=== PATIENT | female | born 1990 | race Caucasian/White ===

== ENCOUNTER 2023-11-24 03:26 | Inpatient (IN) | payer OTHER, SELFPAY ==
[2023-11-24] VITALS (13 sets, daily range): BP systolic 110–147; BP diastolic 66–84; PULSE 120–150; RESP 16–30; TEMP 36.4–37.9; O2SAT 93–98; BMI 21.9
--- NOTE | 2023-11-24 | ECG_ITS ---
Test Reason : TACHYCARDIA Blood Pressure : / mmHG Vent. Rate : 125 BPM Atrial Rate : 125 BPM P-R Int : 142 ms QRS Dur : 108 ms QT Int : 330 ms P-R-T Axes : 069 050 047 degrees QTc Int : 476 ms Sinus tachycardia Possible Left atrial enlargement RSR' or QR pattern in V1 suggests right ventricular conduction delay Borderline ECG No previous ECGs available Referred By: Generic ED Physician Electronically Signed By:VARINDER BARCENAS
--- NOTE | ~2023-11-24 | XR_ITS ---
EXAMINATION: XR CHEST CLINICAL INFORMATION: Status post chest tube removal COMPARISON: Multiple previous chest radiographs, most recent, 12/11 5:51 AM. TECHNIQUE: Frontal view of the chest was obtained. FINDINGS: 2 left-sided chest tubes have been removed. No definite pneumothorax. No change in postoperative left hemithorax with perihilar clips, mid and lower lobe opacity and left apical anastomotic suture line. Nodular density overlying the second anterior rib not seen previously, possibly superimposed soft tissue. Right lung remains clear. Bony structures are intact. XR/XR chest 1V IMPRESSION: No pneumothorax status post left chest tube removals. Otherwise stable postoperative left hemithorax.
--- NOTE | ~2023-11-24 | XR_ITS ---
EXAMINATION: XR CHEST CLINICAL INFORMATION: Status post left lower lobectomy COMPARISON: Chest x-ray on 12/06/2023 TECHNIQUE: Frontal view of the chest was obtained. FINDINGS: Cardiomediastinal silhouette is stable. There is residual left basilar atelectasis and pleural fluid consistent with recent lobectomy. There is a surgical staple line in the left upper chest. There are 2 left-sided chest tubes which are in position. The amount of left pleural air has decreased somewhat compared to the prior exam. XR/XR chest 1V IMPRESSION: 1. Continued decrease in the amount of left pleural air. 2. Left basilar atelectasis and pleural fluid.
--- NOTE | ~2023-11-24 | XR_ITS ---
EXAMINATION: XR CHEST CLINICAL INFORMATION: Lobectomy. COMPARISON: Chest radiograph 12/09/2023. TECHNIQUE: AP view of the chest was obtained. FINDINGS: Stable postsurgical changes in the left lung with suture chains projecting over the left upper lung and multiple surgical clips projecting over the left hilum. Similar positioning of 2 apically oriented left-sided chest tubes. Stable mild residual left-sided hydropneumothorax. Unchanged airspace opacities projecting over the left mid and lower lung. Clear right lung. Stable appearance of the cardiomediastinal silhouette. Similar trace residual subcutaneous emphysema in the left chest wall. No acute osseous findings. XR/XR chest 1V IMPRESSION: No significant change compared to 10/09/2024.
--- NOTE | ~2023-11-24 | XR_ITS ---
EXAMINATION: XR CHEST CLINICAL INFORMATION: Status post left lower lobe resection COMPARISON: Chest portable chest 12/04/2023 at 12:57 PM TECHNIQUE: AP upright portable view of the chest was obtained at 1402 p.m. FINDINGS: The patient is rotated on the AP view. 2 chest tubes are present in the left thorax with their tips at the left apex. There is slight decrease in previously noted large left pneumothorax with significant left pneumothorax remaining. Multiple surgical clips overlie the left hilum. Anastomotic sutures are seen in the left upper lung. Interval removal of endotracheal tube. Interval improvement in patchy opacity in the right lung with mild patchy opacity seen in the right upper lobe. Opacity at the left lung base possibly represents fluid XR/XR chest 1V IMPRESSION: Interval decrease in large left pneumothorax with significant pneumothorax remaining. Interval removal of endotracheal tube. Interval improvement in patchy opacity in the right lung. New opacity at the left lung base which may represent fluid.
--- NOTE | ~2023-11-24 | XR_ITS ---
EXAMINATION: XR CHEST CLINICAL INFORMATION: Missed count COMPARISON: 12/02/2023 TECHNIQUE: Frontal view of the chest was obtained. FINDINGS: 2 chest tubes are present in the left thorax with their tips at the left apex. A large left pneumothorax is seen. Multiple surgical clips overlie the left nancy, new since the prior study. There is also a new chain suture line in the superior aspect of the remaining lung. An ET tube is present about 2 cm above the anabella. Some mild interstitial prominence is present in the right lung. XR/XR chest 1V IMPRESSION: Postoperative changes as described above with large left pneumothorax and 2 left-sided chest tubes in place.
--- NOTE | ~2023-11-24 | US_ITS ---
EXAMINATION: US ABDOMEN LIMITED CLINICAL INFORMATION: Right upper quadrant abdominal pain. Elevated bilirubin.. COMPARISON: None available. TECHNIQUE: Real-time imaging of the right upper quadrant abdominal viscera. FINDINGS: PANCREAS: Normal. LIVER: Normal. The liver is normal in size. The liver contour is normal. Parenchymal echogenicity is normal. No focal hepatic lesion. There is no intrahepatic biliary duct dilatation seen. GALLBLADDER: The gallbladder is physiologically distended containing multiple small gallstones. Upper limits of normal thickness of the gallbladder wall measuring 0.3 cm. No evidence of sludge in the gallbladder. No pericholecystic fluid. Reportedly the patient was not tender while scanning over the gallbladder. COMMON BILE DUCT: The visualized proximal common bile duct is in caliber measuring 0.3 cm in diameter. No filling defect is noted in the visualized common bile duct. RIGHT KIDNEY: Normal. No hydronephrosis. No renal calculi or focal parenchymal lesions. The kidney measures 11.0 cm in maximum dimension. FREE FLUID: None. US/US abdomen limited IMPRESSION: Cholelithiasis without sonographic evidence of acute cholecystitis. No biliary ductal dilatation.
--- NOTE | ~2023-11-24 | XR_ITS ---
EXAMINATION: XR CHEST CLINICAL INFORMATION: Status post left lower lobectomy COMPARISON: Chest x-ray on 12/05/2023 TECHNIQUE: Frontal view of the chest was obtained. FINDINGS: Cardiomediastinal silhouette is stable. There is residual left basilar atelectasis and pleural fluid consistent with recent lobectomy. There is a surgical staple line in the left upper chest. There are 2 left-sided chest tubes which are in position. The amount of left pleural air has decreased somewhat compared to the prior exam. I XR/XR chest 1V IMPRESSION: Decrease in the amount of left pleural air compared to the prior exam.
--- NOTE | ~2023-11-24 | XR_ITS ---
EXAMINATION: XR CHEST CLINICAL INFORMATION: Follow-up left lobectomy COMPARISON: 12/10/2023 TECHNIQUE: Frontal view of the chest was obtained. FINDINGS: Left perihilar surgical clips, left mid to lower hemithorax opacity obscuring the heart border and hemidiaphragm without significant change. Left apical anastomotic sutures and 2 adjacent chest tubes are unchanged in position. Possible small left upper medial pneumothorax. No vascular congestion. Right lung is clear. Bony structures are intact. XR/XR chest 1V IMPRESSION: Postoperative left hemithorax. Small left upper medial pneumothorax not excluded in the presence of 2 indwelling chest tubes.
--- NOTE | ~2023-11-24 | XR_ITS ---
EXAMINATION: XR CHEST CLINICAL INFORMATION: Cough. COMPARISON: None available. TECHNIQUE: Frontal view of the chest was obtained. FINDINGS: The cardiomediastinal silhouette is normal. There is a left perihilar/lower lung field infiltrate. Right lung is clear. There are no significant pleural effusions. The bony structures and soft tissues are unremarkable. XR/XR chest 1V IMPRESSION: Left perihilar/lower lung field infiltrate most consistent with pneumonia.
--- NOTE | ~2023-11-24 | XR_ITS ---
EXAMINATION: XR CHEST CLINICAL INFORMATION: Follow-up VATS COMPARISON: Chest x-ray December 12, 2023 TECHNIQUE: Frontal view of the chest was obtained. FINDINGS: Stable postsurgical changes of the left hemithorax with associated volume loss and elevation of the left hemidiaphragm. Surgical clips project over the left lung apex and left perihilar region. Persistent left basilar airspace disease although there appears to be mild interval improvement in aeration of the left lung base. There is good aeration of the right lung. No pneumothorax. XR/XR chest 1V IMPRESSION: Similar postsurgical changes of the left lung. No pneumothorax.
--- NOTE | ~2023-11-24 | XR_ITS ---
EXAMINATION: XR CHEST CLINICAL INFORMATION: Follow-up left lower lobectomy COMPARISON: None available. TECHNIQUE: AP upright portable view of the chest was obtained. 8:39 AM FINDINGS: Again noted is postoperative left hemithorax with perihilar clips, mid and lower lung opacity and left apical suture line. Possible small left upper medial pneumothorax. Question of loculated air projected over the left upper hemithorax No vascular congestion. Right lung is clear. Bony structures are intact XR/XR chest 1V IMPRESSION: 1. Possible small left upper medial pneumothorax. 2. Question of loculated air projected over the left upper hemithorax.
--- NOTE | ~2023-11-24 | XR_ITS ---
EXAMINATION: XR CHEST CLINICAL INFORMATION: Status post left lower lobectomy. COMPARISON: 12/04/2023 TECHNIQUE: Frontal view of the chest was obtained. FINDINGS: There is a moderate left pneumothorax despite indwelling chest tubes. There is a moderate left pleural effusion. There is left basilar consolidation. Multiple surgical clips overlie left hemithorax. Cardiac silhouette is partially obscured. There is patchy bilateral airspace disease. XR/XR chest 1V IMPRESSION: Moderate left pneumothorax. Moderate left pleural effusion and left basilar consolidation.
--- NOTE | ~2023-11-24 | CT_ITS ---
EXAMINATION: CT ANGIOGRAM OF THE CHEST WITH AND WITHOUT CONTRAST (CT PULMONARY ANGIOGRAM FOR PE) CLINICAL INFORMATION: Pain. Tachycardia. Oral contraception. COMPARISON: Chest radiograph done earlier the same day. TECHNIQUE: Prior to contrast administration, noncontrast localization images were obtained. Subsequently, multidetector volumetric imaging was performed from the thoracic inlet to below the diaphragms following the administration of 65 mL Omnipaque 350 intravenous contrast. No contrast reaction reported. Sagittal, coronal, and MIP oblique sagittal reformatted images were obtained on the CT workstation, uploaded to PACS, and reviewed. This CT examination was performed using dose optimization techniques as appropriate, variously including the following: *Automated exposure control *Adjustment of mA and/or kV according to patient size (this includes techniques or standardized protocols for targeted exams where dose is matched to indication/reason for exam; i.e. extremities or head) *Use of iterative reconstruction technique Total exam dose-length product 224 mGy-cm. FINDINGS: QUALITY OF STUDY/CONTRAST BOLUS: Suboptimal due to contrast bolus timing. PULMONARY ARTERIES: No large central or segmental pulmonary embolism. Evaluation is somewhat limited due to contrast bolus timing. THORACIC AORTA: No thoracic aortic dilatation or dissection. LUNG: Dense posterior left upper lobe airspace consolidations with faint air bronchograms. Focal, dense consolidation within the anterior aspect of the left lung apex. Findings are consistent with pneumonia. No large pulmonary nodule or mass. The central airways are patent. PLEURA: No pleural effusion or pneumothorax. MEDIASTINUM: Normal heart size. No pericardial effusion. No hilar or mediastinal lymphadenopathy. No evidence of septal bowing or right heart strain. CORONARY ARTERY CALCIFICATION: None visualized on this study. CHEST WALL/AXILLA: No axillary or internal mammary lymphadenopathy. OSSEOUS STRUCTURES: No acute or suspicious osseous abnormality. UPPER ABDOMEN: Unremarkable. No reflux of contrast into the hepatic veins to suggest elevated right heart pressures. CT/CT angio chest PE protocol IMPRESSION: 1. No large central or segmental pulmonary embolism. Evaluation is somewhat limited due to contrast bolus timing. 2. Dense airspace consolidations within the left upper lobe, consistent with pneumonia. Followup imaging after resolution of infection could be considered if there is concern for an underlying lesion. VTE: negative.
--- NOTE | ~2023-11-24 | XR_ITS ---
EXAMINATION: XR CHEST CLINICAL INFORMATION: Chest tube COMPARISON: Multiple previous studies including 12/07/2023 TECHNIQUE: Frontal view of the chest was obtained. FINDINGS: Right lung is well-expanded and clear. Left lung base posteriorly is diminished in volume due to postsurgical resection with lobe mohini over the left hilum and there is residual left apical pneumothorax. The chest tube is projecting over the left apex. XR/XR chest 1V IMPRESSION: Unresolved left apical pneumothorax with chest tube in place
--- NOTE | ~2023-11-24 | XR_ITS ---
EXAMINATION: XR CHEST CLINICAL INFORMATION: Status post left upper lobe resection. COMPARISON: Chest radiograph 12/08/2023. TECHNIQUE: AP view of the chest was obtained. FINDINGS: Postoperative changes from left upper lobectomy. Unchanged positioning of left apically oriented chest tubes. Stable small residual left-sided hydropneumothorax. Unchanged airspace opacities in the left lower lung and left perihilar region. Clear right lung. Stable prominence of the cardiomediastinal silhouette. Trace residual subcutaneous emphysema in the left-sided chest wall. No acute osseous findings. Visualized upper abdomen is within normal limits. XR/XR chest 1V IMPRESSION: Stable examination compared to 12/08/2023.
[2023-11-24 04:02] LABS: Basophils Absolute Auto 0.1 X10*3/uL (0.0-0.2); Basophils Percent Auto 0.4 % (0-2); Eosinophils Absolute Auto 0.2 X10*3/uL (0.0-0.4); Eosinophils Percent Auto 1.1 % (0-4); Hematocrit 42.8 % (37.0-47.0); Hemoglobin 14.5 g/dl (12.0-16.0); Imm Gran Abs Auto 0.11 X10*3/uL (0.00-0.03); Imm Gran Pct Auto 0.6 % (0.0-0.4); Lymphocytes Absolute Auto 0.4 X10*3/uL (1.2-4.9); Lymphocytes Percent Auto 1.9 % (20-40); MANUAL DIFF FLAG SCAN; Mean Corpuscular HGB Conc 33.9 g/dl (31.0-35.0); Mean Corpuscular Hemoglobin 29.5 pg (27.0-33.0); Mean Platelet Volume 11.3 fL (9.4-12.3); Monocytes Absolute Auto 0.4 X10*3/uL (0.1-1.2); Monocytes Percent Auto 1.9 % (2-11); Neutrophils Absolute Auto 17.5 x10*3/uL (2.0-8.3); Neutrophils Percent Auto 94.1 % (45-73); Platelet Count 153 X10*3/uL (160-400); Red Blood Count 4.92 X10*6/uL (4.20-5.50); Red Cell Distribution Width 12.6 % (11.0-16.0); SCAN SMEAR FLAG 1; White Blood Count 18.6 X10*3/uL (4.8-10.8)
[2023-11-24 04:05] LABS: IDNOW Serial# 08D9AD1C; Strep A Nucleic Acid Positive (Negative)
[2023-11-24 04:18] LABS: Anion Gap 17 (12-20); Blood Urea Nitrogen 7 mg/dL (9-16); Calcium 8.8 mg/dL (8.4-10.2); Carbon Dioxide 20 mmol/L (22-29); Chloride 105 mmol/L (96-108); Creatinine Clr Calc Pharmacy 89.4; Estimated Glomerular Filt Rate > 60; Glucose Random 102 mg/dL (60-115); Potassium 3.3 mmol/L (3.3-5.1); Sodium 139 mmol/L (135-145)
[2023-11-24 04:20] LABS: SLIDE REVIEW VERIFIED
[2023-11-24 04:40] LABS: Influenza A PCR NEGATIVE (Negative); Influenza B PCR NEGATIVE (Negative); Resp Syncy Virus RNA Qual PCR NEGATIVE (Negative); SARS COV2 PCR INHOUSE NEGATIVE (Negative)
--- NOTE | 2023-11-24 09:02 | ED_ITS ---
HPI - URI/Sore Throat General Chief Complaint: Upper Respiratory Symptoms Stated Complaint: flu like symptoms Time Seen by Provider: 11/24/23 08:55 Source: patient Mode of arrival: ambulatory Limitations: no limitations History of Present Illness HPI Narrative: 33 yo female with no sig PMH uses OCP patch notes since 11/17 she has been sick with a cough, fevers, chills, and sore throat. She has no medical problems and is not immunosuppressed. No travel, no hotel stays, no exposure to air conditioners/portable heaters. She does not smoke. She works at [employer]. She has back pain on left from coughing. She has never been sick like this before. MD elicited complaint: fever, cough and sore throat Onset (ago): day(s) (11/17) Consistency: constant Severity: moderate Description of mucous: clear Able to tolerate fluids by mouth: Yes Exacerbating factors: swallowing and other (coughing) Relieving factors: nothing Context: sick contacts (boyfriend is getting over an illness) Associated symptoms: fever, chills, voice changes, headache, cough and shortness of breath Treatments prior to arrival: cold medicine Related Data Allergies Allergy/AdvReac Type Severity Reaction Status Date / Time No Known Allergies Allergy Verified 11/24/23 03:45 Review of Systems 2 Review of Systems: Constitutional : pos Fever, pos Chills ENT/Mouth : pos Hoarseness, pos sore throat, No Rhinorrhea Eyes: No Redness, No Discharge, No Vision Changes Cardiovascular : No Chest Pain, positive SOB, positive Dyspnea on Exertion, No Edema Respiratory : positive Cough, pos Sputum, positive Wheezing, Gastrointestinal : pos Nausea, No Vomiting, No Diarrhea, No abdominal Pain Genitourinary : No Dysuria, No Hematuria Musculoskeletal : No joint pain, No Myalgias Skin : No rash Neuro : pos Weakness, No Numbness, No Headache Psych : No anxiety, depression Heme/Lymph: No Bruising, No Bleeding Endocrine : No Polyuria, No Polydipsia All other systems reviewed and are negative [facility] Past Medical History Attestation statement: The following information was validated with the patient. Medical History No pertinent past medical history Social History Social History Patient Tobacco Use Status: Never used Tobacco Smoked in Last 30 Days: No Use of substances other than those prescribed or required for medical reasons: No Advance Directives: No Advance Directives Information Provided: No Patient : No Physical Exam 2 Vital Signs: Vital Signs: Last Vital Signs Temp 99.2 F 11/24/23 12:18 Pulse 138 H 11/24/23 12:18 Resp 30 H 11/24/23 12:18 BP 117/69 11/24/23 12:18 Pulse Ox 98 11/24/23 12:18 O2 Del Method Room Air 11/24/23 12:18 BMI result Body Mass Index 21.9 Appearance: Alert. Oriented X3. Mild acute distress. Eyes: Pupils equal, round and reactive to light. ENT: Pharynx erythema noted no exudates, has white patchy film on tongue Neck: Normal inspection. Neck supple. CVS: tachycardic heart rate and rhythm. Pulses normal. Respiratory: No respiratory distress. Breath sounds diminished L lung Abdomen: Soft and nontender. Skin: Skin warm and dry. pale skin color. Normal skin turgor. Extremities: No lower extremity edema. No calf ttp Neuro: Oriented X 3. No motor deficit. No sensory deficit. Course Course Course Narrative: potassium and magnesium being repleted direct bili elevated - US of liver ordered the patient is very sick this could be a post flu pneumonia given this I am going to add on vancomycin given her presentation Medications Administered Generic Name Dose Route Start Last Admin Trade Name Freq PRN Reason Stop Dose Admin Sodium Chloride 1,000 mls @ 100 mls/hr 11/24/23 12:00 11/24/23 12:16 Ns IVCONT 100 mls/hr .Q10H JOHN Administration Discontinued Medications Generic Name Dose Route Start Last Admin Trade Name Freq PRN Reason Stop Dose Admin Acetaminophen 975 mg 11/24/23 09:07 11/24/23 09:30 Acetaminophen 325 Mg Tablet PO 11/24/23 09:08 975 mg ONCE ONE Administration Guaifenesin 5 ml 11/24/23 11:18 11/24/23 11:25 Guaifenesin 100 Mg/5 Ml Liquid PO 11/24/23 11:19 5 ml ONCE ONE Administration Hydromorphone HCl 0.5 mg 11/24/23 11:18 11/24/23 11:24 Hydromorphone Hcl 0.5 Mg/0.5 Ml Syringe IVPUSH 11/24/23 11:19 0.5 mg ONCE ONE Administration Protocol Ceftriaxone Sodium 2 gm/ 50 mls @ 100 mls/hr 11/24/23 09:07 11/24/23 11:25 Sodium Chloride IV 11/24/23 09:36 Infused ONCE ONE Infusion Azithromycin 500 mg/ Sodium 250 mls @ 125 mls/hr 11/24/23 09:07 11/24/23 10:03 Chloride IV 11/24/23 11:06 125 mls/hr ONCE ONE Administration Sodium Chloride 1,905.09 mls @ 1,905.09 mls/hr 11/24/23 09:07 11/24/23 11:55 Ns 30 ml/kg infuse over 1 hr (1905.09 ml) 11/24/23 10:06 Infused IV Infusion .Q1H STA Magnesium Sulfate 2 gm in 50 mls @ 25 mls/hr 11/24/23 10:02 11/24/23 10:14 Magnesium Sulfate/H2o IV 11/24/23 12:01 25 mls/hr ONCE ONE Administration Iohexol 65 ml 11/24/23 10:39 11/24/23 10:40 Iohexol 350 Mg/Ml 100 Ml Infus..Btl IV 11/24/23 10:40 65 ml ONCE ONE Administration Ketorolac Tromethamine 15 mg 11/24/23 09:07 11/24/23 09:30 Ketorolac Tromethamine 15 Mg/Ml Vial IVPUSH 11/24/23 09:08 15 mg ONCE ONE Administration Morphine Sulfate 4 mg 11/24/23 10:10 11/24/23 10:37 Morphine Sulfate 4 Mg/Ml Cartridge IVPUSH 11/24/23 10:11 4 mg ONCE ONE Administration Protocol Nystatin 400,000 unit 11/24/23 09:07 11/24/23 09:30 Nystatin Oral Susp 500,000 Unit/5 Ml Oral.Susp PO 11/24/23 09:08 400,000 unit ONCE ONE Administration Protocol Potassium Chloride 40 meq 11/24/23 09:39 11/24/23 10:03 Potassium Chloride Packet 20 Meq Packet PO 11/24/23 09:40 40 meq ONCE ONE Administration Medical Decision Making Medical Decision Making MDM Narrative: 33 yo female no PMH here with cough, fevers, URI symptoms, sore throat and L rib pain at this time will need labs, cultures, lactic acid, 30cc/kg , has pos strep but also L sided pneumonia - ceftriaxone and azithromycin ordered. Given sig tachycardia and pleuritic chest pain with OCP use I am going to obtain CTA - possible admit. Differential Diagnosis Differential Diagnoses: The differential diagnosis associated with the presentation includes pneumonia, VTE, viral syndrome Admission/Observation Consideration of admission/observation: Escalation of care including admission/observation considered Consult Healthcare Provider Management of the patient was discussed with: Hospitalist Lab Data [facility] Lab Attestation statement: I reviewed the patient's lab results. 11/24/23 03:51 11/24/23 03:51 Labs: Lab Results 11/24/23 11/24/23 11/24/23 Range/Units 03:51 09:16 11:36 WBC 18.6 H (4.8-10.8) X10*3/uL RBC 4.92 (4.20-5.50) X10*6/uL Hgb 14.5 (12.0-16.0) g/dl Hct 42.8 (37.0-47.0) % MCV 87.0 (80.0-98.0) fL MCH 29.5 (27.0-33.0) pg MCHC 33.9 (31.0-35.0) g/dl RDW 12.6 (11.0-16.0) % Plt Count 153 L (160-400) X10*3/uL MPV 11.3 (9.4-12.3) fL Immature Gran % (Auto) 0.6 H (0.0-0.4) % Neut % (Auto) 94.1 H (45-73) % Lymph % (Auto) 1.9 L (20-40) % [place] % (Auto) 1.9 L (2-11) % Eos % (Auto) 1.1 (0-4) % Baso % (Auto) 0.4 (0-2) % Lymph # (Auto) 0.4 L (1.2-4.9) X10*3/uL [place] # (Auto) 0.4 (0.1-1.2) X10*3/uL Eos # (Auto) 0.2 (0.0-0.4) X10*3/uL Baso # (Auto) 0.1 (0.0-0.2) X10*3/uL Abs Immat Gran (auto) 0.11 H (0.00-0.03) X10*3/uL Absolute Neuts (auto) 17.5 H (2.0-8.3) x10*3/uL Absolute Nucleated RBC 0.000 (0.0-0.012) X10*3/uL Nucleated RBC % (auto) 0.0 (0.0-0.2) /100WBC Smear Tech's Comments VERIFIED Sodium 139 (135-145) mmol/L Potassium 3.3 (3.3-5.1) mmol/L Chloride 105 (96-108) mmol/L Carbon Dioxide 20 L (22-29) mmol/L Anion Gap 17 (12-20) BUN 7 L (9-16) mg/dL Creatinine 0.87 (0.5-1.4) mg/dL Estim Creat Clear Calc 89.4 Estimated GFR > 60 Random Glucose 102 (60-115) mg/dL Lactic Acid 3.3 H* (0.5-2.0) mmol/L Lactic Acid F/U @ 2Hr 3.9 H* (0.5-2.0) mmol/L Calcium 8.8 (8.4-10.2) mg/dL Magnesium 1.5 L (1.6-2.6) mg/dL Total Bilirubin 3.7 H (0.0-1.0) mg/dL Direct Bilirubin 2.4 H (0.0-0.5) mg/dL AST 21 (5-31) U/L ALT 22 (0-31) U/L Alkaline Phosphatase 110 (39-117) U/L Troponin I High Sens < 2.7 (<3.5-17.0) ng/L Total Protein 7.0 (6.5-8.0) g/dL Albumin 3.3 L (3.5-5.0) g/dL Procalcitonin 2.10 ng/mL Beta HCG, Quant < 2 mIU/mL Influenza Type A (PCR) NEGATIVE (Negative) Influenza Type B (PCR) NEGATIVE (Negative) RSV RNA Qual (PCR) NEGATIVE (Negative) SARS-CoV-2 RNA (RT-PCR) NEGATIVE (Negative) S. pyogenes GrpA KRIS Positive A (Negative) Independent Interpretation I performed an independent interpretation of an: EKG, Plain X-Ray (L sided pneumonia) and CT Scan Interpretation: Rate: 125 Rhythm: sinus tachycardia Mitchell: normal Normal P waves. Normal ADRIAN. Normal QRS complex. ST T wave : normal no MICHELLE qTC: 476 prior studies: no acute ischemia The study has been interpreted contemporaneously by me. . Radiology Impression Discussion of test interpretation with radiology: I have reviewed the radiologist's reading. Critical Care Time Critical Care Time Critical Care Time: Yes Total Critical Care Time: 60 Attestation: repeat IV morphine for pain, IVF 30cc/kg bolus, repeat labs, repletion of lytes, admission to facility. I attest to this time spent taking care of the patient Discharge Plan Discharge Clinical Impression: Acidosis, lactic, Strep throat, Oral thrush, Sinus tachycardia, Hypomagnesemia Pneumonia Qualifiers: Pneumonia type: due to unspecified organism Laterality: left Lung location: u nspecified part of lung Qualified Code(s): J18.9 - Pneumonia, unspecified organism Elevated WBC count Qualifiers: Leukocytosis type: unspecified Qualified Code(s): D72.829 - Elevated white blood cell count, unspecified Patient Disposition: Admitted As Inpatient
[2023-11-24] MEDS: Nystatin Oral Susp 500,000 UNIT/5 ML ORAL.SUSP 400000 UNIT PO (09:30)
[2023-11-24] MEDS: Acetaminophen 325 MG TABLET 975 MG PO (09:30)
[2023-11-24] MEDS: Ketorolac Tromethamine 15 MG/ML VIAL IVPUSH (09:30)
[2023-11-24] MEDS: 0.9 % Sodium Chloride 1,905.09 ML 1905.09 ML IV (09:32)
[2023-11-24] MEDS: cefTRIAXone sodium 2 GM in 0.9 % Sodium Chloride 50 ML IV (09:36)
[2023-11-24 09:47] LABS: Lactic Acid 3.3 mmol/L (0.5-2.0)
[2023-11-24 09:57] LABS: Alanine Aminotransferase 22 U/L (0-31); Albumin Level 3.3 g/dL (3.5-5.0); Alkaline Phosphatase 110 U/L (39-117); Aspartate Amino Transferase 21 U/L (5-31); Bilirubin Direct 2.4 mg/dL (0.0-0.5); Bilirubin Total 3.7 mg/dL (0.0-1.0); Magnesium 1.5 mg/dL (1.6-2.6)
[2023-11-24] MEDS: Azithromycin 500 MG in 0.9 % Sodium Chloride 250 ML 125 MG IV (10:03)
[2023-11-24] MEDS: Potassium Chloride Packet 20 MEQ PACKET 40 MEQ PO (10:03)
[2023-11-24 10:10] LABS: HCG Quantitative < 2 mIU/mL
[2023-11-24] MEDS: Magnesium Sulfate/H2O 2 GM/50 ML PIGGYBACK IV (10:14)
[2023-11-24 10:17] LABS: Troponin-I High Sensitivity < 2.7 ng/L (<3.5-17.0)
[2023-11-24] MEDS: Morphine Sulfate 4 MG/ML CARTRIDGE IVPUSH (10:37)
[2023-11-24] MEDS: iohexoL 350 MG/ML 100 ML INFUS..BTL 65 ML IV (10:40)
[2023-11-24 11:21] LABS: Reflex Lactate? Lactic Acid Added
[2023-11-24] MEDS: HYDROmorphone HCl 0.5 MG/0.5 ML SYRINGE IVPUSH ×2 (11:24→21:30)
[2023-11-24] MEDS: guaiFENesin 100 MG/5 ML LIQUID PO (11:25)
--- NOTE | 2023-11-24 11:48 | PC.NURSE ---
Pt is a&ox4 coming in after feeling sick for about a week. Pt reports cough, dyspnea, and back pain. moving all extremities independently. Speaking in clear full sentences.Tachy on monitor in the 140's. Pt reports heart rate has been high for a couple of days.
[2023-11-24 12:09] LABS: ~Lactic Acid-LAB USE ONLY 3.9 mmol/L (0.5-2.0)
[2023-11-24] MEDS: 0.9 % Sodium Chloride 1,000 ML 100 ML IVCONT ×2 (12:16→15:39)
[2023-11-24] MEDS: vancomycin HCL 1,500 MG in 0.9 % Sodium Chloride 500 ML 333.33 MG IV (12:48)
--- NOTE | 2023-11-24 13:13 | PHA.MEDREC ---
Pharmacy Consult ? Medication Reconciliation Pharmacy has completed the medication reconciliation. Pt uses patch every week, no breaks.
[2023-11-24 13:39] LABS: Reflex Lactate? 2 Y
[2023-11-24 14:47] LABS: ~Lactic Acid-LAB USE ONLY 3.5 mmol/L (0.5-2.0)
--- NOTE | 2023-11-24 14:50 | PC.NURSE ---
critical lactic reported 3.5- MD Richardson and Pt primary nurse, Stefano all notified via [employer] connect
--- NOTE | 2023-11-24 15:29 | PM.IMHP ---
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 She is reporting subjective fevers with associated sweats and chills, sore throat, dry cough, shortness of breath both with exertion and at rest, nausea, constipation, anorexia. She is also endorsing pleuritic pain across the upper back. She does state that her father and boyfriend were sick with unknown respiratory illness prior to her onset of symptoms. No recent travel. Has used oral antibiotics in last month for dental infection On arrival, patient tachycardic to 150, tachypneic to 30. Did develop low-grade fevers to 100.3. No hypoxia. Blood pressure is normal. There is a leukocytosis of 18.6 with slight left shift. Platelets 153. Renal function normal, electrolyte levels normal except for CO2 20 and mag 1.5. Total bilirubin 3.7, direct bilirubin 2.4. AST / ALT within normal limits. Negative for COVID-19, RSV, influenza. Positive for strep a pyogenes. Procalcitonin 2.10.Initial lactic acid 3.3, received 1905 mL IV NS with repeat lactic acid 3.9. Given additional IV NS at 100 mL/hr, lactic acid now trending down to 3.5. Tachycardia has improved to 120. Blood pressures remain stable on admission. Abdominal ultrasound shows cholelithiasis without evidence of cholecystitis or any biliary ductal dilatation. CTA of the chest negative for any VTE but shows dense airspace consolidation within the left lung, consistent with pneumonia. In the ED, has received IV vancomycin, 2 g IV ceftriaxone, 500 mg IV azithromycin, Robitussin, and 40 mEq potassium chloride. Review of Systems Review of Systems: General: +Subjective fevers, + chills /sweats, + malaise. No unintentional weight loss HEENT: +sore throat. No nasal congestion, rhinorrhea, sinus pain, ear pain Cardiovascular: No chest pain, palpitations, or leg edema Respiratory: +sob, +cough. No wheezing GI: +nasuea, +anorexia. No abdominal pain, vomiting, diarrhea, constipation, melena, hematochezia : No dysuria, hematuria, increased urinary frequency, decreased urinary output MSK: No myalgia. +Pleuritic back pain Neuro: No headaches, weakness, paresthesias Skin: No rashes or lesions [facility] Medical History (Updated 11/24/23 @ 15:42 by OWEN Peterson) Former cigarette smoker History of intravenous drug use in remission History of hepatitis C Marijuana smoker History of asthma Social History Patient Tobacco Use Status: Never used Tobacco Smoked in Last 30 Days: No Use of substances other than those prescribed or required for medical reasons: No Advance Directives: No Advance Directives Information Provided: No Patient : No Meds Allergies Allergy/AdvReac Type Severity Reaction Status Date / Time No Known Allergies Allergy Verified 11/24/23 03:45 Active Medications: Current Medications Acetaminophen (Acetaminophen 325 Mg Tablet) 650 mg PO Q6H PRN PRN Reason: Pain, Mild (Pain Scale 1-3) Duloxetine HCl (Duloxetine Hcl 60 Mg Capsule.Dr) 60 mg PO BID JOHN Guaifenesin/Codeine Phosphate (Guaifen/Codeine Sf 200/20/10ml 10 Ml Liquid) 10 ml PO Q6H PRN PRN Reason: Cough Heparin Sodium (Porcine) (Heparin Sodium,Porcine 5,000 Unit/Ml Vial) 5,000 unit SUBCUT Q12H [facility] Sodium Chloride (Ns) 1,000 mls @ 100 mls/hr IVCONT .Q10H JOHN Last Admin: 11/24/23 12:16 Dose: 100 mls/hr Levofloxacin (Levaquin) 750 mg in 150 mls @ 100 mls/hr IV Q24H JOHN Azithromycin 500 mg/ Sodium (Chloride) 250 mls @ 125 mls/hr IV Q24H [facility] Lidocaine (Lidocaine 4 % Patch Adh..Patch) 2 patch TRANSDERMA DAILY JOHN; Protocol Non-Formulary Medication (Norelgestromin-Ethin.Estradiol [Xulane]) 1 patch TOPICAL Haddad [facility] Ondansetron HCl (Ondansetron Hcl 4 Mg/2 Ml Vial) 4 mg IVPUSH Q8H PRN PRN Reason: Nausea and Vomiting Pharmacy Consult (Consult Rx Vancomycin Dosing) 1 each MISCELLANE DAILY PRN PRN Reason: Consult order Senna (Sennosides 8.6 Mg Tablet) 17.2 mg PO BEDTIME PRN PRN Reason: Constipation Sodium Chloride (0.9 % Sodium Chloride Flush 3 Ml Syringe) 3 ml IVFLUSH QSHIFT [facility] Home Medications Medication Instructions Recorded Confirmed Last Taken Type cranberry-vit 1 cap PO DAILY 11/24/23 11/24/23 11/23/23 History C-B.coag-FOS-L.acid-L.rham 250 mg-30 mg-39.5 mg capsule (Probiotic Plus and Cranberry) duloxetine 60 mg capsule,delayed 60 mg PO BID 11/24/23 11/24/23 11/23/23 History release norelgestromin 150 mcg-e.estradiol 1 patch topical QWEEK 11/24/23 11/24/23 Unknown History 35 mcg/24 hr weekly transderm patch (Xulane) Physical Exam Vital Signs and Narrative: Vital Signs: Last Vital Signs Temp 98.2 F 11/24/23 13:39 Pulse 125 H 11/24/23 13:39 Resp 20 11/24/23 13:39 BP 122/74 11/24/23 13:39 Pulse Ox 96 11/24/23 13:39 O2 Del Method Room Air 11/24/23 13:39 BMI result Body Mass Index 21.9 Constitutional - Awake and Alert, No apparent distress Eyes - PERRLA, EOMI Mouth/throat - velvety white coating on tongue, posterior oropharynx is erythematous without any appreciable exudates or significant tonsillar hypertrophy Neck- supple,anterior cervical adenopathy Cardiovascular - S1S2, RRR, No edema Respiratory - Normal lung expansion, Normal respiratory effort, No respiratory distress, diminished left side lung, otherwise cta Gastrointestinal - NT / ND; +BS; No rebound or guarding Extremities - no calf tenderness bilaterally, no swelling Musculoskeletal - ttp across upper back L>R Skin - Warm/Dry Neurological - Alert & oriented x3 Psychological - Appropriate affect Results Labs 11/24/23 03:51 11/24/23 03:51 Labs: Laboratory Results - last 24 hr 11/24/23 11/24/23 11/24/23 03:51 09:16 11:36 MCV 87.0 MCH 29.5 MCHC 33.9 RDW 12.6 Plt Count 153 L MPV 11.3 Immature Gran % (Auto) 0.6 H Neut % (Auto) 94.1 H Lymph % (Auto) 1.9 L [place] % (Auto) 1.9 L Eos % (Auto) 1.1 Baso % (Auto) 0.4 Lymph # (Auto) 0.4 L [place] # (Auto) 0.4 Eos # (Auto) 0.2 Baso # (Auto) 0.1 Abs Immat Gran (auto) 0.11 H Absolute Neuts (auto) 17.5 H Absolute Nucleated RBC 0.000 Nucleated RBC % (auto) 0.0 Smear Tech's Comments VERIFIED Anion Gap 17 Estim Creat Clear Calc 89.4 Estimated GFR > 60 Random Glucose 102 Lactic Acid 3.3 H* Lactic Acid F/U @ 2Hr 3.9 H* Lactic Acid F/U @ 4Hr Calcium 8.8 Magnesium 1.5 L Total Bilirubin 3.7 H Direct Bilirubin 2.4 H AST 21 ALT 22 Alkaline Phosphatase 110 Total Protein 7.0 Albumin 3.3 L Procalcitonin 2.10 Beta HCG, Quant < 2 Influenza Type A (PCR) NEGATIVE Influenza Type B (PCR) NEGATIVE RSV RNA Qual (PCR) NEGATIVE SARS-CoV-2 RNA (RT-PCR) NEGATIVE S. pyogenes GrpA KRIS Positive A 11/24/23 14:00 MCV MCH MCHC RDW Plt Count MPV Immature Gran % (Auto) Neut % (Auto) Lymph % (Auto) [place] % (Auto) Eos % (Auto) Baso % (Auto) Lymph # (Auto) [place] # (Auto) Eos # (Auto) Baso # (Auto) Abs Immat Gran (auto) Absolute Neuts (auto) Absolute Nucleated RBC Nucleated RBC % (auto) Smear Tech's Comments Anion Gap Estim Creat Clear Calc Estimated GFR Random Glucose Lactic Acid Lactic Acid F/U @ 2Hr Lactic Acid F/U @ 4Hr 3.5 H* Calcium Magnesium Total Bilirubin Direct Bilirubin AST ALT Alkaline Phosphatase Total Protein Albumin Procalcitonin Beta HCG, Quant Influenza Type A (PCR) Influenza Type B (PCR) RSV RNA Qual (PCR) SARS-CoV-2 RNA (RT-PCR) S. pyogenes GrpA KRIS Imaging Radiologist's Impressions: Impressions Chest X-Ray 11/24/23 03:58 IMPRESSION: Left perihilar/lower lung field infiltrate most consistent with pneumonia. Chest CTA 11/24/23 10:31 IMPRESSION: 1. No large central or segmental pulmonary embolism. Evaluation is somewhat limited due to contrast bolus timing. 2. Dense airspace consolidations within the left upper lobe, consistent with pneumonia. Followup imaging after resolution of infection could be considered if there is concern for an underlying lesion. VTE: negative. Abdomen Ultrasound 11/24/23 11:00 IMPRESSION: Cholelithiasis without sonographic evidence of acute cholecystitis. No biliary ductal dilatation. 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 # Acute pneumonia involving entirety of left lung with severe sepsis - patient very ill-appearing on arrival meeting severe sepsis criteria with leukocytosis 18.6, tachycardia to 150, tachypnea to 30, acute lactic acidosis trending down after bolus fluids. No hypotension or septic shock - IV vancomycin, IV Levaquin, IV azithromycin (hx IVDA) ( initiated 11/24) - sputum culture, Legionella antigen, strep pneumo antigen, MRSA nasal swab pending - guaifenesin with codeine - lidocaine patches, ketorolac, p.r.n. morphine for pleuritic back pain -resp viral panel pending - pulmonology consult - monitor on med/tele - trend PCT, follow cbc, cultures #Hx IVDA - U tox pending - Check HIV, hep c viral load DVT prophylaxis-heparin full code patient requires inpatient stay at least 2 midnights for further management extensive pneumonia involving the left lung with severe sepsis requiring IV antibiotics, close monitoring of vital signs, IV fluid resuscitation, and expert consultation. Quality Stroke Does the patient have a stroke diagnosis?: No VTE Prior VTE?: No VTE Risk Level:: Medical - moderate - high VTE Device Contraindication: Treatment Not Indicated VTE Drug Contraindication: N/A - Med Ordered
[2023-11-24] MEDS: Morphine Sulfate 2 MG/ML CARTRIDGE IVPUSH ×2 (15:31→18:21)
[2023-11-24] MEDS: Lidocaine 4 % Patch ADH..PATCH 2 PATCH TRANSDERMA (15:32)
[2023-11-24] MEDS: Heparin Sodium,Porcine 5,000 UNIT/ML VIAL 5000 UNIT SUBCUT (15:38)
[2023-11-24] MEDS: guaiFEN/Codeine SF 200/20/10ML 10 ML LIQUID PO ×2 (15:38→21:48)
[2023-11-24] MEDS: levoFLOXacin/D5W 750 MG/150 ML PIGGYBACK 100 MG IV (16:09)
[2023-11-24 16:10] LABS: Amphetamine Screen Urine Not Detected (Not Detect); Barbiturates, Urine Not Detected (Not Detect); Benzodiazepines Screen Urine Not Detected (Not Detect); Cannabinoid Screen Urine POSITIVE (Not Detect); Cocaine Screen Urine Not Detected (Not Detect); Fentanyl, urine Not Detected (Not Detect); Opiate Screen Urine POSITIVE (Not Detect); Phencyclidine Screen Urine Not Detected (Not Detect)
[2023-11-24] MEDS: 0.9 % Sodium Chloride Flush 3 ML SYRINGE IVFLUSH ×2 (16:10→21:33)
[2023-11-24 17:02] LABS: Cancel Lactic Acid Canceled
[2023-11-24] MEDS: DULoxetine HCl 60 MG CAPSULE.DR PO (21:33)
[2023-11-25] VITALS (8 sets, daily range): BP systolic 112–120; BP diastolic 60–72; PULSE 101–140; RESP 18–20; TEMP 36.6–37.8; O2SAT 95–99
[2023-11-25] MEDS: HYDROmorphone HCl 1 MG/ML SYRINGE IVPUSH (00:09)
[2023-11-25] MEDS: guaiFENesin 200 MG/10 ML 10 ML LIQUID PO (02:31)
[2023-11-25] MEDS: 0.9 % Sodium Chloride 1,000 ML 100 ML IVCONT ×2 (02:31→17:56)
[2023-11-25] MEDS: Heparin Sodium,Porcine 5,000 UNIT/ML VIAL 5000 UNIT SUBCUT ×2 (03:54→15:23)
[2023-11-25 04:00] LABS: HIV AB/AG Nonreactive (Nonreactive); HIV Num 1 0.06 S/CO (0.00-0.99)
[2023-11-25] MEDS: vancomycin HCL 1,250 MG in 0.9 % Sodium Chloride 250 ML 166.67 MG IV (06:00)
[2023-11-25 08:03] LABS: Hemoglobin 11.5 g/dl (12.0-16.0); PLT CLUMP 1
[2023-11-25 08:05] LABS: Hematocrit 33.7 % (37.0-47.0); Mean Corpuscular HGB Conc 34.1 g/dl (31.0-35.0); Mean Corpuscular Hemoglobin 29.6 pg (27.0-33.0); Mean Corpuscular Volume 86.9 fL (80.0-98.0); Mean Platelet Volume 11.6 fL (9.4-12.3); Red Blood Count 3.88 X10*6/uL (4.20-5.50)
[2023-11-25 08:09] LABS: Platelet Count 140 X10*3/uL (160-400); WBC ABN SCTR FOR CBC 1
[2023-11-25 08:31] LABS: Alanine Aminotransferase 13 U/L (0-31); Albumin Level 2.4 g/dL (3.5-5.0); Alkaline Phosphatase 61 U/L (39-117); Anion Gap 15 (12-20); Aspartate Amino Transferase 14 U/L (5-31); Bilirubin Direct 2.3 mg/dL (0.0-0.5); Bilirubin Total 2.8 mg/dL (0.0-1.0); Blood Urea Nitrogen 11 mg/dL (9-16); Calcium 7.1 mg/dL (8.4-10.2); Carbon Dioxide 16 mmol/L (22-29); Chloride 106 mmol/L (96-108); Creatinine Clr Calc Pharmacy 109.6; Estimated Glomerular Filt Rate > 60; Glucose Random 76 mg/dL (60-115); Potassium 4.2 mmol/L (3.3-5.1); Sodium 133 mmol/L (135-145); Total Protein 5.2 g/dL (6.5-8.0)
[2023-11-25 08:33] LABS: Atypical Lymph Absolute Manual 0.3 x10*3/uL; Atypical Lymphs Percent Manual 2 % (0-6); Band Neutrophils Percent 4 % (3-5); Lymphocytes Absolute Manual 0.5 X10*3/uL (1.2-4.9); Lymphocytes Percent Manual 3 % (20-40); Monocytes Absolute Manual 0.3 X10*3/uL (0.1-1.2); Monocytes Percent Manual 2 % (2-11); Neutrophils Absolute Manual 14.9 X10*3/uL (2.0-8.3); Neutrophils Percent Manual 89 % (45-73)
[2023-11-25 08:34] LABS: Platelet Estimate NORMAL (NORMAL); RBC Morphology NOTED
[2023-11-25 08:35] LABS: Burr Cells 2+ (3-5) /OIF; Large Platelet PRESENT; Platelet Morphology Comment NOTED
--- NOTE | 2023-11-25 09:20 | MHC.CM.PN ---
PT REPORTS SHE LIVES WITH HER S/O AND IS INDEPENDENT WITH CARE PT HAS NO DME AND NO SERVICES PT DECLINES TO COMPLETE A HCP PCP: DR SOLIS AT [facility] DCP: HOME NO SERVICES VIA FAMILY TRANSPORT
[2023-11-25] MEDS: guaiFEN/Codeine SF 200/20/10ML 10 ML LIQUID PO ×3 (09:43→21:36)
[2023-11-25] MEDS: DULoxetine HCl 60 MG CAPSULE.DR PO ×2 (09:44→20:00)
[2023-11-25] MEDS: Azithromycin 500 MG in 0.9 % Sodium Chloride 250 ML 125 MG IV (09:44)
[2023-11-25] MEDS: Lidocaine 4 % Patch ADH..PATCH 2 PATCH TRANSDERMA (09:49)
[2023-11-25] MEDS: 0.9 % Sodium Chloride Flush 3 ML SYRINGE IVFLUSH ×2 (09:52→15:23)
[2023-11-25] MEDS: HYDROmorphone HCl 0.5 MG/0.5 ML SYRINGE IVPUSH (10:51)
--- NOTE | 2023-11-25 10:58 | PM.CNPUL ---
History of Present Illness History of Present Illness Consult date: 11/25/23 Requesting physician: Lennie Chatterjee Chief complaint: severe sepsis, pneumonia Narrative: 33-year-old lady, former IV drug user, now in remission, underlying remote history of MRSA, currently uses marijuana admitted on 11/24/2023 with dyspnea, sore throat, and weakness. Patient was noted to have left-sided pneumonia on CT scan and was started on empiric antibiotics. Serologies are positive for group A strep. Review of Systems Constitutional: Constitutional: Denies daytime sleepiness, Denies excessive sweating, Reports fatigue, Denies fever(s), Reports lethargy, Reports malaise, Denies night sweats, Denies snoring and Denies weight loss Eyes: Eyes: Denies blurry vision and Denies itchy eyes ENT: Denies nasal congestion, Denies post nasal drip, Denies sinus pain, Denies sinus pressure, Reports sore throat and Denies other ( Thrush) Cardiovascular: Cardiovascular: Denies chest pain, Denies pedal edema, Reports dyspnea, Denies orthopnea and Denies paroxysmal nocturnal dyspnea Respiratory: Respiratory: Reports cough, Denies hemoptysis, Reports excessive phlegm production, Reports dyspnea, Denies snoring and Denies wheezing Gastrointestinal: Gastrointestinal: Denies abdominal pain, Denies heartburn and Reports nausea Musculoskeletal: Musculoskeletal: Denies myalgias, Denies arthralgias and Denies joint swelling Integumentary/Breasts: Skin/Breast: Denies rash Neurologic: Denies memory loss and Denies seizure-like activity Psychiatric: Psychiatric: Denies abnormal sleep pattern, Denies anxiety and Denies memory loss Endocrine: Endocrine: Denies excessive sweating, Reports fatigue and Denies heat intolerance Hematologic/Lymphatic: Hematologic/Lymphatic: Denies easy bruising Allergic/Immunologic: Allergic/Immunologic: Denies itchy eyes, Denies seasonal rhinorrhea and Denies wheezing PMFSH Past Medical History Medical History (Updated 11/25/23 @ 11:01 by Leo Nation MD) Former cigarette smoker History of intravenous drug use in remission History of hepatitis C Marijuana smoker History of asthma Social History Social History Household Members: Significant Other Housing: Apartment Do you presently have visiting nurse or other home services: No Comment: pt. refuses bed alarm Patient Tobacco Use Status: Never used Tobacco Smoked in Last 30 Days: No e-Cigarette/Vaping Use: Never Used Use of substances other than those prescribed or required for medical reasons: No Substance Use Type: Marijuana Substance Use Frequency: Daily Last Used Substance Other:: h/o heroin/crack cocaine. Currently Displaying Signs/Symptoms of Drug Intoxication Withdrawal: No Any prior treatment program specific to substance use: No Advance Directives: No Advance Directives Information Provided: No Do you have thoughts of harming others: None Do you have a plan to hurt others: No Plan Recently lost weight without trying: No Eating poorly because of decreased appetite: No Nutrition Risks: No Nutritional Risk Patient : No : No Poor oral hygiene: No service: No Meds Allergies Allergy/AdvReac Type Severity Reaction Status Date / Time No Known Allergies Allergy Verified 11/24/23 03:45 Active Medications: Current Medications Acetaminophen (Acetaminophen 325 Mg Tablet) 650 mg PO Q6H PRN PRN Reason: Pain, Mild (Pain Scale 1-3) Duloxetine HCl (Duloxetine Hcl 60 Mg Capsule.Dr) 60 mg PO BID [facility] Last Admin: 11/25/23 09:44 Dose: 60 mg Guaifenesin/Codeine Phosphate (Guaifen/Codeine Sf 200/20/10ml 10 Ml Liquid) 10 ml PO Q6H PRN PRN Reason: Cough Last Admin: 11/25/23 09:43 Dose: 10 ml Heparin Sodium (Porcine) (Heparin Sodium,Porcine 5,000 Unit/Ml Vial) 5,000 unit SUBCUT Q12H [facility] Last Admin: 11/25/23 03:54 Dose: 5,000 unit Hydromorphone HCl (Hydromorphone Hcl 0.5 Mg/0.5 Ml Syringe) 0.5 mg IVPUSH Q4H PRN; Protocol PRN Reason: Pain, Severe (Pain Scale 7-10) Last Admin: 11/25/23 10:51 Dose: 0.5 mg Sodium Chloride (Ns) 1,000 mls @ 100 mls/hr IVCONT .Q10H [facility] Last Admin: 11/25/23 02:31 Dose: 100 mls/hr Levofloxacin (Levaquin) 750 mg in 150 mls @ 100 mls/hr IV Q24H [facility] Last Admin: 11/24/23 16:09 Dose: 100 mls/hr Azithromycin 500 mg/ Sodium (Chloride) 250 mls @ 125 mls/hr IV Q24H [facility] Last Admin: 11/25/23 09:44 Dose: 125 mls/hr Vancomycin HCl 1,250 mg/ (Sodium Chloride) 250 mls @ 166.667 mls/hr IV Q12H [facility] Last Infusion: 11/25/23 08:27 Dose: Infused Ketorolac Tromethamine (Ketorolac Tromethamine 15 Mg/Ml Vial) 15 mg IVPUSH Q6H PRN PRN Reason: Pain, Moderate(Pain Scale 4-6) Lidocaine (Lidocaine 4 % Patch Adh..Patch) 2 patch TRANSDERMA DAILY [facility]; Protocol Last Admin: 11/25/23 09:49 Dose: 2 patch Non-Formulary Medication (Norelgestromin-Ethin.Estradiol [Xulane]) 1 patch TOPICAL [facility] Ondansetron HCl (Ondansetron Hcl 4 Mg/2 Ml Vial) 4 mg IVPUSH Q8H PRN PRN Reason: Nausea and Vomiting Pharmacy Consult (Consult Rx Vancomycin Dosing) 1 each MISCELLANE DAILY PRN PRN Reason: Consult order Senna (Sennosides 8.6 Mg Tablet) 17.2 mg PO BEDTIME PRN PRN Reason: Constipation Sodium Chloride (0.9 % Sodium Chloride Flush 3 Ml Syringe) 3 ml IVFLUSH QSHIFT [facility] Last Admin: 11/25/23 09:52 Dose: 3 ml Home Medications Medication Instructions Recorded Confirmed Last Taken Type cranberry-vit 1 cap PO DAILY 11/24/23 11/24/23 11/23/23 History C-B.coag-FOS-L.acid-L.rham 250 mg-30 mg-39.5 mg capsule (Probiotic Plus and Cranberry) duloxetine 60 mg capsule,delayed 60 mg PO BID 11/24/23 11/24/23 11/23/23 History release norelgestromin 150 mcg-e.estradiol 1 patch topical QWEEK 11/24/23 11/24/23 Unknown History 35 mcg/24 hr weekly transderm patch (Xulane) Physical Exam Vital Signs: Vital Signs: Last Vital Signs Temp 99.9 F 11/25/23 07:50 Pulse 139 H 11/25/23 07:50 Resp 20 11/25/23 07:50 BP 118/62 11/25/23 07:50 Pulse Ox 98 11/25/23 07:50 O2 Del Method Room Air 11/25/23 07:50 BMI result Body Mass Index 21.9 Const: General: no acute distress and alert Nutritional Appearance: not obese Orientation/consciousness: Other orientation findings ( oriented) HEENT: Head: Yes atraumatic Eyes: General: appearance normal, both eyes and all related structures Sclerae: sclerae normal EOM: EOMs intact bilaterally Neck: Neck: Yes supple Lymphatic: no lymphadenopathy noted Resp: Effort & Inspection: normal respiratory effort and no use of accessory muscles Auscultation: other (Left base poor air movement) Cardio: Rate: tachycardic Rhythm: regular rhythm Heart sounds: no gallops, no murmurs and no rubs Skin: General skin exam: other ( warm) Extrem: General: No clubbing, No cyanosis and No edema Results Laboratory Findings 11/25/23 07:36 11/25/23 07:36 Abnormal lab findings: Abnormal Labs 11/24/23 11/24/23 11/24/23 03:51 09:16 11:36 WBC 18.6 H RBC Hgb Hct Plt Count 153 L Immature Gran % (Auto) 0.6 H Neut % (Auto) 94.1 H Lymph % (Auto) 1.9 L O'Brien % (Auto) 1.9 L Lymph # (Auto) 0.4 L Abs Immat Gran (auto) 0.11 H Absolute Neuts (auto) 17.5 H Neutrophils % (Manual) Lymphocytes % (Manual) Abs Neuts (Manual) Lymphocytes # (Manual) Sodium Carbon Dioxide 20 L BUN 7 L Lactic Acid 3.3 H* Lactic Acid F/U @ 2Hr 3.9 H* Lactic Acid F/U @ 4Hr Calcium Magnesium 1.5 L Total Bilirubin 3.7 H Direct Bilirubin 2.4 H Total Protein Albumin 3.3 L Urine Opiates Screen U Marijuana (THC) Screen S. pyogenes GrpA KRIS Positive A 11/24/23 11/24/23 11/25/23 14:00 15:44 07:36 WBC 16.0 H RBC 3.88 L D Hgb 11.5 L D Hct 33.7 L D Plt Count 140 L Immature Gran % (Auto) Neut % (Auto) Lymph % (Auto) O'Brien % (Auto) Lymph # (Auto) Abs Immat Gran (auto) Absolute Neuts (auto) Neutrophils % (Manual) 89 H Lymphocytes % (Manual) 3 L Abs Neuts (Manual) 14.9 H Lymphocytes # (Manual) 0.5 L Sodium 133 L Carbon Dioxide 16 L BUN Lactic Acid Lactic Acid F/U @ 2Hr Lactic Acid F/U @ 4Hr 3.5 H* Calcium 7.1 L D Magnesium Total Bilirubin 2.8 H Direct Bilirubin 2.3 H Total Protein 5.2 L Albumin 2.4 L Urine Opiates Screen POSITIVE H U Marijuana (THC) Screen POSITIVE H S. pyogenes GrpA KRIS Assessment and Plan (1) Streptococcal pneumonia: Status: Acute Plan Impression: 33-year-old lady admitted with streptococcal pneumonia. Recommendations: Now on broad-spectrum antibiotics, consider narrowing down to penicillin G or ceftriaxone as appropriate. Procedures Date of Service Date of Service: 11/25/23
[2023-11-25] MEDS: Acetaminophen 325 MG TABLET 650 MG PO (12:00)
--- NOTE | 2023-11-25 13:12 | HO.PM.IMPN ---
Subjective Subjective Date of Service: 11/25/23 Interval History: f/u on sepsis d/t pna interval history: no hypoxia, tachy but less, WBC is trending down, low grae, + Strep Pyogenese Physical Exam Vital Signs: Vital Signs: Last Vital Signs Temp 100.0 F 11/25/23 11:45 Pulse 138 H 11/25/23 11:45 Resp 20 11/25/23 11:45 BP 120/60 11/25/23 11:45 Pulse Ox 95 11/25/23 11:45 O2 Del Method Room Air 11/25/23 11:45 BMI result Body Mass Index 21.9 Const: Other: General: AO X 3, no acute distress Resp: left sided rhonchi CVS: S1,S2,RRR GI: +BS, NT, no distention Skin: No rash Neuro: motor grossly intact Psych: appropriate affect Objective Data Active Medications Acetaminophen (Acetaminophen 325 Mg Tablet) 650 mg PO Q6H PRN PRN Reason: Pain, Mild (Pain Scale 1-3) Last Admin: 11/25/23 12:00 Dose: 650 mg Documented By: FRANCES Duloxetine HCl (Duloxetine Hcl 60 Mg Capsule.Dr) 60 mg PO BID [facility] Last Admin: 11/25/23 09:44 Dose: 60 mg Documented By: FRANCES Guaifenesin/Codeine Phosphate (Guaifen/Codeine Sf 200/20/10ml 10 Ml Liquid) 10 ml PO Q6H PRN PRN Reason: Cough Last Admin: 11/25/23 09:43 Dose: 10 ml Documented By: FRANCES Heparin Sodium (Porcine) (Heparin Sodium,Porcine 5,000 Unit/Ml Vial) 5,000 unit SUBCUT Q12H [facility] Last Admin: 11/25/23 03:54 Dose: 5,000 unit Documented By: JAHAIRA Hydromorphone HCl (Hydromorphone Hcl 0.5 Mg/0.5 Ml Syringe) 0.5 mg IVPUSH Q4H PRN; Protocol PRN Reason: Pain, Severe (Pain Scale 7-10) Last Admin: 11/25/23 10:51 Dose: 0.5 mg Documented By: FRANCES Sodium Chloride (Ns) 1,000 mls @ 100 mls/hr IVCONT .Q10H [facility] Last Admin: 11/25/23 02:31 Dose: 100 mls/hr Documented By: JAHAIRA Azithromycin 500 mg/ Sodium (Chloride) 250 mls @ 125 mls/hr IV Q24H [facility] Last Infusion: 11/25/23 11:48 Dose: Infused Documented By: FRANCES Ketorolac Tromethamine (Ketorolac Tromethamine 15 Mg/Ml Vial) 15 mg IVPUSH Q6H PRN PRN Reason: Pain, Moderate(Pain Scale 4-6) Lidocaine (Lidocaine 4 % Patch Adh..Patch) 2 patch TRANSDERMA DAILY [facility]; Protocol Last Admin: 11/25/23 09:49 Dose: 2 patch Documented By: FRANCES Non-Formulary Medication (Norelgestromin-Ethin.Estradiol [Xulane]) 1 patch TOPICAL [facility] [place] Ondansetron HCl (Ondansetron Hcl 4 Mg/2 Ml Vial) 4 mg IVPUSH Q8H PRN PRN Reason: Nausea and Vomiting Pharmacy Consult (Consult Rx Vancomycin Dosing) 1 each MISCELLANE DAILY PRN PRN Reason: Consult order Senna (Sennosides 8.6 Mg Tablet) 17.2 mg PO BEDTIME PRN PRN Reason: Constipation Sodium Chloride (0.9 % Sodium Chloride Flush 3 Ml Syringe) 3 ml IVFLUSH QSHIFT [facility] Last Admin: 11/25/23 09:52 Dose: 3 ml Documented By: FRANCES Labs 11/25/23 07:36 11/25/23 07:36 Labs: Laboratory Results - last 24 hr 11/24/23 11/24/23 11/24/23 14:00 15:44 16:35 MCV MCH MCHC RDW Plt Count MPV Immature Gran % (Auto) Neut % (Auto) Lymph % (Auto) [place] % (Auto) Eos % (Auto) Baso % (Auto) Lymph # (Auto) [place] # (Auto) Eos # (Auto) Baso # (Auto) Abs Immat Gran (auto) Absolute Neuts (auto) Absolute Nucleated RBC Nucleated RBC % (auto) Neutrophils % (Manual) Band Neutrophils % Lymphocytes % (Manual) Atypical Lymphs % (Man) Monocytes % (Manual) Abs Neuts (Manual) Lymphocytes # (Manual) Atyp Lymphs # (Manual) Monocytes # (Manual) Platelet Estimate Large Platelets Plt Morphology Comment RBC Morphology [place] Cells Anion Gap Estim Creat Clear Calc Estimated GFR Random Glucose Lactic Acid F/U @ 4Hr 3.5 H* Calcium Total Bilirubin Direct Bilirubin AST ALT Alkaline Phosphatase Total Protein Albumin Urine Opiates Screen POSITIVE H Urine Fentanyl Screen Not Detected Ur Barbiturates Screen Not Detected Ur Phencyclidine Scrn Not Detected Ur Amphetamines Screen Not Detected U Benzodiazepines Scrn Not Detected Urine Cocaine Screen Not Detected U Marijuana (THC) Screen POSITIVE H HIV 1&2 Ab/P24 Ag 4thGn Nonreactive 11/25/23 07:36 MCV 86.9 MCH 29.6 MCHC 34.1 RDW 13.0 Plt Count 140 L MPV 11.6 Immature Gran % (Auto) Cancelled Neut % (Auto) Cancelled Lymph % (Auto) Cancelled [place] % (Auto) Cancelled Eos % (Auto) Cancelled Baso % (Auto) Cancelled Lymph # (Auto) Cancelled [place] # (Auto) Cancelled Eos # (Auto) Cancelled Baso # (Auto) Cancelled Abs Immat Gran (auto) Cancelled Absolute Neuts (auto) Cancelled Absolute Nucleated RBC 0.000 Nucleated RBC % (auto) 0.0 Neutrophils % (Manual) 89 H Band Neutrophils % 4 Lymphocytes % (Manual) 3 L Atypical Lymphs % (Man) 2 Monocytes % (Manual) 2 Abs Neuts (Manual) 14.9 H Lymphocytes # (Manual) 0.5 L Atyp Lymphs # (Manual) 0.3 Monocytes # (Manual) 0.3 Platelet Estimate NORMAL Large Platelets PRESENT Plt Morphology Comment NOTED RBC Morphology NOTED [place] Cells 2+ (3-5) Anion Gap 15 Estim Creat Clear Calc 109.6 Estimated GFR > 60 Random Glucose 76 Lactic Acid F/U @ 4Hr Calcium 7.1 L D Total Bilirubin 2.8 H Direct Bilirubin 2.3 H AST 14 ALT 13 Alkaline Phosphatase 61 Total Protein 5.2 L Albumin 2.4 L Urine Opiates Screen Urine Fentanyl Screen Ur Barbiturates Screen Ur Phencyclidine Scrn Ur Amphetamines Screen U Benzodiazepines Scrn Urine Cocaine Screen U Marijuana (THC) Screen HIV 1&2 Ab/P24 Ag 4thGn Microbiology Microbiology Results: Microbiology 11/24/23 09:25 Blood Culture - Preliminary Blood - Venous No growth after 24 hours. 11/24/23 09:16 Blood Culture - Preliminary Blood - Venous No growth after 24 hours. 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 # Acute pneumonia involving entirety of left lung with severe sepsis, criteria with tachyc, inc wbc and high lactic acid. Clinically improving, but remains septic. + Strep Pyogenese antigen by PCR. pulmonology consult noted. Presently on Vanco, Azithro and Levaquin. DC Vanco and Levaquin and add Ceftriaxone, ID consult . MRSA nasal screen pending. Robitussin + codein for cough. Blood cultures pending. Toradol for pleurisy #Hx IVDA, claims to be in remission 10 yrs - U tox + opioid and MJ - neg HIV, hep c viral load -addiction med consul- -clonidine for withdrawal symptoms - DVT prophylaxis-heparin full code patient requires inpatient stay at least 2 midnights for further management extensive pneumonia involving the left lung with severe sepsis requiring IV antibiotics, close monitoring of vital signs, IV fluid resuscitation, and expert consultation. CXR and CT chest RADHA PNA, Quality Stroke Does the patient have a stroke diagnosis?: No VTE Prior VTE?: No VTE Risk Level:: Medical - moderate - high VTE Device Contraindication: Treatment Not Indicated VTE Drug Contraindication: N/A - Med Ordered
[2023-11-25] MEDS: Ketorolac Tromethamine 15 MG/ML VIAL IVPUSH ×2 (14:40→20:00)
[2023-11-25] MEDS: cefTRIAXone sodium 1 GM in 0.9 % Sodium Chloride 50 ML IV (14:43)
[2023-11-25 16:17] LABS: Vancomycin Random 9.5 mcg/mL (15-20)
[2023-11-25 17:56] LABS: CDiff Gene PCR POSITIVE (Negative)
[2023-11-25 18:50] LABS: CDIFF Internal ctrl Dots and bkg OK (V); CDiff Toxin Negative (Negative)
[2023-11-25] MEDS: Fidaxomicin 200 MG TABLET PO (19:30)
[2023-11-26] MEDS: 0.9 % Sodium Chloride Flush 3 ML SYRINGE IVFLUSH ×3 (00:31→20:24)
[2023-11-26] MEDS: Ketorolac Tromethamine 15 MG/ML VIAL IVPUSH ×2 (02:18→10:14)
[2023-11-26] MEDS: Heparin Sodium,Porcine 5,000 UNIT/ML VIAL 5000 UNIT SUBCUT ×2 (02:20→15:47)
[2023-11-26 04:00] VITALS: BP 121/66; PULSE 112; RESP 20; TEMP 36.8; O2SAT 96
[2023-11-26] MEDS: 0.9 % Sodium Chloride 1,000 ML 100 ML IVCONT (05:09)
[2023-11-26] MEDS: guaiFEN/Codeine SF 200/20/10ML 10 ML LIQUID PO ×3 (06:17→19:44)
[2023-11-26 07:37] VITALS: BP 122/72; PULSE 108; RESP 16; TEMP 36.6; O2SAT 96
[2023-11-26] MEDS: Fidaxomicin 200 MG TABLET PO (07:44)
[2023-11-26] MEDS: DULoxetine HCl 60 MG CAPSULE.DR PO ×2 (07:44→20:23)
[2023-11-26 09:59] LABS: Hematocrit 34.6 % (37.0-47.0); Hemoglobin 11.7 g/dl (12.0-16.0); Mean Corpuscular HGB Conc 33.8 g/dl (31.0-35.0); Mean Corpuscular Hemoglobin 28.9 pg (27.0-33.0); Mean Corpuscular Volume 85.4 fL (80.0-98.0); Mean Platelet Volume 12.2 fL (9.4-12.3); Platelet Count 130 X10*3/uL (160-400); Red Blood Count 4.05 X10*6/uL (4.20-5.50); Red Cell Distribution Width 12.9 % (11.0-16.0); White Blood Count 24.4 X10*3/uL (4.8-10.8)
[2023-11-26] MEDS: Azithromycin 500 MG in 0.9 % Sodium Chloride 250 ML 125 MG IV (10:14)
[2023-11-26 10:21] LABS: MRSA Nasal PCR NEGATIVE (Negative); SA Nasal PCR NEGATIVE (Negative)
--- NOTE | 2023-11-26 10:27 | P.PNIM_ITS ---
Subjective Subjective Date of Service: 11/26/23 Interval History: f/u on sepsis d/t pna interval history: no hypoxia, better, WBC is up, clinically feels better than yesterday. Had several episodes of diarrhea yesterday, none today --she says she has recently taking Amoxillin for tooth infection and Flagyl for BV Physical Exam 2 Vital Signs: Vital Signs: Last Vital Signs Temp 97.9 F 11/26/23 07:37 Pulse 108 H 11/26/23 07:37 Resp 16 11/26/23 07:37 BP 122/72 11/26/23 07:37 Pulse Ox 96 11/26/23 07:37 O2 Del Method Room Air 11/26/23 07:37 BMI result Body Mass Index 21.9 Const: Other: General: AO X 3, no acute distress Resp: left sided rhonchi CVS: S1,S2,RRR GI: +BS, NT, no distention Skin: No rash Neuro: motor grossly intact Psych: appropriate affect Objective Data Active Medications Acetaminophen (Acetaminophen 325 Mg Tablet) 650 mg PO Q6H PRN PRN Reason: Pain, Mild (Pain Scale 1-3) Last Admin: 11/25/23 12:00 Dose: 650 mg Documented By: FRANCES Duloxetine HCl (Duloxetine Hcl 60 Mg Capsule.Dr) 60 mg PO BID [facility] Last Admin: 11/26/23 07:44 Dose: 60 mg Documented By: FRANCES Fidaxomicin (Fidaxomicin 200 Mg Tablet) 200 mg PO Q12H [facility] Last Admin: 11/26/23 07:44 Dose: 200 mg Documented By: FRANCES Guaifenesin/Codeine Phosphate (Guaifen/Codeine Sf 200/20/10ml 10 Ml Liquid) 10 ml PO Q6H PRN PRN Reason: Cough Last Admin: 11/26/23 06:17 Dose: 10 ml Documented By: LIZ Heparin Sodium (Porcine) (Heparin Sodium,Porcine 5,000 Unit/Ml Vial) 5,000 unit SUBCUT Q12H [facility] Last Admin: 11/26/23 02:20 Dose: 5,000 unit Documented By: LIZ Sodium Chloride (Ns) 1,000 mls @ 100 mls/hr IVCONT .Q10H [facility] Last Admin: 11/26/23 05:09 Dose: 100 mls/hr Documented By: LIZ Azithromycin 500 mg/ Sodium (Chloride) 250 mls @ 125 mls/hr IV Q24H [facility] Last Admin: 11/26/23 10:14 Dose: 125 mls/hr Documented By: FRANCES Lidocaine (Lidocaine 4 % Patch Adh..Patch) 2 patch TRANSDERMA DAILY [facility]; Protocol Last Admin: 11/26/23 07:46 Dose: Not Given Documented By: FRANCES Non-Admin Reason: Patient Refused Non-Formulary Medication (Norelgestromin-Ethin.Estradiol [Xulane]) 1 patch TOPICAL [facility] Ondansetron HCl (Ondansetron Hcl 4 Mg/2 Ml Vial) 4 mg IVPUSH Q8H PRN PRN Reason: Nausea and Vomiting Pharmacy Consult (Consult Rx Vancomycin Dosing) 1 each MISCELLANE DAILY PRN PRN Reason: Consult order Senna (Sennosides 8.6 Mg Tablet) 17.2 mg PO BEDTIME PRN PRN Reason: Constipation Sodium Chloride (0.9 % Sodium Chloride Flush 3 Ml Syringe) 3 ml IVFLUSH QSHIFT [facility] Last Admin: 11/26/23 07:44 Dose: Not Given Documented By: FRANCES Non-Admin Reason: IV Running Labs 11/26/23 08:54 11/25/23 07:36 Labs: Laboratory Results - last 24 hr 11/25/23 11/25/23 11/25/23 15:52 16:19 16:25 MCV MCH MCHC RDW Plt Count MPV Absolute Nucleated RBC Nucleated RBC % (auto) Nasal Screen MRSA (PCR) NEGATIVE Nasal S. aureus Screen NEGATIVE Nasal MRSA/S.aureus Interp SEE NOTE Random Vancomycin 9.5 L C. difficile Tox B Gene POSITIVE A* C. difficile Toxin A&B Negative C. difficile Interpret SEE NOTE 11/26/23 08:54 MCV 85.4 MCH 28.9 MCHC 33.8 RDW 12.9 Plt Count 130 L MPV 12.2 Absolute Nucleated RBC 0.000 Nucleated RBC % (auto) 0.0 Nasal Screen MRSA (PCR) Nasal S. aureus Screen Nasal MRSA/S.aureus Interp Random Vancomycin C. difficile Tox B Gene C. difficile Toxin A&B C. difficile Interpret Microbiology Microbiology Results: Microbiology 11/24/23 09:25 Blood Culture - Preliminary Blood - Venous No growth after 24 hours. 11/24/23 09:16 Blood Culture - Preliminary Blood - Venous No growth after 24 hours. 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 # Acute pneumonia involving entirety of left lung with severe sepsis, criteria with tachyc, inc wbc and high lactic acid. Clinically improving, but remains septic, inreasing WBC, + Strep Pyogenese antigen by PCR. pulmonology consult noted. -initially was on Vanco, Levaquin and Azithro, now on Ceftriaxone + Azithro. ID consult . MRSA nasal screen pending. Robitussin + codein for cough. Blood cultures pending. Toradol for pleurisy #Hx IVDA, claims to be in remission 10 yrs - U tox + opioid and MJ , opioid probably from morphine - neg HIV, hep c viral load -no indication for addiction med at this time - DVT prophylaxis-heparin full code Inpatient stay d/t overwhelming pneumonia, sepsis that is not yet resolved. Quality Stroke Does the patient have a stroke diagnosis?: No VTE Prior VTE?: No VTE Risk Level:: Medical - moderate - high VTE Device Contraindication: Treatment Not Indicated VTE Drug Contraindication: N/A - Med Ordered
[2023-11-26 10:46] LABS: Adenovirus PCR Not Detected (Not Detect.); Bordetella parapertussis PCR Not Detected (Not Detect.); Bordetella pertussis PCR Not Detected (Not Detect.); Chlamydia pneumoniae PCR Not Detected (Not Detect.); Coronavirus 229E PCR Not Detected (Not Detect.); Coronavirus HKU1 PCR Not Detected (Not Detect.); Coronavirus NL63 PCR Not Detected (Not Detect.); Coronavirus OC43 PCR Not Detected (Not Detect.); Human metapneumovirus PCR Not Detected (Not Detect.); Influenza A PCR Not Detected (Not Detect.); Influenza B PCR Not Detected (Not Detect.); Mycoplasma pneumoniae PCR Not Detected (Not Detect.); Parainfluenza 1 PCR Not Detected (Not Detect.); Parainfluenza 2 PCR Not Detected (Not Detect.); Parainfluenza 3 PCR Not Detected (Not Detect.); Parainfluenza 4 PCR Not Detected (Not Detect.); RSV PCR Not Detected (Not Detect.); Rhino/Enterovirus PCR Not Detected (Not Detect.)
[2023-11-26 10:51] LABS: SARS-CoV-2 PCR Not Detected (Not Detect.)
[2023-11-26 11:05] VITALS: BP 127/73; PULSE 112; RESP 18; TEMP 36.9; O2SAT 95
[2023-11-26] MEDS: cefTRIAXone sodium 2 GM in 0.9 % Sodium Chloride 50 ML IV (15:47)
[2023-11-26] MEDS: oxyCODONE HCl Immed Release 5 MG TABLET PO ×2 (15:47→19:44)
[2023-11-26 15:53] VITALS: BP 140/74; PULSE 104; RESP 18; TEMP 37.1; O2SAT 97
[2023-11-26] MEDS: vancomycin HCL 125 MG CAPSULE PO ×2 (17:08→22:01)
[2023-11-26 19:40] VITALS: BP 143/83; PULSE 108; RESP 19; TEMP 36.3; O2SAT 96
[2023-11-26] MEDS: Melatonin 3 MG TABLET 6 MG PO (22:00)
--- NOTE | 2023-11-26 22:24 | P.CNID_ITS ---
History of Present Illness Data of Consult Service Date: 11/26/23 Requesting physician: Javad Ibarra Primary Care Provider: Mick Carrasquillo MD HPI Reason for consult: pneumonia She presents with cough and sore throat. She has left upper lobe pneumonia and still coughing. She has strep pyogenes resp panel. HIV has been negative. Review of Systems 2 Review of Systems: Yes all other systems are reviewed and are negative PMFSH Past Medical History Medical History Former cigarette smoker History of intravenous drug use in remission History of hepatitis C Marijuana smoker History of asthma Family History Family history: reviewed and not pertinent Social History Social History Household Members: Significant Other Housing: Apartment Do you presently have visiting nurse or other home services: No Comment: pt. refuses bed alarm Patient Tobacco Use Status: Never used Tobacco Smoked in Last 30 Days: No e-Cigarette/Vaping Use: Never Used Use of substances other than those prescribed or required for medical reasons: No Substance Use Type: Marijuana Substance Use Frequency: Daily Last Used Substance Other:: h/o heroin/crack cocaine. Currently Displaying Signs/Symptoms of Drug Intoxication Withdrawal: No Any prior treatment program specific to substance use: No Advance Directives: No Advance Directives Information Provided: No Do you have thoughts of harming others: None Do you have a plan to hurt others: No Plan Recently lost weight without trying: No Eating poorly because of decreased appetite: No Nutrition Risks: No Nutritional Risk Patient : No : No Poor oral hygiene: No service: No Meds Allergies Allergy/AdvReac Type Severity Reaction Status Date / Time No Known Allergies Allergy Verified 11/24/23 03:45 Active Medications: Current Medications Acetaminophen (Acetaminophen 325 Mg Tablet) 650 mg PO Q6H PRN PRN Reason: Pain, Mild (Pain Scale 1-3) Last Admin: 11/25/23 12:00 Dose: 650 mg Duloxetine HCl (Duloxetine Hcl 60 Mg Capsule.Dr) 60 mg PO BID [facility] Last Admin: 11/26/23 20:23 Dose: 60 mg Guaifenesin/Codeine Phosphate (Guaifen/Codeine Sf 200/20/10ml 10 Ml Liquid) 10 ml PO Q6H PRN PRN Reason: Cough Last Admin: 11/26/23 19:44 Dose: 10 ml Heparin Sodium (Porcine) (Heparin Sodium,Porcine 5,000 Unit/Ml Vial) 5,000 unit SUBCUT Q12H [facility] Last Admin: 11/26/23 15:47 Dose: 5,000 unit Azithromycin 500 mg/ Sodium (Chloride) 250 mls @ 125 mls/hr IV Q24H [facility] Last Infusion: 11/26/23 13:01 Dose: Infused Ceftriaxone Sodium 2 gm/ (Sodium Chloride) 50 mls @ 100 mls/hr IV Q24H [facility] Last Infusion: 11/26/23 18:08 Dose: Infused Lidocaine (Lidocaine 4 % Patch Adh..Patch) 2 patch TRANSDERMA DAILY [facility]; Protocol Last Admin: 11/26/23 07:46 Dose: Not Given Melatonin (Melatonin 3 Mg Tablet) 6 mg PO BEDTIME PRN PRN Reason: Sleep Last Admin: 11/26/23 22:00 Dose: 6 mg Non-Formulary Medication (Norelgestromin-Ethin.Estradiol [Xulane]) 1 patch TOPICAL [facility] Ondansetron HCl (Ondansetron Hcl 4 Mg/2 Ml Vial) 4 mg IVPUSH Q8H PRN PRN Reason: Nausea and Vomiting Oxycodone HCl (Oxycodone Hcl Immed Release 5 Mg Tablet) 5 mg PO Q4H PRN PRN Reason: Pain, Severe (Pain Scale 7-10) Last Admin: 11/26/23 19:44 Dose: 5 mg Pharmacy Consult (Consult Rx Vancomycin Dosing) 1 each MISCELLANE DAILY PRN PRN Reason: Consult order Senna (Sennosides 8.6 Mg Tablet) 17.2 mg PO BEDTIME PRN PRN Reason: Constipation Sodium Chloride (0.9 % Sodium Chloride Flush 3 Ml Syringe) 3 ml IVFLUSH QSHIFT [facility] Last Admin: 11/26/23 20:24 Dose: 3 ml Vancomycin HCl (Vancomycin Hcl 125 Mg Capsule) 125 mg PO Q6H [facility] Last Admin: 11/26/23 22:01 Dose: 125 mg Home Medications Medication Instructions Recorded Confirmed Last Taken Type cranberry-vit 1 cap PO DAILY 11/24/23 11/24/23 11/23/23 History C-B.coag-FOS-L.acid-L.rham 250 mg-30 mg-39.5 mg capsule (Probiotic Plus and Cranberry) duloxetine 60 mg capsule,delayed 60 mg PO BID 11/24/23 11/24/23 11/23/23 History release norelgestromin 150 mcg-e.estradiol 1 patch topical QWEEK 11/24/23 11/24/23 Unknown History 35 mcg/24 hr weekly transderm patch (Xulane) Physical Exam 2 Vital Signs: Vital Signs: Last Vital Signs Temp 97.4 F 11/26/23 19:40 Pulse 108 H 11/26/23 19:40 Resp 19 11/26/23 19:40 BP 143/83 H 11/26/23 19:40 Pulse Ox 96 11/26/23 19:40 O2 Del Method Room Air 11/26/23 19:40 BMI result Body Mass Index 21.9 Const: General: cooperative HEENT: Head: Yes normal to inspection Face and sinus: Yes normal facial exam Mouth: Normal oral and palatal mucosa present Teeth and gingiva: d entition normal Eyes: General: appearance normal, both eyes and all related structures P upils: Equal, round and reactive pupils present Resp: Effort & Inspection: normal respiratory effort Cardio: Rate: regular rate Rhythm: regular rhythm GI: Palpation (GI): Soft to palpation and nontender : General: Yes no CVA tenderness Back/Spine/Pelvis: Back: no CVA tenderness Skin: General skin exam: no rashes or lesions noted Neuro: General: moves all extremities Cranial nerves: Yes Equal, round and reactive pupils present Extrem: General: Yes normal to inspection Psych: Appearance: grossly normal Results Labs 11/26/23 08:54 11/25/23 07:36 Labs: Short CBC 11/26/23 Range/Units 08:54 WBC 24.4 H (4.8-10.8) X10*3/uL Hgb 11.7 L (12.0-16.0) g/dl Hct 34.6 L (37.0-47.0) % Plt Count 130 L (160-400) X10*3/uL Microbiology Microbiology Results: Microbiology 11/24/23 09:25 Blood - Venous Blood Culture - Preliminary No growth after 48 hours. 11/24/23 09:16 Blood - Venous Blood Culture - Preliminary No growth after 48 hours. Assessment and Plan (1) Streptococcal pneumonia: Status: Acute She has RADHA pneumonia It may be related to strep pyogenes as well. There is diarrhea related to Cdiff as well. (2) Severe sepsis: Status: Acute (3) Strep throat: Status: Acute Plan Would continue Ceftriaxone until improved and then po cephalosporin on discharge 10 total. Po Vancomycin 125 mg qid for 10 d while taking cephalalosporin and then 48 hours after.
[2023-11-26 23:08] VITALS: BP 138/85; PULSE 107; RESP 18; TEMP 37.1; O2SAT 96
[2023-11-27] MEDS: Heparin Sodium,Porcine 5,000 UNIT/ML VIAL 5000 UNIT SUBCUT ×2 (02:35→16:09)
[2023-11-27] MEDS: guaiFEN/Codeine SF 200/20/10ML 10 ML LIQUID PO ×4 (02:35→21:33)
[2023-11-27] MEDS: oxyCODONE HCl Immed Release 5 MG TABLET PO ×5 (02:38→20:45)
[2023-11-27 04:00] VITALS: BP 140/82; PULSE 64; RESP 18; TEMP 37.1; O2SAT 98
[2023-11-27] MEDS: vancomycin HCL 125 MG CAPSULE PO ×4 (04:09→21:33)
[2023-11-27 04:20] VITALS: PULSE 102
[2023-11-27 05:19] LABS: Legionella Ag Urine Not Detected (Not Detected)
[2023-11-27 07:11] VITALS: BP 130/74; PULSE 100; RESP 20; TEMP 37; O2SAT 93
[2023-11-27] MEDS: Azithromycin 500 MG in 0.9 % Sodium Chloride 250 ML 125 MG IV (09:43)
[2023-11-27] MEDS: 0.9 % Sodium Chloride Flush 3 ML SYRINGE IVFLUSH ×2 (09:44→16:07)
[2023-11-27 10:08] LABS: Hematocrit 35.2 % (37.0-47.0); Mean Corpuscular HGB Conc 34.1 g/dl (31.0-35.0); Mean Corpuscular Hemoglobin 28.8 pg (27.0-33.0); Mean Corpuscular Volume 84.6 fL (80.0-98.0); Mean Platelet Volume 12.3 fL (9.4-12.3); Platelet Count 145 X10*3/uL (160-400); Red Blood Count 4.16 X10*6/uL (4.20-5.50); Red Cell Distribution Width 12.9 % (11.0-16.0); White Blood Count 23.1 X10*3/uL (4.8-10.8)
[2023-11-27 10:18] LABS: Anion Gap 10 (12-20); Blood Urea Nitrogen 7 mg/dL (9-16); Carbon Dioxide 24 mmol/L (22-29); Chloride 103 mmol/L (96-108); Creatinine Clr Calc Pharmacy 138.9; Estimated Glomerular Filt Rate > 60; Glucose Random 69 mg/dL (60-115); Potassium 3.2 mmol/L (3.3-5.1); Sodium 134 mmol/L (135-145)
[2023-11-27 11:11] VITALS: BP 140/89; PULSE 110; RESP 20; TEMP 36.5; O2SAT 92
--- NOTE | 2023-11-27 11:44 | HO.PM.IMPN ---
Subjective Subjective Date of Service: 11/27/23 Interval History: f/u on sepsis d/t pna interval history: WBC remains high at 23k, clinically she says she feels better, normal resp rate, no fever and diarrhea has resolved. Physical Exam Vital Signs: Vital Signs: Last Vital Signs Temp 97.7 F 11/27/23 11:11 Pulse 110 H 11/27/23 11:11 Resp 20 11/27/23 11:11 BP 140/89 H 11/27/23 11:11 Pulse Ox 92 11/27/23 11:11 O2 Del Method Room Air 11/27/23 11:11 BMI result Body Mass Index 21.9 Const: Other: General: AO X 3, no acute distress Resp: CTA bilateral CVS: S1,S2,RRR, slight leg edema noemi GI: +BS, NT, no distention, Skin: No rash Neuro: motor grossly intact Psych: appropriate affect Objective Data Active Medications Acetaminophen (Acetaminophen 325 Mg Tablet) 650 mg PO Q6H PRN PRN Reason: Pain, Mild (Pain Scale 1-3) Last Admin: 11/25/23 12:00 Dose: 650 mg Documented By: FRANCES Duloxetine HCl (Duloxetine Hcl 60 Mg Capsule.Dr) 60 mg PO BID [facility] Last Admin: 11/27/23 09:43 Dose: 60 mg Documented By: YEVGENIY Guaifenesin/Codeine Phosphate (Guaifen/Codeine Sf 200/20/10ml 10 Ml Liquid) 10 ml PO Q6H PRN PRN Reason: Cough Last Admin: 11/27/23 09:42 Dose: 10 ml Documented By: YEVGENIY Heparin Sodium (Porcine) (Heparin Sodium,Porcine 5,000 Unit/Ml Vial) 5,000 unit SUBCUT Q12H [facility] Last Admin: 11/27/23 02:35 Dose: 5,000 unit Documented By: LIZ Azithromycin 500 mg/ Sodium (Chloride) 250 mls @ 125 mls/hr IV Q24H [facility] Last Admin: 11/27/23 09:43 Dose: 125 mls/hr Documented By: YEVGENIY Ceftriaxone Sodium 2 gm/ (Sodium Chloride) 50 mls @ 100 mls/hr IV Q24H [facility] Last Infusion: 11/26/23 18:08 Dose: Infused Documented By: FRANCES Lidocaine (Lidocaine 4 % Patch Adh..Patch) 2 patch TRANSDERMA DAILY [facility]; Protocol Last Admin: 11/27/23 09:43 Dose: Not Given Documented By: YEVGENIY Non-Admin Reason: Patient Refused Melatonin (Melatonin 3 Mg Tablet) 6 mg PO BEDTIME PRN PRN Reason: Sleep Last Admin: 11/26/23 22:00 Dose: 6 mg Documented By: ISSA Ondansetron HCl (Ondansetron Hcl 4 Mg/2 Ml Vial) 4 mg IVPUSH Q8H PRN PRN Reason: Nausea and Vomiting Oxycodone HCl (Oxycodone Hcl Immed Release 5 Mg Tablet) 5 mg PO Q4H PRN PRN Reason: Pain, Severe (Pain Scale 7-10) Last Admin: 11/27/23 06:48 Dose: 5 mg Documented By: LIZ Pharmacy Consult (Consult Rx Vancomycin Dosing) 1 each MISCELLANE DAILY PRN PRN Reason: Consult order Senna (Sennosides 8.6 Mg Tablet) 17.2 mg PO BEDTIME PRN PRN Reason: Constipation Sodium Chloride (0.9 % Sodium Chloride Flush 3 Ml Syringe) 3 ml IVFLUSH QSHIFT [facility] Last Admin: 11/27/23 09:44 Dose: 3 ml Documented By: YVEGENIY Vancomycin HCl (Vancomycin Hcl 125 Mg Capsule) 125 mg PO Q6H [facility] Last Admin: 11/27/23 09:42 Dose: 125 mg Documented By: YEVGENIY Labs 11/27/23 08:33 11/27/23 08:33 Labs: Laboratory Results - last 24 hr 11/24/23 11/27/23 15:49 08:33 MCV 84.6 MCH 28.8 MCHC 34.1 RDW 12.9 Plt Count 145 L MPV 12.3 Absolute Nucleated RBC 0.000 Nucleated RBC % (auto) 0.0 Anion Gap 10 L Estim Creat Clear Calc 138.9 Estimated GFR > 60 Random Glucose 69 Calcium 8.0 L D Ur L.pneumophila Ag Not Detected Microbiology Microbiology Results: Microbiology 11/26/23 17:10 Gram Stain - Final Sputum - Expectorated Sputum Culture - Preliminary Culture in progress. 11/24/23 09:25 Blood Culture - Preliminary Blood - Venous No growth after 48 hours. 11/24/23 09:16 Blood Culture - Preliminary Blood - Venous No growth after 48 hours. 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 # Acute pneumonia involving entirety of left lung with severe sepsis, criteria with tachyc, inc wbc and high lactic acid. Clinically improving, but remains septic, WBC unchanged, + Strep Pyogenese antigen by PCR. pulmonology consult noted. -initially was on Vanco, Levaquin and Azithro, now on Ceftriaxone + Azithro. PO Ceftin per ID when improved, MRSA nasal screen negative.. Robitussin + codein for cough. Blood cultures pending. Oxycodone for pleurisy #Hx IVDA, claims to be in remission 10 yrs - U tox + opioid and MJ , opioid probably from morphine - neg HIV, hep c viral load -no indication for addiction med at this time Leg edema--probably ivf, routine echo DVT prophylaxis-heparin full code Inpatient stay d/t overwhelming pneumonia, sepsis that is not yet resolved. Quality Stroke Does the patient have a stroke diagnosis?: No VTE Prior VTE?: No VTE Risk Level:: Medical - moderate - high VTE Device Contraindication: Treatment Not Indicated VTE Drug Contraindication: N/A - Med Ordered
[2023-11-27 15:28] VITALS: BP 147/92; PULSE 109; RESP 18; TEMP 36.3; O2SAT 92
[2023-11-27] MEDS: cefTRIAXone sodium 2 GM in 0.9 % Sodium Chloride 50 ML IV (16:06)
[2023-11-27 17:15] LABS: Strep Pneumo Ag urine Not Detected (Not Detected)
[2023-11-27 19:23] VITALS: BP 143/93; PULSE 109; RESP 18; TEMP 36.2; O2SAT 93
[2023-11-27] MEDS: Melatonin 3 MG TABLET 6 MG PO (21:33)
[2023-11-28] VITALS (7 sets, daily range): BP systolic 111–148; BP diastolic 64–82; PULSE 108–117; RESP 18–20; TEMP 36.1–36.7; O2SAT 92–93
[2023-11-28] MEDS: oxyCODONE HCl Immed Release 5 MG TABLET PO ×3 (01:50→14:05)
[2023-11-28] MEDS: guaiFEN/Codeine SF 200/20/10ML 10 ML LIQUID PO ×3 (01:52→14:05)
[2023-11-28] MEDS: Heparin Sodium,Porcine 5,000 UNIT/ML VIAL 5000 UNIT SUBCUT ×2 (01:53→15:19)
[2023-11-28] MEDS: vancomycin HCL 125 MG CAPSULE PO ×3 (04:53→17:30)
[2023-11-28 07:55] LABS: Hematocrit 35.9 % (37.0-47.0); Hemoglobin 12.3 g/dl (12.0-16.0); Mean Corpuscular HGB Conc 34.3 g/dl (31.0-35.0); Mean Corpuscular Hemoglobin 29.3 pg (27.0-33.0); Mean Corpuscular Volume 85.5 fL (80.0-98.0); Platelet Count 150 X10*3/uL (160-400); Red Cell Distribution Width 12.8 % (11.0-16.0); White Blood Count 21.2 X10*3/uL (4.8-10.8)
[2023-11-28] MEDS: 0.9 % Sodium Chloride Flush 3 ML SYRINGE IVFLUSH (08:49)
[2023-11-28] MEDS: Azithromycin 500 MG in 0.9 % Sodium Chloride 250 ML 125 MG IV (08:49)
--- NOTE | 2023-11-28 12:06 | HO.PM.IMPN ---
Subjective Subjective Date of Service: 11/28/23 Interval History: f/u on sepsis d/t pna interval history: WBC trending down, coughin with yellow/rosie sputum, no fever, and less sob Physical Exam Vital Signs: Vital Signs: Last Vital Signs Temp 97.4 F 11/28/23 11:11 Pulse 117 H 11/28/23 11:11 Resp 20 11/28/23 11:11 BP 111/67 11/28/23 11:11 Pulse Ox 92 11/28/23 11:11 O2 Del Method Room Air 11/28/23 11:11 BMI result Body Mass Index 21.9 Const: Other: General: AO X 3, no acute distress Resp: CTA bilateral, no accessory muslcle use CVS: S1,S2,RRR GI: +BS, NT, no distention Skin: No rash Neuro: motor grossly intact Psych: appropriate affect Objective Data Active Medications Acetaminophen (Acetaminophen 325 Mg Tablet) 650 mg PO Q6H PRN PRN Reason: Pain, Mild (Pain Scale 1-3) Last Admin: 11/25/23 12:00 Dose: 650 mg Documented By: FRANCES Duloxetine HCl (Duloxetine Hcl 60 Mg Capsule.Dr) 60 mg PO BID [facility] Last Admin: 11/28/23 08:49 Dose: 60 mg Documented By: KORINA Guaifenesin/Codeine Phosphate (Guaifen/Codeine Sf 200/20/10ml 10 Ml Liquid) 10 ml PO Q6H PRN PRN Reason: Cough Last Admin: 11/28/23 08:50 Dose: 10 ml Documented By: KORINA Heparin Sodium (Porcine) (Heparin Sodium,Porcine 5,000 Unit/Ml Vial) 5,000 unit SUBCUT Q12H [facility] Last Admin: 11/28/23 01:53 Dose: 5,000 unit Documented By: ANTOIC Azithromycin 500 mg/ Sodium (Chloride) 250 mls @ 125 mls/hr IV Q24H [facility] Last Infusion: 11/28/23 10:51 Dose: Infused Documented By: KORINA Ceftriaxone Sodium 2 gm/ (Sodium Chloride) 50 mls @ 100 mls/hr IV Q24H [facility] Last Infusion: 11/27/23 16:39 Dose: Infused Documented By: BOOKER Lidocaine (Lidocaine 4 % Patch Adh..Patch) 2 patch TRANSDERMA DAILY [facility]; Protocol Last Admin: 11/28/23 08:55 Dose: Not Given Documented By: KORINA Non-Admin Reason: Patient Refused Melatonin (Melatonin 3 Mg Tablet) 6 mg PO BEDTIME PRN PRN Reason: Sleep Last Admin: 11/27/23 21:33 Dose: 6 mg Documented By: BOOKER Ondansetron HCl (Ondansetron Hcl 4 Mg/2 Ml Vial) 4 mg IVPUSH Q8H PRN PRN Reason: Nausea and Vomiting Oxycodone HCl (Oxycodone Hcl Immed Release 5 Mg Tablet) 5 mg PO Q4H PRN PRN Reason: Pain, Severe (Pain Scale 7-10) Last Admin: 11/28/23 08:54 Dose: 5 mg Documented By: KORINA Pharmacy Consult (Consult Rx Vancomycin Dosing) 1 each MISCELLANE DAILY PRN PRN Reason: Consult order Senna (Sennosides 8.6 Mg Tablet) 17.2 mg PO BEDTIME PRN PRN Reason: Constipation Sodium Chloride (0.9 % Sodium Chloride Flush 3 Ml Syringe) 3 ml IVFLUSH QSHIFT [facility] Last Admin: 11/28/23 08:49 Dose: 3 ml Documented By: KORINA Vancomycin HCl (Vancomycin Hcl 125 Mg Capsule) 125 mg PO Q6H [facility] Last Admin: 11/28/23 04:53 Dose: 125 mg Documented By: ANTOIC Labs 11/28/23 06:46 11/27/23 08:33 Labs: Laboratory Results - last 24 hr 11/24/23 11/28/23 15:49 06:46 MCV 85.5 MCH 29.3 MCHC 34.3 RDW 12.8 Plt Count 150 L MPV 12.0 Absolute Nucleated RBC 0.000 Nucleated RBC % (auto) 0.0 Ur Strep pneumoniae Ag Not Detected Microbiology Microbiology Results: Microbiology 11/26/23 17:10 Gram Stain - Final Sputum - Expectorated Sputum Culture - Preliminary Assessment and Plan (1) Streptococcal pneumonia: Status: Acute (2) Pneumonia: Status: Acute (3) Severe sepsis: Status: Acute Plan 33-year-old female with 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 # [employer] acquired PNA, severe sepsis, + strep antigien, clinically progressing in the right direction. No hypoxia, blood cultures negative. MrSA screen negative Initially was on Vanco, levaquin and Azithro and later changed to Ceftriaxone + Azithro. Cotinue Abx, follow WBC, robitussin+codein for cough, sputum Cx. multiple resp caterina #Hx IVDA, claims to be in remission 10 yrs, no signs of withdrawal - U tox + opioid and MJ , opioid probably from morphine - neg HIV, hep c viral load -no indication for addiction med at this time Leg edema--probably ivf, routine echo normal ef DVT prophylaxis-heparin full code Inpatient stay d/t overwhelming pneumonia, sepsis that is not yet resolved. Quality Stroke Does the patient have a stroke diagnosis?: No VTE Prior VTE?: No VTE Risk Level:: Medical - moderate - high VTE Device Contraindication: Treatment Not Indicated VTE Drug Contraindication: N/A - Med Ordered
[2023-11-28 19:55] LABS: HCV Log PCR <1.18 NOT DETECTED Log IU/mL (NOT DETECTED); HepC Viral Load <15 NOT DETECTED IU/mL (NOT DETECTED)
--- NOTE | 2023-11-28 21:37 | PM.EVENT ---
Event Note Date of Service: 11/28/23 Event Note: Nurse reported dyspnea. Pt with mild tachypnea and decreased breath sounds left side upon evaluation. Obtained CXR with significant worsening and near complete opacification of left hemithorax. Will broaden antibiotics (MRSA nasal screen negative) and consult pulmonology. Patient satting 92% on 2 L supplemental oxygen. Close monitoring of respiratory status. Time Spent With Patient Time: Total time managing care of this patient today ____ minutes.
[2023-11-29 04:00] VITALS: BP 122/82; PULSE 119; RESP 30; TEMP 36.2; O2SAT 89
[2023-11-29 07:08] VITALS: BP 125/76; PULSE 105; RESP 20; TEMP 36.5; O2SAT 97
[2023-11-29] MEDS: Lidocaine 4 % Patch ADH..PATCH 2 PATCH TRANSDERMA (07:55)
--- NOTE | 2023-11-29 10:24 | MHC.CM.PN ---
Per ROUNDS discussion, Patient is not yet medically cleared for dc (IV Zosyn, near complete opacification of (L) Hemothorax); Home is the goal and CM will continue to follow.
[2023-11-29 11:44] VITALS: BP 117/62; PULSE 107; RESP 20; TEMP 36; O2SAT 96
--- NOTE | 2023-11-29 12:11 | PM.PNPUL ---
Subjective Subjective Date of Service: 11/29/23 Interval history: Progressive streptococcal pneumonia now with large parapneumonic effusion versus empyema on CT chest. Objective Data Labs 11/29/23 07:28 11/27/23 08:33 Labs: Laboratory Results - last 24 hr 11/24/23 11/29/23 16:35 07:28 WBC 26.1 H RBC 4.15 L Hgb 12.0 Hct 35.6 L MCV 85.8 MCH 28.9 MCHC 33.7 RDW 12.8 Plt Count 224 D MPV 11.6 Absolute Nucleated RBC 0.000 Nucleated RBC % (auto) 0.0 Hep C Viral Load <15 NOT DETECTED Hep C Viral Load Log <1.18 NOT DETECTED Microbiology Microbiology Results: Microbiology 11/24/23 09:25 Blood - Venous Blood Culture - Final No growth after 5 days. 11/24/23 09:16 Blood - Venous Blood Culture - Final No growth after 5 days. 11/26/23 17:10 Sputum - Expectorated Gram Stain - Final 11/26/23 17:10 Sputum - Expectorated Sputum Culture - Final Physical Exam Vital Signs: Vital Signs: Last Vital Signs Temp 96.8 F 11/29/23 11:44 Pulse 107 H 11/29/23 11:44 Resp 20 11/29/23 11:44 BP 117/62 11/29/23 11:44 Pulse Ox 96 11/29/23 11:44 O2 Del Method Nasal Cannula 11/29/23 11:44 O2 Flow Rate 2 11/29/23 11:44 BMI result Body Mass Index 21.9 Const: General: no acute distress, alert and awake Eyes: Sclerae: sclerae normal EOM: EOMs intact bilaterally Neck: Neck: Yes no lymphadenopathy, Yes trachea midline and Yes supple Resp: Effort & Inspection: tachypneic Auscultation: other (No left-sided air movement) Cardio: Rate: tachycardic Rhythm: regular rhythm Heart sounds: no gallops, no murmurs and no rubs GI: Palpation (GI): Soft to palpation and Other GI palpation findings present ( Nontender) Auscultation: normal bowel sounds Extrem: General: Yes no pedal edema, No clubbing and No cyanosis Procedures Date of Service Date of Service: 11/29/23 Assessment and Plan Assessment and plan (1) Pleural effusion: Status: Acute (2) Streptococcal pneumonia: Status: Acute Plan Impression: 33-year-old lady admitted with streptococcal pneumonia, now with bilateral involvement and large left-sided pleural effusion empyema versus parapneumonic Recommendations: Continue broad-spectrum antibiotics. Needs large bore drainage of the left sided pleural effusion versus decortication, recommend thoracic surgery evaluation. Discussed with Dr. Ibarra. Time Spent With Patient Time: Total time managing care of this patient today ____ minutes. Progress Note: Quality Stroke Does the patient have a stroke diagnosis?: No
--- NOTE | 2023-11-29 12:31 | HO.PM.IMPN ---
Subjective Subjective Date of Service: 11/30/23 Interval History: f/u on sepsis d/t pna patient became more short of breath overnight, repeat CXR showed an enlarged left sided effusion, pulmonoloigst has seen her and is recommending a chest tube, antibiotics have been changed to Zosyn and also received a dose of levaquin last and despite that WBCs are tending up. O2 sat 96 on 2 liters Review of Systems no fever, sob Physical Exam Vital Signs: Vital Signs: Last Vital Signs Temp 96.8 F 11/29/23 11:44 Pulse 107 H 11/29/23 11:44 Resp 20 11/29/23 11:44 BP 117/62 11/29/23 11:44 Pulse Ox 96 11/29/23 11:44 O2 Del Method Nasal Cannula 11/29/23 11:44 O2 Flow Rate 2 11/29/23 11:44 BMI result Body Mass Index 21.9 Objective Data Active Medications Acetaminophen (Acetaminophen 325 Mg Tablet) 650 mg PO Q6H PRN PRN Reason: Pain, Mild (Pain Scale 1-3) Last Admin: 11/29/23 04:24 Dose: 650 mg Documented By: MO Benzonatate (Benzonatate 100 Mg Capsule) 200 mg PO TID PRN PRN Reason: Cough Last Admin: 11/29/23 06:27 Dose: 200 mg Documented By: MO Duloxetine HCl (Duloxetine Hcl 60 Mg Capsule.) 60 mg PO BID [facility] Last Admin: 11/29/23 07:49 Dose: 60 mg Documented By: YEVGENIY Guaifenesin/Codeine Phosphate (Guaifen/Codeine Sf 200/20/10ml 10 Ml Liquid) 10 ml PO Q6H PRN PRN Reason: Cough Last Admin: 11/29/23 07:49 Dose: 10 ml Documented By: YEVGENIY Heparin Sodium (Porcine) (Heparin Sodium,Porcine 5,000 Unit/Ml Vial) 5,000 unit SUBCUT Q12H [facility] Last Admin: 11/29/23 04:23 Dose: 5,000 unit Documented By: MO Piperacillin Sod/Tazobactam (Sod 4.5 gm/ Sodium Chloride) 100 mls @ 200 mls/hr IV Q6H [facility] Last Infusion: 11/29/23 10:31 Dose: Infused Documented By: YEVGENIY Lidocaine (Lidocaine 4 % Patch Adh..Patch) 2 patch TRANSDERMA DAILY [facility]; Protocol Last Admin: 11/29/23 07:55 Dose: 2 patch Documented By: YEVGENIY Melatonin (Melatonin 3 Mg Tablet) 6 mg PO BEDTIME PRN PRN Reason: Sleep Last Admin: 11/28/23 23:48 Dose: 6 mg Documented By: MO Ondansetron HCl (Ondansetron Hcl 4 Mg/2 Ml Vial) 4 mg IVPUSH Q8H PRN PRN Reason: Nausea and Vomiting Oxycodone HCl (Oxycodone Hcl Immed Release 5 Mg Tablet) 5 mg PO Q4H PRN PRN Reason: Pain, Severe (Pain Scale 7-10) Last Admin: 11/29/23 10:38 Dose: 5 mg Documented By: YEVGENIY Pharmacy Consult (Consult Rx Vancomycin Dosing) 1 each MISCELLANE DAILY PRN PRN Reason: Consult order Senna (Sennosides 8.6 Mg Tablet) 17.2 mg PO BEDTIME PRN PRN Reason: Constipation Sodium Chloride (0.9 % Sodium Chloride Flush 3 Ml Syringe) 3 ml IVFLUSH QSHIFT [facility] Last Admin: 11/29/23 08:29 Dose: 3 ml Documented By: YEVGENIY Vancomycin HCl (Vancomycin Hcl 125 Mg Capsule) 125 mg PO Q6H [facility] Last Admin: 11/29/23 10:00 Dose: 125 mg Documented By: YEVGENIY Labs 11/30/23 07:45 11/30/23 07:45 Labs: Laboratory Results - last 24 hr 11/24/23 11/29/23 16:35 07:28 MCV 85.8 MCH 28.9 MCHC 33.7 RDW 12.8 Plt Count 224 D MPV 11.6 Absolute Nucleated RBC 0.000 Nucleated RBC % (auto) 0.0 Hep C Viral Load <15 NOT DETECTED Hep C Viral Load Log <1.18 NOT DETECTED Microbiology Microbiology Results: Microbiology 11/24/23 09:25 Blood Culture - Final Blood - Venous No growth after 5 days. 11/24/23 09:16 Blood Culture - Final Blood - Venous No growth after 5 days. 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 # [employer] acquired PNA, severe sepsis, + strep antigien. Worse overnight, repeat CXR showing enlarged parapneumonic effusion. She is now on supplemental oxygen. Received Levaquin last and Abx this morning changed to Zosyn. A repeat CT of the chest is done, result pending. Dr. Nation is recommending thoracic surgery eval for possible large bore chest tube. Continue zosyn, supplemental O2. Blood cultures no growth, sputum cultures no growth. #Hx IVDA, claims to be in remission 10 yrs, no signs of withdrawal - U tox + opioid and MJ , opioid probably from morphine - neg HIV, hep c viral load -no indication for addiction med at this time Leg edema--probably ivf, routine echo normal ef DVT prophylaxis-heparin full code Inpatient stay d/t overwhelming pneumonia, sepsis that is not yet resolved. Quality Stroke Does the patient have a stroke diagnosis?: No VTE Prior VTE?: No VTE Risk Level:: Medical - moderate - high VTE Device Contraindication: Treatment Not Indicated VTE Drug Contraindication: N/A - Med Ordered
--- NOTE | 2023-11-29 14:31 | HO.THORCONS ---
History of Present Illness Consult details Consult date: 11/29/23 Requesting physician: Javad Ibarra Narrative: 33-year-old female with remote history of IV drug abuse, history of hepatitis-C cleared, history of childhood asthma who initially presented 5 days ago with upper respiratory symptoms ongoing since 11/17. She had fevers with associated sweats and chills, sore throat, dry cough, shortness of breath. CTA of the chest was performed which was negative for VTE but showed dense airspace consolidation within the left lung, consistent with pneumonia. She was admitted to the hospitalist service and initially started on IV vancomycin, IV Levaquin, IV azithromycin. She had initial improvement but reported worsening dyspnea and repeat CXR performed showed large pleural effusion. She had increasing leukocytosis. Her abx spectrum was widened and started on IV zosyn and vanco. Chest CT today showed massive pleural effusion on the left or possibly empyema. Review of Systems Constitutional: Constitutional: Reports chills and Reports fever(s) ENT: Denies dizziness Cardiovascular: Cardiovascular: Denies chest pain and Reports dyspnea Respiratory: Respiratory: Reports dyspnea Gastrointestinal: Gastrointestinal: Reports diarrhea Integumentary/Breasts: Skin/Breast: Denies rash and Denies jaundice Neurologic: Denies dizziness PMFSH Past Medical History Medical History Former cigarette smoker History of intravenous drug use in remission History of hepatitis C Marijuana smoker History of asthma Family History Family history: reviewed and not pertinent Social History Social History Household Members: Significant Other Housing: Apartment Do you presently have visiting nurse or other home services: No Comment: pt. refuses bed alarm Patient Tobacco Use Status: Never used Tobacco Smoked in Last 30 Days: No e-Cigarette/Vaping Use: Never Used Use of substances other than those prescribed or required for medical reasons: No Substance Use Type: Marijuana Substance Use Frequency: Daily Last Used Substance Other:: h/o heroin/crack cocaine. Currently Displaying Signs/Symptoms of Drug Intoxication Withdrawal: No Any prior treatment program specific to substance use: No Advance Directives: No Advance Directives Information Provided: No Do you have thoughts of harming others: None Do you have a plan to hurt others: No Plan Recently lost weight without trying: No Eating poorly because of decreased appetite: No Nutrition Risks: No Nutritional Risk Patient : No : No Poor oral hygiene: No service: No Meds Allergies Allergy/AdvReac Type Severity Reaction Status Date / Time No Known Allergies Allergy Verified 11/24/23 03:45 Active Medications: Current Medications Acetaminophen (Acetaminophen 325 Mg Tablet) 650 mg PO Q6H PRN PRN Reason: Pain, Mild (Pain Scale 1-3) Last Admin: 11/29/23 04:24 Dose: 650 mg Benzonatate (Benzonatate 100 Mg Capsule) 200 mg PO TID PRN PRN Reason: Cough Last Admin: 11/29/23 12:38 Dose: 200 mg Duloxetine HCl (Duloxetine Hcl 60 Mg Capsule.Dr) 60 mg PO BID [facility] Last Admin: 11/29/23 07:49 Dose: 60 mg Guaifenesin/Codeine Phosphate (Guaifen/Codeine Sf 200/20/10ml 10 Ml Liquid) 10 ml PO Q6H PRN PRN Reason: Cough Last Admin: 11/29/23 07:49 Dose: 10 ml Heparin Sodium (Porcine) (Heparin Sodium,Porcine 5,000 Unit/Ml Vial) 5,000 unit SUBCUT Q12H [facility] Last Admin: 11/29/23 04:23 Dose: 5,000 unit Hydromorphone HCl (Hydromorphone Hcl 0.5 Mg/0.5 Ml Syringe) 0.5 mg IVPUSH Q4H PRN; Protocol PRN Reason: Pain, Severe (Pain Scale 7-10) Piperacillin Sod/Tazobactam (Sod 4.5 gm/ Sodium Chloride) 100 mls @ 200 mls/hr IV Q6H [facility] Last Infusion: 11/29/23 10:31 Dose: Infused Lidocaine (Lidocaine 4 % Patch Adh..Patch) 2 patch TRANSDERMA DAILY [facility]; Protocol Last Admin: 11/29/23 07:55 Dose: 2 patch Melatonin (Melatonin 3 Mg Tablet) 6 mg PO BEDTIME PRN PRN Reason: Sleep Last Admin: 11/28/23 23:48 Dose: 6 mg Ondansetron HCl (Ondansetron Hcl 4 Mg/2 Ml Vial) 4 mg IVPUSH Q8H PRN PRN Reason: Nausea and Vomiting Oxycodone HCl (Oxycodone Hcl Immed Release 5 Mg Tablet) 5 mg PO Q4H PRN PRN Reason: Pain, Severe (Pain Scale 7-10) Last Admin: 11/29/23 10:38 Dose: 5 mg Pharmacy Consult (Consult Rx Vancomycin Dosing) 1 each MISCELLANE DAILY PRN PRN Reason: Consult order Senna (Sennosides 8.6 Mg Tablet) 17.2 mg PO BEDTIME PRN PRN Reason: Constipation Sodium Chloride (0.9 % Sodium Chloride Flush 3 Ml Syringe) 3 ml IVFLUSH QSHIFT [facility] Last Admin: 11/29/23 08:29 Dose: 3 ml Vancomycin HCl (Vancomycin Hcl 125 Mg Capsule) 125 mg PO Q6H [facility] Last Admin: 11/29/23 10:00 Dose: 125 mg Home Medications Medication Instructions Recorded Confirmed Last Taken Type cranberry-vit 1 cap PO DAILY 11/24/23 11/24/23 11/23/23 History C-B.coag-FOS-L.acid-L.rham 250 mg-30 mg-39.5 mg capsule (Probiotic Plus and Cranberry) duloxetine 60 mg capsule,delayed 60 mg PO BID 11/24/23 11/24/23 11/23/23 History release norelgestromin 150 mcg-e.estradiol 1 patch topical QWEEK 11/24/23 11/24/23 Unknown History 35 mcg/24 hr weekly transderm patch (Xulane) Physical Exam Vital Signs: Vital Signs: Last Vital Signs Temp 96.8 F 11/29/23 11:44 Pulse 107 H 11/29/23 11:44 Resp 20 11/29/23 11:44 BP 117/62 11/29/23 11:44 Pulse Ox 96 11/29/23 11:44 O2 Del Method Nasal Cannula 11/29/23 11:44 O2 Flow Rate 2 11/29/23 11:44 BMI result Body Mass Index 21.9 Const: Other: uncomfortable appearing General: alert Orientation/consciousness: patient oriented x3 Chest: Chest palpation & inspection: normal inspection of the chest Resp: Effort & Inspection: able to speak in complete sentences and tachypneic Skin: General skin exam: no rashes or lesions noted and no jaundice Neuro: General: patient oriented x3 Extrem: General: No no clubbing, cyanosis or edema Results Labs 11/29/23 07:28 11/27/23 08:33 Labs: Abnormal lab results 11/29/23 Range/Units 07:28 WBC 26.1 H (4.8-10.8) X10*3/uL RBC 4.15 L (4.20-5.50) X10*6/uL Hct 35.6 L (37.0-47.0) % Short CBC 11/29/23 Range/Units 07:28 WBC 26.1 H (4.8-10.8) X10*3/uL Hgb 12.0 (12.0-16.0) g/dl Hct 35.6 L (37.0-47.0) % Plt Count 224 D (160-400) X10*3/uL All other labs normal. Imaging Chest x-ray: report reviewed and image reviewed CT scan - chest: report reviewed and image reviewed Assessment and Plan (1) Pleural effusion: Status: Acute (2) Pneumonia: Qualifiers: Laterality: left Lung location: unspecified part of lung Pneumonia type: due to unspecified organism Qualified Code(s): J18.9 - Pneumonia, unspecified organism Status: Acute Plan 33 year old female initially admitted for treatment of pneumonia with worsening symptoms and now with massive left pleural effusion with left lung collapse and mediastinal shift to the right. Recommended left chest tube placement and this was performed at bedside with evacuation of 1500cc serous pleural fluid with some improvement in her symptoms. Discussed possible need for VATS, decortication if no further improvement given the length of her illness and significant effusion. Will repeat CXR in the am and further recommendations based upon clinical course. Patient and mother comfortable with plan. Procedures Date of Service Date of Service: 11/29/23 Chest Tube Chest Tube 1: Chest tube location: Mid-Axillary Chest (left ) Size of tube: 28 Chest tube procedure: Yes betadine prep and sterile drapes applied Tube sutured to skin: Yes Sterile dressing applied: Yes Anesthesia: 1% Lidocaine Volume anesthetic (ml): 10 Incision made with: #10 blade Post procedure: sutured to skin Tube Drainage: fluid Amount of initial drainage (ml): 1,500 Post procedure CXR?: Yes Patient tolerated procedure: Yes Complications: pain Progress: The risks and benefits, alternatives were discussed with the patient and informed consent was obtained. An area of the patient's left back was prepped with betadine and draped in the usual sterile fashion. 10cc of 1% lidocaine was used for local anesthesia of the skin and subcutaneous tissues. A mets was used to dissect down to the intercostal space and a bhavya clamp was used inserted and entered the chest cavity. The tube was then connected to a closed chest drainage system with evacuation of around 1500cc serous fluid. The patient tolerated the procedure well. No immediate complications. The chest tube was secured to the skin with two silk sutures and a sterile dressing was applied over the site.
[2023-11-29 16:00] VITALS: BP 119/61; PULSE 116; RESP 18; TEMP 36.4; O2SAT 98
--- NOTE | 2023-11-29 18:44 | PC.NURSE ---
Pt with chest tube to left side. Dressing CDI, no creoitus noted. Draining pink tinged, 40 ml
[2023-11-29 20:00] VITALS: BP 109/56; PULSE 114; RESP 20; TEMP 36.2; O2SAT 93
[2023-11-30] VITALS (7 sets, daily range): BP systolic 109–139; BP diastolic 54–74; PULSE 102–116; RESP 18–20; TEMP 36.3–36.6; O2SAT 92–97
--- NOTE | 2023-11-30 10:52 | HO.PM.IMPN ---
Subjective Subjective Date of Service: 11/30/23 Interval History: f/u on sepsis d/t pna and left parapneumonic effusion, left chest tube yesterday, she feels better, WBC still high, no fever and breathing feels more comfortable. Physical Exam Vital Signs: Vital Signs: Last Vital Signs Temp 97.9 F 11/30/23 07:40 Pulse 108 H 11/30/23 07:40 Resp 20 11/30/23 07:40 BP 119/65 11/30/23 07:40 Pulse Ox 94 11/30/23 07:40 O2 Del Method Room Air 11/30/23 07:40 O2 Flow Rate 2 11/30/23 03:07 BMI result Body Mass Index 21.9 Objective Data Active Medications Acetaminophen (Acetaminophen 325 Mg Tablet) 650 mg PO Q6H PRN PRN Reason: Pain, Mild (Pain Scale 1-3) Last Admin: 11/29/23 23:55 Dose: 650 mg Documented By: BLAYNE Benzonatate (Benzonatate 100 Mg Capsule) 200 mg PO TID PRN PRN Reason: Cough Last Admin: 11/30/23 06:01 Dose: 200 mg Documented By: BLAYNE Duloxetine HCl (Duloxetine Hcl 60 Mg Capsule.) 60 mg PO BID [facility] Last Admin: 11/30/23 07:39 Dose: 60 mg Documented By: CHRIS Guaifenesin/Codeine Phosphate (Guaifen/Codeine Sf 200/20/10ml 10 Ml Liquid) 5 ml PO Q6H PRN PRN Reason: Cough Last Admin: 11/30/23 10:15 Dose: 5 ml Documented By: CHRIS Heparin Sodium (Porcine) (Heparin Sodium,Porcine 5,000 Unit/Ml Vial) 5,000 unit SUBCUT Q12H [facility] Last Admin: 11/30/23 02:53 Dose: 5,000 unit Documented By: BLAYNE Hydromorphone HCl (Hydromorphone Hcl 0.5 Mg/0.5 Ml Syringe) 0.5 mg IVPUSH Q4H PRN; Protocol PRN Reason: Pain, Severe (Pain Scale 7-10) Last Admin: 11/30/23 07:35 Dose: 0.5 mg Documented By: CHRIS Piperacillin Sod/Tazobactam (Sod 4.5 gm/ Sodium Chloride) 100 mls @ 200 mls/hr IV Q6H [facility] Last Infusion: 11/30/23 10:49 Dose: Infused Documented By: CHRIS Lidocaine (Lidocaine 4 % Patch Adh..Patch) 2 patch TRANSDERMA DAILY [facility]; Protocol Last Admin: 11/30/23 07:34 Dose: 2 patch Documented By: CHRIS Melatonin (Melatonin 3 Mg Tablet) 6 mg PO BEDTIME PRN PRN Reason: Sleep Last Admin: 11/29/23 20:01 Dose: 6 mg Documented By: BLAYNE Ondansetron HCl (Ondansetron Hcl 4 Mg/2 Ml Vial) 4 mg IVPUSH Q8H PRN PRN Reason: Nausea and Vomiting Oxycodone HCl (Oxycodone Hcl Immed Release 5 Mg Tablet) 5 mg PO Q4H PRN PRN Reason: Pain, Severe (Pain Scale 7-10) Last Admin: 11/30/23 10:14 Dose: 5 mg Documented By: CHRIS Pharmacy Consult (Consult Rx Vancomycin Dosing) 1 each MISCELLANE DAILY PRN PRN Reason: Consult order Senna (Sennosides 8.6 Mg Tablet) 17.2 mg PO BEDTIME PRN PRN Reason: Constipation Sodium Chloride (0.9 % Sodium Chloride Flush 3 Ml Syringe) 3 ml IVFLUSH QSHIFT [facility] Last Admin: 11/30/23 07:39 Dose: 3 ml Documented By: CHRIS Vancomycin HCl (Vancomycin Hcl 125 Mg Capsule) 125 mg PO Q6H [facility] Last Admin: 11/30/23 10:14 Dose: 125 mg Documented By: CHRIS Labs 11/30/23 07:45 11/30/23 07:45 Labs: Laboratory Results - last 24 hr 11/29/23 11/30/23 13:09 07:45 MCV 87.4 MCH 28.9 MCHC 33.0 RDW 12.9 Plt Count 321 D MPV 11.3 Absolute Nucleated RBC 0.000 Nucleated RBC % (auto) 0.0 Anion Gap 11 L 10 L Estim Creat Clear Calc 129.6 127.5 Estimated GFR > 60 > 60 Random Glucose 96 79 Calcium 8.3 L 8.2 L Microbiology Microbiology Results: Microbiology 11/29/23 15:15 Gram Stain - Final Thoracic Fluid Routine Culture - Preliminary No growth to date. Anaerobic Culture - Preliminary No growth to date. 11/24/23 09:25 Blood Culture - Final Blood - Venous No growth after 5 days. 11/24/23 09:16 Blood Culture - Final Blood - Venous No growth after 5 days. 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 # [employer] acquired PNA, severe sepsis, + strep antigien and parapneumonic effsuion and is now s/p left chest tube, better despite higher wbc -follow Pleural fluid culture, continue Zosyn, chest tube management by thoraci. ID, pulmonary following #Hx IVDA, in remission 10 yrs, no signs of withdrawal - U tox + opioid and MJ , opioid probably from morphine - neg HIV, hep c viral load -no indication for addiction med at this time Leg edema--probably ivf, routine echo normal ef, elevated legs, when feasible, ambulate DVT prophylaxis-heparin full code Inpatient stay d/t overwhelming pneumonia, effusion, chest tube management, sepsis that is not yet resolved. Quality Stroke Does the patient have a stroke diagnosis?: No VTE Prior VTE?: No VTE Risk Level:: Medical - moderate - high VTE Device Contraindication: Treatment Not Indicated VTE Drug Contraindication: N/A - Med Ordered
--- NOTE | 2023-11-30 15:15 | PM.PNTS ---
Subjective Subjective Date of Service: 11/30/23 Interval history: Uneventful evening. Chest tube output total approximately 1.5+ L. patient is family is present. Chest tube has no air leak. Chest x-ray was reviewed with slight re-expansion of left lung/hydrothorax Physical Exam Vital Signs: Vital Signs: Last Vital Signs Temp 97.5 F 11/30/23 11:49 Pulse 116 H 11/30/23 11:49 Resp 20 11/30/23 11:49 BP 121/58 L 11/30/23 11:49 Pulse Ox 94 11/30/23 11:49 O2 Del Method Nasal Cannula 11/30/23 11:49 O2 Flow Rate 2 11/30/23 11:49 BMI result Body Mass Index 21.9 Chest: Other: Chest tube site;clean dry and intact. Procedures Date of Service Date of Service: 11/30/23 Progress Note: A&P Assessment and plan (1) Pleural effusion: Status: Acute Plan Continue current therapy. I discussed with patient and her mother that we will continue conservative management at this time. Hopefully the lung will re-expand. If not, the options are to remove the rind from the down lung surgically or accept the hydro-pneumo thorax. In the meantime, encourage out of bed, incentive spirometry, a.m. chest x-ray. All questions answered. Time Spent With Patient Time: Total time managing care of this patient today ____ minutes. Quality Stroke Does the patient have a stroke diagnosis?: No VTE Prior VTE?: No VTE Risk Level:: Medical - moderate - high VTE Device Contraindication: Treatment Not Indicated VTE Drug Contraindication: N/A - Med Ordered
[2023-12-01] VITALS (7 sets, daily range): BP systolic 117–130; BP diastolic 58–68; PULSE 99–111; RESP 17–22; TEMP 36.2–37.3; O2SAT 95–98
--- NOTE | 2023-12-01 11:50 | PM.PNPUL ---
Subjective Subjective Date of Service: 12/01/23 Principal diagnosis: Streptococcal pneumonia, trapped lung Interval history: Progressive streptococcal pneumonia now with large loculated effusion status post chest tube, now with trapped lung/hydropneumothorax. Objective Data Labs 12/01/23 09:00 12/01/23 09:00 Labs: Laboratory Results - last 24 hr 12/01/23 09:00 WBC 20.4 H RBC 3.34 L Hgb 9.8 L Hct 29.3 L MCV 87.7 MCH 29.3 MCHC 33.4 RDW 12.8 Plt Count 356 MPV 10.6 Absolute Nucleated RBC 0.000 Nucleated RBC % (auto) 0.0 Sodium 131 L Potassium 3.1 L Chloride 99 Carbon Dioxide 25 Anion Gap 10 L BUN 4 L Creatinine 0.54 Estim Creat Clear Calc 144.1 Estimated GFR > 60 Random Glucose 85 Calcium 7.8 L Microbiology Microbiology Results: Microbiology 11/29/23 15:15 Thoracic Fluid Gram Stain - Final 11/29/23 15:15 Thoracic Fluid Routine Culture - Preliminary No growth to date. 11/29/23 15:15 Thoracic Fluid Anaerobic Culture - Preliminary No growth to date. 11/24/23 09:25 Blood - Venous Blood Culture - Final No growth after 5 days. 11/24/23 09:16 Blood - Venous Blood Culture - Final No growth after 5 days. 11/26/23 17:10 Sputum - Expectorated Gram Stain - Final 11/26/23 17:10 Sputum - Expectorated Sputum Culture - Final Review of Systems Cardiovascular: Denies chest pain, Reports dyspnea, Reports dyspnea on exertion, Denies orthopnea and Denies paroxysmal nocturnal dyspnea Respiratory: Reports cough, Denies excessive phlegm production, Reports dyspnea and Reports dyspnea on exertion Physical Exam Vital Signs: Vital Signs: Last Vital Signs Temp 98.1 F 12/01/23 11:27 Pulse 102 H 12/01/23 11:27 Resp 20 12/01/23 11:27 BP 126/65 12/01/23 11:27 Pulse Ox 95 12/01/23 11:27 O2 Del Method Nasal Cannula 12/01/23 11:27 O2 Flow Rate 3 12/01/23 11:27 BMI result Body Mass Index 21.9 Const: General: no acute distress, alert and awake Eyes: Sclerae: sclerae normal EOM: EOMs intact bilaterally Neck: Neck: Yes no lymphadenopathy, Yes trachea midline and Yes supple Resp: Effort & Inspection: normal respiratory effort and no respiratory distress Auscultation: clear to auscultation bilaterally Cardio: Rate: tachycardic Rhythm: regular rhythm Heart sounds: no gallops, no murmurs and no rubs GI: Palpation (GI): Soft to palpation and Other GI palpation findings present ( Nontender) Auscultation: normal bowel sounds Extrem: General: Yes no pedal edema, No clubbing and No cyanosis Procedures Date of Service Date of Service: 12/01/23 Assessment and Plan Assessment and plan (1) Trapped lung: Status: Acute (2) Hydropneumothorax: Status: Acute (3) Streptococcal pneumonia: Status: Acute Plan Impression: 33-year-old lady admitted with streptococcal pneumonia, now with bilateral involvement and large left-sided pleural effusion with trapped lung now status post chest tube. Recommendations: Continue antistreptococcal antibiotics. Consider tPA/DNAse intrapleural b.i.d. for 3 days. If no improvement, may require decortication. Time Spent With Patient Time: Total time managing care of this patient today ____ minutes. Progress Note: Quality Stroke Does the patient have a stroke diagnosis?: No
--- NOTE | 2023-12-01 11:54 | HO.PM.IMPN ---
Subjective Subjective Date of Service: 12/01/23 Interval History: She fees just slightly better Physical Exam Vital Signs: Vital Signs: Last Vital Signs Temp 98.1 F 12/01/23 11:27 Pulse 102 H 12/01/23 11:27 Resp 20 12/01/23 11:27 BP 126/65 12/01/23 11:27 Pulse Ox 95 12/01/23 11:27 O2 Del Method Nasal Cannula 12/01/23 11:27 O2 Flow Rate 3 12/01/23 11:27 BMI result Body Mass Index 21.9 Const: Other: General: AO X 3, no acute distress Resp: diminshed on left side, chest tube in place CVS: S1,S2,RRR GI: +BS, NT, no distention Skin: No rash Neuro: motor grossly intact Psych: appropriate affect Chest: Other: Chest tube site;clean dry and intact. Objective Data Active Medications Acetaminophen (Acetaminophen 325 Mg Tablet) 650 mg PO Q6H PRN PRN Reason: Pain, Mild (Pain Scale 1-3) Last Admin: 11/29/23 23:55 Dose: 650 mg Documented By: BLAYNE Benzonatate (Benzonatate 100 Mg Capsule) 200 mg PO TID PRN PRN Reason: Cough Last Admin: 12/01/23 11:15 Dose: 200 mg Documented By: JERMAINE Duloxetine HCl (Duloxetine Hcl 60 Mg Capsule.Dr) 60 mg PO BID [facility] Last Admin: 12/01/23 07:59 Dose: 60 mg Documented By: JERMAINE Guaifenesin/Codeine Phosphate (Guaifen/Codeine Sf 200/20/10ml 10 Ml Liquid) 5 ml PO Q6H PRN PRN Reason: Cough Last Admin: 12/01/23 11:15 Dose: 5 ml Documented By: JERMAINE Heparin Sodium (Porcine) (Heparin Sodium,Porcine 5,000 Unit/Ml Vial) 5,000 unit SUBCUT Q12H [facility] Last Admin: 12/01/23 03:34 Dose: 5,000 unit Documented By: MILES Hydromorphone HCl (Hydromorphone Hcl 0.5 Mg/0.5 Ml Syringe) 0.5 mg IVPUSH Q4H PRN; Protocol PRN Reason: Pain, Severe (Pain Scale 7-10) Last Admin: 12/01/23 09:03 Dose: 0.5 mg Documented By: JERMAINE Piperacillin Sod/Tazobactam (Sod 4.5 gm/ Sodium Chloride) 100 mls @ 200 mls/hr IV Q6H [facility] Last Infusion: 12/01/23 09:45 Dose: Infused Documented By: JERMAINE Lidocaine (Lidocaine 4 % Patch Adh..Patch) 2 patch TRANSDERMA DAILY [facility]; Protocol Last Admin: 12/01/23 07:59 Dose: 2 patch Documented By: JERMAINE Melatonin (Melatonin 3 Mg Tablet) 6 mg PO BEDTIME PRN PRN Reason: Sleep Last Admin: 11/30/23 21:35 Dose: 6 mg Documented By: MILES Ondansetron HCl (Ondansetron Hcl 4 Mg/2 Ml Vial) 4 mg IVPUSH Q8H PRN PRN Reason: Nausea and Vomiting Oxycodone HCl (Oxycodone Hcl Immed Release 5 Mg Tablet) 5 mg PO Q4H PRN PRN Reason: Pain, Severe (Pain Scale 7-10) Last Admin: 12/01/23 08:01 Dose: 5 mg Documented By: JERMAINE Pharmacy Consult (Consult Rx Vancomycin Dosing) 1 each MISCELLANE DAILY PRN PRN Reason: Consult order Senna (Sennosides 8.6 Mg Tablet) 17.2 mg PO BEDTIME PRN PRN Reason: Constipation Sodium Chloride (0.9 % Sodium Chloride Flush 3 Ml Syringe) 3 ml IVFLUSH QSHIFT [facility] Last Admin: 12/01/23 07:59 Dose: 3 ml Documented By: JERMAINE Vancomycin HCl (Vancomycin Hcl 125 Mg Capsule) 125 mg PO Q6H [facility] Last Admin: 12/01/23 09:03 Dose: 125 mg Documented By: JERMAINE Labs 12/01/23 09:00 12/01/23 09:00 Labs: Laboratory Results - last 24 hr 12/01/23 09:00 MCV 87.7 MCH 29.3 MCHC 33.4 RDW 12.8 Plt Count 356 MPV 10.6 Absolute Nucleated RBC 0.000 Nucleated RBC % (auto) 0.0 Anion Gap 10 L Estim Creat Clear Calc 144.1 Estimated GFR > 60 Random Glucose 85 Calcium 7.8 L Microbiology Microbiology Results: Microbiology 11/29/23 15:15 Gram Stain - Final Thoracic Fluid Routine Culture - Preliminary No growth to date. Anaerobic Culture - Preliminary No growth to date. 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 # [employer] acquired PNA, severe sepsis, + strep antigien and parapneumonic effsuion and is now s/p left chest tube and has trapped lungs and may need decordication. Overall better but not optimal -follow Pleural fluid culture negative thus far, continue Zosyn, chest tube management by thoraci. ID, pulmonary following and recommends chemical vs operative decordication #Hx IVDA, in remission 10 yrs, no signs of withdrawal - U tox + opioid and MJ , opioid probably from morphine - neg HIV, hep c viral load -no indication for addiction med at this time Leg edema--probably ivf, routine echo normal ef, elevated legs, when feasible, ambulate, echo ok DVT prophylaxis-heparin full code Inpatient stay d/t overwhelming pneumonia, effusion, chest tube management, sepsis that is not yet resolved. Quality Stroke Does the patient have a stroke diagnosis?: No VTE Prior VTE?: No VTE Risk Level:: Medical - moderate - high VTE Device Contraindication: Treatment Not Indicated VTE Drug Contraindication: N/A - Med Ordered
--- NOTE | 2023-12-01 17:29 | PM.PNGS ---
Subjective Subjective Date of Service: 12/01/23 Interval history: patient is stable complaining of some pain is little frustrated by being here. Is also having some diarrhea and now is in isolation for C diff colitis Physical Exam Vital Signs: Vital Signs: Last Vital Signs Temp 97.2 F 12/01/23 15:43 Pulse 99 12/01/23 15:43 Resp 20 12/01/23 15:43 BP 118/58 L 12/01/23 15:43 Pulse Ox 96 12/01/23 15:43 O2 Del Method Nasal Cannula 12/01/23 15:43 O2 Flow Rate 3 12/01/23 15:43 BMI result Body Mass Index 21.9 Resp: Other: decreased air entry bilaterally patient's voice is very hoarse and quiet chest tube has no fluctuation- 186 cc of serosanguineous fluid in the last 24 hours Objective Data Active Medications Acetaminophen (Acetaminophen 325 Mg Tablet) 650 mg PO Q6H PRN PRN Reason: Pain, Mild (Pain Scale 1-3) Last Admin: 11/29/23 23:55 Dose: 650 mg Documented By: BLAYNE Benzonatate (Benzonatate 100 Mg Capsule) 200 mg PO TID PRN PRN Reason: Cough Last Admin: 12/01/23 11:15 Dose: 200 mg Documented By: JERMAINE Duloxetine HCl (Duloxetine Hcl 60 Mg Capsule.) 60 mg PO BID [facility] Last Admin: 12/01/23 07:59 Dose: 60 mg Documented By: JERMAINE Guaifenesin/Codeine Phosphate (Guaifen/Codeine Sf 200/20/10ml 10 Ml Liquid) 5 ml PO Q6H PRN PRN Reason: Cough Last Admin: 12/01/23 11:15 Dose: 5 ml Documented By: JERMAINE Heparin Sodium (Porcine) (Heparin Sodium,Porcine 5,000 Unit/Ml Vial) 5,000 unit SUBCUT Q12H [facility] Last Admin: 12/01/23 15:30 Dose: 5,000 unit Documented By: JERMAINE Hydromorphone HCl (Hydromorphone Hcl 0.5 Mg/0.5 Ml Syringe) 0.5 mg IVPUSH Q4H PRN; Protocol PRN Reason: Pain, Severe (Pain Scale 7-10) Last Admin: 12/01/23 14:28 Dose: 0.5 mg Documented By: JERMAINE Piperacillin Sod/Tazobactam (Sod 4.5 gm/ Sodium Chloride) 100 mls @ 200 mls/hr IV Q6H [facility] Last Infusion: 12/01/23 16:04 Dose: Infused Documented By: JERMAINE Lidocaine (Lidocaine 4 % Patch Adh..Patch) 2 patch TRANSDERMA DAILY [facility]; Protocol Last Admin: 12/01/23 07:59 Dose: 2 patch Documented By: JERMAINE Melatonin (Melatonin 3 Mg Tablet) 6 mg PO BEDTIME PRN PRN Reason: Sleep Last Admin: 11/30/23 21:35 Dose: 6 mg Documented By: MILES Ondansetron HCl (Ondansetron Hcl 4 Mg/2 Ml Vial) 4 mg IVPUSH Q8H PRN PRN Reason: Nausea and Vomiting Oxycodone HCl (Oxycodone Hcl Immed Release 5 Mg Tablet) 5 mg PO Q4H PRN PRN Reason: Pain, Severe (Pain Scale 7-10) Last Admin: 12/01/23 16:14 Dose: 5 mg Documented By: JERMAINE Pharmacy Consult (Consult Rx Vancomycin Dosing) 1 each MISCELLANE DAILY PRN PRN Reason: Consult order Senna (Sennosides 8.6 Mg Tablet) 17.2 mg PO BEDTIME PRN PRN Reason: Constipation Sodium Chloride (0.9 % Sodium Chloride Flush 3 Ml Syringe) 3 ml IVFLUSH QSHIFT [facility] Last Admin: 12/01/23 15:31 Dose: 3 ml Documented By: JERMAINE Vancomycin HCl (Vancomycin Hcl 125 Mg Capsule) 125 mg PO Q6H [facility] Last Admin: 12/01/23 15:30 Dose: 125 mg Documented By: JERMAINE Labs 12/01/23 09:00 12/01/23 09:00 Labs: Laboratory Results - last 24 hr 12/01/23 09:00 MCV 87.7 MCH 29.3 MCHC 33.4 RDW 12.8 Plt Count 356 MPV 10.6 Absolute Nucleated RBC 0.000 Nucleated RBC % (auto) 0.0 Anion Gap 10 L Estim Creat Clear Calc 144.1 Estimated GFR > 60 Random Glucose 85 Calcium 7.8 L Imaging Chest x-ray: Radiologist's impression: Impressions Chest X-Ray 12/01/23 07:45 IMPRESSION: * Lungs are hypoinflated. * Multilobar pneumonia. * The left-sided hydropneumothorax is unchanged compared to 11/30/2023. Microbiology Microbiology Results: Microbiology 11/29/23 15:15 Gram Stain - Final Thoracic Fluid Routine Culture - Preliminary No growth to date. Anaerobic Culture - Preliminary No growth to date. Procedures Date of Service Date of Service: 12/01/23 Progress Note: A&P Assessment and plan (1) Pleural effusion: Status: Acute Assessment and Plan: patient status post placement of chest tube for large pleural effusion with successful removal of a moderate amount of fluid however at this point fluid amount is DECREASING. THERE IS NO AIR LEAK there is still a moderate amount of her lung that is trapped and Pulmonary suggesting trial of tPAse versus surgical decortication. treatment for C diff as per medical team Time Spent With Patient Time: Total time managing care of this patient today ____ minutes. Quality Stroke Does the patient have a stroke diagnosis?: No VTE Prior VTE?: No VTE Risk Level:: Medical - moderate - high VTE Device Contraindication: Treatment Not Indicated VTE Drug Contraindication: N/A - Med Ordered
[2023-12-02 03:04] VITALS: BP 119/62; PULSE 99; RESP 17; TEMP 36.4; O2SAT 96
[2023-12-02 03:47] VITALS: RESP 20
[2023-12-02 06:55] LABS: Hematocrit 32.7 % (37.0-47.0); Hemoglobin 10.7 g/dl (12.0-16.0); Mean Corpuscular HGB Conc 32.7 g/dl (31.0-35.0); Mean Corpuscular Hemoglobin 29.2 pg (27.0-33.0); Mean Corpuscular Volume 89.3 fL (80.0-98.0); Mean Platelet Volume 10.7 fL (9.4-12.3); Platelet Count 562 X10*3/uL (160-400); Red Blood Count 3.66 X10*6/uL (4.20-5.50); Red Cell Distribution Width 12.7 % (11.0-16.0); White Blood Count 24.6 X10*3/uL (4.8-10.8)
[2023-12-02 07:35] LABS: Anion Gap 10 (12-20); Blood Urea Nitrogen 3 mg/dL (9-16); Calcium 8.3 mg/dL (8.4-10.2); Carbon Dioxide 29 mmol/L (22-29); Chloride 95 mmol/L (96-108); Creatinine Clr Calc Pharmacy 125.5; Estimated Glomerular Filt Rate > 60; Glucose Random 88 mg/dL (60-115); Potassium 3.4 mmol/L (3.3-5.1); Sodium 131 mmol/L (135-145)
[2023-12-02 08:00] VITALS: BP 123/58; PULSE 104; RESP 16; TEMP 36.5; O2SAT 98
--- NOTE | 2023-12-02 09:32 | PM.PNPUL ---
Subjective Subjective Date of Service: 12/02/23 Principal diagnosis: Streptococcal pneumonia, trapped lung Interval history: Seen and examined. No significant drainage from chest tube, Fluid analysis is not available but likely a complicated parapneumonic effusion with lung entrapment. Now with cdiff. CXR is no better. I am recommending the patient move forward with VATS/decortication. Objective Data Labs 12/02/23 06:14 12/02/23 06:14 Labs: Laboratory Results - last 24 hr 12/01/23 12/02/23 09:00 06:14 WBC 24.6 H RBC 3.66 L Hgb 10.7 L Hct 32.7 L MCV 89.3 MCH 29.2 MCHC 32.7 RDW 12.7 Plt Count 562 H D MPV 10.7 Absolute Nucleated RBC 0.000 Nucleated RBC % (auto) 0.0 Sodium 131 L 131 L Potassium 3.1 L 3.4 Chloride 99 95 L Carbon Dioxide 25 29 Anion Gap 10 L 10 L BUN 4 L 3 L Creatinine 0.54 0.62 Estim Creat Clear Calc 144.1 125.5 Estimated GFR > 60 > 60 Random Glucose 85 88 Calcium 7.8 L 8.3 L D Microbiology Microbiology Results: Microbiology 11/29/23 15:15 Thoracic Fluid Gram Stain - Final 11/29/23 15:15 Thoracic Fluid Routine Culture - Preliminary No growth to date. 11/29/23 15:15 Thoracic Fluid Anaerobic Culture - Preliminary No growth to date. 11/24/23 09:25 Blood - Venous Blood Culture - Final No growth after 5 days. 11/24/23 09:16 Blood - Venous Blood Culture - Final No growth after 5 days. 11/26/23 17:10 Sputum - Expectorated Gram Stain - Final 11/26/23 17:10 Sputum - Expectorated Sputum Culture - Final Review of Systems Constitutional: Reports fatigue Cardiovascular: Reports chest pain, Reports dyspnea, Reports dyspnea on exertion, Denies orthopnea and Denies paroxysmal nocturnal dyspnea Respiratory: Reports cough, Denies excessive phlegm production, Reports dyspnea and Reports dyspnea on exertion Gastrointestinal: Reports loose stools Endocrine: Reports fatigue Physical Exam Vital Signs: Vital Signs: Last Vital Signs Temp 97.7 F 12/02/23 08:00 Pulse 104 H 12/02/23 08:00 Resp 16 12/02/23 08:00 BP 123/58 L 12/02/23 08:00 Pulse Ox 98 12/02/23 08:00 O2 Del Method Nasal Cannula 12/02/23 08:00 O2 Flow Rate 3 12/02/23 08:00 BMI result Body Mass Index 21.9 Const: General: alert, awake and tired appearing Eyes: Sclerae: sclerae normal EOM: EOMs intact bilaterally Neck: Neck: Yes no lymphadenopathy, Yes trachea midline and Yes supple Chest: Chest palpation & inspection: tenderness rib (left around chest tube, no crepitus) Resp: Effort & Inspection: no respiratory distress Auscultation: diminished lung sounds Cardio: Rate: tachycardic Rhythm: regular rhythm Heart sounds: no gallops, no murmurs and no rubs GI: Palpation (GI): Soft to palpation and Other GI palpation findings present ( Nontender) Auscultation: normal bowel sounds Extrem: General: Yes no pedal edema, No clubbing and No cyanosis Procedures Date of Service Date of Service: 12/02/23 Assessment and Plan Assessment and plan (1) Lung entrapment: Status: Acute (2) Streptococcal pneumonia: Status: Acute (3) Pleural effusion: Status: Acute (4) Hydropneumothorax: Status: Acute Plan Bloodwork: HIV test Recommend VATS/decortication for the complicated parapneumonic pleural effusion now with lung entrapment antibiotics coverage Time Spent With Patient Time: Total time managing care of this patient today ____ minutes. Progress Note: Quality Stroke Does the patient have a stroke diagnosis?: No
--- NOTE | 2023-12-02 10:32 | MHC.CM.PN ---
Per ROUNDS discussion/MD, Patient has not yet been medically cleared for dc (May need surgery r/t PNA); home is the goal and CM will continue to follow.
[2023-12-02 11:22] VITALS: BP 130/70; PULSE 98; RESP 16; TEMP 36.6; O2SAT 98
--- NOTE | 2023-12-02 13:24 | HO.PM.IMPN ---
Subjective Subjective Date of Service: 12/02/23 Interval History: States she feels unchanged from yesterday, but has not worsened. Physical Exam Vital Signs: Vital Signs: Last Vital Signs Temp 97.8 F 12/02/23 11:22 Pulse 98 12/02/23 11:22 Resp 16 12/02/23 11:22 BP 130/70 12/02/23 11:22 Pulse Ox 98 12/02/23 11:22 O2 Del Method Nasal Cannula 12/02/23 11:22 O2 Flow Rate 3 12/02/23 11:22 BMI result Body Mass Index 21.9 Const: Other: General: AO X 3, no acute distress Resp: diminshed on left side, chest tube in place. Some rales on upper and lower right lung roche. CVS: S1,S2,RRR GI: +BS, NT, no distention Skin: No rash. Mild non-pitting edema of lower extremities bilaterally Neuro: motor grossly intact Psych: appropriate affect Chest: Other: Chest tube site;clean dry and intact. Objective Data Active Medications Acetaminophen (Acetaminophen 325 Mg Tablet) 650 mg PO Q6H PRN PRN Reason: Pain, Mild (Pain Scale 1-3) Last Admin: 11/29/23 23:55 Dose: 650 mg Documented By: BLAYNE Benzonatate (Benzonatate 100 Mg Capsule) 200 mg PO TID PRN PRN Reason: Cough Last Admin: 12/02/23 12:18 Dose: 200 mg Documented By: ANABELA Duloxetine HCl (Duloxetine Hcl 60 Mg Capsule.) 60 mg PO BID COUNT INCLUDES THE [facility] Last Admin: 12/02/23 08:44 Dose: 60 mg Documented By: ANABELA Guaifenesin/Codeine Phosphate (Guaifen/Codeine Sf 200/20/10ml 10 Ml Liquid) 5 ml PO Q6H PRN PRN Reason: Cough Last Admin: 12/02/23 06:28 Dose: 5 ml Documented By: MATT Heparin Sodium (Porcine) (Heparin Sodium,Porcine 5,000 Unit/Ml Vial) 5,000 unit SUBCUT Q12H COUNT INCLUDES THE [facility] Last Admin: 12/02/23 03:46 Dose: 5,000 unit Documented By: MATT Hydromorphone HCl (Hydromorphone Hcl 0.5 Mg/0.5 Ml Syringe) 0.5 mg IVPUSH Q4H PRN; Protocol PRN Reason: Pain, Severe (Pain Scale 7-10) Last Admin: 12/02/23 08:46 Dose: 0.5 mg Documented By: ANABELA Piperacillin Sod/Tazobactam (Sod 4.5 gm/ Sodium Chloride) 100 mls @ 200 mls/hr IV Q6H COUNT INCLUDES THE [facility] Last Infusion: 12/02/23 09:31 Dose: Infused Documented By: ANABELA Lidocaine (Lidocaine 4 % Patch Adh..Patch) 2 patch TRANSDERMA DAILY COUNT INCLUDES THE [facility]; Protocol Last Admin: 12/02/23 08:45 Dose: 2 patch Documented By: ANABELA Melatonin (Melatonin 3 Mg Tablet) 6 mg PO BEDTIME PRN PRN Reason: Sleep Last Admin: 12/01/23 21:32 Dose: 6 mg Documented By: MATT Ondansetron HCl (Ondansetron Hcl 4 Mg/2 Ml Vial) 4 mg IVPUSH Q8H PRN PRN Reason: Nausea and Vomiting Oxycodone HCl (Oxycodone Hcl Immed Release 5 Mg Tablet) 5 mg PO Q4H PRN PRN Reason: Pain, Severe (Pain Scale 7-10) Last Admin: 12/02/23 12:19 Dose: 5 mg Documented By: ANABELA Pharmacy Consult (Consult Rx Vancomycin Dosing) 1 each MISCELLANE DAILY PRN PRN Reason: Consult order Senna (Sennosides 8.6 Mg Tablet) 17.2 mg PO BEDTIME PRN PRN Reason: Constipation Sodium Chloride (0.9 % Sodium Chloride Flush 3 Ml Syringe) 3 ml IVFLUSH QSHIFT COUNT INCLUDES THE [facility] Last Admin: 12/02/23 08:46 Dose: 3 ml Documented By: ANABELA Vancomycin HCl (Vancomycin Hcl 125 Mg Capsule) 125 mg PO Q6H COUNT INCLUDES THE [facility] Last Admin: 12/02/23 08:45 Dose: 125 mg Documented By: ANABLEA Labs 12/02/23 06:14 12/02/23 06:14 Labs: Laboratory Results - last 24 hr 12/02/23 06:14 MCV 89.3 MCH 29.2 MCHC 32.7 RDW 12.7 Plt Count 562 H D MPV 10.7 Absolute Nucleated RBC 0.000 Nucleated RBC % (auto) 0.0 Anion Gap 10 L Estim Creat Clear Calc 125.5 Estimated GFR > 60 Random Glucose 88 Calcium 8.3 L D Microbiology Microbiology Results: Microbiology 11/29/23 15:15 Gram Stain - Final Thoracic Fluid Routine Culture - Final No growth after 2 days Anaerobic Culture - Preliminary No growth to date. 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 # [employer] acquired PNA, severe sepsis, + strep antigien and parapneumonic effsuion and is now s/p left chest tube.. Overall better but not optimal - Follow pleural fluid culture final result negative; continue Zosyn, chest tube management by thoraci. ID, pulmonary following and recommends operative decordication. Will continue current course at present time and await surgery. Patient states she was told procedure is scheduled for Saturday. C. Diff antigen positive with frequent loose BM; continue Vancomycin 125mg PO/q6hr. #Hx IVDA, in remission 10 yrs, no signs of withdrawal - U tox + opioid and MJ , opioid probably from morphine - neg HIV, hep c viral load - no indication for addiction med at this time Leg edema--probably ivf, routine echo normal ef, elevated legs, when feasible, ambulate, echo ok DVT prophylaxis-heparin Full code Inpatient stay d/t overwhelming pneumonia, effusion, chest tube management, sepsis that is not yet resolved, upcoming descordication. Quality Stroke Does the patient have a stroke diagnosis?: No VTE Prior VTE?: No VTE Risk Level:: Medical - moderate - high VTE Device Contraindication: Treatment Not Indicated VTE Drug Contraindication: N/A - Med Ordered
[2023-12-02 15:25] VITALS: BP 135/62; PULSE 103; RESP 18; TEMP 36.4; O2SAT 99
[2023-12-02] MEDS: vancomycin HCL 125 MG CAPSULE PO ×2 (16:41→21:25)
[2023-12-02] MEDS: 0.9 % Sodium Chloride Flush 3 ML SYRINGE IVFLUSH ×2 (16:42→23:41)
[2023-12-02] MEDS: Heparin Sodium,Porcine 5,000 UNIT/ML VIAL 5000 UNIT SUBCUT (16:42)
[2023-12-02] MEDS: oxyCODONE HCl Immed Release 5 MG TABLET PO ×2 (16:42→23:41)
[2023-12-02] MEDS: HYDROmorphone HCl 0.5 MG/0.5 ML SYRINGE IVPUSH ×2 (17:31→21:25)
[2023-12-02 19:59] VITALS: BP 135/60; PULSE 112; RESP 18; TEMP 36.9; O2SAT 98
[2023-12-02] MEDS: guaiFEN/Codeine SF 200/20/10ML 10 ML LIQUID 5 ML PO (21:25)
[2023-12-02] MEDS: DULoxetine HCl 60 MG CAPSULE.DR PO (21:25)
[2023-12-03] VITALS (7 sets, daily range): BP systolic 126–132; BP diastolic 61–80; PULSE 95–117; RESP 18–20; TEMP 36.3–37.8; O2SAT 93–99
[2023-12-03] MEDS: HYDROmorphone HCl 0.5 MG/0.5 ML SYRINGE IVPUSH ×6 (01:23→21:34)
--- NOTE | 2023-12-03 01:54 | PC.NURSE ---
12/02: Assumed care of pt at 19:15. A&Ox4. Continues on contact precautions and abx for +c diff. ST low 100's up to 110's with coughing and activity/OOB to commode w/ standby assist for tubes and bowel urgency. LLL dim with left lateral chest tube in place to -20sx as ordered. Scant straw colored output observed in tube. No crepitus or air leak noted. DSD C/D/I. Awaiting VATS decortication tentatively Saturday per report. Pt reports pain r/t chest tube. Pt medicated with prn pain and cough meds with +effect. Educated on thoracic splinting and TCDB. Continues on 3L nc. Denies sob. Breathing is even and unlabored without distress. See shift assessment and EMAR for full details. Bed alarm on and safety measures in place. Handoff report given to oncoming RN at 23:00.
[2023-12-03] MEDS: guaiFEN/Codeine SF 200/20/10ML 10 ML LIQUID 5 ML PO ×3 (03:26→22:22)
[2023-12-03] MEDS: oxyCODONE HCl Immed Release 5 MG TABLET PO ×4 (03:26→19:30)
[2023-12-03] MEDS: vancomycin HCL 125 MG CAPSULE PO ×4 (03:26→21:34)
[2023-12-03] MEDS: Heparin Sodium,Porcine 5,000 UNIT/ML VIAL 5000 UNIT SUBCUT ×3 (03:26→16:03)
[2023-12-03 07:33] LABS: HIV AB/AG Nonreactive (Nonreactive); HIV Num 1 0.05 S/CO (0.00-0.99)
[2023-12-03 07:37] LABS: Hematocrit 28.2 % (37.0-47.0); Hemoglobin 9.4 g/dl (12.0-16.0); Mean Corpuscular HGB Conc 33.3 g/dl (31.0-35.0); Mean Corpuscular Hemoglobin 29.7 pg (27.0-33.0); Mean Platelet Volume 10.4 fL (9.4-12.3); Platelet Count 515 X10*3/uL (160-400); Red Blood Count 3.17 X10*6/uL (4.20-5.50); Red Cell Distribution Width 12.7 % (11.0-16.0); White Blood Count 19.6 X10*3/uL (4.8-10.8)
[2023-12-03] MEDS: 0.9 % Sodium Chloride Flush 3 ML SYRINGE IVFLUSH ×3 (08:56→21:45)
[2023-12-03] MEDS: DULoxetine HCl 60 MG CAPSULE.DR PO ×2 (08:56→21:34)
--- NOTE | 2023-12-03 08:56 | P.PNPL_ITS ---
Subjective Subjective Date of Service: 12/03/23 Principal diagnosis: Streptococcal pneumonia, trapped lung Interval history: The patient was seen and examined. MInimal drainage from chest tube. Thoracic surgery scheduled her for tomorrow for VATS/decortication. Objective Data Labs 12/03/23 07:00 12/02/23 06:14 Labs: Laboratory Results - last 24 hr 12/02/23 12/03/23 14:00 07:00 WBC 19.6 H RBC 3.17 L Hgb 9.4 L Hct 28.2 L MCV 89.0 MCH 29.7 MCHC 33.3 RDW 12.7 Plt Count 515 H MPV 10.4 Absolute Nucleated RBC 0.000 Nucleated RBC % (auto) 0.0 HIV 1&2 Ab/P24 Ag 4thGn Nonreactive Microbiology Microbiology Results: Microbiology 11/29/23 15:15 Thoracic Fluid Gram Stain - Final 11/29/23 15:15 Thoracic Fluid Routine Culture - Final No growth after 2 days 11/29/23 15:15 Thoracic Fluid Anaerobic Culture - Preliminary No growth to date. 11/24/23 09:25 Blood - Venous Blood Culture - Final No growth after 5 days. 11/24/23 09:16 Blood - Venous Blood Culture - Final No growth after 5 days. 11/26/23 17:10 Sputum - Expectorated Gram Stain - Final 11/26/23 17:10 Sputum - Expectorated Sputum Culture - Final Review of Systems Constitutional: Reports fatigue Cardiovascular: Reports chest pain, Reports dyspnea, Reports dyspnea on exertion, Denies orthopnea and Denies paroxysmal nocturnal dyspnea Respiratory: Reports cough, Denies excessive phlegm production, Reports dyspnea and Reports dyspnea on exertion Gastrointestinal: Reports loose stools Endocrine: Reports fatigue Physical Exam 2 Vital Signs: Vital Signs: Last Vital Signs Temp 97.8 F 12/03/23 07:02 Pulse 98 12/03/23 07:02 Resp 18 12/03/23 07:02 BP 126/64 12/03/23 07:02 Pulse Ox 95 12/03/23 07:02 O2 Del Method Room Air 12/03/23 07:02 O2 Flow Rate 3 12/03/23 03:29 BMI result Body Mass Index 21.9 Const: General: alert, awake and tired appearing Eyes: Sclerae: sclerae normal EOM: EOMs intact bilaterally Neck: Neck: Yes no lymphadenopathy, Yes trachea midline and Yes supple Chest: Chest palpation & inspection: tenderness rib (left around chest tube, no crepitus) Resp: Effort & Inspection: no respiratory distress Auscultation: diminished lung sounds Cardio: Rate: tachycardic Rhythm: regular rhythm Heart sounds: no gallops, no murmurs and no rubs GI: Palpation (GI): Soft to palpation and Other GI palpation findings present ( Nontender) Auscultation: normal bowel sounds Extrem: General: Yes no pedal edema, No clubbing and No cyanosis Procedures Date of Service Date of Service: 12/03/23 Assessment and Plan Assessment and plan (1) Lung entrapment: Status: Acute (2) Streptococcal pneumonia: Status: Acute (3) Pleural effusion: Status: Acute (4) Hydropneumothorax: Status: Acute Plan HIV test non-reactive Recommend VATS/decortication for the complicated parapneumonic pleural effusion now with lung entrapment scheduled now for tomorrow antibiotics coverage Time Spent With Patient Time: Total time managing care of this patient today ____ minutes. Progress Note: Quality Stroke Does the patient have a stroke diagnosis?: No
--- NOTE | 2023-12-03 09:15 | P.PNIM_ITS ---
Subjective Subjective Date of Service: 12/03/23 <Christy Dyer - Last Filed: 12/03/23 09:50> 12/03/23 <Javad Ibarra MD - Last Filed: 12/03/23 10:22> Interval History: F/U on sepsis d/t pna and L parapneumonic effusion s/p left chest tube. Patient reports she is stable and unchanged from yesterday. No fever; WBC still high. <Christy Dyer - Last Filed: 12/03/23 09:50> Physical Exam 2 Vital Signs: Vital Signs: Last Vital Signs Temp 97.8 F 12/03/23 07:02 Pulse 98 12/03/23 07:02 Resp 18 12/03/23 07:02 BP 126/64 12/03/23 07:02 Pulse Ox 95 12/03/23 07:02 O2 Del Method Room Air 12/03/23 07:02 O2 Flow Rate 3 12/03/23 03:29 BMI result Body Mass Index 21.9 <Christy Dyer - Last Filed: 12/03/23 09:50> General: AO X 3, no acute distress Resp: diminshed on left side. Chest tube in place; site clean, dry, and intact. CVS: S1,S2,RRR GI: +BS, NT, no distention Skin: No rash. Mild non-pitting edema of lower extremities bilaterally Neuro: motor grossly intact Psych: appropriate affect <Christy Dyer - Last Filed: 12/03/23 09:50> Objective Data Active Medications Acetaminophen (Acetaminophen 325 Mg Tablet) 650 mg PO Q6H PRN PRN Reason: Pain, Mild (Pain Scale 1-3) Last Admin: 11/29/23 23:55 Dose: 650 mg Documented By: BLAYNE Benzonatate (Benzonatate 100 Mg Capsule) 200 mg PO TID PRN PRN Reason: Cough Last Admin: 12/02/23 12:18 Dose: 200 mg Documented By: ANABELA Duloxetine HCl (Duloxetine Hcl 60 Mg Capsule.Dr) 60 mg PO BID JOHN Last Admin: 12/03/23 08:56 Dose: 60 mg Documented By: ISSAC Guaifenesin/Codeine Phosphate (Guaifen/Codeine Sf 200/20/10ml 10 Ml Liquid) 5 ml PO Q6H PRN PRN Reason: Cough Last Admin: 12/03/23 03:26 Dose: 5 ml Documented By: NAI Heparin Sodium (Porcine) (Heparin Sodium,Porcine 5,000 Unit/Ml Vial) 5,000 unit SUBCUT Q8H [facility] Last Admin: 12/03/23 08:56 Dose: 5,000 unit Documented By: ISSAC Hydromorphone HCl (Hydromorphone Hcl 0.5 Mg/0.5 Ml Syringe) 0.5 mg IVPUSH Q4H PRN; Protocol PRN Reason: Pain, Severe (Pain Scale 7-10) Last Admin: 12/03/23 08:55 Dose: 0.5 mg Documented By: ISSAC Piperacillin Sod/Tazobactam (Sod 4.5 gm/ Sodium Chloride) 100 mls @ 200 mls/hr IV Q6H [facility] Last Admin: 12/03/23 09:05 Dose: 200 mls/hr Documented By: ISSAC Lidocaine (Lidocaine 4 % Patch Adh..Patch) 2 patch TRANSDERMA DAILY [facility]; Protocol Last Admin: 12/03/23 08:57 Dose: Not Given Documented By: ISSAC Non-Admin Reason: Patient Refused Melatonin (Melatonin 3 Mg Tablet) 6 mg PO BEDTIME PRN PRN Reason: Sleep Last Admin: 12/01/23 21:32 Dose: 6 mg Documented By: MATT Ondansetron HCl (Ondansetron Hcl 4 Mg/2 Ml Vial) 4 mg IVPUSH Q8H PRN PRN Reason: Nausea and Vomiting Oxycodone HCl (Oxycodone Hcl Immed Release 5 Mg Tablet) 5 mg PO Q4H PRN PRN Reason: Pain, Severe (Pain Scale 7-10) Last Admin: 12/03/23 03:26 Dose: 5 mg Documented By: NAI Pharmacy Consult (Consult Rx Vancomycin Dosing) 1 each MISCELLANE DAILY PRN PRN Reason: Consult order Senna (Sennosides 8.6 Mg Tablet) 17.2 mg PO BEDTIME PRN PRN Reason: Constipation Sodium Chloride (0.9 % Sodium Chloride Flush 3 Ml Syringe) 3 ml IVFLUSH QSHIFT [facility] Last Admin: 12/03/23 08:56 Dose: 3 ml Documented By: ISSAC Vancomycin HCl (Vancomycin Hcl 125 Mg Capsule) 125 mg PO Q6H [facility] Last Admin: 12/03/23 03:26 Dose: 125 mg Documented By: NAI <Christy Dyer - Last Filed: 12/03/23 09:50> Labs CBC & Chem 7: 12/03/23 07:00 12/02/23 06:14 <Christy Dyer - Last Filed: 12/03/23 09:50> Labs: Laboratory Results - last 24 hr 12/02/23 12/03/23 14:00 07:00 MCV 89.0 MCH 29.7 MCHC 33.3 RDW 12.7 Plt Count 515 H MPV 10.4 Absolute Nucleated RBC 0.000 Nucleated RBC % (auto) 0.0 HIV 1&2 Ab/P24 Ag 4thGn Nonreactive <Christy Dyer - Last Filed: 12/03/23 09:50> Microbiology Microbiology Results: Microbiology 11/29/23 15:15 Gram Stain - Final Thoracic Fluid Routine Culture - Final No growth after 2 days Anaerobic Culture - Preliminary No growth to date. 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 WBC down to 19.6 from 24.6 yesterday. Community acquired PNA, severe sepsis, + strep antigen and parapneumonic effusion s/p left chest tube -- Overall better but not optimal - Continue Zosyn, chest tube management by thoraci. ID, pulmonary following and recommends operative decordication - tentatively scheduled 12/04/23. C. Diff -- continue Vancomycin 125mg PO/q6hr. #Hx IVDA, in remission 10 yrs, no signs of withdrawal - U tox + opioid and MJ , opioid probably from morphine - neg HIV, hep c viral load - no indication for addiction med at this time Leg edema--probably ivf, routine echo normal ef, elevated legs, when feasible, ambulate, echo ok Anemia -- Probably d/t phlebotomy. Decrease CBC to QOD and monitor DVT prophylaxis-heparin Full code Inpatient stay d/t overwhelming pneumonia, effusion, chest tube management, sepsis that is not yet resolved, upcoming descordication. 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 WBC down to 19.6 from 24.6 yesterday. Community acquired PNA d/t strep pneumo, severe sepsis, and parapneumonic effusion s/p left chest tube 11/29/23 -- Over slow to improve, repeating imaging suggest trapped lung. Plan for Decordication on 12/04/[address] Chanel. WBC down, continue Zosyn indifinately. Cultures have been negative including blood and sputum. C. Diff -- continue Vancomycin 125mg PO/q6hr for total of 10, started 11/26/23, for 10 days #Hx IVDA, in remission 10 yrs, no withdrawal symptoms Leg edema--probably ivf, routine echo normal ef, elevated legs, when feasible, ambulate, echo ok Anemia -- Probably d/t phlebotomy, acute protracted illness. Decrease CBC to QOD and monitor DVT prophylaxis-heparin Full code Inpatient stay d/t overwhelming pneumonia, effusion, chest tube management, sepsis that is not yet resolved on Iv Abx, upcoming descordication. <Javad Ibarra MD - Last Filed: 12/03/23 10:22> Quality Stroke Does the patient have a stroke diagnosis?: No <Christy Dyer - Last Filed: 12/03/23 09:50> VTE Prior VTE?: No <Christy Dyer - Last Filed: 12/03/23 09:50> VTE Risk Level:: Medical - moderate - high <Christy Dyer - Last Filed: 12/03/23 09:50> VTE Device Contraindication: Treatment Not Indicated <Christy Dyer - Last Filed: 12/03/23 09:50> VTE Drug Contraindication: N/A - Med Ordered <Christy Dyer - Last Filed: 12/03/23 09:50>
[2023-12-03] MEDS: Benzonatate 100 MG CAPSULE 200 MG PO (14:26)
--- NOTE | 2023-12-03 16:13 | PM.PNTS ---
Subjective Subjective Date of Service: 12/03/23 Interval history: Still has SOB. C-tube ;minimal output CXR trapped lung persists Physical Exam Vital Signs: Vital Signs: Last Vital Signs Temp 97.4 F 12/03/23 15:24 Pulse 104 H 12/03/23 15:24 Resp 18 12/03/23 15:24 BP 130/80 12/03/23 15:24 Pulse Ox 96 12/03/23 15:24 O2 Del Method Nasal Cannula 12/03/23 15:24 O2 Flow Rate 3 12/03/23 15:24 BMI result Body Mass Index 21.9 Chest: Other: Decr BS left .CT dsg ;CDI Procedures Date of Service Date of Service: 12/03/23 Progress Note: A&P Assessment and plan (1) Lung entrapment: Status: Acute (2) Hydropneumothorax: Status: Acute (3) Trapped lung: Status: Acute Plan Risks benefits ,alternatives of VATS possible open decortication of left trapped lung reviewed with pt. which included but not limited to ;bleeding,infection,recurrence ,numbness,scarring ,recurrence and pt. wishes to proceed. All questions answered. Also called pt.'s mother with same discussion. Time Spent With Patient Time: Total time managing care of this patient today ____ minutes. Quality Stroke Does the patient have a stroke diagnosis?: No VTE Prior VTE?: No VTE Risk Level:: Medical - moderate - high VTE Device Contraindication: Treatment Not Indicated VTE Drug Contraindication: N/A - Med Ordered
[2023-12-04] VITALS (18 sets, daily range): BP systolic 109–130; BP diastolic 56–83; PULSE 95–126; RESP 16–30; TEMP 35.9–37.4; O2SAT 4–99
[2023-12-04] MEDS: Heparin Sodium,Porcine 5,000 UNIT/ML VIAL 5000 UNIT SUBCUT (00:06)
[2023-12-04] MEDS: oxyCODONE HCl Immed Release 5 MG TABLET PO ×2 (00:06→04:23)
[2023-12-04] MEDS: HYDROmorphone HCl 0.5 MG/0.5 ML SYRINGE IVPUSH ×3 (02:20→14:54)
[2023-12-04] MEDS: vancomycin HCL 125 MG CAPSULE PO ×3 (04:23→22:03)
[2023-12-04] MEDS: guaiFEN/Codeine SF 200/20/10ML 10 ML LIQUID 5 ML PO (05:50)
--- NOTE | 2023-12-04 06:39 | PM.PNTS ---
Subjective Subjective Date of Service: 12/02/23 Interval history: patient having persistent shortness of breath and left chest discomfort. . Still having loose stool. Physical Exam Vital Signs: Vital Signs: Last Vital Signs Temp 99.2 F 12/04/23 04:00 Pulse 105 H 12/04/23 04:00 Resp 20 12/04/23 04:00 BP 130/71 12/04/23 04:00 Pulse Ox 97 12/04/23 04:00 O2 Del Method Nasal Cannula 12/04/23 04:00 O2 Flow Rate 3 12/03/23 19:21 BMI result Body Mass Index 21.9 Chest: Other: Chest tube intact with minimal output. Dressing clean dry and intact. Chest x-ray demonstrates persistent hydropneumothorax. Procedures Date of Service Date of Service: 12/04/23 Progress Note: A&P Assessment and plan (1) Lung entrapment: Status: Acute (2) Hydropneumothorax: Status: Acute (3) Trapped lung: Status: Acute Plan Broached the topic of decortication with the patient. she has a trapped lung. She would Like Me to call her mother and as well to discuss this with her. Will tentatively schedule for VATS possible open decortication on 12/04 Time Spent With Patient Time: Total time managing care of this patient today ____ minutes. Quality Stroke Does the patient have a stroke diagnosis?: No VTE Prior VTE?: No VTE Risk Level:: Medical - moderate - high VTE Device Contraindication: Treatment Not Indicated VTE Drug Contraindication: N/A - Med Ordered
[2023-12-04] MEDS: DULoxetine HCl 60 MG CAPSULE.DR PO ×2 (07:26→20:37)
--- NOTE | 2023-12-04 09:13 | HO.ANESPROP2 ---
HPI - Anesthesia Eval Consult details Narrative: for decortication PMFSH Active Problems Active Problems: All Active Problems (Updated 12/04/23 @ 07:48 by Ale Carrasquillo) Lung entrapment (Acute) Hydropneumothorax (Acute) Trapped lung (Acute) Pleural effusion (Acute) Streptococcal pneumonia (Acute) Severe sepsis (Acute) Hypomagnesemia (Acute) Oral thrush (Acute) Strep throat (Acute) Acidosis, lactic (Acute) Pneumonia (Acute) Past Medical History Medical History Ectopic Former cigarette smoker History of intravenous drug use in remission History of hepatitis C Marijuana smoker History of asthma Family History Family history of problems with anesthesia: No Surgical History Surgical History History of appendectomy History of Problems with Anesthesia: Yes Social History Social History Household Members: Significant Other Housing: Apartment Do you presently have visiting nurse or other home services: No Comment: pt refusing alarms Patient Tobacco Use Status: Former Tobacco user Quit Date: 2020 Tobacco use type: Cigarette Years Smoked: 14 Smoked in Last 30 Days: No e-Cigarette/Vaping Use: Never Used Use of substances other than those prescribed or required for medical reasons: Yes Substance Use Type: Marijuana Substance Use Frequency: Daily Last Used Substance Other:: h/o heroin/crack cocaine. Currently Displaying Signs/Symptoms of Drug Intoxication Withdrawal: No Any prior treatment program specific to substance use: No Are you DNR?: No Advance Directives: No Advance Directives Information Provided: No Do you have thoughts of harming others: None Do you have a plan to hurt others: No Plan Recently lost weight without trying: No Eating poorly because of decreased appetite: No Nutrition Risks: No Nutritional Risk Patient : No : No Poor oral hygiene: No service: No Meds Allergies Allergy/AdvReac Type Severity Reaction Status Date / Time No Known Allergies Allergy Verified 12/04/23 07:48 Active Medications: Current Medications Acetaminophen (Acetaminophen 325 Mg Tablet) 650 mg PO Q6H PRN PRN Reason: Pain, Mild (Pain Scale 1-3) Last Admin: 11/29/23 23:55 Dose: 650 mg Benzonatate (Benzonatate 100 Mg Capsule) 200 mg PO TID PRN PRN Reason: Cough Last Admin: 12/03/23 14:26 Dose: 200 mg Duloxetine HCl (Duloxetine Hcl 60 Mg Capsule.Dr) 60 mg PO BID [facility] Last Admin: 12/04/23 07:26 Dose: 60 mg Guaifenesin/Codeine Phosphate (Guaifen/Codeine Sf 200/20/10ml 10 Ml Liquid) 5 ml PO Q6H PRN PRN Reason: Cough Last Admin: 12/04/23 05:50 Dose: 5 ml Heparin Sodium (Porcine) (Heparin Sodium,Porcine 5,000 Unit/Ml Vial) 5,000 unit SUBCUT Q8H [facility] Last Admin: 12/04/23 00:06 Dose: 5,000 unit Hydromorphone HCl (Hydromorphone Hcl 0.5 Mg/0.5 Ml Syringe) 0.5 mg IVPUSH Q4H PRN; Protocol PRN Reason: Pain, Severe (Pain Scale 7-10) Last Admin: 12/04/23 06:28 Dose: 0.5 mg Ceftriaxone Sodium 2 gm/ (Sodium Chloride) 50 mls @ 100 mls/hr IV Q24H [facility] Lidocaine (Lidocaine 4 % Patch Adh..Patch) 2 patch TRANSDERMA DAILY [facility]; Protocol Last Admin: 12/03/23 08:57 Dose: Not Given Melatonin (Melatonin 3 Mg Tablet) 6 mg PO BEDTIME PRN PRN Reason: Sleep Last Admin: 12/01/23 21:32 Dose: 6 mg Ondansetron HCl (Ondansetron Hcl 4 Mg/2 Ml Vial) 4 mg IVPUSH Q8H PRN PRN Reason: Nausea and Vomiting Oxycodone HCl (Oxycodone Hcl Immed Release 5 Mg Tablet) 5 mg PO Q4H PRN PRN Reason: Pain, Severe (Pain Scale 7-10) Last Admin: 12/04/23 04:23 Dose: 5 mg Senna (Sennosides 8.6 Mg Tablet) 17.2 mg PO BEDTIME PRN PRN Reason: Constipation Sodium Chloride (0.9 % Sodium Chloride Flush 3 Ml Syringe) 3 ml IVFLUSH QSHIFT [facility] Last Admin: 12/03/23 21:45 Dose: 3 ml Vancomycin HCl (Vancomycin Hcl 125 Mg Capsule) 125 mg PO Q6H [facility] Last Admin: 12/04/23 04:23 Dose: 125 mg Home Medications Medication Instructions Recorded Confirmed Last Taken Type cranberry-vit 1 cap PO DAILY 11/24/23 12/04/23 11/23/23 History C-B.coag-FOS-L.acid-L.rham 250 mg-30 mg-39.5 mg capsule (Probiotic Plus and Cranberry) duloxetine 60 mg capsule,delayed 60 mg PO BID 11/24/23 12/04/23 11/23/23 History release norelgestromin 150 mcg-e.estradiol 1 patch topical QWEEK 11/24/23 12/04/23 Unknown History 35 mcg/24 hr weekly transderm patch (Xulane) Exam Height,Weight and Vital Signs: Height 5 ft 7 in Weight 63.503 kg Last Vital Signs Temp 98.6 F 12/04/23 07:49 Pulse 102 H 12/04/23 07:49 Resp 16 12/04/23 07:49 BP 129/80 12/04/23 07:49 Pulse Ox 98 12/04/23 07:49 O2 Del Method Nasal Cannula 12/04/23 07:49 O2 Flow Rate 3 12/04/23 07:49 Pertinent Lab Results Pertinent Lab Results: Laboratory Tests 11/24/23 11/24/23 11/24/23 03:51 09:16 11:36 WBC 18.6 H RBC 4.92 Hgb 14.5 Hct 42.8 MCV 87.0 MCH 29.5 MCHC 33.9 RDW 12.6 Plt Count 153 L MPV 11.3 Immature Gran % (Auto) 0.6 H Neut % (Auto) 94.1 H Lymph % (Auto) 1.9 L Wilkin % (Auto) 1.9 L Eos % (Auto) 1.1 Baso % (Auto) 0.4 Lymph # (Auto) 0.4 L Wilkin # (Auto) 0.4 Eos # (Auto) 0.2 Baso # (Auto) 0.1 Abs Immat Gran (auto) 0.11 H Absolute Neuts (auto) 17.5 H Absolute Nucleated RBC 0.000 Nucleated RBC % (auto) 0.0 Neutrophils % (Manual) Band Neutrophils % Lymphocytes % (Manual) Atypical Lymphs % (Man) Monocytes % (Manual) Abs Neuts (Manual) Lymphocytes # (Manual) Atyp Lymphs # (Manual) Monocytes # (Manual) Platelet Estimate Large Platelets Plt Morphology Comment RBC Morphology Giovanny Cells Smear Tech's Comments VERIFIED Sodium 139 Potassium 3.3 Chloride 105 Carbon Dioxide 20 L Anion Gap 17 BUN 7 L Creatinine 0.87 Estim Creat Clear Calc 89.4 Estimated GFR > 60 Random Glucose 102 Lactic Acid 3.3 H* Lactic Acid F/U @ 2Hr 3.9 H* Lactic Acid F/U @ 4Hr Calcium 8.8 Magnesium 1.5 L Total Bilirubin 3.7 H Direct Bilirubin 2.4 H AST 21 ALT 22 Alkaline Phosphatase 110 Troponin I High Sens < 2.7 Total Protein 7.0 Albumin 3.3 L Procalcitonin 2.10 Beta HCG, Quant < 2 Nasal Screen MRSA (PCR) Nasal S. aureus Screen Nasal MRSA/S.aureus Interp Random Vancomycin Urine Opiates Screen Urine Fentanyl Screen Ur Barbiturates Screen Ur Phencyclidine Scrn Ur Amphetamines Screen U Benzodiazepines Scrn Urine Cocaine Screen U Marijuana (THC) Screen Respiratory Panel Cobian Adenovirus (Rapid PCR) B.pert (TEM-PCR) B.parapertussis DNA PCR C. pneumoniae DNA (PCR) C. difficile Tox B Gene C. difficile Toxin A&B C. difficile Interpret Coronavirus OC43 (PCR) Coronavirus HKU1 (PCR) Coronavirus 229E (PCR) Coronavirus NL63 (PCR) Hep C Viral Load Hep C Viral Load Log HIV 1&2 Ab/P24 Ag 4thGn Human Metapneumovir PCR Influenza A (RT-PCR) Influenza Type A (PCR) NEGATIVE Influenza B (RT-PCR) Influenza Type B (PCR) NEGATIVE Ur L.pneumophila Ag M. pneumoniae (PCR) Parainfluenza 1 (PCR) Parainfluenza 2 (PCR) Parainfluenza 3 (PCR) Parainfluenza 4 (PCR) RSV (PCR) RSV RNA Qual (PCR) NEGATIVE Entero/Rhino (PCR) SARS-CoV-2 RNA (RT-PCR) NEGATIVE S. pyogenes GrpA KRIS Positive A Ur Strep pneumoniae Ag 11/24/23 11/24/23 11/24/23 14:00 15:44 15:49 WBC RBC Hgb Hct MCV MCH MCHC RDW Plt Count MPV Immature Gran % (Auto) Neut % (Auto) Lymph % (Auto) Wilkin % (Auto) Eos % (Auto) Baso % (Auto) Lymph # (Auto) Wilkin # (Auto) Eos # (Auto) Baso # (Auto) Abs Immat Gran (auto) Absolute Neuts (auto) Absolute Nucleated RBC Nucleated RBC % (auto) Neutrophils % (Manual) Band Neutrophils % Lymphocytes % (Manual) Atypical Lymphs % (Man) Monocytes % (Manual) Abs Neuts (Manual) Lymphocytes # (Manual) Atyp Lymphs # (Manual) Monocytes # (Manual) Platelet Estimate Large Platelets Plt Morphology Comment RBC Morphology Giovanny Cells Smear Tech's Comments Sodium Potassium Chloride Carbon Dioxide Anion Gap BUN Creatinine Estim Creat Clear Calc Estimated GFR Random Glucose Lactic Acid Lactic Acid F/U @ 2Hr Lactic Acid F/U @ 4Hr 3.5 H* Calcium Magnesium Total Bilirubin Direct Bilirubin AST ALT Alkaline Phosphatase Troponin I High Sens Total Protein Albumin Procalcitonin Beta HCG, Quant Nasal Screen MRSA (PCR) Nasal S. aureus Screen Nasal MRSA/S.aureus Interp Random Vancomycin Urine Opiates Screen POSITIVE H Urine Fentanyl Screen Not Detected Ur Barbiturates Screen Not Detected Ur Phencyclidine Scrn Not Detected Ur Amphetamines Screen Not Detected U Benzodiazepines Scrn Not Detected Urine Cocaine Screen Not Detected U Marijuana (THC) Screen POSITIVE H Respiratory Panel Cobian Adenovirus (Rapid PCR) B.pert (TEM-PCR) B.parapertussis DNA PCR C. pneumoniae DNA (PCR) C. difficile Tox B Gene C. difficile Toxin A&B C. difficile Interpret Coronavirus OC43 (PCR) Coronavirus HKU1 (PCR) Coronavirus 229E (PCR) Coronavirus NL63 (PCR) Hep C Viral Load Hep C Viral Load Log HIV 1&2 Ab/P24 Ag 4thGn Human Metapneumovir PCR Influenza A (RT-PCR) Influenza Type A (PCR) Influenza B (RT-PCR) Influenza Type B (PCR) Ur L.pneumophila Ag Not Detected M. pneumoniae (PCR) Parainfluenza 1 (PCR) Parainfluenza 2 (PCR) Parainfluenza 3 (PCR) Parainfluenza 4 (PCR) RSV (PCR) RSV RNA Qual (PCR) Entero/Rhino (PCR) SARS-CoV-2 RNA (RT-PCR) S. pyogenes GrpA KRIS Ur Strep pneumoniae Ag Not Detected 11/24/23 11/25/23 11/25/23 16:35 07:36 15:05 WBC 16.0 H RBC 3.88 L D Hgb 11.5 L D Hct 33.7 L D MCV 86.9 MCH 29.6 MCHC 34.1 RDW 13.0 Plt Count 140 L MPV 11.6 Immature Gran % (Auto) Cancelled Neut % (Auto) Cancelled Lymph % (Auto) Cancelled Wilkin % (Auto) Cancelled Eos % (Auto) Cancelled Baso % (Auto) Cancelled Lymph # (Auto) Cancelled Wilkin # (Auto) Cancelled Eos # (Auto) Cancelled Baso # (Auto) Cancelled Abs Immat Gran (auto) Cancelled Absolute Neuts (auto) Cancelled Absolute Nucleated RBC 0.000 Nucleated RBC % (auto) 0.0 Neutrophils % (Manual) 89 H Band Neutrophils % 4 Lymphocytes % (Manual) 3 L Atypical Lymphs % (Man) 2 Monocytes % (Manual) 2 Abs Neuts (Manual) 14.9 H Lymphocytes # (Manual) 0.5 L Atyp Lymphs # (Manual) 0.3 Monocytes # (Manual) 0.3 Platelet Estimate NORMAL Large Platelets PRESENT Plt Morphology Comment NOTED RBC Morphology NOTED Giovanny Cells 2+ (3-5) Smear Tech's Comments Sodium 133 L Potassium 4.2 D Chloride 106 Carbon Dioxide 16 L Anion Gap 15 BUN 11 Creatinine 0.71 Estim Creat Clear Calc 109.6 Estimated GFR > 60 Random Glucose 76 Lactic Acid Lactic Acid F/U @ 2Hr Lactic Acid F/U @ 4Hr Calcium 7.1 L D Magnesium Total Bilirubin 2.8 H Direct Bilirubin 2.3 H AST 14 ALT 13 Alkaline Phosphatase 61 Troponin I High Sens Total Protein 5.2 L Albumin 2.4 L Procalcitonin Beta HCG, Quant Nasal Screen MRSA (PCR) Nasal S. aureus Screen Nasal MRSA/S.aureus Interp Random Vancomycin Urine Opiates Screen Urine Fentanyl Screen Ur Barbiturates Screen Ur Phencyclidine Scrn Ur Amphetamines Screen U Benzodiazepines Scrn Urine Cocaine Screen U Marijuana (THC) Screen Respiratory Panel Cobian See Note Adenovirus (Rapid PCR) Not Detected B.pert (TEM-PCR) Not Detected B.parapertussis DNA PCR Not Detected C. pneumoniae DNA (PCR) Not Detected C. difficile Tox B Gene C. difficile Toxin A&B C. difficile Interpret Coronavirus OC43 (PCR) Not Detected Coronavirus HKU1 (PCR) Not Detected Coronavirus 229E (PCR) Not Detected Coronavirus NL63 (PCR) Not Detected Hep C Viral Load <15 NOT DETECTED Hep C Viral Load Log <1.18 NOT DETECTED HIV 1&2 Ab/P24 Ag 4thGn Nonreactive Human Metapneumovir PCR Not Detected Influenza A (RT-PCR) Not Detected Influenza Type A (PCR) Influenza B (RT-PCR) Not Detected Influenza Type B (PCR) Ur L.pneumophila Ag M. pneumoniae (PCR) Not Detected Parainfluenza 1 (PCR) Not Detected Parainfluenza 2 (PCR) Not Detected Parainfluenza 3 (PCR) Not Detected Parainfluenza 4 (PCR) Not Detected RSV (PCR) Not Detected RSV RNA Qual (PCR) Entero/Rhino (PCR) Not Detected SARS-CoV-2 RNA (RT-PCR) Not Detected S. pyogenes GrpA KRIS Ur Strep pneumoniae Ag 11/25/23 11/25/23 11/25/23 15:52 16:19 16:25 WBC RBC Hgb Hct MCV MCH MCHC RDW Plt Count MPV Immature Gran % (Auto) Neut % (Auto) Lymph % (Auto) Wilkin % (Auto) Eos % (Auto) Baso % (Auto) Lymph # (Auto) Wilkin # (Auto) Eos # (Auto) Baso # (Auto) Abs Immat Gran (auto) Absolute Neuts (auto) Absolute Nucleated RBC Nucleated RBC % (auto) Neutrophils % (Manual) Band Neutrophils % Lymphocytes % (Manual) Atypical Lymphs % (Man) Monocytes % (Manual) Abs Neuts (Manual) Lymphocytes # (Manual) Atyp Lymphs # (Manual) Monocytes # (Manual) Platelet Estimate Large Platelets Plt Morphology Comment RBC Morphology [place] Cells Smear Tech's Comments Sodium Potassium Chloride Carbon Dioxide Anion Gap BUN Creatinine Estim Creat Clear Calc Estimated GFR Random Glucose Lactic Acid Lactic Acid F/U @ 2Hr Lactic Acid F/U @ 4Hr Calcium Magnesium Total Bilirubin Direct Bilirubin AST ALT Alkaline Phosphatase Troponin I High Sens Total Protein Albumin Procalcitonin Beta HCG, Quant Nasal Screen MRSA (PCR) NEGATIVE Nasal S. aureus Screen NEGATIVE Nasal MRSA/S.aureus Interp SEE NOTE Random Vancomycin 9.5 L Urine Opiates Screen Urine Fentanyl Screen Ur Barbiturates Screen Ur Phencyclidine Scrn Ur Amphetamines Screen U Benzodiazepines Scrn Urine Cocaine Screen U Marijuana (THC) Screen Respiratory Panel Cobian Adenovirus (Rapid PCR) B.pert (TEM-PCR) B.parapertussis DNA PCR C. pneumoniae DNA (PCR) C. difficile Tox B Gene POSITIVE A* C. difficile Toxin A&B Negative C. difficile Interpret SEE NOTE Coronavirus OC43 (PCR) Coronavirus HKU1 (PCR) Coronavirus 229E (PCR) Coronavirus NL63 (PCR) Hep C Viral Load Hep C Viral Load Log HIV 1&2 Ab/P24 Ag 4thGn Human Metapneumovir PCR Influenza A (RT-PCR) Influenza Type A (PCR) Influenza B (RT-PCR) Influenza Type B (PCR) Ur L.pneumophila Ag M. pneumoniae (PCR) Parainfluenza 1 (PCR) Parainfluenza 2 (PCR) Parainfluenza 3 (PCR) Parainfluenza 4 (PCR) RSV (PCR) RSV RNA Qual (PCR) Entero/Rhino (PCR) SARS-CoV-2 RNA (RT-PCR) S. pyogenes GrpA KRIS Ur Strep pneumoniae Ag 11/26/23 11/27/23 11/28/23 08:54 08:33 06:46 WBC 24.4 H 23.1 H 21.2 H RBC 4.05 L 4.16 L 4.20 Hgb 11.7 L 12.0 12.3 Hct 34.6 L 35.2 L 35.9 L MCV 85.4 84.6 85.5 MCH 28.9 28.8 29.3 MCHC 33.8 34.1 34.3 RDW 12.9 12.9 12.8 Plt Count 130 L 145 L 150 L MPV 12.2 12.3 12.0 Immature Gran % (Auto) Neut % (Auto) Lymph % (Auto) Wilkin % (Auto) Eos % (Auto) Baso % (Auto) Lymph # (Auto) Wilkin # (Auto) Eos # (Auto) Baso # (Auto) Abs Immat Gran (auto) Absolute Neuts (auto) Absolute Nucleated RBC 0.000 0.000 0.000 Nucleated RBC % (auto) 0.0 0.0 0.0 Neutrophils % (Manual) Band Neutrophils % Lymphocytes % (Manual) Atypical Lymphs % (Man) Monocytes % (Manual) Abs Neuts (Manual) Lymphocytes # (Manual) Atyp Lymphs # (Manual) Monocytes # (Manual) Platelet Estimate Large Platelets Plt Morphology Comment RBC Morphology Giovanny Cells Smear Tech's Comments Sodium 134 L Potassium 3.2 L D Chloride 103 Carbon Dioxide 24 Anion Gap 10 L BUN 7 L Creatinine 0.56 Estim Creat Clear Calc 138.9 Estimated GFR > 60 Random Glucose 69 Lactic Acid Lactic Acid F/U @ 2Hr Lactic Acid F/U @ 4Hr Calcium 8.0 L D Magnesium Total Bilirubin Direct Bilirubin AST ALT Alkaline Phosphatase Troponin I High Sens Total Protein Albumin Procalcitonin Beta HCG, Quant Nasal Screen MRSA (PCR) Nasal S. aureus Screen Nasal MRSA/S.aureus Interp Random Vancomycin Urine Opiates Screen Urine Fentanyl Screen Ur Barbiturates Screen Ur Phencyclidine Scrn Ur Amphetamines Screen U Benzodiazepines Scrn Urine Cocaine Screen U Marijuana (THC) Screen Respiratory Panel Cobian Adenovirus (Rapid PCR) B.pert (TEM-PCR) B.parapertussis DNA PCR C. pneumoniae DNA (PCR) C. difficile Tox B Gene C. difficile Toxin A&B C. difficile Interpret Coronavirus OC43 (PCR) Coronavirus HKU1 (PCR) Coronavirus 229E (PCR) Coronavirus NL63 (PCR) Hep C Viral Load Hep C Viral Load Log HIV 1&2 Ab/P24 Ag 4thGn Human Metapneumovir PCR Influenza A (RT-PCR) Influenza Type A (PCR) Influenza B (RT-PCR) Influenza Type B (PCR) Ur L.pneumophila Ag M. pneumoniae (PCR) Parainfluenza 1 (PCR) Parainfluenza 2 (PCR) Parainfluenza 3 (PCR) Parainfluenza 4 (PCR) RSV (PCR) RSV RNA Qual (PCR) Entero/Rhino (PCR) SARS-CoV-2 RNA (RT-PCR) S. pyogenes GrpA KRIS Ur Strep pneumoniae Ag 11/29/23 11/29/23 11/30/23 07:28 13:09 07:45 WBC 26.1 H 25.3 H RBC 4.15 L 3.88 L Hgb 12.0 11.2 L Hct 35.6 L 33.9 L MCV 85.8 87.4 MCH 28.9 28.9 MCHC 33.7 33.0 RDW 12.8 12.9 Plt Count 224 D 321 D MPV 11.6 11.3 Immature Gran % (Auto) Neut % (Auto) Lymph % (Auto) Wilkin % (Auto) Eos % (Auto) Baso % (Auto) Lymph # (Auto) Wilkin # (Auto) Eos # (Auto) Baso # (Auto) Abs Immat Gran (auto) Absolute Neuts (auto) Absolute Nucleated RBC 0.000 0.000 Nucleated RBC % (auto) 0.0 0.0 Neutrophils % (Manual) Band Neutrophils % Lymphocytes % (Manual) Atypical Lymphs % (Man) Monocytes % (Manual) Abs Neuts (Manual) Lymphocytes # (Manual) Atyp Lymphs # (Manual) Monocytes # (Manual) Platelet Estimate Large Platelets Plt Morphology Comment RBC Morphology [place] Cells Smear Tech's Comments Sodium 135 133 L Potassium 3.6 3.5 Chloride 101 98 Carbon Dioxide 27 29 Anion Gap 11 L 10 L BUN 6 L 5 L Creatinine 0.60 0.61 Estim Creat Clear Calc 129.6 127.5 Estimated GFR > 60 > 60 Random Glucose 96 79 Lactic Acid Lactic Acid F/U @ 2Hr Lactic Acid F/U @ 4Hr Calcium 8.3 L 8.2 L Magnesium Total Bilirubin Direct Bilirubin AST ALT Alkaline Phosphatase Troponin I High Sens Total Protein Albumin Procalcitonin Beta HCG, Quant Nasal Screen MRSA (PCR) Nasal S. aureus Screen Nasal MRSA/S.aureus Interp Random Vancomycin Urine Opiates Screen Urine Fentanyl Screen Ur Barbiturates Screen Ur Phencyclidine Scrn Ur Amphetamines Screen U Benzodiazepines Scrn Urine Cocaine Screen U Marijuana (THC) Screen Respiratory Panel Cobian Adenovirus (Rapid PCR) B.pert (TEM-PCR) B.parapertussis DNA PCR C. pneumoniae DNA (PCR) C. difficile Tox B Gene C. difficile Toxin A&B C. difficile Interpret Coronavirus OC43 (PCR) Coronavirus HKU1 (PCR) Coronavirus 229E (PCR) Coronavirus NL63 (PCR) Hep C Viral Load Hep C Viral Load Log HIV 1&2 Ab/P24 Ag 4thGn Human Metapneumovir PCR Influenza A (RT-PCR) Influenza Type A (PCR) Influenza B (RT-PCR) Influenza Type B (PCR) Ur L.pneumophila Ag M. pneumoniae (PCR) Parainfluenza 1 (PCR) Parainfluenza 2 (PCR) Parainfluenza 3 (PCR) Parainfluenza 4 (PCR) RSV (PCR) RSV RNA Qual (PCR) Entero/Rhino (PCR) SARS-CoV-2 RNA (RT-PCR) S. pyogenes GrpA KRIS Ur Strep pneumoniae Ag 12/01/23 12/02/23 12/02/23 09:00 06:14 14:00 WBC 20.4 H 24.6 H RBC 3.34 L 3.66 L Hgb 9.8 L 10.7 L Hct 29.3 L 32.7 L MCV 87.7 89.3 MCH 29.3 29.2 MCHC 33.4 32.7 RDW 12.8 12.7 Plt Count 356 562 H D MPV 10.6 10.7 Immature Gran % (Auto) Neut % (Auto) Lymph % (Auto) Wilkin % (Auto) Eos % (Auto) Baso % (Auto) Lymph # (Auto) Wilkin # (Auto) Eos # (Auto) Baso # (Auto) Abs Immat Gran (auto) Absolute Neuts (auto) Absolute Nucleated RBC 0.000 0.000 Nucleated RBC % (auto) 0.0 0.0 Neutrophils % (Manual) Band Neutrophils % Lymphocytes % (Manual) Atypical Lymphs % (Man) Monocytes % (Manual) Abs Neuts (Manual) Lymphocytes # (Manual) Atyp Lymphs # (Manual) Monocytes # (Manual) Platelet Estimate Large Platelets Plt Morphology Comment RBC Morphology [place] Cells Smear Tech's Comments Sodium 131 L 131 L Potassium 3.1 L 3.4 Chloride 99 95 L Carbon Dioxide 25 29 Anion Gap 10 L 10 L BUN 4 L 3 L Creatinine 0.54 0.62 Estim Creat Clear Calc 144.1 125.5 Estimated GFR > 60 > 60 Random Glucose 85 88 Lactic Acid Lactic Acid F/U @ 2Hr Lactic Acid F/U @ 4Hr Calcium 7.8 L 8.3 L D Magnesium Total Bilirubin Direct Bilirubin AST ALT Alkaline Phosphatase Troponin I High Sens Total Protein Albumin Procalcitonin Beta HCG, Quant Nasal Screen MRSA (PCR) Nasal S. aureus Screen Nasal MRSA/S.aureus Interp Random Vancomycin Urine Opiates Screen Urine Fentanyl Screen Ur Barbiturates Screen Ur Phencyclidine Scrn Ur Amphetamines Screen U Benzodiazepines Scrn Urine Cocaine Screen U Marijuana (THC) Screen Respiratory Panel [place] Adenovirus (Rapid PCR) B.pert (TEM-PCR) B.parapertussis DNA PCR C. pneumoniae DNA (PCR) C. difficile Tox B Gene C. difficile Toxin A&B C. difficile Interpret Coronavirus OC43 (PCR) Coronavirus HKU1 (PCR) Coronavirus 229E (PCR) Coronavirus NL63 (PCR) Hep C Viral Load Hep C Viral Load Log HIV 1&2 Ab/P24 Ag 4thGn Nonreactive Human Metapneumovir PCR Influenza A (RT-PCR) Influenza Type A (PCR) Influenza B (RT-PCR) Influenza Type B (PCR) Ur L.pneumophila Ag M. pneumoniae (PCR) Parainfluenza 1 (PCR) Parainfluenza 2 (PCR) Parainfluenza 3 (PCR) Parainfluenza 4 (PCR) RSV (PCR) RSV RNA Qual (PCR) Entero/Rhino (PCR) SARS-CoV-2 RNA (RT-PCR) S. pyogenes GrpA KRIS Ur Strep pneumoniae Ag 12/03/23 07:00 WBC 19.6 H RBC 3.17 L Hgb 9.4 L Hct 28.2 L MCV 89.0 MCH 29.7 MCHC 33.3 RDW 12.7 Plt Count 515 H MPV 10.4 Immature Gran % (Auto) Neut % (Auto) Lymph % (Auto) Wilkin % (Auto) Eos % (Auto) Baso % (Auto) Lymph # (Auto) Wilkin # (Auto) Eos # (Auto) Baso # (Auto) Abs Immat Gran (auto) Absolute Neuts (auto) Absolute Nucleated RBC 0.000 Nucleated RBC % (auto) 0.0 Neutrophils % (Manual) Band Neutrophils % Lymphocytes % (Manual) Atypical Lymphs % (Man) Monocytes % (Manual) Abs Neuts (Manual) Lymphocytes # (Manual) Atyp Lymphs # (Manual) Monocytes # (Manual) Platelet Estimate Large Platelets Plt Morphology Comment RBC Morphology [place] Cells Smear Tech's Comments Sodium Potassium Chloride Carbon Dioxide Anion Gap BUN Creatinine Estim Creat Clear Calc Estimated GFR Random Glucose Lactic Acid Lactic Acid F/U @ 2Hr Lactic Acid F/U @ 4Hr Calcium Magnesium Total Bilirubin Direct Bilirubin AST ALT Alkaline Phosphatase Troponin I High Sens Total Protein Albumin Procalcitonin Beta HCG, Quant Nasal Screen MRSA (PCR) Nasal S. aureus Screen Nasal MRSA/S.aureus Interp Random Vancomycin Urine Opiates Screen Urine Fentanyl Screen Ur Barbiturates Screen Ur Phencyclidine Scrn Ur Amphetamines Screen U Benzodiazepines Scrn Urine Cocaine Screen U Marijuana (THC) Screen Respiratory Panel [place] Adenovirus (Rapid PCR) B.pert (TEM-PCR) B.parapertussis DNA PCR C. pneumoniae DNA (PCR) C. difficile Tox B Gene C. difficile Toxin A&B C. difficile Interpret Coronavirus OC43 (PCR) Coronavirus HKU1 (PCR) Coronavirus 229E (PCR) Coronavirus NL63 (PCR) Hep C Viral Load Hep C Viral Load Log HIV 1&2 Ab/P24 Ag 4thGn Human Metapneumovir PCR Influenza A (RT-PCR) Influenza Type A (PCR) Influenza B (RT-PCR) Influenza Type B (PCR) Ur L.pneumophila Ag M. pneumoniae (PCR) Parainfluenza 1 (PCR) Parainfluenza 2 (PCR) Parainfluenza 3 (PCR) Parainfluenza 4 (PCR) RSV (PCR) RSV RNA Qual (PCR) Entero/Rhino (PCR) SARS-CoV-2 RNA (RT-PCR) S. pyogenes GrpA KRIS Ur Strep pneumoniae Ag Airway Mallampati Class: II TM Dist: >3cm Neck ROM: Full Heart: rrrr Lungs: labored breathing , clear Assessment and Plan Assessment Anesthesia Assessment: Anesthesia Plan Discussed and Chart Reviewed Final Anesthetic Review Family History of Problems with Anesthesia: No History of Problems with Anesthesia: Yes NPO: Yes ASA Class: III Final Preanesthetic Review: No Changes in Pt Med Stat, Meds/Allgs Chart Reviewed, Consent Obtained/Reviewed and Anes Risks/Benef Reviewed Patient Risk: Intermediate Procedure Risk: Intermediate Anesthetic Plan Anesthetic Plan: GA Disposition: Standard PACU
--- NOTE | 2023-12-04 10:06 | PC.NURSE ---
Patient in preop. New IV antibiotics ordered from hospitalist to begin now. This nurse notified floor nurse Jailene Barrow of this. Per her, okayed by hospitalist for this medication to start when patient returns to floor. Anesthesia Dr. Dover made aware.
--- NOTE | 2023-12-04 10:22 | MHC.CM.PN ---
Per ROUNDS discussion, Patient is going to the OR today and is not yet medically cleared for dc. Home is thev goal and CM will continue to follow.
--- NOTE | 2023-12-04 13:41 | P.PNCC_ITS ---
Subjective Subjective Date of Service: 12/04/23 Interval History: s/p L lower lobectomy and decortication Critical Care Time (minutes): 90 Physical Exam 2 Vital Signs: Vital Signs: Last Vital Signs Temp 97.4 F 12/04/23 13:20 Pulse 119 H 12/04/23 13:35 Resp 23 H 12/04/23 13:35 BP 122/70 12/04/23 13:35 Pulse Ox 94 12/04/23 13:35 O2 Del Method Nasal Cannula wit h Capnography 12/04/23 13:35 O2 Flow Rate 2 12/04/23 13:35 BMI result Body Mass Index 21.9 Const: General: cooperative, healthy appearing, comfortable, no acute distress, well developed, alert and awake Orientation/consciousness: patient oriented x3 HEENT: Head: Yes normal to inspection, Yes normocephalic and Yes atraumatic Eyes: General: appearance normal, both eyes and all related structures Neck: Neck: Yes normal visual inspection, Yes full ROM and Yes supple Chest: Other: L thoracotomy incision bandaged; 2 appreciable chest tubes in place Resp: Other: decreased breath sounds L; some appreciable rhonchi L; no appreciable rales, wheezing Effort & Inspection: normal respiratory effort and able to speak in complete sentences Cardio: Rate: regular rate Rhythm: regular rhythm GI: Inspection: Yes normal to inspection, No Abdominal wall edema and No distended Palpation (GI): Soft to palpation, not firm, nontender, no guarding and not rigid Skin: General skin exam: no rashes or lesions noted Neuro: General: patient oriented x3, tone normal, moves all extremities and no focal motor deficits Extrem: General: Yes normal to inspection, Yes capillary refill normal and Yes no clubbing, cyanosis or edema Psych: Appearance: grossly normal Objective Data Labs 12/03/23 07:00 12/02/23 06:14 Microbiology Microbiology Results: Microbiology 11/29/23 15:15 Thoracic Fluid Gram Stain - Final 11/29/23 15:15 Thoracic Fluid Routine Culture - Final No growth after 2 days 11/29/23 15:15 Thoracic Fluid Anaerobic Culture - Final NO GROWTH AFTER 5 DAYS 11/24/23 09:25 Blood - Venous Blood Culture - Final No growth after 5 days. 11/24/23 09:16 Blood - Venous Blood Culture - Final No growth after 5 days. 11/26/23 17:10 Sputum - Expectorated Gram Stain - Final 11/26/23 17:10 Sputum - Expectorated Sputum Culture - Final Progress Note: A&P Assessment and plan (1) Streptococcal pneumonia: Status: Acute (2) Empyema: Status: Acute (3) S/P lobectomy of lung: Status: Acute Plan Patient is a 33 Y F with remote IV drug use, c/b hepatitis?C virus, reportedly?cured, presenting initially on 11/17 with fevers, chills, dyspnea, found to have L pneumonia complicated by empyema, status post chest tube on 11/29, ultimately status post L upper lobectomy, L lower lobe decortication on 12/04 N: multi-modal pain regimen in setting of lobectomy, decortication; consider epidural if intractable pain CV: no acute issues R: L pneumonia c/b empyema, status post L lower lobectomy, decortication on 12/04; follow-up intra-operative cultures GI: no acute issues; advance diet as tolerated : no acute issues H: leukocytosis, thrombocytosis, likely reactive; continue to monitor; avoiding chemical DVT prophylaxis immediately post-operatively ID: vancomycin, ceftriaxone per ID E: no acute issues P: no acute issues Quality Stroke Does the patient have a stroke diagnosis?: No VTE Prior VTE?: No VTE Risk Level:: Medical - moderate - high VTE Device Contraindication: Treatment Not Indicated VTE Drug Contraindication: N/A - Med Ordered
--- NOTE | 2023-12-04 14:13 | P.OP_ITS ---
Operative Note Operative Note Date of Service: 12/04/23 Narrative: Preoperative diagnosis: [] Empyema left hemithorax Postop diagnosis: [] Same, necrotizing pneumonia/multiple lung abscesses involved the entire left lower lobe, lung abscess apex left upper lobe Procedure [] bronchoscopy, vats converted to open thoracotomy, pneumolysis, and empyemectomy, decortication left lung, left apex wedge resection of lung abscess, left lower lobectomy, intercostal nerve block Surgeon: [] Darío Mechanical Press Operator: [] Devi Type of Anesthesia: [] Double-lumen general Indication for surgery: [] Bronchoscopy demonstrated no gross endoluminal pathology aside from secretions of left airways. It was also used to assist anesthesia and placement of double-lumen tube. The thoracic findings demonstrated; extensive and profound empyema cavity with thickened rind involving the entire left lower lobe and lower aspect of the left upper lobe. Patient had a necrotizing pneumonia which essentially involved the entire left lower lobe with necrosis, purulence, and was profoundly phlegmonous. Cultures were obtained. Dense adhesions of the down/atelectatic entire lung to the mediastinal and diaphragmatic surfaces necessitating pneumonolysis to free the lung up for decortication and resections. Findings: [] Patient brought to the operating room, placed on operating room table in the supine position, after adequate level of double-lumen general anesthesia was induced, patient underwent bronchoscopy with findings noted above. Patient was then placed in the right lateral decubitus position. The previously placed chest tube from few days ago was uneventfully removed. Left chest was then prepped and draped in usual sterile fashion. Using the previously placed chest tube site, this was used as a port site for VATS evaluation. The findings were as noted above which was not amenable to any thorascopic surgery. Next a small posterio-lateral Incision was made just below the scapular tip and carried down through skin, subcutaneous tissue, and latissimus dorsi muscle. Serratus anterior muscle was retracted anteriorly and preserved throughout the procedure. Sixth intercostal space was opened along the upper margin of the 7th rib using Bovie and a posterior aspect of the 7th rib was transected to enhance exposure. Findings were as noted above. Packs and retractors were placed to enhance exposure. Profound empyema was removed this consisted of multi loculated solid gelatinous material causing complete atelectasis of the left lower lobe and lower half of the left upper lobe. Next decortication of the lung was accomplished by peeling the thickened rind of the entire lower lobe and lower part of the upper lobe. Once fully exposed, the left lower lobe was completely phlegmonous, necrotic, and abscess filled and not salvageable. Patient also had a small apical left upper lobe abscess which was also spewing purulence into the chest cavity. This was uneventfully wedge using sequential TA staplers. It was decided to perform an emergent left lower lobectomy for the non viable necrotic left lower lobe. [place] was approached through the major fissure and the arterial branches to the left lower lobe were sequentially isolated skeletonized and taken down u sing vascular staplers. Fissures were completed using ALLISON staplers. Inferior pulmonary vein was identified, encircled and transected using vascular stapler. Left lower lobe bronchus was identified, skeletonized, and a heavy wire stapler placed across this and remaining lung re-expanded with no compromise to the left upper lobe or lingula. Stapler was uneventfully fired. Chest cavity was filled with saline and remaining left lung reinflated with bronchial stump Intact and minimal air leak from the remaining left upper lobe and lingula. Chest cavity was secured for hemostasis. Through separate stab wound incisions, anterior apical and posterior basal 28 Stateless chest tubes were placed and secured the skin using 0 silk sutures. Chest wound was closed the following manner; over and over 2. Vicryl sutures x4 were used to reapproximate the ribs. Latissimus dorsi muscles closed a running 2. Vicryl suture. Running subcutaneous 2-0 Vicryl suture followed by running subcuticular 4-0 Vicryl sutures were placed. Steri-Strips sterile dressings were applied. Chest tubes connected to Pleur-evac and lung re-expanded with minimal air leak demonstrated. Intercostal nerve block using 0.5% Marcaine/1% lidocaine was then placed. Sponge, needle, instrument counts reported correct. Patient tolerated procedure well emerged anesthesia stable condition. EBL please refer to anesthesia note
[2023-12-04] MEDS: Acetaminophen 1,000 MG/100 ML PIGGYBACK 400 MG IV ×2 (14:35→20:19)
[2023-12-04] MEDS: 0.9 % Sodium Chloride Flush 3 ML SYRINGE IVFLUSH (14:40)
[2023-12-04] MEDS: Morphine Sulfate/NS 100 MG/100 ML PLAST..BAG IVCONT (16:55)
[2023-12-04] MEDS: HYDROmorphone HCl/NS 10 MG/50 ML PIGGYBACK 3 MG IV (18:36)
[2023-12-05] VITALS (27 sets, daily range): BP systolic 116–138; BP diastolic 45–85; PULSE 59–121; RESP 12–36; TEMP 36.1–37.1; O2SAT 90–100; BMI 25.1
[2023-12-05] MEDS: Acetaminophen 1,000 MG/100 ML PIGGYBACK 400 MG IV ×4 (02:04→22:21)
[2023-12-05] MEDS: vancomycin HCL 125 MG CAPSULE PO ×4 (04:25→22:57)
[2023-12-05 06:29] LABS: Basophils Absolute Auto 0.1 X10*3/uL (0.0-0.2); Basophils Percent Auto 0.2 % (0-2); Eosinophils Percent Auto 0.1 % (0-4); Hematocrit 21.4 % (37.0-47.0); Imm Gran Abs Auto 0.51 X10*3/uL (0.00-0.03); Lymphocytes Absolute Auto 2.5 X10*3/uL (1.2-4.9); MANUAL DIFF FLAG SCAN; Mean Corpuscular HGB Conc 32.2 g/dl (31.0-35.0); Mean Corpuscular Hemoglobin 28.8 pg (27.0-33.0); Mean Corpuscular Volume 89.2 fL (80.0-98.0); Mean Platelet Volume 9.6 fL (9.4-12.3); Monocytes Absolute Auto 1.4 X10*3/uL (0.1-1.2); Monocytes Percent Auto 5.6 % (2-11); Neutrophils Absolute Auto 20.9 x10*3/uL (2.0-8.3); Neutrophils Percent Auto 82.1 % (45-73); Platelet Count 666 X10*3/uL (160-400); Red Cell Distribution Width 12.7 % (11.0-16.0); SCAN SMEAR FLAG 1; White Blood Count 25.4 X10*3/uL (4.8-10.8)
[2023-12-05 06:40] LABS: Hemoglobin 6.9 g/dl (12.0-16.0)
--- NOTE | 2023-12-05 06:44 | P.POSTANES_ITS ---
Post Anesthesia Evaluation Post Anesthesia Evaluation Date of Service: 12/05/23 Vital Signs: Vital Signs Temp Pulse Resp BP Pulse Ox O2 Del Method O2 Flow Rate 12/05/23 06:00 104 H 27 H 116/73 96 Nasal Cannula 1 12/05/23 04:58 59 12 123/51 L 100 Nasal Cannula 1 12/05/23 04:00 97.7 F 103 H 23 H 133/78 99 Nasal Cannula 1 12/05/23 02:57 106 H 25 H 127/77 95 Nasal Cannula 1 12/05/23 01:56 109 H 29 H 133/85 96 Nasal Cannula 1 12/05/23 00:52 97 22 H 135/82 99 Room Air 1 12/05/23 00:00 110 H 25 H 136/77 99 Nasal Cannula 1 12/04/23 23:00 97 24 H 122/80 96 Room Air 12/04/23 22:00 95 22 H 124/71 96 Nasal Cannula 1 12/04/23 21:00 97 30 H 125/74 97 Nasal Cannula 1 12/04/23 19:56 97.0 F 106 H 24 H 124/73 99 Nasal Cannula 1 12/04/23 19:00 117 H 28 H 113/70 96 Nasal Cannula 1 Anesthesia: General Endotracheal-GETA (double lumen tube) Mental Status: Awake Pain Control: Satisfactory (difficult to control 08/04) Nausea/Vomiting: Mild Hydration: Adequate Anesthesia-Related Issues: No Anes. 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
[2023-12-05 06:51] LABS: Anion Gap 10 (12-20); Blood Urea Nitrogen 4 mg/dL (9-16); Calcium 7.9 mg/dL (8.4-10.2); Carbon Dioxide 26 mmol/L (22-29); Chloride 104 mmol/L (96-108); Creatinine Clr Calc Pharmacy 138.9; Estimated Glomerular Filt Rate > 60; Glucose Random 118 mg/dL (60-115); Potassium 4.3 mmol/L (3.3-5.1); Sodium 136 mmol/L (135-145)
[2023-12-05 07:07] LABS: Procalcitonin 0.95 ng/mL
[2023-12-05 07:08] LABS: SLIDE REVIEW VERIFIED
[2023-12-05] MEDS: DULoxetine HCl 60 MG CAPSULE.DR PO ×2 (07:54→20:57)
[2023-12-05] MEDS: cefTRIAXone sodium 2 GM in 0.9 % Sodium Chloride 50 ML IV (07:54)
--- NOTE | 2023-12-05 07:54 | PM.CCPN ---
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 Critical Care Time (minutes): 0 Physical Exam Vital Signs: Vital Signs: Last Vital Signs Temp 97.7 F 12/05/23 04:00 Pulse 106 H 12/05/23 07:00 Resp 25 H 12/05/23 07:00 BP 116/73 12/05/23 07:00 Pulse Ox 90 L 12/05/23 07:00 O2 Del Method Nasal Cannula 12/05/23 07:00 O2 Flow Rate 1 12/05/23 07:00 BMI result Body Mass Index 25.1 Const: General: cooperative, comfortable, no acute distress, well developed, alert, awake and Physically active Orientation/consciousness: patient oriented x3 HEENT: Head: Yes normal to inspection, Yes normocephalic and Yes atraumatic Eyes: General: appearance normal, both eyes and all related structures Neck: Neck: Yes normal visual inspection and Yes supple Chest: Chest palpation & inspection: normal inspection of the chest Resp: Other: decreased breath sounds L; some appreciable rhonchi L; no appreciable rales, wheezing; appreciable bright red blood in chest tube Cardio: Rate: regular rate Rhythm: regular rhythm GI: Inspection: Yes normal to inspection, No Abdominal wall edema and No distended Palpation (GI): Soft to palpation, not firm, nontender, no guarding and not rigid Skin: General skin exam: no rashes or lesions noted Neuro: General: patient oriented x3, tone normal, moves all extremities and no focal motor deficits Extrem: General: Yes normal to inspection, Yes capillary refill normal and Yes no clubbing, cyanosis or edema Psych: Appearance: grossly normal Objective Data Labs 12/05/23 06:13 12/05/23 06:13 Labs: Laboratory Results - last 24 hr 12/05/23 06:13 WBC 25.4 H RBC 2.40 L D Hgb 6.9 L* D Hct 21.4 L D MCV 89.2 MCH 28.8 MCHC 32.2 RDW 12.7 Plt Count 666 H D MPV 9.6 Immature Gran % (Auto) 2.0 H Neut % (Auto) 82.1 H Lymph % (Auto) 10.[address] [place] % (Auto) 5.6 Eos % (Auto) 0.1 Baso % (Auto) 0.2 Lymph # (Auto) 2.5 [place] # (Auto) 1.4 H Eos # (Auto) 0.0 Baso # (Auto) 0.1 Abs Immat Gran (auto) 0.51 H Absolute Neuts (auto) 20.9 H Absolute Nucleated RBC 0.000 Nucleated RBC % (auto) 0.0 Smear Tech's Comments VERIFIED Sodium 136 Potassium 4.3 Chloride 104 Carbon Dioxide 26 Anion Gap 10 L BUN 4 L Creatinine 0.56 Estim Creat Clear Calc 138.9 Estimated GFR > 60 Random Glucose 118 H Calcium 7.9 L Procalcitonin 0.95 Microbiology Microbiology Results: Microbiology 12/04/23 11:02 Lung - Left Gram Stain - Final 11/29/23 15:15 Thoracic Fluid Gram Stain - Final 11/29/23 15:15 Thoracic Fluid Routine Culture - Final No growth after 2 days 11/29/23 15:15 Thoracic Fluid Anaerobic Culture - Final NO GROWTH AFTER 5 DAYS 11/24/23 09:25 Blood - Venous Blood Culture - Final No growth after 5 days. 11/24/23 09:16 Blood - Venous Blood Culture - Final No growth after 5 days. 11/26/23 17:10 Sputum - Expectorated Gram Stain - Final 11/26/23 17:10 Sputum - Expectorated Sputum Culture - Final Progress Note: A&P Assessment and plan (1) S/P lobectomy of lung: Status: Acute (2) Empyema: Status: Acute (3) Streptococcal pneumonia: Status: Acute Plan Patient is a 33 Y F with remote IV drug use, c/b hepatitis?C virus, reportedly?cured, presenting initially on 11/17 with fevers, chills, dyspnea, found to have L pneumonia complicated by empyema, status post chest tube on 11/29, ultimately status post L upper lobectomy, L lower lobe decortication on 12/04 N: multi-modal pain regimen in setting of lobectomy, decortication; considering nerve block w/ anesthesia this AM CV: no acute issues R: L pneumonia c/b empyema, status post L lower lobectomy, decortication on 12/04; follow-up intra-operative cultures GI: no acute issues; advance diet as tolerated : no acute issues H: leukocytosis, thrombocytosis, likely reactive; continue to monitor; avoiding chemical DVT prophylaxis immediately post-operatively ID: vancomycin, ceftriaxone per ID E: no acute issues P: no acute issues Quality Stroke Does the patient have a stroke diagnosis?: No VTE Prior VTE?: No VTE Risk Level:: Medical - moderate - high VTE Device Contraindication: Treatment Not Indicated VTE Drug Contraindication: N/A - Med Ordered
[2023-12-05] MEDS: 0.9 % Sodium Chloride Flush 3 ML SYRINGE IVFLUSH (08:01)
[2023-12-05] MEDS: LORazepam 0.5 MG TABLET PO (08:09)
[2023-12-05] MEDS: Calcium Gluconate/NaCl,Iso-Osm 1 GM/50 ML PLAST..BAG IV (08:22)
[2023-12-05 09:13] LABS: MANUAL DIFF FLAG NO
[2023-12-05 09:16] LABS: Basophils Percent Auto 0.2 % (0-2); Eosinophils Percent Auto 0.1 % (0-4); Imm Gran Abs Auto 0.38 X10*3/uL (0.00-0.03); Imm Gran Pct Auto 1.7 % (0.0-0.4); Lymphocytes Absolute Auto 2.7 X10*3/uL (1.2-4.9); Lymphocytes Percent Auto 11.9 % (20-40); Mean Corpuscular HGB Conc 32.4 g/dl (31.0-35.0); Mean Corpuscular Hemoglobin 28.8 pg (27.0-33.0); Mean Corpuscular Volume 89.1 fL (80.0-98.0); Mean Platelet Volume 9.5 fL (9.4-12.3); Monocytes Absolute Auto 1.2 X10*3/uL (0.1-1.2); Monocytes Percent Auto 5.5 % (2-11); Neutrophils Absolute Auto 18.1 x10*3/uL (2.0-8.3); Neutrophils Percent Auto 80.6 % (45-73); Platelet Count 611 X10*3/uL (160-400); Red Blood Count 2.29 X10*6/uL (4.20-5.50); Red Cell Distribution Width 12.9 % (11.0-16.0); White Blood Count 22.5 X10*3/uL (4.8-10.8)
[2023-12-05 09:32] LABS: Hemoglobin 6.6 g/dl (12.0-16.0)
[2023-12-05 09:33] LABS: Hematocrit 20.4 % (37.0-47.0)
--- NOTE | 2023-12-05 10:18 | P.CONAN_ITS ---
HPI - Anesthesia Eval Consult details Narrative: for left AGUSTINA block post thoracotomy, PMFSH Active Problems Active Problems: All Active Problems (Updated 12/04/23 @ 14:42 by Marie Doherty MD) S/P lobectomy of lung (Acute) Empyema (Acute) Lung entrapment (Acute) Hydropneumothorax (Acute) Trapped lung (Acute) Pleural effusion (Acute) Streptococcal pneumonia (Acute) Severe sepsis (Acute) Hypomagnesemia (Acute) Oral thrush (Acute) Strep throat (Acute) Acidosis, lactic (Acute) Pneumonia (Acute) Past Medical History Medical History Ectopic Former cigarette smoker History of intravenous drug use in remission History of hepatitis C Marijuana smoker History of asthma Family History Family history of problems with anesthesia: No Surgical History Surgical History History of appendectomy History of Problems with Anesthesia: Yes Social History Social History Household Members: Significant Other Housing: Apartment Do you presently have visiting nurse or other home services: No Comment: X-RAY CLEAR Patient Tobacco Use Status: Former Tobacco user Quit Date: 2020 Tobacco use type: Cigarette Years Smoked: 14 Smoked in Last 30 Days: No e-Cigarette/Vaping Use: Never Used Use of substances other than those prescribed or required for medical reasons: Yes Substance Use Type: Marijuana Substance Use Frequency: Daily Last Used Substance Other:: h/o heroin/crack cocaine. Currently Displaying Signs/Symptoms of Drug Intoxication Withdrawal: No Any prior treatment program specific to substance use: No Are you DNR?: No Advance Directives: No Advance Directives Information Provided: No Do you have thoughts of harming others: None Do you have a plan to hurt others: No Plan Recently lost weight without trying: No Eating poorly because of decreased appetite: No Nutrition Risks: No Nutritional Risk Patient : No : No Poor oral hygiene: No service: No Meds Allergies Allergy/AdvReac Type Severity Reaction Status Date / Time No Known Allergies Allergy Verified 12/04/23 07:48 Active Medications: Current Medications Benzonatate (Benzonatate 100 Mg Capsule) 200 mg PO TID PRN PRN Reason: Cough Last Admin: 12/03/23 14:26 Dose: 200 mg Duloxetine HCl (Duloxetine Hcl 60 Mg Capsule.Dr) 60 mg PO BID [facility] Last Admin: 12/05/23 07:54 Dose: 60 mg Guaifenesin/Codeine Phosphate (Guaifen/Codeine Sf 200/20/10ml 10 Ml Liquid) 5 ml PO Q6H PRN PRN Reason: Cough Last Admin: 12/04/23 05:50 Dose: 5 ml Heparin Sodium (Porcine) (Heparin Sodium,Porcine 5,000 Unit/Ml Vial) 5,000 unit SUBCUT Q8H [facility] Last Admin: 12/04/23 13:38 Dose: Not Given Ceftriaxone Sodium 2 gm/ (Sodium Chloride) 50 mls @ 100 mls/hr IV Q24H [facility] Last Infusion: 12/05/23 08:26 Dose: Infused Acetaminophen (Ofirmev) 1,000 mg in 100 mls @ 400 mls/hr IV Q6H [facility] Last Infusion: 12/05/23 08:33 Dose: Infused Promethazine HCl 12.5 mg/ (Sodium Chloride) 50.5 mls @ 202 mls/hr IV ONCE PRN PRN Reason: Nausea and Vomiting Hydromorphone HCl (Dilaudid) 10 mg in 50 mls @ 0 mls/hr IV .Q0M [facility]; Protocol Last Infusion: 12/04/23 19:59 Dose: 0.01 mg/hr, 0.05 mls/hr Sodium Chloride (Ns) 100 mls @ 100 mls/hr IV ONCE ONE Stop: 12/05/23 10:45 Melatonin (Melatonin 3 Mg Tablet) 6 mg PO BEDTIME PRN PRN Reason: Sleep Last Admin: 12/01/23 21:32 Dose: 6 mg Naloxone HCl (Naloxone Hcl 0.4 Mg/Ml Vial) 0.2 mg IVPUSH Q2M PRN PRN Reason: Excessive sedation or RR < 8 Ondansetron HCl (Ondansetron Hcl 4 Mg/2 Ml Vial) 4 mg IVPUSH Q8H PRN PRN Reason: Nausea and Vomiting Senna (Sennosides 8.6 Mg Tablet) 17.2 mg PO BEDTIME PRN PRN Reason: Constipation Sodium Chloride (0.9 % Sodium Chloride Flush 3 Ml Syringe) 3 ml IVFLUSH QSHIFT [facility] Last Admin: 12/05/23 08:01 Dose: 3 ml Vancomycin HCl (Vancomycin Hcl 125 Mg Capsule) 125 mg PO Q6H [facility] Last Admin: 12/05/23 04:25 Dose: 125 mg Home Medications Medication Instructions Recorded Confirmed Last Taken Type cranberry-vit 1 cap PO DAILY 11/24/23 12/04/23 11/23/23 History C-B.coag-FOS-L.acid-L.rham 250 mg-30 mg-39.5 mg capsule (Probiotic Plus and Cranberry) duloxetine 60 mg capsule,delayed 60 mg PO BID 11/24/23 12/04/23 11/23/23 History release norelgestromin 150 mcg-e.estradiol 1 patch topical QWEEK 11/24/23 12/04/23 Unknown History 35 mcg/24 hr weekly transderm patch (Xulane) Exam Height,Weight and Vital Signs: Height 5 ft 7 in Weight 72.6 kg Last Vital Signs Temp 98.3 F 12/05/23 08:00 Pulse 112 H 12/05/23 09:00 Resp 29 H 12/05/23 09:00 BP 123/82 12/05/23 09:00 Pulse Ox 98 12/05/23 09:00 O2 Del Method Nasal Cannula 12/05/23 09:00 O2 Flow Rate 1 12/05/23 09:00 Pertinent Lab Results Pertinent Lab Results: Laboratory Tests 11/24/23 11/24/23 11/24/23 03:51 09:16 11:36 WBC 18.6 H RBC 4.92 Hgb 14.5 Hct 42.8 MCV 87.0 MCH 29.5 MCHC 33.9 RDW 12.6 Plt Count 153 L MPV 11.3 Immature Gran % (Auto) 0.6 H Neut % (Auto) 94.1 H Lymph % (Auto) 1.9 L [place] % (Auto) 1.9 L Eos % (Auto) 1.1 Baso % (Auto) 0.4 Lymph # (Auto) 0.4 L [place] # (Auto) 0.4 Eos # (Auto) 0.2 Baso # (Auto) 0.1 Abs Immat Gran (auto) 0.11 H Absolute Neuts (auto) 17.5 H Absolute Nucleated RBC 0.000 Nucleated RBC % (auto) 0.0 Neutrophils % (Manual) Band Neutrophils % Lymphocytes % (Manual) Atypical Lymphs % (Man) Monocytes % (Manual) Abs Neuts (Manual) Lymphocytes # (Manual) Atyp Lymphs # (Manual) Monocytes # (Manual) Platelet Estimate Large Platelets Plt Morphology Comment RBC Morphology [place] Cells Smear Tech's Comments VERIFIED Sodium 139 Potassium 3.3 Chloride 105 Carbon Dioxide 20 L Anion Gap 17 BUN 7 L Creatinine 0.87 Estim Creat Clear Calc 89.4 Estimated GFR > 60 Random Glucose 102 Lactic Acid 3.3 H* Lactic Acid F/U @ 2Hr 3.9 H* Lactic Acid F/U @ 4Hr Calcium 8.8 Magnesium 1.5 L Total Bilirubin 3.7 H Direct Bilirubin 2.4 H AST 21 ALT 22 Alkaline Phosphatase 110 Troponin I High Sens < 2.7 Total Protein 7.0 Albumin 3.3 L Procalcitonin 2.10 Beta HCG, Quant < 2 Nasal Screen MRSA (PCR) Nasal S. aureus Screen Nasal MRSA/S.aureus Interp Random Vancomycin Urine Opiates Screen Urine Fentanyl Screen Ur Barbiturates Screen Ur Phencyclidine Scrn Ur Amphetamines Screen U Benzodiazepines Scrn Urine Cocaine Screen U Marijuana (THC) Screen Respiratory Panel [place] Adenovirus (Rapid PCR) B.pert (TEM-PCR) B.parapertussis DNA PCR C. pneumoniae DNA (PCR) C. difficile Tox B Gene C. difficile Toxin A&B C. difficile Interpret Coronavirus OC43 (PCR) Coronavirus HKU1 (PCR) Coronavirus 229E (PCR) Coronavirus NL63 (PCR) Hep C Viral Load Hep C Viral Load Log HIV 1&2 Ab/P24 Ag 4thGn Human Metapneumovir PCR Influenza A (RT-PCR) Influenza Type A (PCR) NEGATIVE Influenza B (RT-PCR) Influenza Type B (PCR) NEGATIVE Ur L.pneumophila Ag M. pneumoniae (PCR) Parainfluenza 1 (PCR) Parainfluenza 2 (PCR) Parainfluenza 3 (PCR) Parainfluenza 4 (PCR) RSV (PCR) RSV RNA Qual (PCR) NEGATIVE Entero/Rhino (PCR) SARS-CoV-2 RNA (RT-PCR) NEGATIVE S. pyogenes GrpA KRIS Positive A Ur Strep pneumoniae Ag Blood Type Antibody Screen Crossmatch 11/24/23 11/24/23 11/24/23 14:00 15:44 15:49 WBC RBC Hgb Hct MCV MCH MCHC RDW Plt Count MPV Immature Gran % (Auto) Neut % (Auto) Lymph % (Auto) [place] % (Auto) Eos % (Auto) Baso % (Auto) Lymph # (Auto) [place] # (Auto) Eos # (Auto) Baso # (Auto) Abs Immat Gran (auto) Absolute Neuts (auto) Absolute Nucleated RBC Nucleated RBC % (auto) Neutrophils % (Manual) Band Neutrophils % Lymphocytes % (Manual) Atypical Lymphs % (Man) Monocytes % (Manual) Abs Neuts (Manual) Lymphocytes # (Manual) Atyp Lymphs # (Manual) Monocytes # (Manual) Platelet Estimate Large Platelets Plt Morphology Comment RBC Morphology [place] Cells Smear Tech's Comments Sodium Potassium Chloride Carbon Dioxide Anion Gap BUN Creatinine Estim Creat Clear Calc Estimated GFR Random Glucose Lactic Acid Lactic Acid F/U @ 2Hr Lactic Acid F/U @ 4Hr 3.5 H* Calcium Magnesium Total Bilirubin Direct Bilirubin AST ALT Alkaline Phosphatase Troponin I High Sens Total Protein Albumin Procalcitonin Beta HCG, Quant Nasal Screen MRSA (PCR) Nasal S. aureus Screen Nasal MRSA/S.aureus Interp Random Vancomycin Urine Opiates Screen POSITIVE H Urine Fentanyl Screen Not Detected Ur Barbiturates Screen Not Detected Ur Phencyclidine Scrn Not Detected Ur Amphetamines Screen Not Detected U Benzodiazepines Scrn Not Detected Urine Cocaine Screen Not Detected U Marijuana (THC) Screen POSITIVE H Respiratory Panel [place] Adenovirus (Rapid PCR) B.pert (TEM-PCR) B.parapertussis DNA PCR C. pneumoniae DNA (PCR) C. difficile Tox B Gene C. difficile Toxin A&B C. difficile Interpret Coronavirus OC43 (PCR) Coronavirus HKU1 (PCR) Coronavirus 229E (PCR) Coronavirus NL63 (PCR) Hep C Viral Load Hep C Viral Load Log HIV 1&2 Ab/P24 Ag 4thGn Human Metapneumovir PCR Influenza A (RT-PCR) Influenza Type A (PCR) Influenza B (RT-PCR) Influenza Type B (PCR) Ur L.pneumophila Ag Not Detected M. pneumoniae (PCR) Parainfluenza 1 (PCR) Parainfluenza 2 (PCR) Parainfluenza 3 (PCR) Parainfluenza 4 (PCR) RSV (PCR) RSV RNA Qual (PCR) Entero/Rhino (PCR) SARS-CoV-2 RNA (RT-PCR) S. pyogenes GrpA KRIS Ur Strep pneumoniae Ag Not Detected Blood Type Antibody Screen Crossmatch 11/24/23 11/25/23 11/25/23 16:35 07:36 15:05 WBC 16.0 H RBC 3.88 L D Hgb 11.5 L D Hct 33.7 L D MCV 86.9 MCH 29.6 MCHC 34.1 RDW 13.0 Plt Count 140 L MPV 11.6 Immature Gran % (Auto) Cancelled Neut % (Auto) Cancelled Lymph % (Auto) Cancelled [place] % (Auto) Cancelled Eos % (Auto) Cancelled Baso % (Auto) Cancelled Lymph # (Auto) Cancelled [place] # (Auto) Cancelled Eos # (Auto) Cancelled Baso # (Auto) Cancelled Abs Immat Gran (auto) Cancelled Absolute Neuts (auto) Cancelled Absolute Nucleated RBC 0.000 Nucleated RBC % (auto) 0.0 Neutrophils % (Manual) 89 H Band Neutrophils % 4 Lymphocytes % (Manual) 3 L Atypical Lymphs % (Man) 2 Monocytes % (Manual) 2 Abs Neuts (Manual) 14.9 H Lymphocytes # (Manual) 0.5 L Atyp Lymphs # (Manual) 0.3 Monocytes # (Manual) 0.3 Platelet Estimate NORMAL Large Platelets PRESENT Plt Morphology Comment NOTED RBC Morphology NOTED Giovanny Cells 2+ (3-5) Smear Tech's Comments Sodium 133 L Potassium 4.2 D Chloride 106 Carbon Dioxide 16 L Anion Gap 15 BUN 11 Creatinine 0.71 Estim Creat Clear Calc 109.6 Estimated GFR > 60 Random Glucose 76 Lactic Acid Lactic Acid F/U @ 2Hr Lactic Acid F/U @ 4Hr Calcium 7.1 L D Magnesium Total Bilirubin 2.8 H Direct Bilirubin 2.3 H AST 14 ALT 13 Alkaline Phosphatase 61 Troponin I High Sens Total Protein 5.2 L Albumin 2.4 L Procalcitonin Beta HCG, Quant Nasal Screen MRSA (PCR) Nasal S. aureus Screen Nasal MRSA/S.aureus Interp Random Vancomycin Urine Opiates Screen Urine Fentanyl Screen Ur Barbiturates Screen Ur Phencyclidine Scrn Ur Amphetamines Screen U Benzodiazepines Scrn Urine Cocaine Screen U Marijuana (THC) Screen Respiratory Panel [place] See Note Adenovirus (Rapid PCR) Not Detected B.pert (TEM-PCR) Not Detected B.parapertussis DNA PCR Not Detected C. pneumoniae DNA (PCR) Not Detected C. difficile Tox B Gene C. difficile Toxin A&B C. difficile Interpret Coronavirus OC43 (PCR) Not Detected Coronavirus HKU1 (PCR) Not Detected Coronavirus 229E (PCR) Not Detected Coronavirus NL63 (PCR) Not Detected Hep C Viral Load <15 NOT DETECTED Hep C Viral Load Log <1.18 NOT DETECTED HIV 1&2 Ab/P24 Ag 4thGn Nonreactive Human Metapneumovir PCR Not Detected Influenza A (RT-PCR) Not Detected Influenza Type A (PCR) Influenza B (RT-PCR) Not Detected Influenza Type B (PCR) Ur L.pneumophila Ag M. pneumoniae (PCR) Not Detected Parainfluenza 1 (PCR) Not Detected Parainfluenza 2 (PCR) Not Detected Parainfluenza 3 (PCR) Not Detected Parainfluenza 4 (PCR) Not Detected RSV (PCR) Not Detected RSV RNA Qual (PCR) Entero/Rhino (PCR) Not Detected SARS-CoV-2 RNA (RT-PCR) Not Detected S. pyogenes GrpA KRIS Ur Strep pneumoniae Ag Blood Type Antibody Screen Crossmatch 11/25/23 11/25/23 11/25/23 15:52 16:19 16:25 WBC RBC Hgb Hct MCV MCH MCHC RDW Plt Count MPV Immature Gran % (Auto) Neut % (Auto) Lymph % (Auto) [place] % (Auto) Eos % (Auto) Baso % (Auto) Lymph # (Auto) [place] # (Auto) Eos # (Auto) Baso # (Auto) Abs Immat Gran (auto) Absolute Neuts (auto) Absolute Nucleated RBC Nucleated RBC % (auto) Neutrophils % (Manual) Band Neutrophils % Lymphocytes % (Manual) Atypical Lymphs % (Man) Monocytes % (Manual) Abs Neuts (Manual) Lymphocytes # (Manual) Atyp Lymphs # (Manual) Monocytes # (Manual) Platelet Estimate Large Platelets Plt Morphology Comment RBC Morphology [place] Cells Smear Tech's Comments Sodium Potassium Chloride Carbon Dioxide Anion Gap BUN Creatinine Estim Creat Clear Calc Estimated GFR Random Glucose Lactic Acid Lactic Acid F/U @ 2Hr Lactic Acid F/U @ 4Hr Calcium Magnesium Total Bilirubin Direct Bilirubin AST ALT Alkaline Phosphatase Troponin I High Sens Total Protein Albumin Procalcitonin Beta HCG, Quant Nasal Screen MRSA (PCR) NEGATIVE Nasal S. aureus Screen NEGATIVE Nasal MRSA/S.aureus Interp SEE NOTE Random Vancomycin 9.5 L Urine Opiates Screen Urine Fentanyl Screen Ur Barbiturates Screen Ur Phencyclidine Scrn Ur Amphetamines Screen U Benzodiazepines Scrn Urine Cocaine Screen U Marijuana (THC) Screen Respiratory Panel [place] Adenovirus (Rapid PCR) B.pert (TEM-PCR) B.parapertussis DNA PCR C. pneumoniae DNA (PCR) C. difficile Tox B Gene POSITIVE A* C. difficile Toxin A&B Negative C. difficile Interpret SEE NOTE Coronavirus OC43 (PCR) Coronavirus HKU1 (PCR) Coronavirus 229E (PCR) Coronavirus NL63 (PCR) Hep C Viral Load Hep C Viral Load Log HIV 1&2 Ab/P24 Ag 4thGn Human Metapneumovir PCR Influenza A (RT-PCR) Influenza Type A (PCR) Influenza B (RT-PCR) Influenza Type B (PCR) Ur L.pneumophila Ag M. pneumoniae (PCR) Parainfluenza 1 (PCR) Parainfluenza 2 (PCR) Parainfluenza 3 (PCR) Parainfluenza 4 (PCR) RSV (PCR) RSV RNA Qual (PCR) Entero/Rhino (PCR) SARS-CoV-2 RNA (RT-PCR) S. pyogenes GrpA KRIS Ur Strep pneumoniae Ag Blood Type Antibody Screen Crossmatch 11/26/23 11/27/23 11/28/23 08:54 08:33 06:46 WBC 24.4 H 23.1 H 21.2 H RBC 4.05 L 4.16 L 4.20 Hgb 11.7 L 12.0 12.3 Hct 34.6 L 35.2 L 35.9 L MCV 85.4 84.6 85.5 MCH 28.9 28.8 29.3 MCHC 33.8 34.1 34.3 RDW 12.9 12.9 12.8 Plt Count 130 L 145 L 150 L MPV 12.2 12.3 12.0 Immature Gran % (Auto) Neut % (Auto) Lymph % (Auto) [place] % (Auto) Eos % (Auto) Baso % (Auto) Lymph # (Auto) [place] # (Auto) Eos # (Auto) Baso # (Auto) Abs Immat Gran (auto) Absolute Neuts (auto) Absolute Nucleated RBC 0.000 0.000 0.000 Nucleated RBC % (auto) 0.0 0.0 0.0 Neutrophils % (Manual) Band Neutrophils % Lymphocytes % (Manual) Atypical Lymphs % (Man) Monocytes % (Manual) Abs Neuts (Manual) Lymphocytes # (Manual) Atyp Lymphs # (Manual) Monocytes # (Manual) Platelet Estimate Large Platelets Plt Morphology Comment RBC Morphology [place] Cells Smear Tech's Comments Sodium 134 L Potassium 3.2 L D Chloride 103 Carbon Dioxide 24 Anion Gap 10 L BUN 7 L Creatinine 0.56 Estim Creat Clear Calc 138.9 Estimated GFR > 60 Random Glucose 69 Lactic Acid Lactic Acid F/U @ 2Hr Lactic Acid F/U @ 4Hr Calcium 8.0 L D Magnesium Total Bilirubin Direct Bilirubin AST ALT Alkaline Phosphatase Troponin I High Sens Total Protein Albumin Procalcitonin Beta HCG, Quant Nasal Screen MRSA (PCR) Nasal S. aureus Screen Nasal MRSA/S.aureus Interp Random Vancomycin Urine Opiates Screen Urine Fentanyl Screen Ur Barbiturates Screen Ur Phencyclidine Scrn Ur Amphetamines Screen U Benzodiazepines Scrn Urine Cocaine Screen U Marijuana (THC) Screen Respiratory Panel [place] Adenovirus (Rapid PCR) B.pert (TEM-PCR) B.parapertussis DNA PCR C. pneumoniae DNA (PCR) C. difficile Tox B Gene C. difficile Toxin A&B C. difficile Interpret Coronavirus OC43 (PCR) Coronavirus HKU1 (PCR) Coronavirus 229E (PCR) Coronavirus NL63 (PCR) Hep C Viral Load Hep C Viral Load Log HIV 1&2 Ab/P24 Ag 4thGn Human Metapneumovir PCR Influenza A (RT-PCR) Influenza Type A (PCR) Influenza B (RT-PCR) Influenza Type B (PCR) Ur L.pneumophila Ag M. pneumoniae (PCR) Parainfluenza 1 (PCR) Parainfluenza 2 (PCR) Parainfluenza 3 (PCR) Parainfluenza 4 (PCR) RSV (PCR) RSV RNA Qual (PCR) Entero/Rhino (PCR) SARS-CoV-2 RNA (RT-PCR) S. pyogenes GrpA KRIS Ur Strep pneumoniae Ag Blood Type Antibody Screen Crossmatch 11/29/23 11/29/23 11/30/23 07:28 13:09 07:45 WBC 26.1 H 25.3 H RBC 4.15 L 3.88 L Hgb 12.0 11.2 L Hct 35.6 L 33.9 L MCV 85.8 87.4 MCH 28.9 28.9 MCHC 33.7 33.0 RDW 12.8 12.9 Plt Count 224 D 321 D MPV 11.6 11.3 Immature Gran % (Auto) Neut % (Auto) Lymph % (Auto) [place] % (Auto) Eos % (Auto) Baso % (Auto) Lymph # (Auto) [place] # (Auto) Eos # (Auto) Baso # (Auto) Abs Immat Gran (auto) Absolute Neuts (auto) Absolute Nucleated RBC 0.000 0.000 Nucleated RBC % (auto) 0.0 0.0 Neutrophils % (Manual) Band Neutrophils % Lymphocytes % (Manual) Atypical Lymphs % (Man) Monocytes % (Manual) Abs Neuts (Manual) Lymphocytes # (Manual) Atyp Lymphs # (Manual) Monocytes # (Manual) Platelet Estimate Large Platelets Plt Morphology Comment RBC Morphology [place] Cells Smear Tech's Comments Sodium 135 133 L Potassium 3.6 3.5 Chloride 101 98 Carbon Dioxide 27 29 Anion Gap 11 L 10 L BUN 6 L 5 L Creatinine 0.60 0.61 Estim Creat Clear Calc 129.6 127.5 Estimated GFR > 60 > 60 Random Glucose 96 79 Lactic Acid Lactic Acid F/U @ 2Hr Lactic Acid F/U @ 4Hr Calcium 8.3 L 8.2 L Magnesium Total Bilirubin Direct Bilirubin AST ALT Alkaline Phosphatase Troponin I High Sens Total Protein Albumin Procalcitonin Beta HCG, Quant Nasal Screen MRSA (PCR) Nasal S. aureus Screen Nasal MRSA/S.aureus Interp Random Vancomycin Urine Opiates Screen Urine Fentanyl Screen Ur Barbiturates Screen Ur Phencyclidine Scrn Ur Amphetamines Screen U Benzodiazepines Scrn Urine Cocaine Screen U Marijuana (THC) Screen Respiratory Panel [place] Adenovirus (Rapid PCR) B.pert (TEM-PCR) B.parapertussis DNA PCR C. pneumoniae DNA (PCR) C. difficile Tox B Gene C. difficile Toxin A&B C. difficile Interpret Coronavirus OC43 (PCR) Coronavirus HKU1 (PCR) Coronavirus 229E (PCR) Coronavirus NL63 (PCR) Hep C Viral Load Hep C Viral Load Log HIV 1&2 Ab/P24 Ag 4thGn Human Metapneumovir PCR Influenza A (RT-PCR) Influenza Type A (PCR) Influenza B (RT-PCR) Influenza Type B (PCR) Ur L.pneumophila Ag M. pneumoniae (PCR) Parainfluenza 1 (PCR) Parainfluenza 2 (PCR) Parainfluenza 3 (PCR) Parainfluenza 4 (PCR) RSV (PCR) RSV RNA Qual (PCR) Entero/Rhino (PCR) SARS-CoV-2 RNA (RT-PCR) S. pyogenes GrpA KRIS Ur Strep pneumoniae Ag Blood Type Antibody Screen Crossmatch 12/01/23 12/02/23 12/02/23 09:00 06:14 14:00 WBC 20.4 H 24.6 H RBC 3.34 L 3.66 L Hgb 9.8 L 10.7 L Hct 29.3 L 32.7 L MCV 87.7 89.3 MCH 29.3 29.2 MCHC 33.4 32.7 RDW 12.8 12.7 Plt Count 356 562 H D MPV 10.6 10.7 Immature Gran % (Auto) Neut % (Auto) Lymph % (Auto) [place] % (Auto) Eos % (Auto) Baso % (Auto) Lymph # (Auto) [place] # (Auto) Eos # (Auto) Baso # (Auto) Abs Immat Gran (auto) Absolute Neuts (auto) Absolute Nucleated RBC 0.000 0.000 Nucleated RBC % (auto) 0.0 0.0 Neutrophils % (Manual) Band Neutrophils % Lymphocytes % (Manual) Atypical Lymphs % (Man) Monocytes % (Manual) Abs Neuts (Manual) Lymphocytes # (Manual) Atyp Lymphs # (Manual) Monocytes # (Manual) Platelet Estimate Large Platelets Plt Morphology Comment RBC Morphology [place] Cells Smear Tech's Comments Sodium 131 L 131 L Potassium 3.1 L 3.4 Chloride 99 95 L Carbon Dioxide 25 29 Anion Gap 10 L 10 L BUN 4 L 3 L Creatinine 0.54 0.62 Estim Creat Clear Calc 144.1 125.5 Estimated GFR > 60 > 60 Random Glucose 85 88 Lactic Acid Lactic Acid F/U @ 2Hr Lactic Acid F/U @ 4Hr Calcium 7.8 L 8.3 L D Magnesium Total Bilirubin Direct Bilirubin AST ALT Alkaline Phosphatase Troponin I High Sens Total Protein Albumin Procalcitonin Beta HCG, Quant Nasal Screen MRSA (PCR) Nasal S. aureus Screen Nasal MRSA/S.aureus Interp Random Vancomycin Urine Opiates Screen Urine Fentanyl Screen Ur Barbiturates Screen Ur Phencyclidine Scrn Ur Amphetamines Screen U Benzodiazepines Scrn Urine Cocaine Screen U Marijuana (THC) Screen Respiratory Panel [place] Adenovirus (Rapid PCR) B.pert (TEM-PCR) B.parapertussis DNA PCR C. pneumoniae DNA (PCR) C. difficile Tox B Gene C. difficile Toxin A&B C. difficile Interpret Coronavirus OC43 (PCR) Coronavirus HKU1 (PCR) Coronavirus 229E (PCR) Coronavirus NL63 (PCR) Hep C Viral Load Hep C Viral Load Log HIV 1&2 Ab/P24 Ag 4thGn Nonreactive Human Metapneumovir PCR Influenza A (RT-PCR) Influenza Type A (PCR) Influenza B (RT-PCR) Influenza Type B (PCR) Ur L.pneumophila Ag M. pneumoniae (PCR) Parainfluenza 1 (PCR) Parainfluenza 2 (PCR) Parainfluenza 3 (PCR) Parainfluenza 4 (PCR) RSV (PCR) RSV RNA Qual (PCR) Entero/Rhino (PCR) SARS-CoV-2 RNA (RT-PCR) S. pyogenes GrpA KRIS Ur Strep pneumoniae Ag Blood Type Antibody Screen Crossmatch 12/03/23 12/05/23 12/05/23 07:00 06:13 09:08 WBC 19.6 H 25.4 H 22.5 H RBC 3.17 L 2.40 L D 2.29 L Hgb 9.4 L 6.9 L* D 6.6 L* Hct 28.2 L 21.4 L D 20.4 L* MCV 89.0 89.2 89.1 MCH 29.7 28.8 28.8 MCHC 33.3 32.2 32.4 RDW 12.7 12.7 12.9 Plt Count 515 H 666 H D 611 H MPV 10.4 9.6 9.5 Immature Gran % (Auto) 2.0 H 1.7 H Neut % (Auto) 82.1 H 80.6 H Lymph % (Auto) 10.0 L 11.9 L [place] % (Auto) 5.6 5.5 Eos % (Auto) 0.1 0.1 Baso % (Auto) 0.2 0.2 Lymph # (Auto) 2.5 2.7 [place] # (Auto) 1.4 H 1.2 Eos # (Auto) 0.0 0.0 Baso # (Auto) 0.1 0.0 Abs Immat Gran (auto) 0.51 H 0.38 H Absolute Neuts (auto) 20.9 H 18.1 H Absolute Nucleated RBC 0.000 0.000 0.000 Nucleated RBC % (auto) 0.0 0.0 0.0 Neutrophils % (Manual) Band Neutrophils % Lymphocytes % (Manual) Atypical Lymphs % (Man) Monocytes % (Manual) Abs Neuts (Manual) Lymphocytes # (Manual) Atyp Lymphs # (Manual) Monocytes # (Manual) Platelet Estimate Large Platelets Plt Morphology Comment RBC Morphology [place] Cells Smear Tech's Comments VERIFIED Sodium 136 Potassium 4.3 Chloride 104 Carbon Dioxide 26 Anion Gap 10 L BUN 4 L Creatinine 0.56 Estim Creat Clear Calc 138.9 Estimated GFR > 60 Random Glucose 118 H Lactic Acid Lactic Acid F/U @ 2Hr Lactic Acid F/U @ 4Hr Calcium 7.9 L Magnesium Total Bilirubin Direct Bilirubin AST ALT Alkaline Phosphatase Troponin I High Sens Total Protein Albumin Procalcitonin 0.95 Beta HCG, Quant Nasal Screen MRSA (PCR) Nasal S. aureus Screen Nasal MRSA/S.aureus Interp Random Vancomycin Urine Opiates Screen Urine Fentanyl Screen Ur Barbiturates Screen Ur Phencyclidine Scrn Ur Amphetamines Screen U Benzodiazepines Scrn Urine Cocaine Screen U Marijuana (THC) Screen Respiratory Panel [place] Adenovirus (Rapid PCR) B.pert (TEM-PCR) B.parapertussis DNA PCR C. pneumoniae DNA (PCR) C. difficile Tox B Gene C. difficile Toxin A&B C. difficile Interpret Coronavirus OC43 (PCR) Coronavirus HKU1 (PCR) Coronavirus 229E (PCR) Coronavirus NL63 (PCR) Hep C Viral Load Hep C Viral Load Log HIV 1&2 Ab/P24 Ag 4thGn Human Metapneumovir PCR Influenza A (RT-PCR) Influenza Type A (PCR) Influenza B (RT-PCR) Influenza Type B (PCR) Ur L.pneumophila Ag M. pneumoniae (PCR) Parainfluenza 1 (PCR) Parainfluenza 2 (PCR) Parainfluenza 3 (PCR) Parainfluenza 4 (PCR) RSV (PCR) RSV RNA Qual (PCR) Entero/Rhino (PCR) SARS-CoV-2 RNA (RT-PCR) S. pyogenes GrpA KRIS Ur Strep pneumoniae Ag Blood Type A Positive Antibody Screen NEGATIVE Crossmatch See Detail Airway Heart: rrr Lungs: cta Assessment and Plan Assessment Anesthesia Assessment: Anesthesia Plan Discussed (AGUSTINA block for post op pain ) Final Anesthetic Review Family History of Problems with Anesthesia: No History of Problems with Anesthesia: Yes NPO: No ASA Class: III and Emergency Final Preanesthetic Review: No Changes in Pt Med Stat, Meds/Allgs Chart Reviewed and Consent Obtained/Reviewed Patient Risk: Intermediate Procedure Risk: Intermediate Anesthetic Plan Anesthetic Plan: Regional Block (left erector spinae block) Disposition: Inp. Admit - ICU (pt from icu)
--- NOTE | 2023-12-05 12:46 | MHC.CM.PN ---
Pt is POD 1 s/p left lower lobectomy and decortication secondary to necrotizing PNA. Pt on nasal cannula, Dilaudid gtt and doing well w/chest tubes. D/C to be finalized once pt's d/c needs are better known. Pt from home without services. CM to follow
--- NOTE | 2023-12-05 13:11 | PM.PNTS ---
Subjective Subjective Date of Service: 12/05/23 Interval history: Having severe pain at thoracotomy site. Block was attempted without much improvement. Having some relief with PASSENGER VESSEL CHEF. Tolerating solid diet with some appetite. Physical Exam Vital Signs: Vital Signs: Last Vital Signs Temp 98.8 F 12/05/23 12:13 Pulse 116 H 12/05/23 12:13 Resp 25 H 12/05/23 12:13 BP 132/73 12/05/23 12:13 Pulse Ox 98 12/05/23 12:00 O2 Del Method Room Air 12/05/23 12:00 O2 Flow Rate 1 12/05/23 09:00 BMI result Body Mass Index 25.1 Const: General: comfortable, no acute distress and alert Orientation/consciousness: patient oriented x3 Chest: Other: left chest thoracotomy site clean, chest tubes with some surrounding serosanguineous drainage, dressing changed Resp: Effort & Inspection: normal respiratory effort Skin: General skin exam: no rashes or lesions noted Neuro: General: patient oriented x3 and moves all extremities Extrem: General: Yes no clubbing, cyanosis or edema Procedures Date of Service Date of Service: 12/05/23 Progress Note: A&P Assessment and plan (1) S/P lobectomy of lung: Status: Acute (2) Empyema: Status: Acute Plan POD #1 s/p bronchoscopy, vats converted to open thoracotomy, pneumolysis, and empyemectomy, decortication left lung, left apex wedge resection of lung abscess, left lower lobectomy, intercostal nerve block. Patient had extensive empyema cavity with thickened rind involving the entire left lower lobe and lower aspect of the left upper lobe, necrotizing pneumonia. Having difficulty with post operative pain, block was attempted without much relief. Chest tube with small air leak. Small air space on f/u CXR this AM. Cont chest tubes to suction. Cont IV abx, cont PASSENGER VESSEL CHEF for pain control. Repeat labs and CXR in am. Time Spent With Patient Time: Total time managing care of this patient today ____ minutes. Quality Stroke Does the patient have a stroke diagnosis?: No VTE Prior VTE?: No VTE Risk Level:: Medical - moderate - high VTE Device Contraindication: Treatment Not Indicated VTE Drug Contraindication: N/A - Med Ordered
[2023-12-05] MEDS: Lactated Ringers 1,000 ML 250 ML IVCONT (14:37)
[2023-12-05] MEDS: HYDROmorphone HCl/NS 10 MG/50 ML PIGGYBACK IV ×2 (15:35→22:26)
[2023-12-05 19:57] LABS: MANUAL DIFF FLAG NO
[2023-12-05 19:58] LABS: Basophils Absolute Auto 0.1 X10*3/uL (0.0-0.2); Basophils Percent Auto 0.2 % (0-2); Eosinophils Absolute Auto 0.1 X10*3/uL (0.0-0.4); Eosinophils Percent Auto 0.3 % (0-4); Hematocrit 27.3 % (37.0-47.0); Hemoglobin 9.1 g/dl (12.0-16.0); Imm Gran Abs Auto 0.44 X10*3/uL (0.00-0.03); Imm Gran Pct Auto 1.8 % (0.0-0.4); Lymphocytes Absolute Auto 2.7 X10*3/uL (1.2-4.9); Lymphocytes Percent Auto 11.2 % (20-40); Mean Corpuscular HGB Conc 33.3 g/dl (31.0-35.0); Mean Corpuscular Hemoglobin 29.8 pg (27.0-33.0); Mean Corpuscular Volume 89.5 fL (80.0-98.0); Mean Platelet Volume 9.4 fL (9.4-12.3); Monocytes Absolute Auto 1.3 X10*3/uL (0.1-1.2); Monocytes Percent Auto 5.6 % (2-11); Neutrophils Absolute Auto 19.5 x10*3/uL (2.0-8.3); Neutrophils Percent Auto 80.9 % (45-73); Platelet Count 631 X10*3/uL (160-400); Red Blood Count 3.05 X10*6/uL (4.20-5.50); Red Cell Distribution Width 13.1 % (11.0-16.0); White Blood Count 24.1 X10*3/uL (4.8-10.8)
[2023-12-05] MEDS: HYDROmorphone HCl 1 MG/ML SYRINGE IVPUSH (22:00)
[2023-12-06] VITALS (10 sets, daily range): BP systolic 121–147; BP diastolic 62–86; PULSE 95–115; RESP 16–22; TEMP 36.3–36.9; O2SAT 97–100; BMI 26.2
[2023-12-06] MEDS: Acetaminophen 1,000 MG/100 ML PIGGYBACK 400 MG IV ×4 (03:46→21:59)
[2023-12-06] MEDS: vancomycin HCL 125 MG CAPSULE PO ×4 (03:47→21:59)
[2023-12-06 07:18] LABS: MANUAL DIFF FLAG NO
[2023-12-06 07:24] LABS: Basophils Absolute Auto 0.1 X10*3/uL (0.0-0.2); Basophils Percent Auto 0.5 % (0-2); Eosinophils Absolute Auto 0.3 X10*3/uL (0.0-0.4); Eosinophils Percent Auto 1.2 % (0-4); Hemoglobin 9.2 g/dl (12.0-16.0); Imm Gran Abs Auto 0.49 X10*3/uL (0.00-0.03); Imm Gran Pct Auto 2.2 % (0.0-0.4); Lymphocytes Absolute Auto 3.6 X10*3/uL (1.2-4.9); Lymphocytes Percent Auto 16.1 % (20-40); Mean Corpuscular HGB Conc 32.9 g/dl (31.0-35.0); Mean Corpuscular Hemoglobin 29.3 pg (27.0-33.0); Mean Corpuscular Volume 89.2 fL (80.0-98.0); Mean Platelet Volume 9.9 fL (9.4-12.3); Monocytes Absolute Auto 1.4 X10*3/uL (0.1-1.2); Monocytes Percent Auto 6.4 % (2-11); Neutrophils Absolute Auto 16.4 x10*3/uL (2.0-8.3); Neutrophils Percent Auto 73.6 % (45-73); Platelet Count 638 X10*3/uL (160-400); Red Blood Count 3.14 X10*6/uL (4.20-5.50); Red Cell Distribution Width 13.3 % (11.0-16.0); White Blood Count 22.3 X10*3/uL (4.8-10.8)
--- NOTE | 2023-12-06 07:32 | PC.NURSE ---
upon first contact pt found crying, chin quivering, tremulous, and unable to take a deep breath 2/2 15/10 pain. Pt encouraged to use DIRECTOR OF TEENAGE ACTIVITIES button with pt stating it does not work. Pt requested to go back to previous pain management plan and explained that current system has more available meds to keep better pain control. Pt checked on Q 15-20 minutes until pain under control. MD aware and one time 1mg dilaudid given as well as scheduled APAP and DIRECTOR OF TEENAGE ACTIVITIES with pain down to 4/10 and patient with significant improvement of nonverbal pain cues. She was then able to use IS and get some sleep. pain fluctuating overnight with pt using DIRECTOR OF TEENAGE ACTIVITIES more successfully as noted in assessments. This am pt coughed up one small approx 5-6mm rosie/mucousy blood clot. no ciro red blood noted. Dressings c/d/i to CT. CT system intact, continued small +1 air leak, no crepitus. total of 310cc dark serosanguanous drainage noted. Plan of care ongoing....
[2023-12-06 07:38] LABS: Anion Gap 9 (12-20); Blood Urea Nitrogen 6 mg/dL (9-16); Calcium 8.4 mg/dL (8.4-10.2); Carbon Dioxide 26 mmol/L (22-29); Chloride 104 mmol/L (96-108); Creatinine Clr Calc Pharmacy 154.4; Estimated Glomerular Filt Rate > 60; Glucose Random 75 mg/dL (60-115); Potassium 4.2 mmol/L (3.3-5.1); Sodium 135 mmol/L (135-145)
[2023-12-06] MEDS: DULoxetine HCl 60 MG CAPSULE.DR PO ×2 (08:25→22:00)
[2023-12-06] MEDS: 0.9 % Sodium Chloride Flush 3 ML SYRINGE IVFLUSH ×3 (08:25→22:01)
[2023-12-06] MEDS: cefTRIAXone sodium 2 GM in 0.9 % Sodium Chloride 50 ML IV (08:25)
[2023-12-06] MEDS: HYDROmorphone HCl/NS 10 MG/50 ML PIGGYBACK 1.5 MG IV (08:35)
--- NOTE | 2023-12-06 09:18 | PM.PNTS ---
Subjective Subjective Date of Service: 12/06/23 Interval history: Continues to have severe pain at incision site. It is slightly improved overall, MAIL SERVICE COORDINATOR helping a little to relieve. Tolerating small amount of diet. Physical Exam Vital Signs: Vital Signs: Last Vital Signs Temp 97.6 F 12/06/23 08:00 Pulse 104 H 12/06/23 08:35 Resp 20 12/06/23 08:35 BP 130/75 12/06/23 08:35 Pulse Ox 100 12/06/23 08:35 O2 Del Method Room Air 12/06/23 08:00 O2 Flow Rate 1 12/05/23 17:18 BMI result Body Mass Index 26.2 Const: Other: uncomfortable appearing General: no acute distress and alert Orientation/consciousness: patient oriented x3 Chest: Other: thoracotomy incision clean, chest tubes in place Resp: Effort & Inspection: normal respiratory effort and no respiratory distress Skin: General skin exam: no rashes or lesions noted Neuro: General: patient oriented x3 Procedures Date of Service Date of Service: 12/06/23 Progress Note: A&P Assessment and plan (1) S/P lobectomy of lung: Status: Acute (2) Empyema: Status: Acute Plan POD #1 s/p bronchoscopy, vats converted to open thoracotomy, pneumolysis, and empyemectomy, decortication left lung, left apex wedge resection of lung abscess, left lower lobectomy, intercostal nerve block. Patient had extensive empyema cavity with thickened rind involving the entire left lower lobe and lower aspect of the left upper lobe, necrotizing pneumonia. Doing fairly well overall and slowly improving but continues to have difficulty with pain control. Incision clean appearing, low chest tube output. H/H stable this morning. Will begin basal rate for MAIL SERVICE COORDINATOR and adjust as needed. Chest tube with small air leak, pneumo and pleural effusion on this AMs CXR. Cont chest tube to suction, lay supine for period for better drainage of pleural fluid. Repeat CXR in AM. Cont IS use. Time Spent With Patient Time: Total time managing care of this patient today ____ minutes. Quality Stroke Does the patient have a stroke diagnosis?: No VTE Prior VTE?: No VTE Risk Level:: Medical - moderate - high VTE Device Contraindication: Treatment Not Indicated VTE Drug Contraindication: N/A - Med Ordered
--- NOTE | 2023-12-06 09:24 | MHC.CM.PN ---
Patient is not yet medically cleared for dc (c/o severe pain and minimal po intake); home is the goal and CM will continue to follow.
--- NOTE | 2023-12-06 10:56 | P.PNIM_ITS ---
Subjective Subjective Date of Service: 12/06/23 Interval History: incisional pain under better control with ROADWAY DESIGNER no fever off oxygen Review of Systems Review of Systems: Yes all other systems are reviewed and are negative Physical Exam 2 Vital Signs: Vital Signs: Last Vital Signs Temp 97.7 F 12/06/23 09:55 Pulse 105 H 12/06/23 09:55 Resp 22 H 12/06/23 09:55 BP 140/79 H 12/06/23 09:55 Pulse Ox 99 12/06/23 09:55 O2 Del Method Room Air 12/06/23 09:55 O2 Flow Rate 1 12/05/23 17:18 BMI result Body Mass Index 26.2 Gen: in no acute distress HEENT: sclera anicteric, moist mucus membranes Neck: supple Lungs: diminished left, chest tubes x 2 to left with air leaks Heart: regular rate and rhythm, no murmurs Abd: soft, non-tender, non-distended Ext: no edema Skin: warm/well-perfused Neuro: alert and oriented x3, no focal findings Psych: appropriate affect Objective Data Active Medications Benzonatate (Benzonatate 100 Mg Capsule) 200 mg PO TID PRN PRN Reason: Cough Last Admin: 12/03/23 14:26 Dose: 200 mg Documented By: ISSAC Duloxetine HCl (Duloxetine Hcl 60 Mg Capsule.) 60 mg PO BID [facility] Last Admin: 12/06/23 08:25 Dose: 60 mg Documented By: ELIOT Guaifenesin/Codeine Phosphate (Guaifen/Codeine Sf 200/20/10ml 10 Ml Liquid) 5 ml PO Q6H PRN PRN Reason: Cough Last Admin: 12/04/23 05:50 Dose: 5 ml Documented By: RAIMUNDO Heparin Sodium (Porcine) (Heparin Sodium,Porcine 5,000 Unit/Ml Vial) 5,000 unit SUBCUT Q8H [facility] Last Admin: 12/04/23 13:38 Dose: Not Given Documented By: FREDERICK Non-Admin Reason: Off Unit: Surgery Hydromorphone HCl (Hydromorphone Hcl 1 Mg/Ml Syringe) 1 mg IVPUSH Q3H PRN; Protocol PRN Reason: Pain, Severe (Pain Scale 7-10) Last Admin: 12/05/23 22:00 Dose: 1 mg Documented By: ELVIRA Ceftriaxone Sodium 2 gm/ (Sodium Chloride) 50 mls @ 100 mls/hr IV Q24H [facility] Last Infusion: 12/06/23 08:55 Dose: Infused Documented By: ELIOT Acetaminophen (Ofirmev) 1,000 mg in 100 mls @ 400 mls/hr IV Q6H [facility] Last Admin: 12/06/23 09:56 Dose: 400 mls/hr Documented By: ELIOT Promethazine HCl 12.5 mg/ (Sodium Chloride) 50.5 mls @ 202 mls/hr IV ONCE PRN PRN Reason: Nausea and Vomiting Hydromorphone HCl (Dilaudid) 10 mg in 50 mls @ 0 mls/hr IV .Q0M [facility]; Protocol Last Admin: 12/06/23 08:35 Dose: 0.3 mg/hr, 1.5 mls/hr Documented By: ELIOT Melatonin (Melatonin 3 Mg Tablet) 6 mg PO BEDTIME PRN PRN Reason: Sleep Last Admin: 12/01/23 21:32 Dose: 6 mg Documented By: MATT Naloxone HCl (Naloxone Hcl 0.4 Mg/Ml Vial) 0.2 mg IVPUSH Q2M PRN PRN Reason: Excessive sedation or RR < 8 Ondansetron HCl (Ondansetron Hcl 4 Mg/2 Ml Vial) 4 mg IVPUSH Q8H PRN PRN Reason: Nausea and Vomiting Senna (Sennosides 8.6 Mg Tablet) 17.2 mg PO BEDTIME PRN PRN Reason: Constipation Sodium Chloride (0.9 % Sodium Chloride Flush 3 Ml Syringe) 3 ml IVFLUSH QSHIFT [facility] Last Admin: 12/06/23 08:25 Dose: 3 ml Documented By: ELIOT Vancomycin HCl (Vancomycin Hcl 125 Mg Capsule) 125 mg PO Q6H [facility] Last Admin: 12/06/23 09:58 Dose: 125 mg Documented By: ELIOT Labs 12/06/23 06:39 12/06/23 06:39 Labs: Laboratory Results - last 24 hr 12/05/23 12/05/23 12/05/23 06:13 10:40 19:44 MCV 89.5 MCH 29.8 MCHC 33.3 RDW 13.1 Plt Count 631 H MPV 9.4 Immature Gran % (Auto) 1.8 H Neut % (Auto) 80.9 H Lymph % (Auto) 11.2 L [place] % (Auto) 5.6 Eos % (Auto) 0.3 Baso % (Auto) 0.2 Lymph # (Auto) 2.7 [place] # (Auto) 1.3 H Eos # (Auto) 0.1 Baso # (Auto) 0.1 Abs Immat Gran (auto) 0.44 H Absolute Neuts (auto) 19.5 H Absolute Nucleated RBC 0.000 Nucleated RBC % (auto) 0.0 Smear Path Review SEE NOTE Anion Gap Estim Creat Clear Calc Estimated GFR Random Glucose Calcium Blood Type A Positive Antibody Screen NEGATIVE Crossmatch See Detail 12/06/23 06:39 MCV 89.2 MCH 29.3 MCHC 32.9 RDW 13.3 Plt Count 638 H MPV 9.9 Immature Gran % (Auto) 2.2 H Neut % (Auto) 73.6 H Lymph % (Auto) 16.1 L [place] % (Auto) 6.4 Eos % (Auto) 1.2 Baso % (Auto) 0.5 Lymph # (Auto) 3.6 [place] # (Auto) 1.4 H Eos # (Auto) 0.3 Baso # (Auto) 0.1 Abs Immat Gran (auto) 0.49 H Absolute Neuts (auto) 16.4 H Absolute Nucleated RBC 0.000 Nucleated RBC % (auto) 0.0 Smear Path Review Anion Gap 9 L Estim Creat Clear Calc 154.4 Estimated GFR > 60 Random Glucose 75 Calcium 8.4 D Blood Type Antibody Screen Crossmatch Microbiology Microbiology Results: Microbiology 12/04/23 11:02 Gram Stain - Final Lung - Left Routine Culture - Final No growth after 2 days Anaerobic Culture - Preliminary No growth to date. Assessment and Plan (1) S/P lobectomy of lung: Status: Acute Plan d13 33yo F with remote hx ROBBY in remission x 10 yr admitted for sepsis due to pneumonia complicated by empyema chest tube placed 11/29/23 but failed to improve due to necrotizing PNA/abscess of entire LLL and abscess of apex of RADHA on 12/04 underwent VATS -> open thoracotomy, pneumolysis, empyemectomy, decortication L lung, L apex wedge resection of lung abscess, L lower lobectomy, and intercostal nerve block postop care in ICU, downgraded to IMC 12/05 empyema/necrotizing pneumonia - POD2, Thoracic Surgery following, keep chest tubes to suction, until air leak seals, daily CXR, IS, hydromorphone ROADWAY DESIGNER for pain control - discuss with ID, on ceftriaxone 12/04- and previously on pip-kendra - HIV negative postoperative anemia - transfused 2u pRBCs 12/05/23 with appropriate rise in H+H C diff colonization - vancomycin while on antibiotics for pneumonia VTE ppx - UFH dispo - TBD In my clinical judgment, the patient requires continued inpatient hospitalization for the following reasons: postop care, chest tubes in place, IV antibiotics Total time managing care of this patient today: 45 minutes. Quality Stroke Does the patient have a stroke diagnosis?: No VTE Prior VTE?: No VTE Risk Level:: Medical - moderate - high VTE Device Contraindication: Treatment Not Indicated VTE Drug Contraindication: N/A - Med Ordered
[2023-12-07] VITALS (15 sets, daily range): BP systolic 122–144; BP diastolic 67–92; PULSE 88–108; RESP 18–20; TEMP 36.2–36.9; O2SAT 95–100
[2023-12-07] MEDS: Acetaminophen 1,000 MG/100 ML PIGGYBACK 400 MG IV ×4 (01:53→20:56)
[2023-12-07] MEDS: HYDROmorphone HCl/NS 10 MG/50 ML PIGGYBACK 1.5 MG IV (03:11)
--- NOTE | 2023-12-07 03:18 | PC.NURSE ---
New Dilaudid bag for HR CLERK pump hung @ 0311 . 9ml wasted from previous bag with [facility] BEAUCHAMP .
[2023-12-07] MEDS: vancomycin HCL 125 MG CAPSULE PO ×3 (05:14→15:27)
[2023-12-07 07:11] LABS: MANUAL DIFF FLAG NO
[2023-12-07 07:20] LABS: Basophils Absolute Auto 0.1 X10*3/uL (0.0-0.2); Basophils Percent Auto 0.6 % (0-2); Eosinophils Absolute Auto 0.3 X10*3/uL (0.0-0.4); Eosinophils Percent Auto 1.7 % (0-4); Hemoglobin 8.2 g/dl (12.0-16.0); Imm Gran Abs Auto 0.24 X10*3/uL (0.00-0.03); Imm Gran Pct Auto 1.5 % (0.0-0.4); Lymphocytes Absolute Auto 3.4 X10*3/uL (1.2-4.9); Lymphocytes Percent Auto 20.9 % (20-40); Mean Corpuscular HGB Conc 32.8 g/dl (31.0-35.0); Mean Corpuscular Hemoglobin 29.7 pg (27.0-33.0); Mean Corpuscular Volume 90.6 fL (80.0-98.0); Mean Platelet Volume 10.3 fL (9.4-12.3); Monocytes Absolute Auto 0.9 X10*3/uL (0.1-1.2); Monocytes Percent Auto 5.7 % (2-11); Neutrophils Absolute Auto 11.3 x10*3/uL (2.0-8.3); Neutrophils Percent Auto 69.6 % (45-73); Platelet Count 511 X10*3/uL (160-400); Red Blood Count 2.76 X10*6/uL (4.20-5.50); Red Cell Distribution Width 13.2 % (11.0-16.0); White Blood Count 16.3 X10*3/uL (4.8-10.8)
[2023-12-07] MEDS: cefTRIAXone sodium 2 GM in 0.9 % Sodium Chloride 50 ML IV (07:47)
[2023-12-07] MEDS: DULoxetine HCl 60 MG CAPSULE.DR PO ×2 (07:47→20:56)
[2023-12-07 07:50] LABS: Anion Gap 11 (12-20); Blood Urea Nitrogen 6 mg/dL (9-16); Calcium 8.3 mg/dL (8.4-10.2); Carbon Dioxide 23 mmol/L (22-29); Chloride 107 mmol/L (96-108); Creatinine Clr Calc Pharmacy 130.7; Estimated Glomerular Filt Rate > 60; Glucose Random 83 mg/dL (60-115); Potassium 4.6 mmol/L (3.3-5.1); Sodium 136 mmol/L (135-145)
[2023-12-07] MEDS: 0.9 % Sodium Chloride Flush 3 ML SYRINGE IVFLUSH ×2 (07:53→15:29)
[2023-12-07 08:05] LABS: Procalcitonin 0.65 ng/mL
--- NOTE | 2023-12-07 08:58 | P.PNGS_ITS ---
Subjective Subjective Date of Service: 12/07/23 Interval history: Reports shortness of breath however saturations 100%. Pain at incision somewhat relieved with FIELD ARTILLERY BASIC. Physical Exam 2 Vital Signs: Vital Signs: Last Vital Signs Temp 98.0 F 12/07/23 08:00 Pulse 108 H 12/07/23 08:00 Resp 20 12/07/23 08:00 BP 128/92 H 12/07/23 08:00 Pulse Ox 98 12/07/23 08:00 O2 Del Method Room Air 12/07/23 08:00 O2 Flow Rate 1 12/05/23 17:18 BMI result Body Mass Index 26.2 Const: Other: uncomfortable appearing General: no acute distress and alert Orientation/consciousness: patient oriented x3 Chest: Other: thoracotomy incision clean, chest tubes in place Resp: Effort & Inspection: normal respiratory effort and no respiratory distress Skin: General skin exam: no rashes or lesions noted Neuro: General: patient oriented x3 Objective Data Active Medications Benzonatate (Benzonatate 100 Mg Capsule) 200 mg PO TID PRN PRN Reason: Cough Last Admin: 12/03/23 14:26 Dose: 200 mg Documented By: ISSAC Duloxetine HCl (Duloxetine Hcl 60 Mg Capsule.Dr) 60 mg PO BID [facility] Last Admin: 12/07/23 07:47 Dose: 60 mg Documented By: ELIOT Guaifenesin/Codeine Phosphate (Guaifen/Codeine Sf 200/20/10ml 10 Ml Liquid) 5 ml PO Q6H PRN PRN Reason: Cough Last Admin: 12/04/23 05:50 Dose: 5 ml Documented By: RAIMUNDO Heparin Sodium (Porcine) (Heparin Sodium,Porcine 5,000 Unit/Ml Vial) 5,000 unit SUBCUT Q8H [facility] Last Admin: 12/04/23 13:38 Dose: Not Given Documented By: FREDERICK Non-Admin Reason: Off Unit: Surgery Hydromorphone HCl (Hydromorphone Hcl 1 Mg/Ml Syringe) 1 mg IVPUSH Q3H PRN; Protocol PRN Reason: Pain, Severe (Pain Scale 7-10) Last Admin: 12/05/23 22:00 Dose: 1 mg Documented By: ELVIRA Ceftriaxone Sodium 2 gm/ (Sodium Chloride) 50 mls @ 100 mls/hr IV Q24H [facility] Last Admin: 12/07/23 07:47 Dose: 100 mls/hr Documented By: ELIOT Acetaminophen (Ofirmev) 1,000 mg in 100 mls @ 400 mls/hr IV Q6H [facility] Last Infusion: 12/07/23 02:08 Dose: Infused Documented By: RITA Promethazine HCl 12.5 mg/ (Sodium Chloride) 50.5 mls @ 202 mls/hr IV ONCE PRN PRN Reason: Nausea and Vomiting Hydromorphone HCl (Dilaudid) 10 mg in 50 mls @ 0 mls/hr IV .Q0M [facility]; Protocol Last Admin: 12/07/23 03:11 Dose: 0.3 mg/hr, 1.5 mls/hr Documented By: RITA Melatonin (Melatonin 3 Mg Tablet) 6 mg PO BEDTIME PRN PRN Reason: Sleep Last Admin: 12/01/23 21:32 Dose: 6 mg Documented By: MATT Naloxone HCl (Naloxone Hcl 0.4 Mg/Ml Vial) 0.2 mg IVPUSH Q2M PRN PRN Reason: Excessive sedation or RR < 8 Ondansetron HCl (Ondansetron Hcl 4 Mg/2 Ml Vial) 4 mg IVPUSH Q8H PRN PRN Reason: Nausea and Vomiting Senna (Sennosides 8.6 Mg Tablet) 17.2 mg PO BEDTIME PRN PRN Reason: Constipation Sodium Chloride (0.9 % Sodium Chloride Flush 3 Ml Syringe) 3 ml IVFLUSH QSHIFT [facility] Last Admin: 12/07/23 07:53 Dose: 3 ml Documented By: ELIOT Vancomycin HCl (Vancomycin Hcl 125 Mg Capsule) 125 mg PO Q6H [facility] Last Admin: 12/07/23 05:14 Dose: 125 mg Documented By: RITA Labs 12/07/23 06:26 12/07/23 06:27 Labs: Laboratory Results - last 24 hr 12/07/23 12/07/23 06:26 06:27 MCV 90.6 MCH 29.7 MCHC 32.8 RDW 13.2 Plt Count 511 H MPV 10.3 Immature Gran % (Auto) 1.5 H Neut % (Auto) 69.6 Lymph % (Auto) 20.9 [place] % (Auto) 5.7 Eos % (Auto) 1.7 Baso % (Auto) 0.6 Lymph # (Auto) 3.4 [place] # (Auto) 0.9 Eos # (Auto) 0.3 Baso # (Auto) 0.1 Abs Immat Gran (auto) 0.24 H Absolute Neuts (auto) 11.3 H Absolute Nucleated RBC 0.000 Nucleated RBC % (auto) 0.0 Anion Gap 11 L Estim Creat Clear Calc 130.7 Estimated GFR > 60 Random Glucose 83 Calcium 8.3 L Procalcitonin 0.65 Microbiology Microbiology Results: Microbiology 12/04/23 11:02 Gram Stain - Final Lung - Left Routine Culture - Final No growth after 2 days Anaerobic Culture - Preliminary No growth to date. Procedures Date of Service Date of Service: 12/07/23 Progress Note: A&P Assessment and plan (1) S/P lobectomy of lung: Status: Acute (2) Empyema: Status: Acute Plan POD #2 s/p bronchoscopy, vats converted to open thoracotomy, pneumolysis, and empyemectomy, decortication left lung, left apex wedge resection of lung abscess, left lower lobectomy, intercostal nerve block. Patient had extensive empyema cavity with thickened rind involving the entire left lower lobe and lower aspect of the left upper lobe, necrotizing pneumonia. Patient making slow improvement with pain control remains her main issue. Incision is clean and chest tube remains intact. Continue with FIELD ARTILLERY BASIC as needed. Chest tube to suction. Chest x-ray this morning shows 1. Continued decrease in the amount of left pleural air. 2. Left basilar atelectasis and pleural fluid. Time Spent With Patient Time: Total time managing care of this patient today ____ minutes. Quality Stroke Does the patient have a stroke diagnosis?: No VTE Prior VTE?: No VTE Risk Level:: Medical - moderate - high VTE Device Contraindication: Treatment Not Indicated VTE Drug Contraindication: N/A - Med Ordered
--- NOTE | 2023-12-07 10:56 | HO.PM.IMPN ---
Subjective Subjective Date of Service: 12/07/23 Interval History: severe pain not hypoxic Review of Systems Review of Systems: Yes all other systems are reviewed and are negative Physical Exam Vital Signs: Vital Signs: Last Vital Signs Temp 97.8 F 12/07/23 10:00 Pulse 103 H 12/07/23 10:00 Resp 20 12/07/23 10:00 BP 139/81 12/07/23 10:00 Pulse Ox 100 12/07/23 10:00 O2 Del Method Room Air 12/07/23 10:00 O2 Flow Rate 1 12/05/23 17:18 BMI result Body Mass Index 26.2 Gen: in no acute distress HEENT: sclera anicteric, moist mucus membranes Neck: supple Lungs: diminished left, chest tubes x 2 to left with air leaks Heart: regular rate and rhythm, no murmurs Abd: soft, non-tender, non-distended Ext: no edema Skin: warm/well-perfused Neuro: alert and oriented x3, no focal findings Psych: appropriate affect Objective Data Active Medications Benzonatate (Benzonatate 100 Mg Capsule) 200 mg PO TID PRN PRN Reason: Cough Last Admin: 12/03/23 14:26 Dose: 200 mg Documented By: ISSAC Duloxetine HCl (Duloxetine Hcl 60 Mg Capsule.) 60 mg PO BID [facility] Last Admin: 12/07/23 07:47 Dose: 60 mg Documented By: ELIOT Guaifenesin/Codeine Phosphate (Guaifen/Codeine Sf 200/20/10ml 10 Ml Liquid) 5 ml PO Q6H PRN PRN Reason: Cough Last Admin: 12/04/23 05:50 Dose: 5 ml Documented By: RAIMUNDO Heparin Sodium (Porcine) (Heparin Sodium,Porcine 5,000 Unit/Ml Vial) 5,000 unit SUBCUT Q8H [facility] Last Admin: 12/04/23 13:38 Dose: Not Given Documented By: FREDERICK Non-Admin Reason: Off Unit: Surgery Hydromorphone HCl (Hydromorphone Hcl 1 Mg/Ml Syringe) 1 mg IVPUSH Q3H PRN; Protocol PRN Reason: Pain, Severe (Pain Scale 7-10) Last Admin: 12/05/23 22:00 Dose: 1 mg Documented By: ELVIRA Ceftriaxone Sodium 2 gm/ (Sodium Chloride) 50 mls @ 100 mls/hr IV Q24H [facility] Last Infusion: 12/07/23 08:17 Dose: Infused Documented By: ELIOT Acetaminophen (Ofirmev) 1,000 mg in 100 mls @ 400 mls/hr IV Q6H [facility] Last Infusion: 12/07/23 09:42 Dose: Infused Documented By: ELIOT Promethazine HCl 12.5 mg/ (Sodium Chloride) 50.5 mls @ 202 mls/hr IV ONCE PRN PRN Reason: Nausea and Vomiting Hydromorphone HCl (Dilaudid) 10 mg in 50 mls @ 0 mls/hr IV .Q0M [facility]; Protocol Last Infusion: 12/07/23 09:40 Dose: 0.4 mg/hr, 2 mls/hr Documented By: ELIOT Melatonin (Melatonin 3 Mg Tablet) 6 mg PO BEDTIME PRN PRN Reason: Sleep Last Admin: 12/01/23 21:32 Dose: 6 mg Documented By: MATT Naloxone HCl (Naloxone Hcl 0.4 Mg/Ml Vial) 0.2 mg IVPUSH Q2M PRN PRN Reason: Excessive sedation or RR < 8 Ondansetron HCl (Ondansetron Hcl 4 Mg/2 Ml Vial) 4 mg IVPUSH Q8H PRN PRN Reason: Nausea and Vomiting Senna (Sennosides 8.6 Mg Tablet) 17.2 mg PO BEDTIME PRN PRN Reason: Constipation Sodium Chloride (0.9 % Sodium Chloride Flush 3 Ml Syringe) 3 ml IVFLUSH QSHIFT [facility] Last Admin: 12/07/23 07:53 Dose: 3 ml Documented By: ELIOT Vancomycin HCl (Vancomycin Hcl 125 Mg Capsule) 125 mg PO Q6H [facility] Last Admin: 12/07/23 09:28 Dose: 125 mg Documented By: ELIOT Labs 12/07/23 06:26 12/07/23 06:27 Labs: Laboratory Results - last 24 hr 12/07/23 12/07/23 06:26 06:27 MCV 90.6 MCH 29.7 MCHC 32.8 RDW 13.2 Plt Count 511 H MPV 10.3 Immature Gran % (Auto) 1.5 H Neut % (Auto) 69.6 Lymph % (Auto) 20.9 [place] % (Auto) 5.7 Eos % (Auto) 1.7 Baso % (Auto) 0.6 Lymph # (Auto) 3.4 [place] # (Auto) 0.9 Eos # (Auto) 0.3 Baso # (Auto) 0.1 Abs Immat Gran (auto) 0.24 H Absolute Neuts (auto) 11.3 H Absolute Nucleated RBC 0.000 Nucleated RBC % (auto) 0.0 Anion Gap 11 L Estim Creat Clear Calc 130.7 Estimated GFR > 60 Random Glucose 83 Calcium 8.3 L Procalcitonin 0.65 Impressions Chest X-Ray 12/06/23 05:13 IMPRESSION: Decrease in the amount of left pleural air compared to the prior exam. Chest X-Ray 12/07/23 08:01 IMPRESSION: 1. Continued decrease in the amount of left pleural air. 2. Left basilar atelectasis and pleural fluid. Microbiology Microbiology Results: Microbiology 12/04/23 11:02 Gram Stain - Final Lung - Left Routine Culture - Final No growth after 2 days Anaerobic Culture - Preliminary No growth to date. Assessment and Plan (1) S/P lobectomy of lung: Status: Acute Plan d14 33yo F with remote hx ROBBY in remission x 10 yr admitted for sepsis due to pneumonia complicated by empyema chest tube placed 11/29/23 but failed to improve due to necrotizing PNA/abscess of entire LLL and abscess of apex of RADHA on 12/04 underwent VATS -> open thoracotomy, pneumolysis, empyemectomy, decortication L lung, L apex wedge resection of lung abscess, L lower lobectomy, and intercostal nerve block postop care in ICU, downgraded to IMC 12/05 empyema/necrotizing pneumonia - POD3, Thoracic Surgery following, keep chest tubes to suction, until air leak seals, daily CXR, IS, hydromorphone UX MANAGER for pain control - discuss with ID, on ceftriaxone 12/04- and previously on pip-kendra. Only specific pathogen identified was group A strep on a throat swab - HIV negative postoperative anemia - transfused 2u pRBCs 12/05/23 with appropriate rise in H+H C diff colonization - vancomycin while on antibiotics for pneumonia VTE ppx - UFH dispo - TBD but will likely need AIR In my clinical judgment, the patient requires continued inpatient hospitalization for the following reasons: postop care, chest tubes in place, IV antibiotics Total time managing care of this patient today: 35 minutes. Quality Stroke Does the patient have a stroke diagnosis?: No VTE Prior VTE?: No VTE Risk Level:: Medical - moderate - high VTE Device Contraindication: Treatment Not Indicated VTE Drug Contraindication: N/A - Med Ordered
[2023-12-07] MEDS: HYDROmorphone HCl/NS 10 MG/50 ML PIGGYBACK 2 MG IV (15:28)
[2023-12-08] VITALS (13 sets, daily range): BP systolic 122–149; BP diastolic 63–75; PULSE 80–107; RESP 16–18; TEMP 36.3–37.3; O2SAT 97–100; BMI 22.6
[2023-12-08] MEDS: vancomycin HCL 125 MG CAPSULE PO ×5 (00:07→21:25)
[2023-12-08] MEDS: Acetaminophen 1,000 MG/100 ML PIGGYBACK 400 MG IV ×4 (02:41→21:26)
[2023-12-08] MEDS: 0.9 % Sodium Chloride Flush 3 ML SYRINGE IVFLUSH ×3 (02:45→15:45)
[2023-12-08 06:48] LABS: MANUAL DIFF FLAG NO
[2023-12-08 06:51] LABS: Basophils Absolute Auto 0.1 X10*3/uL (0.0-0.2); Basophils Percent Auto 0.7 % (0-2); Eosinophils Absolute Auto 0.2 X10*3/uL (0.0-0.4); Eosinophils Percent Auto 1.8 % (0-4); Hematocrit 24.9 % (37.0-47.0); Hemoglobin 8.3 g/dl (12.0-16.0); Imm Gran Abs Auto 0.17 X10*3/uL (0.00-0.03); Imm Gran Pct Auto 1.4 % (0.0-0.4); Lymphocytes Absolute Auto 3.2 X10*3/uL (1.2-4.9); Lymphocytes Percent Auto 25.9 % (20-40); Mean Corpuscular HGB Conc 33.3 g/dl (31.0-35.0); Mean Corpuscular Hemoglobin 30.3 pg (27.0-33.0); Mean Corpuscular Volume 90.9 fL (80.0-98.0); Mean Platelet Volume 9.5 fL (9.4-12.3); Monocytes Absolute Auto 0.7 X10*3/uL (0.1-1.2); Monocytes Percent Auto 5.7 % (2-11); Neutrophils Percent Auto 64.5 % (45-73); Platelet Count 624 X10*3/uL (160-400); Red Blood Count 2.74 X10*6/uL (4.20-5.50); Red Cell Distribution Width 13.2 % (11.0-16.0); White Blood Count 12.5 X10*3/uL (4.8-10.8)
[2023-12-08 07:05] LABS: Anion Gap 8 (12-20); Blood Urea Nitrogen 5 mg/dL (9-16); Calcium 8.5 mg/dL (8.4-10.2); Carbon Dioxide 26 mmol/L (22-29); Chloride 105 mmol/L (96-108); Creatinine Clr Calc Pharmacy 129.6; Estimated Glomerular Filt Rate > 60; Glucose Random 79 mg/dL (60-115); Potassium 4.1 mmol/L (3.3-5.1); Sodium 135 mmol/L (135-145)
[2023-12-08] MEDS: HYDROmorphone HCl/NS 10 MG/50 ML PIGGYBACK 2 MG IV (09:09)
[2023-12-08] MEDS: cefTRIAXone sodium 2 GM in 0.9 % Sodium Chloride 50 ML IV (09:13)
[2023-12-08] MEDS: DULoxetine HCl 60 MG CAPSULE.DR PO ×2 (09:14→21:25)
--- NOTE | 2023-12-08 09:57 | P.PNGS_ITS ---
Subjective Subjective Date of Service: 12/08/23 Interval history: Good pain control with STATIONARY ENGINEER REFRIGERATION. Chest tubes intact with small air leak. Repeat chest x-ray today continues to improve. Physical Exam 2 Vital Signs: Vital Signs: Last Vital Signs Temp 99.1 F 12/08/23 09:04 Pulse 104 H 12/08/23 09:04 Resp 16 12/08/23 09:04 BP 128/73 12/08/23 09:04 Pulse Ox 97 12/08/23 09:04 O2 Del Method Room Air 12/08/23 09:04 O2 Flow Rate 1 12/05/23 17:18 BMI result Body Mass Index 22.6 Const: Other: More comfortable today General: no acute distress and alert Orientation/consciousness: patient oriented x3 Chest: Other: thoracotomy incision clean, chest tubes in place Resp: Effort & Inspection: normal respiratory effort and no respiratory distress Skin: General skin exam: no rashes or lesions noted Neuro: General: patient oriented x3 Objective Data Active Medications Benzonatate (Benzonatate 100 Mg Capsule) 200 mg PO TID PRN PRN Reason: Cough Last Admin: 12/03/23 14:26 Dose: 200 mg Documented By: ISSAC Duloxetine HCl (Duloxetine Hcl 60 Mg Capsule.Dr) 60 mg PO BID [facility] Last Admin: 12/08/23 09:14 Dose: 60 mg Documented By: ELIOT Guaifenesin/Codeine Phosphate (Guaifen/Codeine Sf 200/20/10ml 10 Ml Liquid) 5 ml PO Q6H PRN PRN Reason: Cough Last Admin: 12/04/23 05:50 Dose: 5 ml Documented By: RAIMUNDO Heparin Sodium (Porcine) (Heparin Sodium,Porcine 5,000 Unit/Ml Vial) 5,000 unit SUBCUT Q8H [facility] Last Admin: 12/04/23 13:38 Dose: Not Given Documented By: FREDERICK Non-Admin Reason: Off Unit: Surgery Hydromorphone HCl (Hydromorphone Hcl 1 Mg/Ml Syringe) 1 mg IVPUSH Q3H PRN; Protocol PRN Reason: Pain, Severe (Pain Scale 7-10) Last Admin: 12/05/23 22:00 Dose: 1 mg Documented By: ELVIRA Ceftriaxone Sodium 2 gm/ (Sodium Chloride) 50 mls @ 100 mls/hr IV Q24H [facility] Last Infusion: 12/08/23 09:43 Dose: Infused Documented By: ELIOT Acetaminophen (Ofirmev) 1,000 mg in 100 mls @ 400 mls/hr IV Q6H [facility] Last Infusion: 12/08/23 09:45 Dose: 400 mls/hr Documented By: ELIOT Promethazine HCl 12.5 mg/ (Sodium Chloride) 50.5 mls @ 202 mls/hr IV ONCE PRN PRN Reason: Nausea and Vomiting Hydromorphone HCl (Dilaudid) 10 mg in 50 mls @ 0 mls/hr IV .Q0M [facility]; Protocol Last Admin: 12/08/23 09:09 Dose: 0.4 mg/hr, 2 mls/hr Documented By: ELIOT Melatonin (Melatonin 3 Mg Tablet) 6 mg PO BEDTIME PRN PRN Reason: Sleep Last Admin: 12/01/23 21:32 Dose: 6 mg Documented By: MATT Naloxone HCl (Naloxone Hcl 0.4 Mg/Ml Vial) 0.2 mg IVPUSH Q2M PRN PRN Reason: Excessive sedation or RR < 8 Ondansetron HCl (Ondansetron Hcl 4 Mg/2 Ml Vial) 4 mg IVPUSH Q8H PRN PRN Reason: Nausea and Vomiting Senna (Sennosides 8.6 Mg Tablet) 17.2 mg PO BEDTIME PRN PRN Reason: Constipation Sodium Chloride (0.9 % Sodium Chloride Flush 3 Ml Syringe) 3 ml IVFLUSH QSHIFT [facility] Last Admin: 12/08/23 09:15 Dose: 3 ml Documented By: ELIOT Vancomycin HCl (Vancomycin Hcl 125 Mg Capsule) 125 mg PO Q6H [facility] Last Admin: 12/08/23 09:14 Dose: 125 mg Documented By: ELIOT Labs 12/08/23 05:45 12/08/23 05:45 Labs: Laboratory Results - last 24 hr 12/08/23 05:45 MCV 90.9 MCH 30.3 MCHC 33.3 RDW 13.2 Plt Count 624 H MPV 9.5 Immature Gran % (Auto) 1.4 H Neut % (Auto) 64.5 Lymph % (Auto) 25.9 [place] % (Auto) 5.7 Eos % (Auto) 1.8 Baso % (Auto) 0.7 Lymph # (Auto) 3.2 [place] # (Auto) 0.7 Eos # (Auto) 0.2 Baso # (Auto) 0.1 Abs Immat Gran (auto) 0.17 H Absolute Neuts (auto) 8.0 Absolute Nucleated RBC 0.000 Nucleated RBC % (auto) 0.0 Anion Gap 8 L Estim Creat Clear Calc 129.6 Estimated GFR > 60 Random Glucose 79 Calcium 8.5 Microbiology Microbiology Results: Microbiology 12/04/23 11:02 Gram Stain - Final Lung - Left Routine Culture - Final No growth after 2 days Anaerobic Culture - Preliminary No growth to date. Procedures Date of Service Date of Service: 12/08/23 Progress Note: A&P Assessment and plan (1) S/P lobectomy of lung: Status: Acute (2) Empyema: Status: Acute Plan POD #2 s/p bronchoscopy, vats converted to open thoracotomy, pneumolysis, and empyemectomy, decortication left lung, left apex wedge resection of lung abscess, left lower lobectomy, intercostal nerve block. Patient had extensive empyema cavity with thickened rind involving the entire left lower lobe and lower aspect of the left upper lobe, necrotizing pneumonia. Better pain control noted today. Chest tubes remain intact with air leak. Chest x-ray shows residual apical pneumo. Continue to monitor. Time Spent With Patient Time: Total time managing care of this patient today ____ minutes. Quality Stroke Does the patient have a stroke diagnosis?: No VTE Prior VTE?: No VTE Risk Level:: Medical - moderate - high VTE Device Contraindication: Treatment Not Indicated VTE Drug Contraindication: N/A - Med Ordered
--- NOTE | 2023-12-08 11:29 | HO.PM.IMPN ---
Subjective Subjective Date of Service: 12/08/23 Interval History: Offers no acute complaints, good pain control on CIRCUS SUPERVISOR, denies cough, no fevers, no chills, no acute events overnight, no bowel movement, in last several days. Review of Systems All other system reviewed and negative Physical Exam Vital Signs: Vital Signs: Last Vital Signs Temp 99.1 F 12/08/23 09:04 Pulse 104 H 12/08/23 09:04 Resp 16 12/08/23 09:04 BP 128/73 12/08/23 09:04 Pulse Ox 97 12/08/23 09:04 O2 Del Method Room Air 12/08/23 09:04 O2 Flow Rate 1 12/05/23 17:18 BMI result Body Mass Index 22.6 Const: Other: Gen:awake ,alert, he is in no acute distress HEENT: sclera anicteric, moist mucus membranes Neck: supple Lungs: diminished left, chest tubes x 2 to left with air leaks Heart: regular rate and rhythm, no murmurs Abd: soft, non-tender, non-distended, bowel sounds audible Ext: no edema Skin: warm/well-perfused Neuro: alert and oriented x3, no focal findings Psych: appropriate affect Objective Data Active Medications Benzonatate (Benzonatate 100 Mg Capsule) 200 mg PO TID PRN PRN Reason: Cough Last Admin: 12/03/23 14:26 Dose: 200 mg Documented By: ISSAC Duloxetine HCl (Duloxetine Hcl 60 Mg Capsule.) 60 mg PO BID [facility] Last Admin: 12/08/23 09:14 Dose: 60 mg Documented By: ELIOT Guaifenesin/Codeine Phosphate (Guaifen/Codeine Sf 200/20/10ml 10 Ml Liquid) 5 ml PO Q6H PRN PRN Reason: Cough Last Admin: 12/04/23 05:50 Dose: 5 ml Documented By: RAIMUNDO Heparin Sodium (Porcine) (Heparin Sodium,Porcine 5,000 Unit/Ml Vial) 5,000 unit SUBCUT Q8H [facility] Last Admin: 12/04/23 13:38 Dose: Not Given Documented By: FREDERICK Non-Admin Reason: Off Unit: Surgery Hydromorphone HCl (Hydromorphone Hcl 1 Mg/Ml Syringe) 1 mg IVPUSH Q3H PRN; Protocol PRN Reason: Pain, Severe (Pain Scale 7-10) Last Admin: 12/05/23 22:00 Dose: 1 mg Documented By: ELVIRA Ceftriaxone Sodium 2 gm/ (Sodium Chloride) 50 mls @ 100 mls/hr IV Q24H [facility] Last Infusion: 12/08/23 09:43 Dose: Infused Documented By: ELIOT Acetaminophen (Ofirmev) 1,000 mg in 100 mls @ 400 mls/hr IV Q6H [facility] Last Infusion: 12/08/23 10:00 Dose: Infused Documented By: ELIOT Promethazine HCl 12.5 mg/ (Sodium Chloride) 50.5 mls @ 202 mls/hr IV ONCE PRN PRN Reason: Nausea and Vomiting Hydromorphone HCl (Dilaudid) 10 mg in 50 mls @ 0 mls/hr IV .Q0M [facility]; Protocol Last Admin: 12/08/23 09:09 Dose: 0.4 mg/hr, 2 mls/hr Documented By: ELIOT Melatonin (Melatonin 3 Mg Tablet) 6 mg PO BEDTIME PRN PRN Reason: Sleep Last Admin: 12/01/23 21:32 Dose: 6 mg Documented By: MATT Naloxone HCl (Naloxone Hcl 0.4 Mg/Ml Vial) 0.2 mg IVPUSH Q2M PRN PRN Reason: Excessive sedation or RR < 8 Ondansetron HCl (Ondansetron Hcl 4 Mg/2 Ml Vial) 4 mg IVPUSH Q8H PRN PRN Reason: Nausea and Vomiting Senna (Sennosides 8.6 Mg Tablet) 17.2 mg PO BEDTIME PRN PRN Reason: Constipation Sodium Chloride (0.9 % Sodium Chloride Flush 3 Ml Syringe) 3 ml IVFLUSH QSHIFT [facility] Last Admin: 12/08/23 09:15 Dose: 3 ml Documented By: ELIOT Vancomycin HCl (Vancomycin Hcl 125 Mg Capsule) 125 mg PO Q6H [facility] Last Admin: 12/08/23 09:14 Dose: 125 mg Documented By: ELIOT Labs 12/08/23 05:45 12/08/23 05:45 Labs: Laboratory Results - last 24 hr 12/08/23 05:45 MCV 90.9 MCH 30.3 MCHC 33.3 RDW 13.2 Plt Count 624 H MPV 9.5 Immature Gran % (Auto) 1.4 H Neut % (Auto) 64.5 Lymph % (Auto) 25.9 [place] % (Auto) 5.7 Eos % (Auto) 1.8 Baso % (Auto) 0.7 Lymph # (Auto) 3.2 [place] # (Auto) 0.7 Eos # (Auto) 0.2 Baso # (Auto) 0.1 Abs Immat Gran (auto) 0.17 H Absolute Neuts (auto) 8.0 Absolute Nucleated RBC 0.000 Nucleated RBC % (auto) 0.0 Anion Gap 8 L Estim Creat Clear Calc 129.6 Estimated GFR > 60 Random Glucose 79 Calcium 8.5 Microbiology Microbiology Results: Microbiology 12/04/23 11:02 Gram Stain - Final Lung - Left Routine Culture - Final No growth after 2 days Anaerobic Culture - Preliminary No growth to date. Assessment and Plan (1) S/P lobectomy of lung: Status: Acute (2) Empyema: Status: Acute Plan 33yo F with remote hx ROBBY in remission x 10 yr admitted for sepsis due to pneumonia complicated by empyema chest tube placed 11/29/23 but failed to improve due to necrotizing PNA/abscess of entire LLL and abscess of apex of RADHA on 12/04 underwent VATS -> open thoracotomy, pneumolysis, empyemectomy, decortication L lung, L apex wedge resection of lung abscess, L lower lobectomy, and intercostal nerve block postop care in ICU, downgraded to IMC 12/05, Good pain control continue CIRCUS SUPERVISOR pump, continue chest tube, chest x-ray shows unresolved left apical pneumothorax. Being followed closely by thoracic surgery empyema/necrotizing pneumonia - POD4, Thoracic Surgery following, keep chest tubes to suction, until air leak seals, daily CXR, IS, hydromorphone CIRCUS SUPERVISOR for pain control - discuss with ID, on ceftriaxone since 12/04- and previously on pip-kendra. Only specific pathogen identified was group A strep on a throat swab, HIV negative No fevers WBC trended down to 12.5 Follow labs postoperative anemia - transfused 2u pRBCs 12/05/23 , hematocrit improved, gradually trending down will follow and transfuse as needed. C diff colonization - vancomycin while on antibiotics for pneumonia. Constipation will add MiraLax VTE ppx -subcu heparin In my clinical judgment, the patient requires continued inpatient hospitalization for the following reasons: postop care, chest tubes in place, IV antibiotics Total time managing care of this patient today: Quality Stroke Does the patient have a stroke diagnosis?: No VTE Prior VTE?: No VTE Risk Level:: Medical - moderate - high VTE Device Contraindication: Treatment Not Indicated VTE Drug Contraindication: N/A - Med Ordered
[2023-12-09] VITALS (11 sets, daily range): BP systolic 137–154; BP diastolic 64–79; PULSE 90–107; RESP 18–20; TEMP 36.2–37.2; O2SAT 97–100; BMI 23.0
[2023-12-09] MEDS: HYDROmorphone HCl/NS 10 MG/50 ML PIGGYBACK 2 MG IV ×2 (01:32→17:33)
[2023-12-09] MEDS: Sennosides 8.6 MG TABLET 17.2 MG PO (02:12)
[2023-12-09] MEDS: vancomycin HCL 125 MG CAPSULE PO ×4 (02:13→22:26)
[2023-12-09] MEDS: HYDROmorphone HCl 1 MG/ML SYRINGE IVPUSH ×2 (05:01→22:35)
[2023-12-09 05:59] LABS: MANUAL DIFF FLAG NO
[2023-12-09] MEDS: Acetaminophen 1,000 MG/100 ML PIGGYBACK 400 MG IV ×3 (06:15→22:23)
[2023-12-09 06:17] LABS: Anion Gap 9 (12-20); Blood Urea Nitrogen 4 mg/dL (9-16); Calcium 8.6 mg/dL (8.4-10.2); Carbon Dioxide 25 mmol/L (22-29); Chloride 104 mmol/L (96-108); Creatinine Clr Calc Pharmacy 119.7; Estimated Glomerular Filt Rate > 60; Glucose Random 102 mg/dL (60-115); Sodium 134 mmol/L (135-145)
[2023-12-09 06:41] LABS: Basophils Absolute Auto 0.1 X10*3/uL (0.0-0.2); Basophils Percent Auto 0.8 % (0-2); Eosinophils Absolute Auto 0.3 X10*3/uL (0.0-0.4); Eosinophils Percent Auto 2.3 % (0-4); Hematocrit 25.3 % (37.0-47.0); Hemoglobin 8.2 g/dl (12.0-16.0); Imm Gran Abs Auto 0.21 X10*3/uL (0.00-0.03); Imm Gran Pct Auto 1.6 % (0.0-0.4); Lymphocytes Percent Auto 22.4 % (20-40); Mean Corpuscular HGB Conc 32.4 g/dl (31.0-35.0); Mean Corpuscular Hemoglobin 29.1 pg (27.0-33.0); Mean Corpuscular Volume 89.7 fL (80.0-98.0); Mean Platelet Volume 9.1 fL (9.4-12.3); Monocytes Percent Auto 7.2 % (2-11); Neutrophils Absolute Auto 8.7 x10*3/uL (2.0-8.3); Neutrophils Percent Auto 65.7 % (45-73); Platelet Count 581 X10*3/uL (160-400); Red Blood Count 2.82 X10*6/uL (4.20-5.50); Red Cell Distribution Width 13.1 % (11.0-16.0); White Blood Count 13.3 X10*3/uL (4.8-10.8)
[2023-12-09] MEDS: 0.9 % Sodium Chloride Flush 3 ML SYRINGE IVFLUSH ×2 (08:31→17:38)
[2023-12-09] MEDS: DULoxetine HCl 60 MG CAPSULE.DR PO ×2 (08:34→22:26)
[2023-12-09] MEDS: cefTRIAXone sodium 2 GM in 0.9 % Sodium Chloride 50 ML IV (08:34)
--- NOTE | 2023-12-09 08:55 | P.PNTS_ITS ---
Subjective Subjective Date of Service: 12/09/23 Interval history: Pain still remains 6/10 and using TUGBOAT OPERATOR but overall improved. Appetite improved, tolerating diet. Physical Exam Vital Signs: Vital Signs: Last Vital Signs Temp 97.8 F 12/09/23 07:27 Pulse 96 12/09/23 07:27 Resp 18 12/09/23 07:27 BP 143/70 H 12/09/23 07:27 Pulse Ox 98 12/09/23 07:27 O2 Del Method Room Air 12/09/23 07:27 O2 Flow Rate 1 12/05/23 17:18 BMI result Body Mass Index 23.0 Const: General: comfortable, no acute distress and alert Orientation/consciousness: patient oriented x3 Chest: Other: left thoracotomy incision clean chest tubes in place with scant serosanguineous drainage ; small air leak on pleur-evac Resp: Effort & Inspection: normal respiratory effort Skin: General skin exam: no rashes or lesions noted Neuro: General: patient oriented x3 and moves all extremities Procedures Date of Service Date of Service: 12/09/23 Progress Note: A&P Assessment and plan (1) S/P lobectomy of lung: Status: Acute (2) Empyema: Status: Acute Plan POD #5 s/p bronchoscopy, vats converted to open thoracotomy, pneumolysis, and empyemectomy, decortication left lung, left apex wedge resection of lung abscess, left lower lobectomy, intercostal nerve block. Patient had extensive empyema cavity with thickened rind involving the entire left lower lobe and lower aspect of the left upper lobe, necrotizing pneumonia. Continues to clinically improve slowly. Chest tube continues with small air leak, and small apical pneumo yesterday. Repeat CXR this AM pending. Cont chest tube to suction but can hold and allow to ambulate today. Cont IS use. Cont TUGBOAT OPERATOR- will transition to PRN tomorrow. WBC has been steadily decreasing, H/H stable. Time Spent With Patient Time: Total time managing care of this patient today ____ minutes. Quality Stroke Does the patient have a stroke diagnosis?: No VTE Prior VTE?: No VTE Risk Level:: Medical - moderate - high VTE Device Contraindication: Treatment Not Indicated VTE Drug Contraindication: N/A - Med Ordered
--- NOTE | 2023-12-09 10:42 | MHC.CM.PN ---
Per ROUNDS discussion, Patient has 2 Chest Tubes and is not yet medically cleared for dc. Home is the goal and CM will continue to follow.
--- NOTE | 2023-12-09 14:44 | HO.PM.IMPN ---
Subjective Subjective Date of Service: 12/09/23 Interval History: Good pain control, feels tired, offers no acute complaints. had a normal bowel movement this morning, minimal air leak. Review of Systems All other system reviewed and negative. Physical Exam Vital Signs: Vital Signs: Last Vital Signs Temp 97.4 F 12/09/23 14:00 Pulse 90 12/09/23 14:00 Resp 20 12/09/23 14:00 BP 139/64 12/09/23 14:00 Pulse Ox 99 12/09/23 14:00 O2 Del Method Room Air 12/09/23 14:00 O2 Flow Rate 1 12/05/23 17:18 BMI result Body Mass Index 23.0 Const: Other: Gen:awake ,alert, he is in no acute distress HEENT: sclera anicteric, moist mucus membranes Neck: supple Lungs: diminished left, chest tubes x 2 to left with minimal air leaks Heart: regular rate and rhythm, no murmurs Abd: soft, non-tender, non-distended, bowel sounds audible Ext: no edema Skin: warm/well-perfused Neuro: alert and oriented x3, no focal findings Psych: appropriate affect Objective Data Active Medications Benzonatate (Benzonatate 100 Mg Capsule) 200 mg PO TID PRN PRN Reason: Cough Last Admin: 12/03/23 14:26 Dose: 200 mg Documented By: ISSAC Duloxetine HCl (Duloxetine Hcl 60 Mg Capsule.) 60 mg PO BID [facility] Last Admin: 12/09/23 08:34 Dose: 60 mg Documented By: ELIOT Guaifenesin/Codeine Phosphate (Guaifen/Codeine Sf 200/20/10ml 10 Ml Liquid) 5 ml PO Q6H PRN PRN Reason: Cough Last Admin: 12/04/23 05:50 Dose: 5 ml Documented By: RAIMUNDO Heparin Sodium (Porcine) (Heparin Sodium,Porcine 5,000 Unit/Ml Vial) 5,000 unit SUBCUT Q8H [facility] Last Admin: 12/04/23 13:38 Dose: Not Given Documented By: FREDERICK Non-Admin Reason: Off Unit: Surgery Hydromorphone HCl (Hydromorphone Hcl 1 Mg/Ml Syringe) 1 mg IVPUSH Q3H PRN; Protocol PRN Reason: Pain, Severe (Pain Scale 7-10) Last Admin: 12/05/23 22:00 Dose: 1 mg Documented By: ELIVRA Ceftriaxone Sodium 2 gm/ (Sodium Chloride) 50 mls @ 100 mls/hr IV Q24H [facility] Last Infusion: 12/09/23 09:04 Dose: Infused Documented By: ELIOT Acetaminophen (Ofirmev) 1,000 mg in 100 mls @ 400 mls/hr IV Q6H [facility] Last Infusion: 12/09/23 12:57 Dose: Infused Documented By: ELIOT Promethazine HCl 12.5 mg/ (Sodium Chloride) 50.5 mls @ 202 mls/hr IV ONCE PRN PRN Reason: Nausea and Vomiting Hydromorphone HCl (Dilaudid) 10 mg in 50 mls @ 0 mls/hr IV .Q0M [facility]; Protocol Last Admin: 12/09/23 01:32 Dose: 0.4 mg/hr, 2 mls/hr Documented By: ELVIRA Melatonin (Melatonin 3 Mg Tablet) 6 mg PO BEDTIME PRN PRN Reason: Sleep Last Admin: 12/01/23 21:32 Dose: 6 mg Documented By: MATT Naloxone HCl (Naloxone Hcl 0.4 Mg/Ml Vial) 0.2 mg IVPUSH Q2M PRN PRN Reason: Excessive sedation or RR < 8 Ondansetron HCl (Ondansetron Hcl 4 Mg/2 Ml Vial) 4 mg IVPUSH Q8H PRN PRN Reason: Nausea and Vomiting Polyethylene Glycol (Polyethylene Glycol 3350 17 Gm Powd.Pack) 17 gm PO DAILY [facility] Last Admin: 12/09/23 08:45 Dose: Not Given Documented By: ELIOT Non-Admin Reason: Pt had soft BM, refused Miralax Senna (Sennosides 8.6 Mg Tablet) 17.2 mg PO BEDTIME PRN PRN Reason: Constipation Last Admin: 12/09/23 02:12 Dose: 17.2 mg Documented By: ELVIRA Sodium Chloride (0.9 % Sodium Chloride Flush 3 Ml Syringe) 3 ml IVFLUSH QSHIFT [facility] Last Admin: 12/09/23 08:31 Dose: 3 ml Documented By: ELIOT Vancomycin HCl (Vancomycin Hcl 125 Mg Capsule) 125 mg PO Q6H [facility] Last Admin: 12/09/23 08:34 Dose: 125 mg Documented By: ELIOT Labs 12/09/23 05:54 12/09/23 05:54 Labs: Laboratory Results - last 24 hr 12/09/23 05:54 MCV 89.7 MCH 29.1 MCHC 32.4 RDW 13.1 Plt Count 581 H MPV 9.1 L Immature Gran % (Auto) 1.6 H Neut % (Auto) 65.7 Lymph % (Auto) 22.4 [place] % (Auto) 7.2 Eos % (Auto) 2.3 Baso % (Auto) 0.8 Lymph # (Auto) 3.0 [place] # (Auto) 1.0 Eos # (Auto) 0.3 Baso # (Auto) 0.1 Abs Immat Gran (auto) 0.21 H Absolute Neuts (auto) 8.7 H Absolute Nucleated RBC 0.000 Nucleated RBC % (auto) 0.0 Anion Gap 9 L Estim Creat Clear Calc 119.7 Estimated GFR > 60 Random Glucose 102 Calcium 8.6 Microbiology Microbiology Results: Microbiology 12/04/23 11:02 Gram Stain - Final Lung - Left Routine Culture - Final No growth after 2 days Anaerobic Culture - Final NO GROWTH AFTER 5 DAYS Assessment and Plan (1) S/P lobectomy of lung: Status: Acute (2) Empyema: Status: Acute Plan 33yo F with remote hx ROBBY in remission x 10 yr Sepsis due to pneumonia complicated by empyema chest tube placed 11/29/23 but failed to improve due to necrotizing PNA/abscess of entire LLL and abscess of apex of RADHA on 12/04 POD #5 underwent VATS -> open thoracotomy, pneumolysis, empyemectomy, decortication L lung, L apex wedge resection of lung abscess, L lower lobectomy, and intercostal nerve block postop care in ICU, downgraded to IMC 12/05, Good pain control continue OPEN PIT QUARRY SUPERVISOR pump, and as needed IV Dilaudid, continue chest tube, chest x-ray from this a.m. is pending Being followed closely by thoracic surgery Patient ambulated today, tolerated well without lightheadedness or dizziness, tolerating diet, moving bowels empyema/necrotizing pneumonia - POD5 , Thoracic Surgery following, keep chest tubes to suction, until air leak seals, daily CXR, IS, hydromorphone OPEN PIT QUARRY SUPERVISOR for pain control - on ceftriaxone since 12/04- and previously on pip-kendra. Only specific pathogen identified was group A strep on a throat swab, HIV negative No fevers WBC improved but remains elevated Follow labs postoperative anemia - transfused 2u pRBCs 12/05/23 , hematocrit improved, gradually trending down but remained stable, will follow and transfuse as needed. C diff colonization - vancomycin while on antibiotics for pneumonia. Will discuss duration treatment with ID Constipation cont. MiraLax VTE ppx -subcu heparin In my clinical judgment, the patient requires continued inpatient hospitalization for the following reasons: postop care, chest tubes in place, IV antibiotics Total time managing care of this patient today: Quality Stroke Does the patient have a stroke diagnosis?: No VTE Prior VTE?: No VTE Risk Level:: Medical - moderate - high VTE Device Contraindication: Treatment Not Indicated VTE Drug Contraindication: N/A - Med Ordered
[2023-12-10] VITALS (10 sets, daily range): BP systolic 137–153; BP diastolic 72–85; PULSE 90–117; RESP 18–20; TEMP 36.2–36.9; O2SAT 96–100; BMI 22.6
[2023-12-10] MEDS: Acetaminophen 1,000 MG/100 ML PIGGYBACK 400 MG IV ×3 (06:28→20:30)
[2023-12-10] MEDS: vancomycin HCL 125 MG CAPSULE PO ×4 (06:30→22:22)
[2023-12-10] MEDS: HYDROmorphone HCl/NS 10 MG/50 ML PIGGYBACK 2 MG IV ×2 (07:00→20:52)
[2023-12-10 07:16] LABS: MANUAL DIFF FLAG NO
[2023-12-10 07:34] LABS: Basophils Absolute Auto 0.1 X10*3/uL (0.0-0.2); Basophils Percent Auto 0.7 % (0-2); Eosinophils Absolute Auto 0.3 X10*3/uL (0.0-0.4); Eosinophils Percent Auto 2.4 % (0-4); Hematocrit 24.2 % (37.0-47.0); Hemoglobin 7.8 g/dl (12.0-16.0); Imm Gran Abs Auto 0.28 X10*3/uL (0.00-0.03); Imm Gran Pct Auto 2.1 % (0.0-0.4); Lymphocytes Absolute Auto 3.5 X10*3/uL (1.2-4.9); Lymphocytes Percent Auto 26.2 % (20-40); Mean Corpuscular HGB Conc 32.2 g/dl (31.0-35.0); Mean Corpuscular Hemoglobin 29.1 pg (27.0-33.0); Mean Corpuscular Volume 90.3 fL (80.0-98.0); Mean Platelet Volume 9.3 fL (9.4-12.3); Monocytes Absolute Auto 1.2 X10*3/uL (0.1-1.2); Monocytes Percent Auto 8.9 % (2-11); Neutrophils Percent Auto 59.7 % (45-73); Platelet Count 535 X10*3/uL (160-400); Red Blood Count 2.68 X10*6/uL (4.20-5.50); Red Cell Distribution Width 13.1 % (11.0-16.0); White Blood Count 13.4 X10*3/uL (4.8-10.8)
[2023-12-10 07:46] LABS: Anion Gap 9 (12-20); Blood Urea Nitrogen 4 mg/dL (9-16); Calcium 8.7 mg/dL (8.4-10.2); Carbon Dioxide 27 mmol/L (22-29); Chloride 103 mmol/L (96-108); Creatinine Clr Calc Pharmacy 103.7; Estimated Glomerular Filt Rate > 60; Glucose Random 100 mg/dL (60-115); Potassium 3.9 mmol/L (3.3-5.1); Sodium 135 mmol/L (135-145)
[2023-12-10] MEDS: cefTRIAXone sodium 2 GM in 0.9 % Sodium Chloride 50 ML IV (09:01)
[2023-12-10] MEDS: DULoxetine HCl 60 MG CAPSULE.DR PO ×2 (09:01→20:30)
[2023-12-10] MEDS: 0.9 % Sodium Chloride Flush 3 ML SYRINGE IVFLUSH ×2 (09:01→15:27)
--- NOTE | 2023-12-10 14:13 | P.PNTS_ITS ---
Subjective Subjective Date of Service: 12/10/23 Interval history: Pain remains about the same- on PERSONNEL DIRECTOR while also receiving PRN dilaudid. Was OOB and ambulating yesterday. Tolerating diet. Physical Exam Vital Signs: Vital Signs: Last Vital Signs Temp 98.1 F 12/10/23 11:28 Pulse 106 H 12/10/23 11:28 Resp 18 12/10/23 11:28 BP 145/76 H 12/10/23 11:28 Pulse Ox 97 12/10/23 11:28 O2 Del Method Room Air 12/10/23 11:28 O2 Flow Rate 1 12/05/23 17:18 BMI result Body Mass Index 22.6 Const: Other: more comfortable appearing General: no acute distress and alert Orientation/consciousness: patient oriented x3 Chest: Other: chest tubes in place with persistent air leak thoracotomy incision clean Resp: Effort & Inspection: normal respiratory effort Skin: General skin exam: no rashes or lesions noted Neuro: General: patient oriented x3 and moves all extremities Procedures Date of Service Date of Service: 12/10/23 Progress Note: A&P Assessment and plan (1) S/P lobectomy of lung: Status: Acute (2) Empyema: Status: Acute Plan POD #6 s/p bronchoscopy, vats converted to open thoracotomy, pneumolysis, and empyemectomy, decortication left lung, left apex wedge resection of lung abscess, left lower lobectomy, intercostal nerve block. Patient had extensive empyema cavity with thickened rind involving the entire left lower lobe and lower aspect of the left upper lobe, necrotizing pneumonia. Continues to clinically improve slowly. Chest tube continues with small air leak, and small apical pneumo. Cont chest tube to suction, hold suction for ambulation. Plan to remove one chest tube tomorrow if remains status quo. Cont IS use. Discussed weaning off narcotics- dc basal rate of PERSONNEL DIRECTOR. H/H beginning to drift down again. Cont to monitor. Time Spent With Patient Time: Total time managing care of this patient today ____ minutes. Quality Stroke Does the patient have a stroke diagnosis?: No VTE Prior VTE?: No VTE Risk Level:: Medical - moderate - high VTE Device Contraindication: Treatment Not Indicated VTE Drug Contraindication: N/A - Med Ordered
--- NOTE | 2023-12-10 14:58 | HO.PM.IMPN ---
Subjective Subjective Date of Service: 12/10/23 Interval History: Good pain control, moving bowels ambulated with no symptoms of lightheadedness or dizziness, no acute issues overnight. Review of Systems All other system reviewed and negative. Physical Exam Vital Signs: Vital Signs: Last Vital Signs Temp 98.1 F 12/10/23 11:28 Pulse 106 H 12/10/23 11:28 Resp 18 12/10/23 14:00 BP 145/76 H 12/10/23 11:28 Pulse Ox 97 12/10/23 11:28 O2 Del Method Room Air 12/10/23 11:28 O2 Flow Rate 1 12/05/23 17:18 BMI result Body Mass Index 22.6 Const: Other: Gen:awake ,alert, he is in no acute distress HEENT: sclera anicteric, moist mucus membranes Neck: supple Lungs: diminished left, chest tubes x 2 to left with minimal air leaks Heart: regular rate and rhythm, no murmurs Abd: soft, non-tender, non-distended, bowel sounds audible Ext: no edema Skin: warm/well-perfused Neuro: alert and oriented x3, no focal findings Psych: appropriate affect Objective Data Active Medications Benzonatate (Benzonatate 100 Mg Capsule) 200 mg PO TID PRN PRN Reason: Cough Last Admin: 12/03/23 14:26 Dose: 200 mg Documented By: ISSAC Duloxetine HCl (Duloxetine Hcl 60 Mg Capsule.) 60 mg PO BID [facility] Last Admin: 12/10/23 09:01 Dose: 60 mg Documented By: ELIOT Guaifenesin/Codeine Phosphate (Guaifen/Codeine Sf 200/20/10ml 10 Ml Liquid) 5 ml PO Q6H PRN PRN Reason: Cough Last Admin: 12/04/23 05:50 Dose: 5 ml Documented By: RAIMUNDO Heparin Sodium (Porcine) (Heparin Sodium,Porcine 5,000 Unit/Ml Vial) 5,000 unit SUBCUT Q8H [facility] Last Admin: 12/04/23 13:38 Dose: Not Given Documented By: FREDERICK Non-Admin Reason: Off Unit: Surgery Hydromorphone HCl (Hydromorphone Hcl 1 Mg/Ml Syringe) 1 mg IVPUSH Q3H PRN; Protocol PRN Reason: Pain, Severe (Pain Scale 7-10) Last Admin: 12/09/23 22:35 Dose: 1 mg Documented By: ELVIRA Ceftriaxone Sodium 2 gm/ (Sodium Chloride) 50 mls @ 100 mls/hr IV Q24H [facility] Last Infusion: 12/10/23 09:31 Dose: Infused Documented By: ELIOT Acetaminophen (Ofirmev) 1,000 mg in 100 mls @ 400 mls/hr IV Q6H [facility] Last Admin: 12/10/23 12:53 Dose: 400 mls/hr Documented By: ELIOT Promethazine HCl 12.5 mg/ (Sodium Chloride) 50.5 mls @ 202 mls/hr IV ONCE PRN PRN Reason: Nausea and Vomiting Hydromorphone HCl (Dilaudid) 10 mg in 50 mls @ 0 mls/hr IV .Q0M [facility]; Protocol Last Admin: 12/10/23 07:00 Dose: 0.4 mg/hr, 2 mls/hr Documented By: ELVIRA Melatonin (Melatonin 3 Mg Tablet) 6 mg PO BEDTIME PRN PRN Reason: Sleep Last Admin: 12/01/23 21:32 Dose: 6 mg Documented By: MATT Naloxone HCl (Naloxone Hcl 0.4 Mg/Ml Vial) 0.2 mg IVPUSH Q2M PRN PRN Reason: Excessive sedation or RR < 8 Ondansetron HCl (Ondansetron Hcl 4 Mg/2 Ml Vial) 4 mg IVPUSH Q8H PRN PRN Reason: Nausea and Vomiting Polyethylene Glycol (Polyethylene Glycol 3350 17 Gm Powd.Pack) 17 gm PO DAILY PRN PRN Reason: constipation Senna (Sennosides 8.6 Mg Tablet) 17.2 mg PO BEDTIME PRN PRN Reason: Constipation Last Admin: 12/09/23 02:12 Dose: 17.2 mg Documented By: ELVIRA Sodium Chloride (0.9 % Sodium Chloride Flush 3 Ml Syringe) [facility] Last Admin: 12/10/23 09:01 Dose: 3 ml Documented By: ELIOT Vancomycin HCl (Vancomycin Hcl 125 Mg Capsule) 125 mg PO Q6H [facility] Last Admin: 12/10/23 09:01 Dose: 125 mg Documented By: ELIOT Labs 12/10/23 06:46 12/10/23 06:46 Labs: Laboratory Results - last 24 hr 12/10/23 06:46 MCV 90.3 MCH 29.1 MCHC 32.2 RDW 13.1 Plt Count 535 H MPV 9.3 L Immature Gran % (Auto) 2.1 H Neut % (Auto) 59.7 Lymph % (Auto) 26.2 [place] % (Auto) 8.9 Eos % (Auto) 2.4 Baso % (Auto) 0.7 Lymph # (Auto) 3.5 [place] # (Auto) 1.2 Eos # (Auto) 0.3 Baso # (Auto) 0.1 Abs Immat Gran (auto) 0.28 H Absolute Neuts (auto) 8.0 Absolute Nucleated RBC 0.000 Nucleated RBC % (auto) 0.0 Anion Gap 9 L Estim Creat Clear Calc 103.7 Estimated GFR > 60 Random Glucose 100 Calcium 8.7 Assessment and Plan (1) S/P lobectomy of lung: Status: Acute (2) Empyema: Status: Acute Plan 33yo F with remote hx ROBBY in remission x 10 yr Sepsis due to necrotizing pneumonia complicated by empyema chest tube placed 11/29/23 but failed to improve due to necrotizing PNA/abscess of entire LLL and abscess of apex of RADHA on 12/04 POD #6 3 waiting 17 then you admitted to 90 underwent VATS -> open thoracotomy, pneumolysis, empyemectomy, decortication L lung, L apex wedge resection of lung abscess, L lower lobectomy, and intercostal nerve block. postop care in ICU, downgraded to IMC 12/05, Good pain control continue FOOD SERVICE ASSOCIATE pump, and as needed IV Dilaudid, continue chest tube, persistent mild air leak Being followed closely by thoracic surgery, chest x-ray showed small pneumo, follow chest x-ray possible chest tube removal tomorrow ambulating, tolerating diet, moving bowels on ceftriaxone since 12/04- and previously on pip-kendra. Only specific pathogen identified was group A strep on a throat swab, HIV negative No fevers WBC improved but remains elevated postoperative anemia - transfused 2u pRBCs 12/05/23 , hematocrit improved, gradually trending down but remained stable, will follow and transfuse as needed. C diff colonization - vancomycin while on antibiotics for pneumonia. Will discuss duration treatment with ID Constipation resolved, cont. MiraLax VTE ppx -subcu heparin In my clinical judgment, the patient requires continued inpatient hospitalization for the following reasons: postop care, chest tubes in place, IV antibiotics Total time managing care of this patient today: Quality Stroke Does the patient have a stroke diagnosis?: No VTE Prior VTE?: No VTE Risk Level:: Medical - moderate - high VTE Device Contraindication: Treatment Not Indicated VTE Drug Contraindication: N/A - Med Ordered
[2023-12-10] MEDS: HYDROmorphone HCl 1 MG/ML SYRINGE IVPUSH (22:22)
[2023-12-11] VITALS (14 sets, daily range): BP systolic 136–161; BP diastolic 60–92; PULSE 100–118; RESP 16–20; TEMP 36.1–36.9; O2SAT 94–100; BMI 22.8
[2023-12-11] MEDS: Acetaminophen 1,000 MG/100 ML PIGGYBACK 400 MG IV (03:00)
[2023-12-11] MEDS: vancomycin HCL 125 MG CAPSULE PO ×4 (03:00→22:59)
[2023-12-11 06:50] LABS: MANUAL DIFF FLAG NO
[2023-12-11 06:58] LABS: Basophils Absolute Auto 0.1 X10*3/uL (0.0-0.2); Basophils Percent Auto 0.8 % (0-2); Eosinophils Absolute Auto 0.3 X10*3/uL (0.0-0.4); Eosinophils Percent Auto 2.2 % (0-4); Hemoglobin 8.1 g/dl (12.0-16.0); Imm Gran Abs Auto 0.33 X10*3/uL (0.00-0.03); Imm Gran Pct Auto 2.4 % (0.0-0.4); Lymphocytes Absolute Auto 3.2 X10*3/uL (1.2-4.9); Lymphocytes Percent Auto 23.1 % (20-40); Mean Corpuscular HGB Conc 32.4 g/dl (31.0-35.0); Mean Corpuscular Volume 92.6 fL (80.0-98.0); Mean Platelet Volume 9.2 fL (9.4-12.3); Monocytes Percent Auto 7.4 % (2-11); Neutrophils Percent Auto 64.1 % (45-73); Platelet Count 519 X10*3/uL (160-400); Red Cell Distribution Width 13.2 % (11.0-16.0)
[2023-12-11 07:17] LABS: Anion Gap 8 (12-20); Blood Urea Nitrogen 3 mg/dL (9-16); Calcium 8.8 mg/dL (8.4-10.2); Carbon Dioxide 27 mmol/L (22-29); Chloride 105 mmol/L (96-108); Creatinine Clr Calc Pharmacy 127.5; Estimated Glomerular Filt Rate > 60; Glucose Random 95 mg/dL (60-115); Potassium 4.1 mmol/L (3.3-5.1); Sodium 136 mmol/L (135-145)
[2023-12-11] MEDS: cefTRIAXone sodium 2 GM in 0.9 % Sodium Chloride 50 ML IV (07:58)
[2023-12-11] MEDS: DULoxetine HCl 60 MG CAPSULE.DR PO ×2 (07:58→20:52)
--- NOTE | 2023-12-11 10:12 | PM.PNTS ---
Subjective Subjective Date of Service: 12/11/23 Interval history: Feeling a little better. Still having a lot of pain especially at night. Tolerating solid diet. Physical Exam Vital Signs: Vital Signs: Last Vital Signs Temp 98.0 F 12/11/23 08:00 Pulse 107 H 12/11/23 08:00 Resp 20 12/11/23 08:00 BP 140/76 H 12/11/23 08:00 Pulse Ox 100 12/11/23 08:00 O2 Del Method Room Air 12/11/23 08:00 O2 Flow Rate 1 12/05/23 17:18 BMI result Body Mass Index 22.8 Const: General: comfortable, no acute distress and alert Orientation/consciousness: patient oriented x3 Chest: Other: chest tubes in place, scant output thoracotomy incision clean very small air leak on pleur-vac Resp: Effort & Inspection: normal respiratory effort Skin: General skin exam: no rashes or lesions noted Neuro: General: patient oriented x3 and moves all extremities Procedures Date of Service Date of Service: 12/11/23 Progress Note: A&P Assessment and plan (1) S/P lobectomy of lung: Status: Acute (2) Empyema: Status: Acute Plan POD #7 s/p bronchoscopy, vats converted to open thoracotomy, pneumolysis, and empyemectomy, decortication left lung, left apex wedge resection of lung abscess, left lower lobectomy, intercostal nerve block. Patient had extensive empyema cavity with thickened rind involving the entire left lower lobe and lower aspect of the left upper lobe, necrotizing pneumonia. Very small air leak. Both chest tubes tested alternatively with very minimal air leak. Therefore both chest tubes removed. Repeat CXR in 1 hr. 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 Will add oxycodone PO as needed. Wean off further IV narcotics as tolerated. H/H stable. WBC beginning to trend up, remains afebrile. Cont to monitor. Abx as per hospitalist service. Time Spent With Patient Time: Total time managing care of this patient today ____ minutes. Quality Stroke Does the patient have a stroke diagnosis?: No VTE Prior VTE?: No VTE Risk Level:: Medical - moderate - high VTE Device Contraindication: Treatment Not Indicated VTE Drug Contraindication: N/A - Med Ordered
[2023-12-11] MEDS: HYDROmorphone HCl/NS 10 MG/50 ML PIGGYBACK 2 MG IV (10:35)
[2023-12-11] MEDS: oxyCODONE HCl Immed Release 5 MG TABLET 10 MG PO ×3 (11:24→21:06)
--- NOTE | 2023-12-11 12:25 | HO.PM.IMPN ---
Subjective Subjective Date of Service: 12/11/23 Interval History: Complaining of persistent left-sided chest discomfort, worse at night, willing to try oxycodone and IV Dilaudid, no nausea, no vomiting, tolerating diet moving bowels ambulating, but complaining of tiredness, chest tube removed today, no fevers, no chills. Review of Systems All other system reviewed and negative. Physical Exam Vital Signs: Vital Signs: Last Vital Signs Temp 97.7 F 12/11/23 11:47 Pulse 112 H 12/11/23 11:47 Resp 18 12/11/23 11:47 BP 151/82 H 12/11/23 11:47 Pulse Ox 97 12/11/23 11:47 O2 Del Method Room Air 12/11/23 11:47 O2 Flow Rate 1 12/05/23 17:18 BMI result Body Mass Index 22.8 Const: Other: Gen:awake ,alert, no acute respiratory distress HEENT: sclera anicteric, moist mucus membranes Neck: supple Lungs: diminished left, no wheeze, no rhonchi, thoracotomy incision clean Heart: regular rate and rhythm, no murmurs Abd: soft, non-tender, non-distended, bowel sounds audible Ext: no edema Skin: warm/well-perfused Neuro: alert and oriented x3, no focal findings Psych: appropriate affect Objective Data Active Medications Acetaminophen (Acetaminophen 325 Mg Tablet) 975 mg PO TID [facility] Benzonatate (Benzonatate 100 Mg Capsule) 200 mg PO TID PRN PRN Reason: Cough Last Admin: 12/03/23 14:26 Dose: 200 mg Documented By: ISSAC Duloxetine HCl (Duloxetine Hcl 60 Mg Capsule.) 60 mg PO BID [facility] Last Admin: 12/11/23 07:58 Dose: 60 mg Documented By: FREDERICK Guaifenesin/Codeine Phosphate (Guaifen/Codeine Sf 200/20/10ml 10 Ml Liquid) 5 ml PO Q6H PRN PRN Reason: Cough Last Admin: 12/04/23 05:50 Dose: 5 ml Documented By: RAIMUNDO Heparin Sodium (Porcine) (Heparin Sodium,Porcine 5,000 Unit/Ml Vial) 5,000 unit SUBCUT Q8H [facility] Last Admin: 12/04/23 13:38 Dose: Not Given Documented By: FREDERICK Non-Admin Reason: Off Unit: Surgery Promethazine HCl 12.5 mg/ (Sodium Chloride) 50.5 mls @ 202 mls/hr IV ONCE PRN PRN Reason: Nausea and Vomiting Hydromorphone HCl (Dilaudid) 10 mg in 50 mls @ 0 mls/hr IV .Q0M [facility]; Protocol Last Admin: 12/11/23 10:35 Dose: 0.4 mg/hr, 2 mls/hr Documented By: FREDERICK Melatonin (Melatonin 3 Mg Tablet) 6 mg PO BEDTIME PRN PRN Reason: Sleep Last Admin: 12/01/23 21:32 Dose: 6 mg Documented By: MTAT Naloxone HCl (Naloxone Hcl 0.4 Mg/Ml Vial) 0.2 mg IVPUSH Q2M PRN PRN Reason: Excessive sedation or RR < 8 Ondansetron HCl (Ondansetron Hcl 4 Mg/2 Ml Vial) 4 mg IVPUSH Q8H PRN PRN Reason: Nausea and Vomiting Oxycodone HCl (Oxycodone Hcl Immed Release 5 Mg Tablet) 10 mg PO Q4H PRN PRN Reason: Pain, Severe (Pain Scale 7-10) Last Admin: 12/11/23 11:24 Dose: 10 mg Documented By: FREDERICK Polyethylene Glycol (Polyethylene Glycol 3350 17 Gm Powd.Pack) 17 gm PO DAILY PRN PRN Reason: constipation Senna (Sennosides 8.6 Mg Tablet) 17.2 mg PO BEDTIME PRN PRN Reason: Constipation Last Admin: 12/09/23 02:12 Dose: 17.2 mg Documented By: ELVIRA Sodium Chloride (0.9 % Sodium Chloride Flush 3 Ml Syringe) 3 ml IVFLUSH QSHIFT [facility] Last Admin: 12/11/23 12:19 Dose: Not Given Documented By: FREDERICK Non-Admin Reason: See Note Vancomycin HCl (Vancomycin Hcl 125 Mg Capsule) 125 mg PO Q6H [facility] Last Admin: 12/11/23 09:49 Dose: 125 mg Documented By: FREDERICK Labs 12/11/23 06:37 12/11/23 06:37 Labs: Laboratory Results - last 24 hr 12/11/23 06:37 MCV 92.6 MCH 30.0 MCHC 32.4 RDW 13.2 Plt Count 519 H MPV 9.2 L Immature Gran % (Auto) 2.4 H Neut % (Auto) 64.1 Lymph % (Auto) 23.1 [place] % (Auto) 7.4 Eos % (Auto) 2.2 Baso % (Auto) 0.8 Lymph # (Auto) 3.2 [place] # (Auto) 1.0 Eos # (Auto) 0.3 Baso # (Auto) 0.1 Abs Immat Gran (auto) 0.33 H Absolute Neuts (auto) 9.0 H Absolute Nucleated RBC 0.000 Nucleated RBC % (auto) 0.0 Anion Gap 8 L Estim Creat Clear Calc 127.5 Estimated GFR > 60 Random Glucose 95 Calcium 8.8 Assessment and Plan (1) S/P lobectomy of lung: Status: Acute (2) Empyema: Status: Acute Plan 33yo F with remote hx ROBBY in remission x 10 yr Sepsis due to necrotizing pneumonia complicated by empyema chest tube placed 11/29/23 but failed to improve due to necrotizing PNA/abscess of entire LLL and abscess of apex of RADHA on 12/04 POD #7 underwent VATS -> open thoracotomy, pneumolysis, empyemectomy, decortication L lung, L apex wedge resection of lung abscess, L lower lobectomy, and intercostal nerve block. Chest tube removed this morning by thoracic surgery Persistent pain worse at night on DIRECTOR BUSINESS MANAGEMENT pump, and as needed IV Dilaudid, plan is to DC DIRECTOR BUSINESS MANAGEMENT pump and place on by mouth oxycodone, being managed by surgery. tolerating diet, moving bowels, encourage ambulation Will DC IV ceftriaxone,only specific pathogen identified was group A strep on a throat swab, HIV negative No fevers ,WBC improved but remains elevated likely reactive, follow clinical course, case discussed with ID. postoperative anemia - transfused 2u pRBCs 12/05/23 , hematocrit improved, will follow and transfuse as needed. C diff colonization - will continue vancomycin 48 hours after discontinuing antibiotics as per ID recommendation. Constipation resolved, cont. MiraLax. VTE ppx -subcu heparin In my clinical judgment, the patient requires continued inpatient hospitalization for the following reasons: postop care, pain management with IV analgesics. Total time managing care of this patient today: Quality Stroke Does the patient have a stroke diagnosis?: No VTE Prior VTE?: No VTE Risk Level:: Medical - moderate - high VTE Device Contraindication: Treatment Not Indicated VTE Drug Contraindication: N/A - Med Ordered
--- NOTE | 2023-12-11 13:34 | MHC.CM.PN ---
Per rounds, MD indicates chest tubes to be D/C'd today, and D/C to soon follow, following medical stabilization. CM to follow.
--- NOTE | 2023-12-11 14:56 | PM.IDPN ---
Subjective Subjective Date of Service: 12/11/23 Critical Care Time (minutes): 15 Comment: she has chest tube taken out today she has no fever or chills Objective Data Labs 12/11/23 06:37 12/11/23 06:37 Labs: Laboratory Results - last 24 hr 12/11/23 06:37 WBC 14.0 H RBC 2.70 L Hgb 8.1 L Hct 25.0 L MCV 92.6 MCH 30.0 MCHC 32.4 RDW 13.2 Plt Count 519 H MPV 9.2 L Immature Gran % (Auto) 2.4 H Neut % (Auto) 64.1 Lymph % (Auto) 23.1 [place] % (Auto) 7.4 Eos % (Auto) 2.2 Baso % (Auto) 0.8 Lymph # (Auto) 3.2 [place] # (Auto) 1.0 Eos # (Auto) 0.3 Baso # (Auto) 0.1 Abs Immat Gran (auto) 0.33 H Absolute Neuts (auto) 9.0 H Absolute Nucleated RBC 0.000 Nucleated RBC % (auto) 0.0 Sodium 136 Potassium 4.1 Chloride 105 Carbon Dioxide 27 Anion Gap 8 L BUN 3 L Creatinine 0.61 Estim Creat Clear Calc 127.5 Estimated GFR > 60 Random Glucose 95 Calcium 8.8 Microbiology Microbiology Results: Microbiology 12/04/23 11:02 Lung - Left Gram Stain - Final 12/04/23 11:02 Lung - Left Routine Culture - Final No growth after 2 days 12/04/23 11:02 Lung - Left Anaerobic Culture - Final NO GROWTH AFTER 5 DAYS 11/29/23 15:15 Thoracic Fluid Gram Stain - Final 11/29/23 15:15 Thoracic Fluid Routine Culture - Final No growth after 2 days 11/29/23 15:15 Thoracic Fluid Anaerobic Culture - Final NO GROWTH AFTER 5 DAYS 11/24/23 09:25 Blood - Venous Blood Culture - Final No growth after 5 days. 11/24/23 09:16 Blood - Venous Blood Culture - Final No growth after 5 days. 11/26/23 17:10 Sputum - Expectorated Gram Stain - Final 11/26/23 17:10 Sputum - Expectorated Sputum Culture - Final Physical Exam Vital Signs: Vital Signs: Last Vital Signs Temp 97.7 F 12/11/23 11:47 Pulse 118 H 12/11/23 14:00 Resp 18 12/11/23 14:00 BP 161/91 H 12/11/23 14:00 Pulse Ox 94 12/11/23 14:00 O2 Del Method Room Air 12/11/23 14:00 O2 Flow Rate 1 12/05/23 17:18 BMI result Body Mass Index 22.8 Const: General: cooperative HEENT: Head: Yes normal to inspection Resp: Effort & Inspection: normal respiratory effort Cardio: Rate: regular rate Rhythm: regular rhythm GI: Inspection: Yes normal to inspection Extrem: General: Yes normal to inspection Assessment and Plan Assessment and plan (1) S/P lobectomy of lung: Status: Acute (2) Empyema: Status: Acute (3) Streptococcal pneumonia: Problem details: She has been on antibiotics for 17 days Status: Acute Plan Stop antibiotics Time Spent With Patient Time: Total time managing care of this patient today ____ minutes.
[2023-12-11] MEDS: Acetaminophen 325 MG TABLET 975 MG PO ×2 (15:42→20:52)
[2023-12-11] MEDS: 0.9 % Sodium Chloride Flush 3 ML SYRINGE IVFLUSH (20:52)
[2023-12-11] MEDS: HYDROmorphone HCl/NS 10 MG/50 ML PIGGYBACK IV (20:56)
[2023-12-12] VITALS (10 sets, daily range): BP systolic 148–161; BP diastolic 73–96; PULSE 95–126; RESP 18–20; TEMP 36.2–37.2; O2SAT 95–100
[2023-12-12] MEDS: oxyCODONE HCl Immed Release 5 MG TABLET 10 MG PO ×5 (01:20→22:32)
[2023-12-12] MEDS: vancomycin HCL 125 MG CAPSULE PO ×4 (04:09→22:33)
[2023-12-12] MEDS: Acetaminophen 325 MG TABLET 975 MG PO ×2 (09:47→14:04)
[2023-12-12] MEDS: DULoxetine HCl 60 MG CAPSULE.DR PO ×2 (09:48→20:00)
[2023-12-12] MEDS: 0.9 % Sodium Chloride Flush 3 ML SYRINGE IVFLUSH ×3 (09:49→20:00)
[2023-12-12] MEDS: HYDROmorphone HCl 1 MG/ML SYRINGE IVPUSH ×4 (11:41→23:04)
--- NOTE | 2023-12-12 12:04 | PC.NURSE ---
HYBRID TESTER pump discontinued at this time; hydromorphone in [facility] for HYBRID TESTER pump does not reflect boluses given. In [facility] it appears that the whole bag of hydromorphone was wasted; however 28 ml was wasted at this time during discontinuation of HYBRID TESTER pump. Pharmacy called and told to do nurses note. Waste documented in [employer] and HYBRID TESTER pump paper.
--- NOTE | 2023-12-12 12:49 | P.PNTS_ITS ---
Subjective Subjective Date of Service: 12/12/23 Interval history: Feels a little better this morning, did fairly well with pain control last night. OOB and ambulating. Some shortness of breath with activity, eating. Physical Exam Vital Signs: Vital Signs: Last Vital Signs Temp 97.4 F 12/12/23 12:00 Pulse 103 H 12/12/23 12:00 Resp 18 12/12/23 12:00 BP 154/84 H 12/12/23 12:00 Pulse Ox 98 12/12/23 12:00 O2 Del Method Room Air 12/12/23 12:00 O2 Flow Rate 1 12/05/23 17:18 BMI result Body Mass Index 22.8 Const: General: comfortable, no acute distress and alert Orientation/consciousness: patient oriented x3 Chest: Other: thoracotomy incision clean chest tube dressing intact Resp: Other: right lung CTA Effort & Inspection: normal respiratory effort Auscultation: diminished lung sounds (left lung posteriorly) Skin: General skin exam: no rashes or lesions noted and no jaundice Neuro: General: patient oriented x3 and moves all extremities Procedures Date of Service Date of Service: 12/12/23 Progress Note: A&P Assessment and plan (1) S/P lobectomy of lung: Status: Acute (2) Empyema: Status: Acute Plan POD #8 s/p bronchoscopy, vats converted to open thoracotomy, pneumolysis, and empyemectomy, decortication left lung, left apex wedge resection of lung abscess, left lower lobectomy, intercostal nerve block. Patient had extensive empyema cavity with thickened rind involving the entire left lower lobe and lower aspect of the left upper lobe, necrotizing pneumonia. Doing fairly well overall, recovering slowly. Chest tubes removed yesterday. Some persistent SOB with activity. CXR this am, small apical pneumo. 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 Tylenol ATC. Cont to encourage ambulation, IS use. Time Spent With Patient Time: Total time managing care of this patient today ____ minutes. Quality Stroke Does the patient have a stroke diagnosis?: No VTE Prior VTE?: No VTE Risk Level:: Medical - moderate - high VTE Device Contraindication: Treatment Not Indicated VTE Drug Contraindication: N/A - Med Ordered
--- NOTE | 2023-12-12 13:37 | HO.PM.IMPN ---
Subjective Subjective Date of Service: 12/12/23 Interval History: Complaining of left sided upper back pain ,feels tired and c/o mild shortness of breath, denies fever, no chills, no nausea, no vomiting, no abdominal pain moving bowels ambulating, no palpitations. Review of Systems All other system reviewed and negative Physical Exam Vital Signs: Vital Signs: Last Vital Signs Temp 97.4 F 12/12/23 12:00 Pulse 103 H 12/12/23 12:00 Resp 18 12/12/23 12:00 BP 154/84 H 12/12/23 12:00 Pulse Ox 98 12/12/23 12:00 O2 Del Method Room Air 12/12/23 12:00 O2 Flow Rate 1 12/05/23 17:18 BMI result Body Mass Index 22.8 Const: Other: Gen:awake ,alert, no acute respiratory distress HEENT: sclera anicteric, moist mucus membranes Neck: supple Lungs: diminished left, no wheeze, no rhonchi, thoracotomy incision clean Heart: regular rate and rhythm, no murmurs Abd: soft, non-tender, non-distended, bowel sounds audible Ext: no edema Skin: warm/well-perfused Neuro: alert and oriented x3, no focal findings Psych: appropriate affect Objective Data Active Medications Acetaminophen (Acetaminophen 325 Mg Tablet) 975 mg PO TID [facility] Last Admin: 12/12/23 09:47 Dose: 975 mg Documented By: DONNA Benzonatate (Benzonatate 100 Mg Capsule) 200 mg PO TID PRN PRN Reason: Cough Last Admin: 12/03/23 14:26 Dose: 200 mg Documented By: ISSAC Duloxetine HCl (Duloxetine Hcl 60 Mg Capsule.Dr) 60 mg PO BID [facility] Last Admin: 12/12/23 09:48 Dose: 60 mg Documented By: DONNA Guaifenesin/Codeine Phosphate (Guaifen/Codeine Sf 200/20/10ml 10 Ml Liquid) 5 ml PO Q6H PRN PRN Reason: Cough Last Admin: 12/04/23 05:50 Dose: 5 ml Documented By: RAIMUNDO Heparin Sodium (Porcine) (Heparin Sodium,Porcine 5,000 Unit/Ml Vial) 5,000 unit SUBCUT Q8H [facility] Last Admin: 12/04/23 13:38 Dose: Not Given Documented By: FREDERICK Non-Admin Reason: Off Unit: Surgery Hydromorphone HCl (Hydromorphone Hcl 1 Mg/Ml Syringe) 1 mg IVPUSH Q3H PRN; Protocol PRN Reason: Pain, Severe (Pain Scale 7-10) Last Admin: 12/12/23 11:41 Dose: 1 mg Documented By: DONNA Promethazine HCl 12.5 mg/ (Sodium Chloride) 50.5 mls @ 202 mls/hr IV ONCE PRN PRN Reason: Nausea and Vomiting Melatonin (Melatonin 3 Mg Tablet) 6 mg PO BEDTIME PRN PRN Reason: Sleep Last Admin: 12/01/23 21:32 Dose: 6 mg Documented By: MATT Naloxone HCl (Naloxone Hcl 0.4 Mg/Ml Vial) 0.2 mg IVPUSH Q2M PRN PRN Reason: Excessive sedation or RR < 8 Ondansetron HCl (Ondansetron Hcl 4 Mg/2 Ml Vial) 4 mg IVPUSH Q8H PRN PRN Reason: Nausea and Vomiting Oxycodone HCl (Oxycodone Hcl Immed Release 5 Mg Tablet) 10 mg PO Q4H PRN PRN Reason: Pain, Severe (Pain Scale 7-10) Last Admin: 12/12/23 09:46 Dose: 10 mg Documented By: DONNA Polyethylene Glycol (Polyethylene Glycol 3350 17 Gm Powd.Pack) 17 gm PO DAILY PRN PRN Reason: constipation Senna (Sennosides 8.6 Mg Tablet) 17.2 mg PO BEDTIME PRN PRN Reason: Constipation Last Admin: 12/09/23 02:12 Dose: 17.2 mg Documented By: ELVIRA Sodium Chloride (0.9 % Sodium Chloride Flush 3 Ml Syringe) [facility] Last Admin: 12/12/23 09:49 Dose: 3 ml Documented By: DONNA Vancomycin HCl (Vancomycin Hcl 125 Mg Capsule) 125 mg PO Q6H [facility] Last Admin: 12/12/23 09:56 Dose: 125 mg Documented By: DONNA Labs 12/11/23 06:37 12/11/23 06:37 Assessment and Plan (1) S/P lobectomy of lung: Status: Acute (2) Empyema: Status: Acute Plan 33yo F with remote hx ROBBY in remission x 10 yr Sepsis due to necrotizing pneumonia complicated by empyema chest tube placed 11/29/23 but failed to improve due to necrotizing PNA/abscess of entire LLL and abscess of apex of RADHA on 12/04 POD #8 underwent VATS -> open thoracotomy, pneumolysis, empyemectomy, decortication L lung, L apex wedge resection of lung abscess, L lower lobectomy, and intercostal nerve block. 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 continue oxycodone and as needed IV Dilaudid, tolerating diet, moving bowels, encourage ambulation and incentive spirometry only specific pathogen identified was group A strep on a throat swab, HIV negative, blood cultures negative No fevers ,WBC improved but remains elevated likely reactive, follow clinical course Antibiotic discontinued, on by mouth vancomycin times 24 more hours will follow closely for recurrent fevers monitor CBC postoperative anemia transfused 2u pRBCs 12/05/23 , hematocrit improved, will follow and transfuse as needed. C diff colonization - will continue vancomycin 48 hours after discontinuing antibiotics as per ID recommendation. Constipation resolved, cont. MiraLax. VTE ppx -subcu heparin In my clinical judgment, the patient requires continued inpatient hospitalization for the following reasons: postop care, pain management with IV analgesics. Quality Stroke Does the patient have a stroke diagnosis?: No VTE Prior VTE?: No VTE Risk Level:: Medical - moderate - high VTE Device Contraindication: Treatment Not Indicated VTE Drug Contraindication: N/A - Med Ordered
[2023-12-13] MEDS: HYDROmorphone HCl 1 MG/ML SYRINGE IVPUSH ×8 (02:04→23:22)
[2023-12-13 03:37] VITALS: BP 149/85; PULSE 113; RESP 20; TEMP 36.4; O2SAT 98
[2023-12-13] MEDS: oxyCODONE HCl Immed Release 5 MG TABLET 10 MG PO ×5 (04:11→22:42)
[2023-12-13] MEDS: vancomycin HCL 125 MG CAPSULE PO ×4 (04:11→22:42)
[2023-12-13 07:26] VITALS: BP 146/79; PULSE 93; RESP 16; TEMP 36.9; O2SAT 97
[2023-12-13] MEDS: DULoxetine HCl 60 MG CAPSULE.DR PO ×2 (08:09→20:14)
[2023-12-13] MEDS: Acetaminophen 325 MG TABLET 975 MG PO ×3 (08:10→20:14)
[2023-12-13] MEDS: 0.9 % Sodium Chloride Flush 3 ML SYRINGE IVFLUSH ×2 (09:38→17:11)
--- NOTE | 2023-12-13 09:39 | PM.PNTS ---
Subjective Subjective Date of Service: 12/13/23 Interval history: Pain is slowly improving but remains worse at night. Continues to c/o burning pain at incision site and breast. SOB improving. OOB and ambulating halls. Physical Exam Vital Signs: Vital Signs: Last Vital Signs Temp 98.4 F 12/13/23 07:26 Pulse 93 12/13/23 07:26 Resp 16 12/13/23 07:26 BP 146/79 H 12/13/23 07:26 Pulse Ox 97 12/13/23 07:26 O2 Del Method Room Air 12/13/23 07:26 O2 Flow Rate 1 12/05/23 17:18 BMI result Body Mass Index 22.8 Const: General: comfortable, no acute distress and alert Orientation/consciousness: patient oriented x3 Chest: Other: thoracotomy site clean chest tube dressing site clean Resp: Effort & Inspection: normal respiratory effort Skin: General skin exam: no rashes or lesions noted Neuro: General: patient oriented x3 Procedures Date of Service Date of Service: 12/13/23 Progress Note: A&P Assessment and plan (1) S/P lobectomy of lung: Status: Acute (2) Empyema: Status: Acute Plan POD #9 s/p bronchoscopy, vats converted to open thoracotomy, pneumolysis, and empyemectomy, decortication left lung, left apex wedge resection of lung abscess, left lower lobectomy, intercostal nerve block. Patient had extensive empyema cavity with thickened rind involving the entire left lower lobe and lower aspect of the left upper lobe, necrotizing pneumonia. Continues to do overall well and recovering slowly. Continue pain management. Will add low dose gabapentin to see is this helps with some nerve pain. Cont to encourage ambulation, IS use. Time Spent With Patient Time: Total time managing care of this patient today ____ minutes. Quality Stroke Does the patient have a stroke diagnosis?: No VTE Prior VTE?: No VTE Risk Level:: Medical - moderate - high VTE Device Contraindication: Treatment Not Indicated VTE Drug Contraindication: N/A - Med Ordered
--- NOTE | 2023-12-13 10:01 | P.PNIM_ITS ---
Subjective Subjective Date of Service: 12/13/23 Interval History: Complaining of persistent left-sided upper back pain at site of incision, complaining of palpitations, no chest pain noted to have tachycardia and elevated blood pressures denies chest pain, no lightheadedness, no dizziness has been ambulating, moving bowels, no nausea no vomiting , no fevers, no chills. Review of Systems All other system reviewed and negative Physical Exam 2 Vital Signs: Vital Signs: Last Vital Signs Temp 98.4 F 12/13/23 07:26 Pulse 93 12/13/23 07:26 Resp 16 12/13/23 07:26 BP 146/79 H 12/13/23 07:26 Pulse Ox 97 12/13/23 07:26 O2 Del Method Room Air 12/13/23 07:26 O2 Flow Rate 1 12/05/23 17:18 BMI result Body Mass Index 22.8 Const: Other: Gen:awake ,alert, no acute respiratory distress HEENT: sclera anicteric, moist mucus membranes Neck: supple Lungs: diminished left, no wheeze, no rhonchi, thoracotomy incision clean Heart: regular rate and rhythm, no murmurs Abd: soft, non-tender, non-distended, bowel sounds audible Ext: no edema Skin: warm/well-perfused Neuro: alert and oriented x3, no focal findings Psych: appropriate affect Objective Data Active Medications Acetaminophen (Acetaminophen 325 Mg Tablet) 975 mg PO TID [facility] Last Admin: 12/13/23 08:10 Dose: 975 mg Documented By: LAWSON Benzonatate (Benzonatate 100 Mg Capsule) 200 mg PO TID PRN PRN Reason: Cough Last Admin: 12/03/23 14:26 Dose: 200 mg Documented By: ISSAC Duloxetine HCl (Duloxetine Hcl 60 Mg Capsule.) 60 mg PO BID [facility] Last Admin: 12/13/23 08:09 Dose: 60 mg Documented By: LAWSON Gabapentin (Gabapentin 100 Mg Capsule) 200 mg PO BID [facility] Guaifenesin/Codeine Phosphate (Guaifen/Codeine Sf 200/20/10ml 10 Ml Liquid) 5 ml PO Q6H PRN PRN Reason: Cough Last Admin: 12/04/23 05:50 Dose: 5 ml Documented By: RAIMUNDO Heparin Sodium (Porcine) (Heparin Sodium,Porcine 5,000 Unit/Ml Vial) 5,000 unit SUBCUT Q8H [facility] Last Admin: 12/04/23 13:38 Dose: Not Given Documented By: FREDERICK Non-Admin Reason: Off Unit: Surgery Hydromorphone HCl (Hydromorphone Hcl 1 Mg/Ml Syringe) 1 mg IVPUSH Q3H PRN; Protocol PRN Reason: Pain, Severe (Pain Scale 7-10) Last Admin: 12/13/23 08:10 Dose: 1 mg Documented By: LAWSON Promethazine HCl 12.5 mg/ (Sodium Chloride) 50.5 mls @ 202 mls/hr IV ONCE PRN PRN Reason: Nausea and Vomiting Melatonin (Melatonin 3 Mg Tablet) 6 mg PO BEDTIME PRN PRN Reason: Sleep Last Admin: 12/01/23 21:32 Dose: 6 mg Documented By: MATT Naloxone HCl (Naloxone Hcl 0.4 Mg/Ml Vial) 0.2 mg IVPUSH Q2M PRN PRN Reason: Excessive sedation or RR < 8 Ondansetron HCl (Ondansetron Hcl 4 Mg/2 Ml Vial) 4 mg IVPUSH Q8H PRN PRN Reason: Nausea and Vomiting Oxycodone HCl (Oxycodone Hcl Immed Release 5 Mg Tablet) 10 mg PO Q4H PRN PRN Reason: Pain, Severe (Pain Scale 7-10) Last Admin: 12/13/23 09:35 Dose: 10 mg Documented By: LAWSON Polyethylene Glycol (Polyethylene Glycol 3350 17 Gm Powd.Pack) 17 gm PO DAILY PRN PRN Reason: constipation Senna (Sennosides 8.6 Mg Tablet) 17.2 mg PO BEDTIME PRN PRN Reason: Constipation Last Admin: 12/09/23 02:12 Dose: 17.2 mg Documented By: ELVIRA Sodium Chloride (0.9 % Sodium Chloride Flush 3 Ml Syringe) [facility] Last Admin: 12/13/23 09:38 Dose: 3 ml Documented By: LAWSON Vancomycin HCl (Vancomycin Hcl 125 Mg Capsule) 125 mg PO Q6H [facility] Last Admin: 12/13/23 04:11 Dose: 125 mg Documented By: MILVIA Kramer 12/11/23 06:37 12/11/23 06:37 Assessment and Plan (1) S/P lobectomy of lung: Status: Acute (2) Empyema: Status: Acute Plan 33yo F with remote hx ROBBY in remission x 10 yr Sepsis due to necrotizing pneumonia complicated by empyema Persistent left upper back pain at site of thoracotomy chest tube placed 11/29/23 but failed to improve due to necrotizing PNA/abscess of entire LLL and abscess of apex of RADHA on 12/04 POD #9 underwent VATS -> open thoracotomy, pneumolysis, empyemectomy, decortication L lung, L apex wedge resection of lung abscess, L lower lobectomy, and intercostal nerve block. 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 10mg q4H and as needed IV Dilaudid, surgery considering gabapentin tolerating diet, moving bowels, encourage ambulation and incentive spirometry only specific pathogen identified was group A strep on a throat swab, HIV negative, blood cultures negative No fevers ,WBC improved but remains elevated likely reactive, follow clinical course Antibiotic discontinued, will DC vancomycin no recurrent fevers ,monitor CBC/bmp Sinus tachycardia/hypertension likely due to pain,question anxiety was previously on clonidine, echocardiogram showed normal EF, normal diastolic function and no wall motion abnormality, stable oxygenation will place on clonidine 0.1 mg daily and follow closel,Will check TSH postoperative anemia transfused 2u pRBCs 12/05/23 , hematocrit improved, follow cbc and transfuse as needed. C diff colonization Finished treatment with vancomycin Constipation resolved, cont. MiraLax. VTE ppx -subcu heparin In my clinical judgment, the patient requires continued inpatient hospitalization for the following reasons: postop care, pain management with IV analgesics. Quality Stroke Does the patient have a stroke diagnosis?: No VTE Prior VTE?: No VTE Risk Level:: Medical - moderate - high VTE Device Contraindication: Treatment Not Indicated VTE Drug Contraindication: N/A - Med Ordered
--- NOTE | 2023-12-13 10:54 | MHC.CM.PN ---
PER MD ROUNDS, PT NOT MEDICALLY STABLE TO DC DCP REMAINS HOME VIA PRIVATE TRANSPORT
[2023-12-13] MEDS: cloNIDine HCL 0.1 MG TABLET PO (11:10)
[2023-12-13] MEDS: Enoxaparin Sodium 40 MG/0.4 ML SYRINGE SUBCUT (11:10)
[2023-12-13 12:00] VITALS: BP 151/78; PULSE 114; RESP 16; TEMP 36.3; O2SAT 99
[2023-12-13 16:00] VITALS: BP 144/88; PULSE 122; RESP 20; TEMP 36.6; O2SAT 98
[2023-12-13 19:59] VITALS: BP 174/87; PULSE 116; RESP 20; TEMP 36.4; O2SAT 96
[2023-12-13] MEDS: Gabapentin 100 MG CAPSULE 200 MG PO (20:14)
[2023-12-13] MEDS: Sennosides 8.6 MG TABLET 17.2 MG PO (20:14)
[2023-12-13 23:39] VITALS: BP 151/82; PULSE 114; RESP 18; TEMP 36.9; O2SAT 97
[2023-12-14 03:28] VITALS: BP 145/82; PULSE 110; RESP 18; TEMP 36.4; O2SAT 99
[2023-12-14] MEDS: HYDROmorphone HCl 1 MG/ML SYRINGE IVPUSH ×6 (03:57→21:32)
[2023-12-14] MEDS: 0.9 % Sodium Chloride Flush 3 ML SYRINGE IVFLUSH ×3 (04:00→15:17)
[2023-12-14] MEDS: vancomycin HCL 125 MG CAPSULE PO ×4 (04:00→22:30)
[2023-12-14] MEDS: oxyCODONE HCl Immed Release 5 MG TABLET 10 MG PO ×4 (04:24→19:56)
[2023-12-14 05:38] VITALS: BMI 21.2
[2023-12-14 06:18] LABS: Hematocrit 27.9 % (37.0-47.0); Hemoglobin 8.8 g/dl (12.0-16.0); Mean Corpuscular HGB Conc 31.5 g/dl (31.0-35.0); Mean Corpuscular Hemoglobin 28.8 pg (27.0-33.0); Mean Corpuscular Volume 91.2 fL (80.0-98.0); Mean Platelet Volume 9.3 fL (9.4-12.3); Platelet Count 647 X10*3/uL (160-400); Red Blood Count 3.06 X10*6/uL (4.20-5.50); Red Cell Distribution Width 13.2 % (11.0-16.0); White Blood Count 18.5 X10*3/uL (4.8-10.8)
[2023-12-14 06:42] LABS: Anion Gap 9 (12-20); Blood Urea Nitrogen 7 mg/dL (9-16); Carbon Dioxide 26 mmol/L (22-29); Chloride 105 mmol/L (96-108); Creatinine Clr Calc Pharmacy 112.5; Estimated Glomerular Filt Rate > 60; Glucose Random 113 mg/dL (60-115); Potassium 4.3 mmol/L (3.3-5.1); Sodium 136 mmol/L (135-145)
[2023-12-14 06:58] LABS: Thyroid Stimulating Hormone 1.91 uIU/mL (0.32-4.0)
[2023-12-14 07:08] VITALS: BP 135/83; PULSE 119; RESP 18; TEMP 36.8; O2SAT 98
[2023-12-14] MEDS: DULoxetine HCl 60 MG CAPSULE.DR PO ×2 (08:52→19:57)
[2023-12-14] MEDS: Enoxaparin Sodium 40 MG/0.4 ML SYRINGE SUBCUT (08:52)
[2023-12-14] MEDS: cloNIDine HCL 0.1 MG TABLET PO (08:52)
[2023-12-14] MEDS: Gabapentin 100 MG CAPSULE 200 MG PO ×2 (08:52→19:57)
[2023-12-14] MEDS: Acetaminophen 325 MG TABLET 975 MG PO ×3 (08:52→19:56)
[2023-12-14 11:02] VITALS: BP 146/87; PULSE 106; RESP 18; TEMP 36.3; O2SAT 97
--- NOTE | 2023-12-14 15:20 | HO.PM.IMPN ---
Subjective Subjective Date of Service: 12/14/23 Interval History: Complaining of persistent left-sided upper back pain at site of incision, complaining of palpitations, no chest pain noted to have tachycardia and elevated blood pressures denies chest pain, no lightheadedness, no dizziness has been ambulating, moving bowels, no nausea no vomiting , no fevers, no chills. Review of Systems All other system reviewed and negative Physical Exam Vital Signs: Vital Signs: Last Vital Signs Temp 97.4 F 12/14/23 11:02 Pulse 106 H 12/14/23 11:02 Resp 18 12/14/23 11:02 BP 146/87 H 12/14/23 11:02 Pulse Ox 97 12/14/23 11:02 O2 Del Method Room Air 12/14/23 07:08 O2 Flow Rate 1 12/05/23 17:18 BMI result Body Mass Index 21.2 Appearing in no acute distress lung sounds are clear to auscultation, scar from VATS heart regular rate rhythm, clear S1, S2 positive bowel sounds, abdomen is soft, nontender neuro patient is alert x3, no focal deficits Objective Data Active Medications Acetaminophen (Acetaminophen 325 Mg Tablet) 975 mg PO TID [facility] Last Admin: 12/14/23 14:28 Dose: 975 mg Documented By: ISSAC Benzonatate (Benzonatate 100 Mg Capsule) 200 mg PO TID PRN PRN Reason: Cough Last Admin: 12/03/23 14:26 Dose: 200 mg Documented By: ISSAC Clonidine HCl (Clonidine Hcl 0.1 Mg Tablet) 0.1 mg PO DAILY [facility]; Protocol Last Admin: 12/14/23 08:52 Dose: 0.1 mg Documented By: ISSAC Docusate Sodium (Docusate Sodium 100 Mg Capsule) 100 mg PO BEDTIME PRN PRN Reason: Constipation Duloxetine HCl (Duloxetine Hcl 60 Mg Capsule.Dr) 60 mg PO BID [facility] Last Admin: 12/14/23 08:52 Dose: 60 mg Documented By: ISSAC Enoxaparin Sodium (Enoxaparin Sodium 40 Mg/0.4 Ml Syringe) 40 mg SUBCUT Q24H [facility] Last Admin: 12/14/23 08:52 Dose: 40 mg Documented By: ISSAC Gabapentin (Gabapentin 100 Mg Capsule) 200 mg PO BID [facility] Last Admin: 12/14/23 08:52 Dose: 200 mg Documented By: ISSAC Hydromorphone HCl (Hydromorphone Hcl 1 Mg/Ml Syringe) 1 mg IVPUSH Q3H PRN; Protocol PRN Reason: Pain, Severe (Pain Scale 7-10) Last Admin: 12/14/23 15:12 Dose: 1 mg Documented By: SERGIO Promethazine HCl 12.5 mg/ (Sodium Chloride) 50.5 mls @ 202 mls/hr IV ONCE PRN PRN Reason: Nausea and Vomiting Melatonin (Melatonin 3 Mg Tablet) 6 mg PO BEDTIME PRN PRN Reason: Sleep Last Admin: 12/01/23 21:32 Dose: 6 mg Documented By: MATT Naloxone HCl (Naloxone Hcl 0.4 Mg/Ml Vial) 0.2 mg IVPUSH Q2M PRN PRN Reason: Excessive sedation or RR < 8 Ondansetron HCl (Ondansetron Hcl 4 Mg/2 Ml Vial) 4 mg IVPUSH Q8H PRN PRN Reason: Nausea and Vomiting Oxycodone HCl (Oxycodone Hcl Immed Release 5 Mg Tablet) 10 mg PO Q4H PRN PRN Reason: Pain, Severe (Pain Scale 7-10) Last Admin: 12/14/23 14:28 Dose: 10 mg Documented By: ISSAC Polyethylene Glycol (Polyethylene Glycol 3350 17 Gm Powd.Pack) 17 gm PO DAILY PRN PRN Reason: constipation Polyethylene Glycol (Polyethylene Glycol 3350 17 Gm Powd.Pack) 17 gm PO DAILY [facility] Last Admin: 12/14/23 08:53 Dose: Not Given Documented By: ISSAC Non-Admin Reason: Patient Refused Senna (Sennosides 8.6 Mg Tablet) 17.2 mg PO BEDTIME PRN PRN Reason: Constipation Last Admin: 12/13/23 20:14 Dose: 17.2 mg Documented By: MILVIA Sodium Chloride (0.9 % Sodium Chloride Flush 3 Ml Syringe) 3 ml IVFLUSH QSHIFT [facility] Last Admin: 12/14/23 15:17 Dose: 3 ml Documented By: SERGIO Vancomycin HCl (Vancomycin Hcl 125 Mg Capsule) 125 mg PO Q6H [facility] Last Admin: 12/14/23 08:52 Dose: 125 mg Documented By: ISSAC Labs 12/14/23 05:28 12/14/23 05:28 Labs: Laboratory Results - last 24 hr 12/14/23 05:28 MCV 91.2 MCH 28.8 MCHC 31.5 RDW 13.2 Plt Count 647 H MPV 9.3 L Absolute Nucleated RBC 0.000 Nucleated RBC % (auto) 0.0 Anion Gap 9 L Estim Creat Clear Calc 112.5 Estimated GFR > 60 Random Glucose 113 Calcium 9.0 TSH 1.91 Assessment and Plan (1) S/P lobectomy of lung: Status: Acute (2) Empyema: Status: Acute Plan 33yo F with remote hx ROBBY in remission x 10 yr Sepsis due to necrotizing pneumonia complicated by empyema Persistent left upper back pain at site of thoracotomy chest tube placed 11/29/23 but failed to improve due to necrotizing PNA/abscess of entire LLL and abscess of apex of RADHA on 12/04 POD #10 underwent VATS -> open thoracotomy, pneumolysis, empyemectomy, decortication L lung, L apex wedge resection of lung abscess, L lower lobectomy, and intercostal nerve block. 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 q4H and as needed IV Dilaudid, surgery considering gabapentin tolerating diet, moving bowels, encourage ambulation and incentive spirometry only specific pathogen identified was group A strep on a throat swab, HIV negative, blood cultures negative No fevers ,WBC improved but remains elevated likely reactive, follow clinical course Antibiotic discontinued, will DC vancomycin no recurrent fevers ,monitor CBC/bmp Sinus tachycardia/hypertension likely due to pain and anxiety was previously on clonidine echocardiogram showed normal EF, normal diastolic function and no wall motion abnormality stable oxygenation will place on clonidine 0.1 mg daily and follow closely normal TSH postoperative anemia s/p 2u PRBCs 12/05/23 hematocrit improved follow cbc and transfuse as needed. C diff colonization Finished treatment with vancomycin Constipation resolved cont. MiraLax. VTE ppx Attending Dr. Martín lerma heparin In my clinical judgment, the patient requires continued inpatient hospitalization for the following reasons: postop care, pain management with IV analgesics. Quality Stroke Does the patient have a stroke diagnosis?: No VTE Prior VTE?: No VTE Risk Level:: Medical - moderate - high VTE Device Contraindication: Treatment Not Indicated VTE Drug Contraindication: N/A - Med Ordered
[2023-12-14 16:00] VITALS: BP 152/84; PULSE 115; RESP 16; TEMP 37.1; O2SAT 99
[2023-12-14 20:00] VITALS: BP 138/91; PULSE 113; RESP 20; TEMP 37.2; O2SAT 100
[2023-12-14] MEDS: Melatonin 3 MG TABLET 6 MG PO (21:30)
[2023-12-15] VITALS (7 sets, daily range): BP systolic 135–157; BP diastolic 68–90; PULSE 110–116; RESP 16–20; TEMP 36.5–37.1; O2SAT 95–99; BMI 21.5
[2023-12-15] MEDS: HYDROmorphone HCl 1 MG/ML SYRINGE IVPUSH ×7 (00:28→20:59)
[2023-12-15] MEDS: 0.9 % Sodium Chloride Flush 3 ML SYRINGE IVFLUSH ×4 (00:35→21:06)
[2023-12-15] MEDS: oxyCODONE HCl Immed Release 5 MG TABLET 10 MG PO ×4 (02:41→21:48)
[2023-12-15] MEDS: vancomycin HCL 125 MG CAPSULE PO ×4 (03:47→21:05)
[2023-12-15] MEDS: DULoxetine HCl 60 MG CAPSULE.DR PO ×2 (07:57→21:05)
[2023-12-15] MEDS: Acetaminophen 325 MG TABLET 975 MG PO ×3 (07:57→21:05)
[2023-12-15] MEDS: lisinopriL 5 MG TABLET PO (07:58)
[2023-12-15] MEDS: LORazepam 0.5 MG TABLET PO ×2 (07:58→16:52)
[2023-12-15] MEDS: Gabapentin 100 MG CAPSULE 200 MG PO ×2 (07:58→21:05)
--- NOTE | 2023-12-15 09:53 | P.PNIM_ITS ---
Subjective Subjective Date of Service: 12/15/23 Interval History: Complaining of persistent left-sided upper back pain at site of incision, complaining of palpitations, no chest pain noted to have tachycardia and elevated blood pressures denies chest pain, no lightheadedness, no dizziness has been ambulating, moving bowels, no nausea no vomiting , no fevers, no chills. Review of Systems All other system reviewed and negative Physical Exam 2 Vital Signs: Vital Signs: Last Vital Signs Temp 98.5 F 12/15/23 07:42 Pulse 111 H 12/15/23 07:42 Resp 16 12/15/23 07:42 BP 157/79 H 12/15/23 07:42 Pulse Ox 97 12/15/23 07:42 O2 Del Method Room Air 12/15/23 07:42 O2 Flow Rate 1 12/05/23 17:18 BMI result Body Mass Index 21.5 Appearing in no acute distress lung sounds are clear to auscultation heart regular rate rhythm, clear S1, S2 positive bowel sounds, abdomen is soft, nontender neuro patient is alert x3, no focal deficits Vats scar Left back/shoulder Objective Data Active Medications Acetaminophen (Acetaminophen 325 Mg Tablet) 975 mg PO TID [facility] Last Admin: 12/15/23 07:57 Dose: 975 mg Documented By: SERGIO Benzonatate (Benzonatate 100 Mg Capsule) 200 mg PO TID PRN PRN Reason: Cough Last Admin: 12/03/23 14:26 Dose: 200 mg Documented By: ISSAC Docusate Sodium (Docusate Sodium 100 Mg Capsule) 100 mg PO BEDTIME PRN PRN Reason: Constipation Duloxetine HCl (Duloxetine Hcl 60 Mg Capsule.Dr) 60 mg PO BID [facility] Last Admin: 12/15/23 07:57 Dose: 60 mg Documented By: SERGIO Enoxaparin Sodium (Enoxaparin Sodium 40 Mg/0.4 Ml Syringe) 40 mg SUBCUT Q24H [facility] Last Admin: 12/14/23 08:52 Dose: 40 mg Documented By: ISSAC Gabapentin (Gabapentin 100 Mg Capsule) 200 mg PO BID [facility] Last Admin: 12/15/23 07:58 Dose: 200 mg Documented By: SERGIO Hydromorphone HCl (Hydromorphone Hcl 1 Mg/Ml Syringe) 1 mg IVPUSH Q3H PRN; Protocol PRN Reason: Pain, Severe (Pain Scale 7-10) Last Admin: 12/15/23 06:48 Dose: 1 mg Documented By: RAIMUNDO Promethazine HCl 12.5 mg/ (Sodium Chloride) 50.5 mls @ 202 mls/hr IV ONCE PRN PRN Reason: Nausea and Vomiting Lisinopril (Lisinopril 5 Mg Tablet) 5 mg PO DAILY [facility]; Protocol Last Admin: 12/15/23 07:58 Dose: 5 mg Documented By: SERGIO Lorazepam (Lorazepam 0.5 Mg Tablet) 0.5 mg PO Q8H PRN PRN Reason: anxiety/restlessness Last Admin: 12/15/23 07:58 Dose: 0.5 mg Documented By: SERGIO Melatonin (Melatonin 3 Mg Tablet) 6 mg PO BEDTIME PRN PRN Reason: Sleep Last Admin: 12/14/23 21:30 Dose: 6 mg Documented By: RAIMUNDO Naloxone HCl (Naloxone Hcl 0.4 Mg/Ml Vial) 0.2 mg IVPUSH Q2M PRN PRN Reason: Excessive sedation or RR < 8 Ondansetron HCl (Ondansetron Hcl 4 Mg/2 Ml Vial) 4 mg IVPUSH Q8H PRN PRN Reason: Nausea and Vomiting Oxycodone HCl (Oxycodone Hcl Immed Release 5 Mg Tablet) 10 mg PO Q4H PRN PRN Reason: Pain, Severe (Pain Scale 7-10) Last Admin: 12/15/23 07:58 Dose: 10 mg Documented By: SERGIO Polyethylene Glycol (Polyethylene Glycol 3350 17 Gm Powd.Pack) 17 gm PO DAILY PRN PRN Reason: constipation Polyethylene Glycol (Polyethylene Glycol 3350 17 Gm Powd.Pack) 17 gm PO DAILY [facility] Last Admin: 12/15/23 07:59 Dose: Not Given Documented By: SERGIO Non-Admin Reason: Patient Refused Senna (Sennosides 8.6 Mg Tablet) 17.2 mg PO BEDTIME PRN PRN Reason: Constipation Last Admin: 12/13/23 20:14 Dose: 17.2 mg Documented By: MILVIA Sodium Chloride (0.9 % Sodium Chloride Flush 3 Ml Syringe) 3 ml IVFLUSH QSHIFT [facility] Last Admin: 12/15/23 07:59 Dose: 3 ml Documented By: SERGIO Vancomycin HCl (Vancomycin Hcl 125 Mg Capsule) 125 mg PO Q6H [facility] Last Admin: 12/15/23 08:01 Dose: 125 mg Documented By: SERGIO Labs 12/14/23 05:28 12/14/23 05:28 Assessment and Plan (1) S/P lobectomy of lung: Status: Acute (2) Empyema: Status: Acute Plan 33yo F with remote hx ROBBY in remission x 10 yr Sepsis due to necrotizing pneumonia complicated by empyema 11/29/23 chest tube placed but failed to improve due to necrotizing PNA/abscess of entire LLL and abscess of apex of RADHA 12/04/23 underwent VATS -> open thoracotomy, pneumolysis, empyemectomy, decortication L lung, L apex wedge resection of lung abscess, L lower lobectomy, and intercostal nerve block. 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 C diff colonization Finished treatment with vancomycin Constipation resolved cont. MiraLax. VTE ppx Attending Dr. Resendiz subcu heparin In my clinical judgment, the patient requires continued inpatient hospitalization for the following reasons: postop care, pain management with IV analgesics. Quality Stroke Does the patient have a stroke diagnosis?: No VTE Prior VTE?: No VTE Risk Level:: Medical - moderate - high VTE Device Contraindication: Treatment Not Indicated VTE Drug Contraindication: N/A - Med Ordered
[2023-12-15] MEDS: Enoxaparin Sodium 40 MG/0.4 ML SYRINGE SUBCUT (10:20)
[2023-12-15] MEDS: Melatonin 3 MG TABLET 6 MG PO (21:09)
[2023-12-16] MEDS: HYDROmorphone HCl 1 MG/ML SYRINGE IVPUSH ×4 (01:28→10:40)
[2023-12-16] MEDS: LORazepam 0.5 MG TABLET PO ×2 (01:29→10:41)
[2023-12-16 04:00] VITALS: BP 152/89; PULSE 127; RESP 20; TEMP 36.2; O2SAT 98
[2023-12-16] MEDS: vancomycin HCL 125 MG CAPSULE PO (04:27)
[2023-12-16 05:46] VITALS: BMI 21.0
[2023-12-16] MEDS: oxyCODONE HCl Immed Release 5 MG TABLET 10 MG PO (06:30)
[2023-12-16 07:25] VITALS: BP 144/86; PULSE 116; RESP 20; TEMP 36.7; O2SAT 97
[2023-12-16] MEDS: Gabapentin 100 MG CAPSULE 200 MG PO (07:47)
[2023-12-16] MEDS: lisinopriL 5 MG TABLET PO (07:47)
[2023-12-16] MEDS: DULoxetine HCl 60 MG CAPSULE.DR PO (07:47)
[2023-12-16] MEDS: Acetaminophen 325 MG TABLET 975 MG PO (07:47)
[2023-12-16] MEDS: 0.9 % Sodium Chloride Flush 3 ML SYRINGE IVFLUSH (07:48)
--- NOTE | 2023-12-16 08:52 | MHC.CM.PN ---
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
--- NOTE | 2023-12-16 10:32 | PM.PNTS ---
Subjective Subjective Date of Service: 12/16/23 Interval history: Complaining of anterior chest wall numbness/burning. 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 She has no respiratory issues or complaints. O2 sats were 97%. Physical Exam Vital Signs: Vital Signs: Last Vital Signs Temp 98.0 F 12/16/23 07:25 Pulse 116 H 12/16/23 07:25 Resp 20 12/16/23 07:25 BP 144/86 H 12/16/23 07:25 Pulse Ox 97 12/16/23 07:25 O2 Del Method Room Air 12/16/23 07:25 O2 Flow Rate 1 12/05/23 17:18 BMI result Body Mass Index 21.0 Chest: Other: Chest breath sounds bilaterally, incisions clean dry and intact. Procedures Date of Service Date of Service: 12/16/23 Progress Note: A&P Assessment and plan (1) S/P lobectomy of lung: Status: Acute (2) Empyema: Status: Acute Plan Continued improvement status post thoracotomy/lobectomy. Patient is increasing her diet. She is more engaging and active. Discharge planning per hospitalist team. Time Spent With Patient Time: Total time managing care of this patient today ____ minutes. Quality Stroke Does the patient have a stroke diagnosis?: No VTE Prior VTE?: No VTE Risk Level:: Medical - moderate - high VTE Device Contraindication: Treatment Not Indicated VTE Drug Contraindication: N/A - Med Ordered
--- NOTE | 2023-12-16 10:53 | PM.DS ---
DS: Providers Provider Date of Service: 12/16/23 Date of admission: 11/24/23 15:24 Primary care physician: Mick Carrasquillo MD Consults: 11/24/23 15:27 Consult to Pulmonology Routine [place]ing [place] [facility] [place] Reason for consultation: extensive left sided pneumonia 11/25/23 13:11 Addiction Medicine Routine Consulting Provider: Addiction Covering Reason for consultation: Substance use desorder 11/25/23 13:12 Consult to Infectious Diseases Routine Consulting Provider[place] [facility] [place] Reason for consultation: Pneumonia ? need for penecillin 11/29/23 12:26 Consult to Thoracic Surgery Stat Consulting Provider: Alonso Chanel Reason for consultation: loculated effusion Has provider been notified: Yes DS: Diagnosis Discharge Diagnosis (1) S/P lobectomy of lung: Status: Acute (2) Empyema: Status: Acute DS: Summary Hospital Course Hospital Course: History and physical as per admitting provider. 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 She is reporting subjective fevers with associated sweats and chills, sore throat, dry cough, shortness of breath both with exertion and at rest, nausea, constipation, anorexia. She is also endorsing pleuritic pain across the upper back. She does state that her father and boyfriend were sick with unknown respiratory illness prior to her onset of symptoms. No recent travel. Has used oral antibiotics in last month for dental infection. On arrival, patient tachycardic to 150, tachypneic to 30. Did develop low-grade fevers to 100.3. No hypoxia. Blood pressure is normal. There is a leukocytosis of 18.6 with slight left shift. Platelets 153. Renal function normal, electrolyte levels normal except for CO2 20 and mag 1.5. Total bilirubin 3.7, direct bilirubin 2.4. AST / ALT within normal limits. Negative for COVID-19, RSV, influenza. Positive for strep a pyogenes. Procalcitonin 2.10.Initial lactic acid 3.3, received 1905 mL IV NS with repeat lactic acid 3.9. Given additional IV NS at 100 mL/hr, lactic acid now trending down to 3.5. Tachycardia has improved to 120. Blood pressures remain stable on admission. Abdominal ultrasound shows cholelithiasis without evidence of cholecystitis or any biliary ductal dilatation. CTA of the chest negative for any VTE but shows dense airspace consolidation within the left lung, consistent with pneumonia. In the ED, has received IV vancomycin, 2 g IV ceftriaxone, 500 mg IV azithromycin, Robitussin, and 40 mEq potassium chloride. 33-year-old woman with a prolonged hospital stay secondary to sepsis due to necrotizing pneumonia complicated by empyema. On 11/29/2023 she had a chest tube placed but she failed to improve secondary to the necrotizing pneumonia and abscess of the entire left lower lobe and abscess of the apex of the left upper lobe. On 12/04/2023 she underwent VATS with open thoracotomy, pneumo lysis, empyema ectomy, decortication of the left lung, left apex wedge resection of the lung abscess and left lower lobectomy. On 12/11/2023 her chest tube was removed. She was treated empirically with vancomycin. 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 She has a history of chronic sinus tachycardia which was likely worsened by surgical pain and anxiety. Echocardiogram showed normal EF and CTA was negative for pulmonary embolus. At this time no further workup to do. Hopefully with pain control and control of her anxiety this will help her heart rate to normalize. She also has hypertension which again was also probably exacerbated by surgical pain. She was started on lisinopril 5 mg. She should monitor her blood pressure and document to share with primary care provider determine whether medications need to be adjusted. She was noted to have postoperative anemia and received 2 units of packed blood red blood cells on 12/05/2023 with improvement in her hematocrit, she did not require any further transfusions after that. She was noted to have C diff colonization and completed a course of oral vancomycin with resolution of diarrhea. She has been tolerating her diet, moving her bowels, ambulating, using in sepsis spirometry over the last 12 days since her surgery. The plan is to discharge her home with Vicodin, lorazepam and follow-up with general surgery. Time Attestation Discharge coordination time: Greater than 30 minutes Quality: Safe Use of Opioids Does Pt have an Active Cancer Diagnosis on the Problem List?: No Quality: Stroke Does the patient have a stroke diagnosis?: No Physical Exam Vital Signs: Vital Signs: Last Vital Signs Temp 98.0 F 12/16/23 07:25 Pulse 116 H 12/16/23 07:25 Resp 20 12/16/23 07:25 BP 144/86 H 12/16/23 07:25 Pulse Ox 97 12/16/23 07:25 O2 Del Method Room Air 12/16/23 07:25 O2 Flow Rate 1 12/05/23 17:18 BMI result Body Mass Index 21.0 Appearing in no acute distress head is normocephalic atraumatic eyes pupils are PERRLA sclera is anicteric mouth throat mucous membranes are intact and moist neck is supple no lymphadenopathy, no JVD noted lung sounds are clear to auscultation heart regular rate rhythm, clear S1, S2 positive bowel sounds, abdomen is soft, nontender neuro patient is alert x3, no focal deficits Steri-Strips to left shoulder down to back from VATS procedure DS: Data Data Completed and Pending Completed studies during hospitalization [Text1]: Pending at discharge 11/29/23 14:27 Cytology [PTH] Stat 12/04/23 11:22 Surgical [PTH] Routine Discharge Plan Discharge Anticipated Discharge Date/Time: 12/16/23 10:48 Patient Disposition: Home, Self-Care Discharge Diagnosis: Sepsis Necrotizing pneumonia Empyema Hypertension Sinus tachycardia Postoperative anemia C diff colonization Referrals: Alonso Chanel MD [Physician] - 1 Week Discharge Medications: New lorazepam 0.5 mg Tablet 0.5 mg PO Q8H PRN (Reason: Anxiety/Restlessness) Qty: 15 0RF lisinopril 5 mg Tablet 5 mg PO DAILY Qty: 30 0RF Protocol: Hold for SBP< HOLD for SBP < : 90 gabapentin 100 mg Capsule 200 mg PO BID Qty: 120 0RF hydrocodone-acetaminophen 7.5-325 mg tablet 1 tab PO Q6H PRN (Reason: pain) Qty: 28 0RF Rx Instructions: Partial Fill upon patient request. Continued Xulane 150-35 mcg/24 hr patch weekly 1 patch topical QWEEK duloxetine 60 mg capsule,delayed release(DR/EC) 60 mg PO BID Probiotic Plus and Cranberry 250-30-39.5 mg Capsule 1 cap PO DAILY Discharge Orders: Discharge Order (Routine); Ordered 12/16/23 Ordered By: Kyung Gray Diet: Advance to usual diet Activity on Discharge: No heavy lifting Stand Alone Forms: Patient Portal Discharge page Activity Restrictions/Additional Instructions: No strenuous activities. May shower. Using incentive spirometry while at home Care Plan Goals: Continue using incentive spirometer throughout the day Take all medications as prescribed You have been started on a new medication called lisinopril for your blood pressure, monitor blood pressures closely and report to primary care provider Health Concerns: Sepsis Necrotizing pneumonia Empyema Hypertension Sinus tachycardia Postoperative anemia C diff colonization Plan of Treatment: Follow-up with general surgery for postsurgical appointment Assessment: See discharge summary
--- NOTE | 2023-12-16 11:45 | MHC.CM.PN ---
Patient has been medically cleared for dc to home today, self care.
== END 2023-12-16 11:45 | disposition home or self-care (01) | DRG 710 ==
LOC: HO.ED 09:57 → HO.EDOVER 16:23 → HO.IMC 17:18 → HO.ICU 12-04 13:46 → HO.IMC 12-05 16:56
PROVIDERS: Hospitalist; Internal Medicine; Internal Medicine Critical Care Medicine; Surgery; Admitting Provider Physician Assistant; Emergency Provider Emergency Medicine; PCP Family Medicine; Visit Provider Nurse Practitioner Acute Care
PROC: 0BBG0ZZ Excision of Left Upper Lung Lobe, Open Approach (ICD-10-PCS; principal; 2023-12-04 09:10)
DX: A41.9 Sepsis, unspecified organism (principal); J85.0 Gangrene and necrosis of lung; J94.2 Hemothorax; B37.0 Candidal stomatitis; A04.72 Enterocolitis due to Clostridium difficile, not specified as recurrent; J15.4 Pneumonia due to other streptococci; K59.00 Constipation, unspecified; D64.89 Other specified anemias; B95.0 Streptococcus, group A, as the cause of diseases classified elsewhere; J91.8 Pleural effusion in other conditions classified elsewhere; J98.19 Other pulmonary collapse; F11.21 Opioid dependence, in remission; R65.20 Severe sepsis without septic shock; Z20.822 Contact with and (suspected) exposure to COVID-19; Z86.19 Personal history of other infectious and parasitic diseases; Z86.14 Personal history of Methicillin resistant Staphylococcus aureus infection; Z87.891 Personal history of nicotine dependence; Z79.899 Other long term (current) drug therapy
CPT/HCPCS: 0241U; 36415; 71045; 71250; 71275; 76705; 80048; 80076; 80202; 80307; 83605; 83735; 84145; 84443; 84484; 84702; 85007; 85025; 85027; 86850; 86900; 86901; 86923; 87040; 87070; 87073; 87205; 87324; 87389; 87449; 87493; 87522; 87633; 87640; 87641; 87651; 87899; 88112; 88305; 88307; 88309; 88312; 92950; 93005; 93306; 99024; 99285; A7041; C9290; J0131; J0456; J0613; J0665; J0696; J1100; J1170; J1644; J1650; J1885; J1956; J2250; J2270; J2371; J2405; J2543; J2704; J3010; J3371; J3475; J7120; P9016; Q9957; Q9967

== ENCOUNTER → 2023-11-24 03:47 | Outpatient (BNV) | payer OTHER, SELFPAY | PROVIDERS: Emergency Provider Emergency Medicine; Visit Provider Internal Medicine | DX: R00.0 Tachycardia, unspecified (principal) | CPT/HCPCS: 93010 ==

== ENCOUNTER 2023-11-24 15:24 | Outpatient (BNV) | payer OTHER, SELFPAY | END 2023-11-27 07:00 | PROVIDERS: Admitting Provider Physician Assistant; Emergency Provider Emergency Medicine; PCP Family Medicine; Visit Provider Internal Medicine Cardiovascular Disease | DX: J90 Pleural effusion, not elsewhere classified (principal) | CPT/HCPCS: 93306 ==

== ENCOUNTER → 2023-11-24 15:24 | Outpatient (BNV) | payer OTHER, SELFPAY | PROVIDERS: Admitting Provider Physician Assistant; Emergency Provider Emergency Medicine; PCP Family Medicine; Visit Provider Internal Medicine Critical Care Medicine | DX: J15.4 Pneumonia due to other streptococci (principal); J86.9 Pyothorax without fistula; Z90.2 Acquired absence of lung [part of]; Z98.890 Other specified postprocedural states | CPT/HCPCS: 99232; 99291 ==

== ENCOUNTER → 2023-11-24 15:24 | Outpatient (BNV) | payer OTHER, SELFPAY | PROVIDERS: Admitting Provider Physician Assistant; Emergency Provider Emergency Medicine; Visit Provider Internal Medicine | DX: J86.9 Pyothorax without fistula (principal); Z90.2 Acquired absence of lung [part of] | CPT/HCPCS: 99223; 99232; 99233; 99239 ==

== ENCOUNTER → 2023-11-24 15:24 | Outpatient (BNV) | payer OTHER, SELFPAY | PROVIDERS: Admitting Provider Physician Assistant; Emergency Provider Emergency Medicine; Visit Provider Internal Medicine Pulmonary Disease | DX: J15.4 Pneumonia due to other streptococci (principal) | CPT/HCPCS: 99222; 99233 ==

== ENCOUNTER → 2023-11-24 15:24 | Outpatient (BNV) | payer OTHER, SELFPAY | PROVIDERS: Admitting Provider Physician Assistant; Emergency Provider Emergency Medicine; PCP Family Medicine; Visit Provider Physician Assistant Surgical | DX: J94.2 Hemothorax (principal); J86.9 Pyothorax without fistula | CPT/HCPCS: 32480; 32505; 32556; 99223; 99232; 99233 ==

== ENCOUNTER → 2023-11-24 15:24 | Outpatient (BNV) | payer OTHER, SELFPAY | PROVIDERS: Admitting Provider Physician Assistant; Emergency Provider Emergency Medicine; PCP Family Medicine; Visit Provider Internal Medicine | DX: Z90.2 Acquired absence of lung [part of] (principal); J86.9 Pyothorax without fistula; J15.4 Pneumonia due to other streptococci | CPT/HCPCS: 99222; 99232 ==

== ENCOUNTER 2023-12-23 14:54 | Outpatient (AMB) | payer OTHER, SELFPAY ==
[2023-12-23 15:05] VITALS: BP 142/67; PULSE 105; BMI 21.3
--- NOTE | 2023-12-23 15:05 | A.OFFVIS_ITS ---
Intake Vital Signs 12/23/23 15:05 Height 5 ft 7 in Weight 136 lb BMI 21.3 BP 142/67 H Blood Pressure Location Rt brachial Position Sitting Pulse 105 H Intake Visit Reasons: s/p open thoracotomy, left lower lobectomy, Intake Note: Patient here s/p open thoracotomy, lt lower lobectomy on 12-04-23. Patient c/o: tenderness aling incision. Denies oozing. 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 Status post left thoracotomy, for left lower lobe lung abscess. Patient looks markedly improved from recent hospitalization. She has no acute respiratory issues or complaints. She is increasing her activity level. She is tolerating a diet. She has incisional discomfort which is improving. [facility] Medical History Ectopic Former cigarette smoker History of intravenous drug use in remission History of hepatitis C Marijuana smoker History of asthma Surgical History S/P lobectomy of lung (12/04/23) History of appendectomy Social History Household Members: Significant Other Housing: Apartment Do you presently have visiting nurse or other home services: No Comment: refuses bed alarm Patient Tobacco Use Status: Former Tobacco user Quit Date: 2020 Tobacco use type: Cigarette Years Smoked: 14 e-Cigarette/Vaping Use: Never Used Substance Use Type: Marijuana service: No Physical Exam Vital Signs: Last Vital Signs Pulse 105 H 12/23/23 15:05 BP 142/67 H 12/23/23 15:05 BMI result Body Mass Index 21.3 Eyes Other: Anicteric Chest Other: Incision clean dry and intact healing uneventfully. Chest breath sounds bilaterally. GI Other: Soft, benign Assessment & Plan Assessment & Plan (1) S/P lobectomy of lung: Onset Date: 12/04/23 Comment: Dr. Alonso Chanel Code(s): Z90.2 - Acquired absence of lung [part of] (2) Empyema: Code(s): J86.9 - Pyothorax without fistula Plan Patient is doing quite well status post left lower lobectomy for left lung multiple abscesses and empyema. Strongly encouraged to increase activity level and diet. No acute issues at this time. Patient will follow-up with her medical doctor. All questions answered. Coding Level of Care Code Global (11960) Diagnoses S/P lobectomy of lung Z90.2 Empyema J86.9
== END 2023-12-23 15:17 | disposition home or self-care (01) ==
PROVIDERS: PCP Family Medicine; Visit Provider Surgery
DX: Z90.2 Acquired absence of lung [part of] (principal); J86.9 Pyothorax without fistula
CPT/HCPCS: 99024

== ENCOUNTER → 2023-12-23 14:54 | Outpatient (BNVA) | payer OTHER, SELFPAY | PROVIDERS: PCP Family Medicine; Visit Provider Surgery | DX: J86.9 Pyothorax without fistula (principal); Z90.2 Acquired absence of lung [part of] | CPT/HCPCS: 99212 ==

== ENCOUNTER 2024-01-20 14:35 | Outpatient (AMB) | payer OTHER, SELFPAY ==
[2024-01-20 14:45] VITALS: PULSE 121; O2SAT 99; BMI 22.9
--- NOTE | 2024-01-20 14:45 | MHC.OFFVIS ---
Intake Vital Signs 01/20/24 14:45 Height 5 ft 7 in Weight 146 lb BMI 22.9 Pulse 121 H Pulse Source Pulse Oximeter Pulse Oximetry (%) 99 Intake Visit Reasons: ref [facility](from list) Sepsis Allergies No Known Allergies Allergy (Verified 01/21/24 11:29) HPI ref [facility](from list) Sepsis HPI Details She feels better after having had streptococcal pneumonia. She has no current comcerns except dry throat and is going to see ENT. [facility] Medical History Ectopic Former cigarette smoker History of intravenous drug use in remission History of hepatitis C Marijuana smoker History of asthma Surgical History S/P lobectomy of lung (12/04/23) History of appendectomy Social History Household Members: Significant Other Housing: Apartment Do you presently have visiting nurse or other home services: No Comment: refuses bed alarm Patient Tobacco Use Status: Former Tobacco user Quit Date: 2020 Tobacco use type: Cigarette Years Smoked: 14 e-Cigarette/Vaping Use: Never Used Substance Use Type: Marijuana service: No Review of Systems Const All systems reviewed & are unremarkable except as noted in HPI and below Physical Exam Vital Signs: Last Vital Signs Pulse 121 H 01/20/24 14:45 Pulse Ox 99 01/20/24 14:45 BMI result Body Mass Index 22.9 Const General: cooperative Orientation/consciousness: patient oriented x3 HEENT Head: Yes normal to inspection Mouth: Normal oral and palatal mucosa present Eyes General: appearance normal, both eyes and all related structures Pupils: Equal, round and reactive pupils present Resp Effort & Inspection: normal respiratory effort Cardio Rate: regular rate Rhythm: regular rhythm GI Palpation (GI): Soft to palpation and nontender General: Yes no CVA tenderness Back/Spine/Pelvis Back: no CVA tenderness Skin General skin exam: no rashes or lesions noted Neuro General: patient oriented x3 Cranial nerves: Yes CN's II-XII intact bilaterally and Yes Equal, round and reactive pupils present Extrem General: Yes normal to inspection Psych Appearance: grossly normal Assessment & Plan Assessment & Plan (1) Status post lobectomy of lung: Comment: She is feeling better off antibiotics Code(s): Z90.2 - Acquired absence of lung [part of] Plan: Would continue off antibiotics. See prn need. Coding Level of Care Code Est Pt Level 3 (15316) Diagnoses Status post lobectomy of lung Z90.2
== END 2024-01-20 15:07 | disposition home or self-care (01) ==
PROVIDERS: PCP Family Medicine; Visit Provider Internal Medicine
DX: Z90.2 Acquired absence of lung [part of] (principal)
CPT/HCPCS: 99213

== ENCOUNTER → 2024-01-20 14:35 | Outpatient (BNVA) | payer OTHER, SELFPAY | PROVIDERS: PCP Family Medicine; Visit Provider Internal Medicine | DX: Z90.2 Acquired absence of lung [part of] (principal) | CPT/HCPCS: 99212 ==

== ENCOUNTER 2024-01-21 11:24 | Outpatient (AMB) | payer OTHER, SELFPAY ==
[2024-01-21 11:27] VITALS: BP 147/84; PULSE 89; BMI 21.9
--- NOTE | 2024-01-21 11:27 | MHC.OFFVIS ---
Intake Vital Signs 01/21/24 11:27 Height 5 ft 7 in Weight 140 lb BMI 21.9 BP 147/84 H Blood Pressure Location Rt brachial Position Sitting Pulse 89 Intake Visit Reasons: s/p open thoracotomy, left lower lobectomy Intake Note: Patient here s/p open thoracotomy on 12-04-23. Patient c/o: on and off sharp pain. Would like to be cleared to go back to work. 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 Presents here for surgical clearance. Patient was recently seen by infectious disease and was cleared by them. On exam today, patient has no new or acute respiratory symptoms. Her appetite is good her energy is improving her weight is also improving. O2 saturation is 99% [facility] Medical History Ectopic Former cigarette smoker History of intravenous drug use in remission History of hepatitis C Marijuana smoker History of asthma Surgical History S/P lobectomy of lung (12/04/23) History of appendectomy Social History Household Members: Significant Other Housing: Apartment Do you presently have visiting nurse or other home services: No Comment: refuses bed alarm Patient Tobacco Use Status: Former Tobacco user Quit Date: 2020 Tobacco use type: Cigarette Years Smoked: 14 e-Cigarette/Vaping Use: Never Used Substance Use Type: Marijuana service: No Physical Exam Vital Signs: Last Vital Signs Pulse 89 01/21/24 11:27 BP 147/84 H 01/21/24 11:27 BMI result Body Mass Index 21.9 Chest Other: Incision in wounds all clean dry and intact completely healed. Patient has breath sounds bilaterally. Diminished left base consistent with her lobectomy. Clear bilaterally. Assessment & Plan Assessment & Plan (1) Status post lobectomy of lung: Code(s): Z90.2 - Acquired absence of lung [part of] Plan Patient will be given note to commence work with 2 weeks part-time and then recommenced full-time all of which will be light duty for an few weeks time. All Questions answered. Patient will follow-up p.r.n.. Coding Level of Care Code Global (41309) Diagnoses Status post lobectomy of lung Z90.2
== END 2024-01-21 11:34 | disposition home or self-care (01) ==
PROVIDERS: PCP Family Medicine; Visit Provider Surgery
DX: Z90.2 Acquired absence of lung [part of] (principal)
CPT/HCPCS: 99024

== ENCOUNTER → 2024-01-21 11:24 | Outpatient (BNVA) | payer OTHER, SELFPAY | PROVIDERS: PCP Family Medicine; Visit Provider Surgery | DX: Z09 Encounter for follow-up examination after completed treatment for conditions other than malignant neoplasm (principal); Z90.2 Acquired absence of lung [part of] | CPT/HCPCS: 99212 ==

== ENCOUNTER 2024-06-12 09:59 | Outpatient (AMB) | payer OTHER, SELFPAY ==
[2024-06-12 10:03] VITALS: BP 124/76; PULSE 53; RESP 14; TEMP 36.4; O2SAT 99; BMI 24.8
--- NOTE | 2024-06-12 10:03 | MHC.PC.OV ---
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) Outbound Telemarketer Required: No Accompanied by: Self / Same As Patient Allergies No Known Allergies Allergy (Verified 06/12/24 10:12) Medication List - Last Reconciled 06/12/24 by Jason Perez MD cran-C-B.coag-FOS-L.acid-L.rha 250-30-39.5 mg (Probiotic Plus and Cranberry) 1 cap PO DAILY duloxetine 60 mg PO BID gabapentin 200 mg (2 x 100 mg) PO BID lisinopril 5 mg See Protocol PO DAILY lorazepam 0.5 mg PO Q8H PRN Tobacco use date assessed: 06/12/24 Dental Screening Dental Screen Date: 06/12/24 Did you have a dental visit in the last 12 months?: Yes Did you have a dental problem in the last 6 months where you did not have access to dental care?: No Was dental information given to patient?: Patient has dentist HPI 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 ?? Prior PCP:? Dr Kenny Franklin Last office visit/CPE:? 1 yr Acute issue(s):? BP Sleep Apnea and no recent testing. Not using a CPAP. OBGYN managing Mammograms. Cystic breasts ?? PMHx:? Left lower lung abscess - no s/p lobectomy, Anxiety & Depression, Sleep Apnea. h/o Ectopic preg. Nasal Septum perferation. SurgHx:?open thoracotomy, left lower lobectomy, Apendectomy, L fallopian tube FHx:? Mom: Thyroid. Dad: HTN, HLD, Depression. mGM: breast CA. pGM: DM SocHx: Quit cigs 11/17. EtOH: 1-2 dr monthly. MJ Daily. 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 [facility] Medical History Ectopic Former cigarette smoker History of intravenous drug use in remission History of hepatitis C Marijuana smoker History of asthma Surgical History S/P lobectomy of lung (12/04/23) History of appendectomy Family History (Updated 06/12/24 @ 10:14 by RICCO Hitchcock) Other Mental health disorder Social History Household Members: Significant Other Housing: House Do you presently have visiting nurse or other home services: No Comment: refuses bed alarm Patient Tobacco Use Status: Former Tobacco user Tobacco use type: Cigarette Years Smoked: 14 e-Cigarette/Vaping Use: Never Used Substance Use Type: Marijuana service: No Current occupational status: employed 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 1. Little interest or pleasure in doing things: several days 2. Feeling down, depressed, or hopeless: nearly every day 3. Trouble falling or staying asleep, or sleeping too much: several days 4. Feeling tired or having little energy: nearly every day 5. Poor appetite or overeating: nearly every day 6. Feeling bad about yourself - or that you are a failure or have let yourself or your family down: not at all 7. Trouble concentrating on things, such as reading the newspaper or watching television: nearly every day 8. Moving or speaking so slowly that other people could have noticed. Or the opposite - being so fidgety or restless that you have been moving around a lot more than usual: nearly every day 9. Thoughts that you would be better off or of hurting yourself in some way: not at all Total score: 17 Depression Screening Interpretation: Positive Depression Screening Done: Yes 43808 - PHQ-9 Billing: Yes Source: Developed by Drs. Santy Larson, Lia Spicer, Dmitri Taylor and colleagues, with an educational rj from [employer]. Thrive Questionnaire Date Thrive assessed: 11/25/23 I am a: Patient What is your living situation today?: I have a steady place to live Within the past 12 months, did the food you bought not last and you didn't have the money to get more?: Never true Within the past 12 months, did you worry whether your food would run out before you got money to buy more?: Never true Do you have trouble paying for medicines?: No Do you have trouble getting transportation to medical appointments?: No Do you have trouble paying your heating and electricity bill?: No Do you have trouble taking care of your child, family member or friend?: No Do you have trouble with day-to-day activities such as bathing, preparing meals, shopping, managing finances, etc.?: No Are you currently unemployed and looking for a job?: No Are you interested in more education?: No Please select the resources that you would like help with: None Currently or been in a relationship where the following occur: No concerns reported THRIVE Score: 0 AUDIT C Alcohol Use Questionnaire (AUDIT-C) 1. How often do you have a drink containing alcohol?: Monthly or less 2. How many drinks containing alcohol do you have on a typical day when you are drinking?: 1 or 2 3. How often do you have six or more drinks on one occasion?: Never Total Score: 1 MERCY-7 AMB Questionnaire MERCY-7 Date MERCY - 7 assessed: 06/12/24 Feeling nervous, anxious, or on edge: 3 = Nearly every day Not being able to stop or control worryin = Nearly every day Worrying too much about different things: 3 = Nearly every day Trouble relaxin = Nearly every day Being so restless that it is hard to sit still: 3 = Nearly every day Becoming easily annoyed or irritable: 3 = Nearly every day Feeling afraid as if something awful might happen: 1 = Several days Total MERCY-7 score (0-4 normal; 5-9 mild; 10-14 moderate; 15-21 severe): 19 Source: Developed by Drs. Santy Larson, Lia Spicer, Dmitri Taylor and colleagues, with an educational rj from [employer]. MERCY-7 Assessment Billing MERCY-7 Assessment Tool: MERCY-7 Assessment 16401 ACT Questionnaire In the past 4 weeks, how much of the time did your asthma keep you from getting as much done at work, school or at home?: None of the time During the past 4 weeks, how often have you had shortness of breath?: 1-2 times a week During the past 4 weeks, how often did your asthma symptoms wake you up at night or earlier than usual in the morning?: Not at all During the past 4 weeks, how often have you had to use your rescue inhaler or nebulizer medication?: Not at all How would you rate your asthma control during the past 4 weeks?: Completely controlled ACT Interpretation: Positive Score: 24 Review of Systems Const Denies chills, Denies fatigue, Denies fever(s), Denies headache(s) and Denies weakness ENT Denies dizziness and Denies headache(s) Card Denies chest pain, Denies lightheadedness, Denies dyspnea and Denies other (Palpitations) Resp Denies cough, Denies dyspnea, Denies wheezing and Denies other ( shortness of breath) Musc Denies numbness and Denies tingling Neuro Denies dizziness, Denies headache(s), Denies numbness, Denies tingling, Denies paresthesias and Denies weakness Psych Reports anxiety and Reports depression Endo Denies fatigue Aller/Immun Denies wheezing Physical exam (Primary Care) Vital Signs: Last Vital Signs Temp 97.5 F 06/12/24 10:03 Pulse 53 06/12/24 10:03 Resp 14 06/12/24 10:03 BP 124/76 06/12/24 10:03 Pulse Ox 99 06/12/24 10:03 Oxygen Delivery Method Room Air 06/12/24 10:03 BMI result Body Mass Index 24.8 Tobacco/Smoking Status: Tobacco use Status Tobacco use date assessed 06/12/24 06/12/24 10:18 Patient Tobacco Use Status Former Tobacco user 06/12/24 10:05 Tobacco use type Cigarette 06/12/24 10:05 e-Cigarette/Vaping Use Never Used 06/12/24 10:05 PHQ-9: PHQ-9 Score PHQ-9: Total score 17 06/12/24 10:25 Depression Screening Interpretation: Positive Thrive Assessment: Date of Thrive Assessment Date Thrive assessed 11/25/23 06/12/24 10:05 Currently or been in a relationship where the following occur: No concerns reported Const General: no acute distress and well developed Nutritional Appearance: well nourished Orientation/consciousness: patient oriented x3 HENMT Head: Yes normocephalic and Yes atraumatic Eyes General: appearance normal, both eyes and all related structures Pupils: Equal, round and reactive pupils present EOM: EOMs intact bilaterally Resp Other: Diminished breath sounds L lower lung field Effort & Inspection: normal respiratory effort Auscultation: not clear to auscultation bilaterally Cardio Rate: regular rate Rhythm: regular rhythm Heart sounds: S1 normal heart sound present, S2 normal heart sound present, no gallops, no murmurs and no rubs Neuro General: patient oriented x3 and gait normal Cranial nerves: Yes Equal, round and reactive pupils present Psych Affect: normal affect Assessment and Plan Assessment & Plan (1) Sleep apnea: Code(s): G47.30 - Sleep apnea, unspecified Plan: History?of?sleep?apnea.??No?recent?testing?and?is?not?currently?using?a?CPAP?machine. Referred?to?Sleep?Medicine (2) Hypertension: Code(s): I10 - Essential (primary) hypertension Plan: Blood?pressure?today?appears?well?controlled?though?she?says?her?blood?pressures?are?not?always?well?controlled?when?it?is?checked. Gave?patient?a?script?for?a?blood?pressure?monitor. She?is?currently?on?lisinopril?5?mg?daily.??If?she?consistently?has?blood?pressures?greater?than?140/90,?she?will?take?2?tablets?(10?mg)?and?she?can?let?me?know?if?this?is?persistent-will?then?send?her?a?script?for?10?mg?tablets. (3) Anxiety with depression: Code(s): F41.8 - Other specified anxiety disorders Plan: Patient?has?psychiatrist?and?therapist. Follow-up?with?psychiatry?team?as?recommended (4) Former cigarette smoker: Code(s): Z87.891 - Personal history of nicotine dependence Plan: Stable (5) Breast cancer screening by mammogram: Code(s): Z12.31 - Encounter for screening mammogram for malignant neoplasm of breast Plan: Patient?is?followed?by?her?nuclear equipment sales engineer?regarding?mammograms.? (6) Status post lobectomy of lung: Comment: She is feeling better off antibiotics Code(s): Z90.2 - Acquired absence of lung [part of] Plan: Stable.??Patient?is?breathing?easily Lungs?are?clear?though?she?has?diminished?breath?sounds?at?left?lower?lung?field (7) Laboratory exam ordered as part of routine general medical examination: Code(s): Z00.00 - Encounter for general adult medical examination without abnormal findings Plan: Check?lab Orders: Orders Complete Blood Count Auto Diff Today Z00.00 - Encounter for general adult medical examination without abnormal findings Microalbumin, Random (w Creat) Today I10 - Essential (primary) hypertension TSH reflex Free T4 Today Z00.00 - Encounter for general adult medical examination without abnormal findings Vitamin D 25-OH Total Today E55.9 - Vitamin D deficiency, unspecified Comprehensive [place]. Panel Fast Today Z00.00 - Encounter for general adult medical examination without abnormal findings Lipid Panel Today Z00.00 - Encounter for general adult medical examination without abnormal findings UA and rflx microscopic Today Z00.00 - Encounter for general adult medical examination without abnormal findings Vitamin B12 and Folate Today E53.8 - Deficiency of other specified B group vitamins Referrals Sleep Medicine Referral G47.30 - Sleep apnea, unspecified Medications: New blood pressure monitor Automatic, Digital. Dx: I10. Daily As directed, 999 days/lifetime 1 ea 0RF I10 - Essential (primary) hypertension lidocaine 4% 1 appl topical TID 30 days PRN 113 grams 1RF pain Coding Level of Care Code New Pt Level 3 (45694) Diagnoses Sleep apnea G47.30 Hypertension I10 Anxiety with depression F41.8 Former cigarette smoker Z87.891 Breast cancer screening by mammogram Z12.31 Status post lobectomy of lung Z90.2 Laboratory exam ordered as part of routine general medical examination Z00.00 Additional Codes MERCY-7 Assessment Billing - MERCY-7 Assessment Tool: MERCY-7 Assessment 30573 ([id number])
== END 2024-06-12 11:13 | disposition home or self-care (01) ==
PROVIDERS: PCP Family Medicine; Visit Provider Family Medicine
DX: G47.30 Sleep apnea, unspecified (principal); I10 Essential (primary) hypertension; F41.8 Other specified anxiety disorders; Z87.891 Personal history of nicotine dependence; Z12.31 Encounter for screening mammogram for malignant neoplasm of breast; Z90.2 Acquired absence of lung [part of]
CPT/HCPCS: 99203

== ENCOUNTER 2024-10-19 13:17 | Outpatient (AMB) | payer OTHER, SELFPAY ==
--- NOTE | 2024-10-19 13:21 | MHC.PC.OV ---
Vital Signs 10/19/24 13:28 Height 5 ft 7 in Weight 168 lb BMI 26.3 BP 130/76 Blood Pressure Location Rt brachial Position Sitting Respiration 16 Pulse 83 Pulse Source Pulse Oximeter Temp 98.2 F Temp Source Oral Pulse Oximetry (%) 99 Oxygen Delivery Method Room Air Intake Visit Reasons: High BP, blood vessel in eye Intake Note: patient here for follow up on high BP and blood vessel in eye Board Certified Orthodontist Required: No Is last menstrual period known: Yes Last menstrual period: 09/20/24 Post menopausal: No Patient : No Allergies No Known Allergies Allergy (Verified 10/19/24 13:45) Medication List - Last Reconciled 10/19/24 by Keagan Waddell CNP blood pressure monitor Automatic, Digital. Dx: I10. Daily As directed, 999 days/lifetime cran-C-B.coag-FOS-L.acid-L.rha 250-30-39.5 mg (Probiotic Plus and Cranberry) 1 cap PO DAILY duloxetine 60 mg PO BID gabapentin 200 mg (2 x 100 mg) PO BID lisinopril 5 mg See Protocol PO DAILY lorazepam 0.5 mg PO Q8H PRN Tobacco use date assessed: 10/19/24 Dental Screening Dental Screen Date: 10/19/24 Did you have a dental visit in the last 12 months?: Yes Did you have a dental problem in the last 6 months where you did not have access to dental care?: No Was dental information given to patient?: Patient has dentist HPI HPI Comments History of Present Illness Details The patient is a 34-year-old female presenting with a subconjunctival hemorrhage in the right eye. The condition was first noted last when the patient awoke with a red eye, which worsened the following day. The patient associates the onset with high blood pressure, as indicated by a friend who is a medical cash poster. The patient recalls being diagnosed with essential hypertension in November following a hospitalization for a lobectomy. The patient's blood pressure recordings in the days preceding the visit ranged from 130s to 150s systolic over 90s diastolic. The patient reports adherence to a prescribed daily dose of 5 mg lisinopril. No visual disturbances, pain, or headaches have been associated with the hemorrhage. The patient denies any physical trauma or injury to the eye. The redness is reportedly improving. The patient has also admitted to marijuana edible consumption prior to the hemorrhage but has since ceased their intake. [facility] Medical History (Updated 10/19/24 @ 14:11 by Keagan Waddell CNP) Ectopic Former cigarette smoker History of intravenous drug use in remission History of hepatitis C Marijuana smoker History of asthma Surgical History (Updated 01/31/24 @ 16:36 by Breanna Vizcarra MD) S/P lobectomy of lung (12/04/23) History of appendectomy Family History (Updated 06/12/24 @ 10:14 by RCICO Hitchccok) Other Mental health disorder Social History Household Members: Significant Other Housing: House Do you presently have visiting nurse or other home services: No Comment: refuses bed alarm Patient Tobacco Use Status: Former Tobacco user Tobacco use type: Cigarette Years Smoked: 14 e-Cigarette/Vaping Use: Never Used Second Hand Smoke Exposure: No Substance Use Type: Marijuana Patient : No service: No Current occupational status: employed 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 1. Little interest or pleasure in doing things: nearly every day 2. Feeling down, depressed, or hopeless: nearly every day 3. Trouble falling or staying asleep, or sleeping too much: nearly every day 4. Feeling tired or having little energy: nearly every day 5. Poor appetite or overeating: nearly every day 6. Feeling bad about yourself - or that you are a failure or have let yourself or your family down: nearly every day 7. Trouble concentrating on things, such as reading the newspaper or watching television: nearly every day 8. Moving or speaking so slowly that other people could have noticed. Or the opposite - being so fidgety or restless that you have been moving around a lot more than usual: nearly every day 9. Thoughts that you would be better off or of hurting yourself in some way: not at all Total score: 24 Depression Screening Interpretation: Positive Depression Screening Follow-up: Existing condition and In treatment Depression Screening Done: Yes Source: Developed by Drs. Santy Larson, Lia Spicer, Dmitri Taylor and colleagues, with an educational rj from [employer]. Thrive Questionnaire Date Thrive assessed: 10/19/24 I am a: Patient What is your living situation today?: I have a steady place to live Within the past 12 months, did the food you bought not last and you didn't have the money to get more?: Never true Within the past 12 months, did you worry whether your food would run out before you got money to buy more?: Never true Do you have trouble paying for medicines?: No Do you have trouble getting transportation to medical appointments?: No Do you have trouble paying your heating and electricity bill?: No Do you have trouble taking care of your child, family member or friend?: No Do you have trouble with day-to-day activities such as bathing, preparing meals, shopping, managing finances, etc.?: No Are you currently unemployed and looking for a job?: No Are you interested in more education?: No Please select the resources that you would like help with: None Currently or been in a relationship where the following occur: No concerns reported THRIVE Score: 0 AUDIT C Alcohol Use Questionnaire (AUDIT-C) 1. How often do you have a drink containing alcohol?: Monthly or less 2. How many drinks containing alcohol do you have on a typical day when you are drinking?: 1 or 2 3. How often do you have six or more drinks on one occasion?: Never Total Score: 1 MERCY-7 AMB Questionnaire MERCY-7 Date MERCY - 7 assessed: 06/12/24 Feeling nervous, anxious, or on edge: 3 = Nearly every day Not being able to stop or control worryin = Nearly every day Worrying too much about different things: 3 = Nearly every day Trouble relaxin = Nearly every day Being so restless that it is hard to sit still: 3 = Nearly every day Becoming easily annoyed or irritable: 3 = Nearly every day Feeling afraid as if something awful might happen: 3 = Nearly every day Total MERCY-7 score (0-4 normal; 5-9 mild; 10-14 moderate; 15-21 severe): 21 Source: Developed by Drs. Santy Larson, Dmitri Franco Kroenke and colleagues, with an educational rj from [employer]. Review of Systems Const Details: Const Denies chills, Denies fatigue, Denies fever(s), Denies headache(s) and Denies weakness ENT Reports as per HPI Card Denies chest pain, Denies lightheadedness, Denies dyspnea and Denies other (Palpitations) Resp Denies cough, Denies dyspnea, Denies wheezing and Denies other ( shortness of breath) GI Denies abdominal pain, Denies melena, Denies hematochezia, Denies change in bowel habits, Denies dyspepsia and Denies nausea Denies hematuria and Denies dysuria Musc Denies abnormal gait, Denies myalgias, Denies arthralgias, Denies numbness and Denies tingling Skin/Breast Denies rash, Denies unusual bruising and Denies wounds Neuro Denies abnormal gait, Denies dizziness, Denies headache(s), Denies memory loss, Denies numbness, Denies Sensory deficit (Neuro), Denies tingling and Denies weakness Psych Reports anxiety, Reports depression, Denies memory loss Endo Denies cold intolerance, Denies fatigue, Denies heat intolerance, Denies polydipsia and Denies polyuria Aller/Immun Denies wheezing Physical exam (Primary Care) Vital Signs: Last Vital Signs Temp 98.2 F 10/19/24 13:28 Pulse 83 10/19/24 13:28 Resp 16 10/19/24 13:28 BP 130/76 10/19/24 13:28 Pulse Ox 99 10/19/24 13:28 Oxygen Delivery Method Room Air 10/19/24 13:28 BMI result Body Mass Index 26.3 Tobacco/Smoking Status: Tobacco use Status Tobacco use date assessed 10/19/24 10/19/24 13:31 Patient Tobacco Use Status Former Tobacco user 10/19/24 13:25 Tobacco use type Cigarette 10/19/24 13:25 e-Cigarette/Vaping Use Never Used 10/19/24 13:25 PHQ-9: PHQ-9 Score PHQ-9: Total score 10/19/24 13:25 Depression Screening Interpretation: Positive Depression Screening Follow-up: Existing condition and In treatment Thrive Assessment: Date of Thrive Assessment Date Thrive assessed 10/19/24 10/19/24 13:25 Currently or been in a relationship where the following occur: No concerns reported Const Other: General: no acute distress and well developed Nutritional Appearance: well nourished Orientation/consciousness: patient oriented x3 [facility] Head: Yes normocephalic and Yes atraumatic Eyes General: appearance normal, both eyes and all related structures. Noted subconjunctival hemorrhage above the right conjunctiva Pupils: Equal, round and reactive pupils present EOM: EOMs intact bilaterally Resp Effort & Inspection: normal respiratory effort Auscultation: clear to auscultation bilaterally Cardio Rate: regular rate Rhythm: regular rhythm Heart sounds: S1 normal heart sound present, S2 normal heart sound present, no gallops, no murmurs and no rubs GI Palpation (GI): No Abdominal aortic bruit present, Soft to palpation, nontender, No hepatosplenomegaly present and No Rebound tenderness present Auscultation: normal bowel sounds General: Yes no CVA tenderness Back/Spine/Pelvis Back: no CVA tenderness Cervical Spine: cervical ROM normal and No Cervical spine tenderness Thoracic/Lumbar Spine: thoraco-lumbar ROM normal, No pain with thoraco-lumbar ROM, No thoracic spinal tenderness and No lumbar spinal tenderness Extrem General: Yes normal to inspection, No edema and No calf tenderness Skin General: warm and dry. Normal skin color. Normal skin turgor Lesions: no lesions Rashes: no rashes Trauma: no lacerations or abrasions Wounds: no wounds Nails: normal Neuro General: patient oriented x3, gait normal and no focal neuro deficit Cranial nerves: Yes Equal, round and reactive pupils present Cognition (Neuro): normal cognition Gait exam (Neuro): Normal gait present Sensory Exam: No Sensory deficit (Neuro) Psych Appearance: grossly normal Affect: normal affect Attitude: cooperative Thought process: Normal thought process present Coding Level of Care Code Est Pt Level 4 (30967) Complex EM visit Add On G2211 Diagnoses Hypertension I10 Anxiety with depression F41.8 Subconjunctival hemorrhage of right eye H11.31 Assessment & Plan Assessment & Plan (1) Hypertension: Code(s): I10 - Essential (primary) hypertension Category: Medical Plan: Continue current regimen of lisinopril 5 mg daily. Blood pressure is currently within acceptable range. Monitor dietary sodium and caffeine intake. (2) Anxiety with depression: Code(s): F41.8 - Other specified anxiety disorders Category: Medical Plan: Continue with psychotherapy and current psychotropic medications. Encourage regular physical activity to aid mood improvement. (3) Subconjunctival hemorrhage of right eye: Code(s): H11.31 - Conjunctival hemorrhage, right eye Category: Medical Plan: Condition appears benign and is improving without intervention. No additional medication adjustments needed. Monitor for eye pain, visual disturbances, or headaches. Plan We discussed the potential causes for the right eye subconjunctival hemorrhage, noting it's not likely related to blood pressure and is improving as expected. We considered possible etiological factors like straining or coughing. I advised on continuing blood pressure management with lisinopril and emphasized a low sodium and caffeine diet. I addressed the patient's concerns about anxiety and depression, suggesting consistent therapy and the potential benefits of regular exercise. The need for adherence to psychotropic medications was highlighted. Patient Instructions: - Continue taking lisinopril 5 mg daily as prescribed. - Maintain a diet low in sodium and caffeine. - Keep monitoring blood pressure; continue to document readings. - Continue therapy and psychotropic medication as scheduled. - Engage in regular physical activity to support mood. - Monitor for any new symptoms such as eye pain or visual disturbances, and report if they occur. - Complete fasting labs as ordered by the provider before follow-up appointment. Patient was informed and verbally consented to the use of an ambient scribe for clinic note documentation during this visit.
[2024-10-19 13:28] VITALS: BP 130/76; PULSE 83; RESP 16; TEMP 36.8; O2SAT 99; BMI 26.3
== END 2024-10-19 14:06 | disposition home or self-care (01) ==
PROVIDERS: PCP Family Medicine; Visit Provider Nurse Practitioner Family
DX: I10 Essential (primary) hypertension (principal); F41.8 Other specified anxiety disorders; H11.31 Conjunctival hemorrhage, right eye

== ENCOUNTER → 2024-10-19 13:17 | Outpatient (BNVA) | payer OTHER, SELFPAY | PROVIDERS: PCP Family Medicine; Visit Provider Nurse Practitioner Family | DX: I10 Essential (primary) hypertension (principal); F41.8 Other specified anxiety disorders; H11.31 Conjunctival hemorrhage, right eye | CPT/HCPCS: 96127; 99212 ==

== ENCOUNTER 2024-12-02 06:14 | Outpatient (REF) | payer OTHER, SELFPAY ==
[2024-12-02 06:34] LABS: MANUAL DIFF FLAG NO
[2024-12-02 07:23] LABS: Basophils Percent Auto 0.5 % (0-2); Eosinophils Absolute Auto 0.3 X10*3/uL (0.0-0.4); Eosinophils Percent Auto 4.1 % (0-4); Hematocrit 43.7 % (37.0-47.0); Hemoglobin 14.5 g/dl (12.0-16.0); Imm Gran Abs Auto 0.02 X10*3/uL (0.00-0.03); Imm Gran Pct Auto 0.3 % (0.0-0.4); Lymphocytes Absolute Auto 2.4 X10*3/uL (1.2-4.9); Lymphocytes Percent Auto 31.7 % (20-40); Mean Corpuscular HGB Conc 33.2 g/dl (31.0-35.0); Mean Corpuscular Volume 90.3 fL (80.0-98.0); Monocytes Absolute Auto 0.5 X10*3/uL (0.1-1.2); Neutrophils Absolute Auto 4.2 x10*3/uL (2.0-8.3); Neutrophils Percent Auto 56.4 % (45-73); Platelet Count 206 X10*3/uL (160-400); Red Blood Count 4.84 X10*6/uL (4.20-5.50); Red Cell Distribution Width 12.9 % (11.0-16.0); White Blood Count 7.5 X10*3/uL (4.8-10.8)
[2024-12-02 07:46] LABS: Appearance Urine Clear; Color Urine Yellow; Glucose Urine UA Negative (Negative); Leukocyte Esterase Urine Negative (Negative); Nitrite Urine Negative (Negative); PH 5.5 (5.0-9.0); Specific Gravity - Urine >= 1.030 (1.005-1.025); Urine Blood Negative (Negative); Urine Ketones Trace mg/dL (Negative); Urine Protein Negative (Neg-Trace)
[2024-12-02 07:50] LABS: Alanine Aminotransferase 15 U/L (0-31); Albumin Level 4.1 g/dL (3.5-5.0); Anion Gap 12 (12-20); Aspartate Amino Transferase 41 U/L (5-31); Bilirubin Total 0.3 mg/dL (0.0-1.0); Blood Urea Nitrogen 7 mg/dL (9-16); Calcium 9.3 mg/dL (8.4-10.2); Carbon Dioxide 24 mmol/L (22-29); Chloride 109 mmol/L (96-108); Cholesterol 230 mg/dL (<200); Estimated Glomerular Filt Rate > 60; Glucose Fasting 83 mg/dL (60-99); HDL Cholesterol 51 mg/dL (>40); LDL Cholesterol Calculated 156 mg/dL (<100); Potassium 4.7 mmol/L (3.3-5.1); Sodium 140 mmol/L (135-145); Total Protein 7.7 g/dL (6.5-8.0); Triglycerides 117 mg/dL (<150)
[2024-12-02 08:01] LABS: Alkaline Phosphatase 38 U/L (39-117)
[2024-12-02 08:02] LABS: TSH reflex Free T4 0.52 uIU/mL (0.32-4.0); Vitamin D 25-OH Total 16.8 ng/mL (>30)
[2024-12-02 08:13] LABS: Folate 8.1 ng/mL (> or = 4.0); Vitamin B12 288 pg/mL (200-900)
[2024-12-02 08:25] LABS: Creatinine Urine 295.51 mg/dL
== END 2024-12-02 06:15 | disposition home or self-care (01) ==
LOC: HO.LAB 06:14
PROVIDERS: PCP Family Medicine; Visit Provider Family Medicine
DX: Z00.00 Encounter for general adult medical examination without abnormal findings (principal); I10 Essential (primary) hypertension; E55.9 Vitamin D deficiency, unspecified; E53.8 Deficiency of other specified B group vitamins
CPT/HCPCS: 36415; 80053; 80061; 81003; 82043; 82306; 82570; 82607; 82746; 84443; 85025

== ENCOUNTER 2024-12-04 11:53 | Outpatient (AMB) | payer OTHER, SELFPAY ==
--- NOTE | 2024-12-04 12:09 | A.OFFPC_ITS ---
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 Blood pressure today 132/78, 62p. She is on lisinopril 5mg daily. Labs drawn 12/02/24. Reviewed labs with pt. Elevated AST of 41. Triglycerides 117. TC 230. LDL 156. HDL 51. Low vitamin D at 16.8. HPI Comments History of Present Illness Details Documentation assistance for Jason Perez MD, was provided by Liam Longoria, College Administrator on 12/04/2024 at 1:30 PM EST. I, Dr. Perez, have read, observed, and verified documentation. [facility] Medical History Ectopic Former cigarette smoker History of intravenous drug use in remission History of hepatitis C Marijuana smoker History of asthma Surgical History S/P lobectomy of lung (12/04/23) History of appendectomy Family History Other Mental health disorder Social History Household Members: Significant Other Housing: House Do you presently have visiting nurse or other home services: No Comment: refuses bed alarm Patient Tobacco Use Status: Former Tobacco user Tobacco use type: Cigarette Years Smoked: 14 e-Cigarette/Vaping Use: Never Used Second Hand Smoke Exposure: No Substance Use Type: Marijuana service: No Current occupational status: employed 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 1. Little interest or pleasure in doing things: several days 2. Feeling down, depressed, or hopeless: several days 3. Trouble falling or staying asleep, or sleeping too much: several days 4. Feeling tired or having little energy: several days 5. Poor appetite or overeating: several days 6. Feeling bad about yourself - or that you are a failure or have let yourself or your family down: not at all 7. Trouble concentrating on things, such as reading the newspaper or watching television: several days 8. Moving or speaking so slowly that other people could have noticed. Or the opposite - being so fidgety or restless that you have been moving around a lot more than usual: several days 9. Thoughts that you would be better off or of hurting yourself in some way: not at all Total score: 7 Depression Screening Interpretation: Negative Depression Screening Done: Yes 36609 - PHQ-9 Billing: Yes Source: Developed by Drs. Santy Larson, Lia Spicer, Dmitri Taylor and colleagues, with an educational rj from [employer]. Thrive Questionnaire Date Thrive assessed: 12/04/24 I am a: Patient What is your living situation today?: I have a steady place to live Within the past 12 months, did the food you bought not last and you didn't have the money to get more?: Never true Within the past 12 months, did you worry whether your food would run out before you got money to buy more?: Never true Do you have trouble paying for medicines?: No Do you have trouble getting transportation to medical appointments?: No Do you have trouble paying your heating and electricity bill?: No Do you have trouble taking care of your child, family member or friend?: No Do you have trouble with day-to-day activities such as bathing, preparing meals, shopping, managing finances, etc.?: No Are you currently unemployed and looking for a job?: No Are you interested in more education?: No Please select the resources that you would like help with: None Currently or been in a relationship where the following occur: No concerns reported THRIVE Score: 0 AUDIT C Alcohol Use Questionnaire (AUDIT-C) 1. How often do you have a drink containing alcohol?: Monthly or less 2. How many drinks containing alcohol do you have on a typical day when you are drinking?: 1 or 2 3. How often do you have six or more drinks on one occasion?: Never Total Score: 1 Score Reviewed/Action Taken: Yes MERCY-7 AMB Questionnaire MERCY-7 Date MERCY - 7 assessed: 12/04/24 Feeling nervous, anxious, or on edge: 3 = Nearly every day Not being able to stop or control worryin = More than half the days Worrying too much about different things: 2 = More than half the days Trouble relaxin = More than half the days Being so restless that it is hard to sit still: 2 = More than half the days Becoming easily annoyed or irritable: 1 = Several days Feeling afraid as if something awful might happen: 1 = Several days Total MERCY-7 score (0-4 normal; 5-9 mild; 10-14 moderate; 15-21 severe): 13 Source: Developed by Drs. Santy Larson, Lia Spicer, Dmitri Taylor and colleagues, with an educational jr from [employer]. MERCY-7 Assessment Billing MERCY-7 Assessment Tool: MERCY-7 Assessment 73140 Review of Systems Const Denies chills, Denies fatigue, Denies fever(s), Denies headache(s) and Denies weakness ENT Denies dizziness and Denies headache(s) Card Denies dyspnea Resp Denies cough, Denies dyspnea, Denies wheezing and Denies other (shortness of breath) Musc Denies numbness and Denies tingling Neuro Denies dizziness, Denies headache(s), Denies numbness, Denies tingling and Denies weakness Psych Denies anxiety and Denies depression Endo Denies fatigue Aller/Immun Denies wheezing Physical exam (Primary Care) Vital Signs: Last Vital Signs Pulse 62 12/04/24 12:11 BP 132/78 12/04/24 12:11 Pulse Ox 99 12/04/24 12:11 BMI result Body Mass Index 25.5 Tobacco/Smoking Status: Tobacco use Status Tobacco use date assessed 12/04/24 12/04/24 12:12 Patient Tobacco Use Status Former Tobacco user 12/04/24 12:12 Tobacco use type Cigarette 12/04/24 12:12 e-Cigarette/Vaping Use Never Used 12/04/24 12:12 PHQ-9: PHQ-9 Score PHQ-9: Total score 7 12/04/24 13:15 Depression Screening Interpretation: Negative Thrive Assessment: Date of Thrive Assessment Date Thrive assessed 12/04/24 12/04/24 12:12 Currently or been in a relationship where the following occur: No concerns reported Const General: well developed; No acute distress Nutritional Appearance: well nourished Orientation/consciousness: patient oriented x3 [facility] Head: Yes normocephalic and Yes atraumatic Eyes General: appearance normal, both eyes and all related structures Pupils: Equal, round and reactive pupils present EOM: EOMs intact bilaterally Resp Effort & Inspection: normal respiratory effort Neuro General: patient oriented x3 and gait normal Cranial nerves: Yes Equal, round and reactive pupils present Psych Affect: normal affect Coding Level of Care Code Est Pt Level 4 (73713) Diagnoses Hypertension I10 Subconjunctival hemorrhage of right eye H11.31 Elevated LDL cholesterol level E78.00 Low vitamin D level R79.89 Elevated AST (SGOT) R74.01 Additional Codes MERCY-7 Assessment Billing - MERCY-7 Assessment Tool: MERCY-7 Assessment 13665 ([id number]) PHQ-9 - 21348 - PHQ-9 Billing: Yes ([id number]) Assessment & Plan Assessment & Plan (1) Hypertension: Code(s): I10 - Essential (primary) hypertension Category: Medical Plan: Blood?pressure?is?fairly?well?controlled. Increasing?lisinopril?from?5?mg?daily?to?10?mg?daily (2) Subconjunctival hemorrhage of right eye: Code(s): H11.31 - Conjunctival hemorrhage, right eye Category: Medical Plan: Resolved (3) Elevated LDL cholesterol level: Code(s): E78.00 - Pure hypercholesterolemia, unspecified Category: Medical Plan: LDL?cholesterol?is?too?high. Reviewed?high?cholesterol?foods?and?patient?notes?that?she?eats?many?of?these. She?will?work?on?dietary?and?lifestyle?changes. She?can?get?these?rechecked?prior?to?her?next?visit?in?discuss. (4) Low vitamin D level: Code(s): R79.89 - Other specified abnormal findings of blood chemistry Category: Medical Plan: Vitamin-D?level?is?quite?low Will?give?her?a?supplement?she?can?use?through?the?winter?months Can?recheck?levels?with?her?next?blood (5) Elevated AST (SGOT): Code(s): R74.01 - Elevation of levels of liver transaminase levels Category: Medical Plan: Liver?enzyme?is?elevated. Also?note?that?patient's? labs?suggest?she?was?somewhat?dehydrated?and?she?says?she?had?only?had?sips?of?w ater?for?many?hours. She?does?not?drink?alcohol,?she?does?not?use?much?Tylenol.??She?does?have?a?dist ant?history?of?hepatitis?C?but?this?was?cleared. Will?have?her?improve?hydration, avoid?any?Tylenol?or?alcohol Will?recheck?liver?enzymes?prior?to?next?visit Orders: Orders Comprehensive [place]. Panel Fast Today R74.01 - Elevation of levels of liver transaminase levels, Z00.00 - Encounter for general adult medical examination without abnormal findings Lipid Panel Today E78.00 - Pure hypercholesterolemia, unspecified, Z00.00 - Encounter for general adult medical examination without abnormal findings Vitamin D 25-OH Total Today E55.9 - Vitamin D deficiency, unspecified, R79.89 - Other specified abnormal findings of blood chemistry Medications: New cholecalciferol (vitamin D3) 50 mcg PO DAILY 90 caps 0RF 90 days R79.89 - Other specified abnormal findings of blood chemistry Changed From lisinopril 5 mg See Protocol PO DAILY 30 tabs 0RF To lisinopril 10 mg See Protocol PO DAILY 180 tabs 3RF 90 days
[2024-12-04 12:11] VITALS: BP 132/78; PULSE 62; O2SAT 99; BMI 25.5
== END 2024-12-04 13:30 | disposition home or self-care (01) ==
PROVIDERS: PCP Family Medicine; Visit Provider Family Medicine
DX: I10 Essential (primary) hypertension (principal); H11.31 Conjunctival hemorrhage, right eye; E78.00 Pure hypercholesterolemia, unspecified; R79.89 Other specified abnormal findings of blood chemistry; R74.01 Elevation of levels of liver transaminase levels

== ENCOUNTER → 2024-12-04 11:53 | Outpatient (BNVA) | payer OTHER, SELFPAY | PROVIDERS: PCP Family Medicine; Visit Provider Family Medicine | DX: I10 Essential (primary) hypertension (principal); H11.31 Conjunctival hemorrhage, right eye; E78.00 Pure hypercholesterolemia, unspecified; R79.89 Other specified abnormal findings of blood chemistry; R74.01 Elevation of levels of liver transaminase levels | CPT/HCPCS: 96127; 99212 ==

== ENCOUNTER 2025-04-20 08:09 | Outpatient (REF) | payer OTHER, SELFPAY ==
[2025-04-20 10:46] LABS: Alanine Aminotransferase 9 U/L (0-31); Albumin Level 3.8 g/dL (3.5-5.0); Alkaline Phosphatase 33 U/L (39-117); Anion Gap 10 (12-20); Aspartate Amino Transferase 16 U/L (5-31); Bilirubin Total 0.7 mg/dL (0.0-1.0); Blood Urea Nitrogen 8 mg/dL (9-16); Calcium 8.6 mg/dL (8.4-10.2); Carbon Dioxide 26 mmol/L (22-29); Chloride 107 mmol/L (96-108); Cholesterol 209 mg/dL (<200); Estimated Glomerular Filt Rate > 60; Glucose Fasting 85 mg/dL (60-99); HDL Cholesterol 45 mg/dL (>40); LDL Cholesterol Calculated 137 mg/dL (<100); Potassium 3.8 mmol/L (3.3-5.1); Sodium 139 mmol/L (135-145); Total Protein 6.5 g/dL (6.5-8.0); Triglycerides 139 mg/dL (<150)
[2025-04-20 11:08] LABS: Vitamin D 25-OH Total 90.9 ng/mL (>30)
== END 2025-04-20 08:10 | disposition home or self-care (01) ==
LOC: HO.HMGCLDS 08:09
PROVIDERS: PCP Family Medicine; Visit Provider Family Medicine
DX: Z00.00 Encounter for general adult medical examination without abnormal findings (principal); E78.00 Pure hypercholesterolemia, unspecified; E55.9 Vitamin D deficiency, unspecified; R79.89 Other specified abnormal findings of blood chemistry; R74.01 Elevation of levels of liver transaminase levels
CPT/HCPCS: 36415; 80053; 80061; 82306

== ENCOUNTER 2025-08-30 10:02 | Outpatient (AMB) | payer OTHER, SELFPAY ==
--- OUTSIDE RECORDS SUMMARY | 2025-08-24 07:27 | XMS_ITS | Encounter Summary ---
[facility] Address [address] [place] [address] Care Team Providers Care Electrical Power Engineer Name Role Phone Jason Perez MD Primary Care Provider [phone] Reason for Referral * Imaging (Routine) - Closed Specialty Diagnoses / Procedures Referred By Dolly olivas Referred To Contact Radiology Diagnoses Breast mass Procedures US Breast Limited Jason Piña MD [address] [address] Phone: tel: fax: [facility] Referral ID Status Reason Start Date Expiration Date Visits Re quested Visits Authorized [id number] Closed 12/22/2024 12/22/2025 1 1 Reason for Visit * Imaging (Routine) - Closed Specialty Diagnoses / Procedures Referred By Dolly olivas Referred To Contact Radiology Diagnoses Breast mass Procedures US Breast Limited Jason Piña MD [address] [address] Phone: tel: fax: [facility] Referral ID Status Reason Start Date Expiration Date Visits Re quested Visits Authorized [id number] Closed 12/22/2024 12/22/2025 1 1 Encounter Details Date Type Department Care Team (Latest Contact Info) Description 08/24/2025 7:27 AM EDT - 08/24/2025 11:59 PM EDT Hospital Encounter [facility] Ultrasound [address] [place] [id number] Breast mass Discharge Disposition: Home or Self Care Social History Tobacco Use Types Packs/Day Years Used Date Smoking Tobacco: Never Assessed Comments Unknown Sex and Gender Information Value Date Recorded Sex Assigned at Not on file Legal Sex Female 1:39 PM EDT Gender Identity Not on file Sexual Orientation Not on file documented as of this encounter Discharge Disposition Disposition Code Departure Means Destination Home or Self Care documented in this encounter Plan of Treatment Upcoming Encounters Date Type Department Care Team (Late st Contact Info) Description 02/15/2026 10:00 AM EDT Appointment [facility] Ultrasound [address] [place] [address] documented as of this encounter Procedures Procedure Name Priority Date/Time Associated Diagnosis Comments US BREAST LIMITED BILAT Routine 08/24/2025 8:11 AM EDT Breast mass documented in this encounter Results * US Breast Limited bilat (08/24/2025 8:11 AM EDT) Anatomical Region Laterality Modality Breast Bilateral Ultrasound 08/24/2025 8:02 AM EDT Impressions 08/24/2025 8:14 AM EDT Multiple bilateral hypoechoic nodules, all again felt likely to be benign. However, there is a new, 1.1 cm hypoechoic mass at the at the 12:00 retroareolar position of the right breast. This is felt to represent microcystic disease. Follow-up ultrasound examination of both breasts in 6 months is recommended. Code 21652 -------- FINAL REPORT -------- Dictated By: Darrell Grewal Dictated Date: 08/24/2025 08:02 ET Assigned Physician: Darrell Grewal Reviewed and Electronically Signed By: Darrell Grewal Signed Date: 08/24/2025 08:14 ET Workstation ID: [id number] Transcribed By: Self Edit Transcribed Date: 08/24/2025 08:02 ET Narrative 08/24/2025 8:14 AM EDT HISTORY: The patient is a 35-year-old female for follow-up of bilateral breast nodules. FINDINGS: Real-time ultrasonography of the breasts bilaterally is performed. In the right breast, at the 11:00 retroareolar position, there is a 4.1 mm diameter well-circumscribed hypoechoic mass, stable in size and appearance since the prior study performed 12/22/2024. At the 12:00 position 3 cm from nipple, there is a 6.2 mm diameter well- circumscribed hypoechoic mass, stable. At the 12:00 retroareolar position, there is a 1.1 cm well-circumscribed hypoechoic mass with appearance consistent with microcystic disease, new since the prior examination. In the left breast at the 3:00 position 3 cm from the nipple, there is a well-circumscribed oval hypoechoic mass measuring 1.6 x 0.6 cm, stable in size and appearance. At the 5:00 position 2 cm from the nipple, there is a 7.6 x 2.3 mm hypoechoic mass, increased from 5.2 x 2.5 mm previously. All of the nodules appear well-circumscribed and wider than they are tall, are felt likely to be benign. Procedure Note Darrell Grewal MD - 08/24/2025 HISTORY: The patient is a 35-year-old female for follow-up of bilateralbreast nodules. FINDINGS: Real-time ultrasonography of the breasts bilaterally isperformed. In the right breast, at the 11:00 retroareolar position, thereis a 4.1 mm diameter well-circumscribed hypoechoic mass, stable in sizeand appearance since the prior study performed 12/22/2024. At the 12:00position 3 cm from nipple, there is a 6.2 mm diameter well-circumscribedhypoechoic mass, stable. At the 12:00 retroareolar position, there is a1.1 cm well-circumscribed hypoechoic mass with appearance consistent withmicrocystic disease, new since the prior examination. In the left breast at the 3:00 position 3 cm from the nipple, there is awell-circumscribed oval hypoechoic mass measuring 1.6 x 0.6 cm, stable insize and appearance. At the 5:00 position 2 cm from the nipple, there gillian 7.6 x 2.3 mm hypoechoic mass, increased from 5.2 x 2.5 mm previously. All of the nodules appear well-circumscribed and wider than they are tall,are felt likely to be benign. IMPRESSION: Multiple bilateral hypoechoic nodules, all again felt likely to be benign.However, there is a new, 1.1 cm hypoechoic mass at the at the 12:00retroareolar position of the right breast. This is felt to representmicrocystic disease. Follow-up ultrasound examination of both breasts in6 months is recommended. Code 58064 -------- FINAL REPORT -------- Dictated By: Darrell Grewal Dictated Date: 08/24/2025 08:02 ET Assigned Physician: Darrell Grewal Reviewed and Electronically Signed By: Darrell Grewal Signed Date: 08/24/2025 08:14 ET Workstation ID: [id number] Transcribed By: Self Edit Transcribed Date: 08/24/2025 08:02 ET us Jason Mcknight MD IMG US PROCEDURES Final Result documented in this encounter Visit Diagnoses Diagnosis Breast mass Lump or mass in breast documented in this encounter Care Teams Electrical Power Engineer Relationship Specialty Start Date End Date Jason Perez MD [address] [place] [address] Dr Jacob MA PCP - General Family Medicine 08/24/25 documented as of this encounter
--- NOTE | 2025-08-30 10:06 | MHC.PC.OV ---
Vital Signs 08/30/25 10:14 Height 5 ft 7 in Weight 162 lb 6 oz BMI 25.4 BP 122/70 Blood Pressure Location Lt brachial Position Sitting Respiration 12 Pulse 78 Pulse Source Pulse Oximeter Temp 97.2 F Temp Source Oral Pulse Oximetry (%) 100 Oxygen Delivery Method Room Air Intake Visit Reasons: CPE Intake Note: CPE. Butt Trimmer Required: No Allergies No Known Allergies Allergy (Verified 08/30/25 10:08) Medication List - Last Reconciled 08/30/25 by Earnestine Banuelos, [employer]- blood pressure monitor Automatic, Digital. Dx: I10. Daily As directed, 999 days/lifetime clonazepam 1 mg PO DAILY PRN clonidine HCl 0.1 mg PO BID duloxetine 60 mg PO BID metronidazole 0.75%(37.5mg/5gram) 1 appful vaginal DAILY norelgestromin-ethin.estradiol 150-35 mcg/24 hr 1 patch transdermal QWEEK Tobacco use date assessed: 08/30/25 Dental Screening Dental Screen Date: 08/30/25 Did you have a dental visit in the last 12 months?: Yes Did you have a dental problem in the last 6 months where you did not have access to dental care?: No Was dental information given to patient?: Patient has dentist HPI HPI Comments History of Present Illness Details 35 y/o F with hx of IVDA, Hep C, current marijuana user, asthma, Vit d def, hyperlipidemia, HTN, MDD, [facility], [facility] s/p lobectomy of lung 2023, appendectomy, colpo Fhx: no changes Social: no changes Health Maintenance Tdap 2015 Flu will get at [facility] Pap 08/2025 abnormal, repeat in 6 months 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 Dr Hendrix patient Essential Hypertension: - History of hypertension; lisinopril previously prescribed but discontinued. - Anxiety possibly affecting blood pressure. Anxiety Disorder: - Diagnosed anxiety on clonidine and clonazepam; clonidine aids anxiety. Major Depressive Disorder: - Managed with duloxetine. ADHD, Combined Presentation: - Non-stimulant clonidine used; beneficial for ADHD. Would like [employer] testing for med mgmt Abnormal Pap Smear: - Recent abnormal result; history of abnormals with colposcopy; follow-up planned. Septal Perforation: - would like to see eNT Chronic Pain Syndrome: - Chronic joint pain since 20s; gabapentin stopped due to cognitive risk. Past Surgical History - Lobectomy, smokes marijauna, would like to see pulm Numerous moles/fungal toe nails would like to see derm Vit d supplement stopped, last Vit d normal Social History - Works night shifts, dietary habits affected by late-night eating. - Resumed cannabis use after lobectomy. - Previously wore glasses with a low prescription, currently not using corrective lenses. - No reported social changes; lives with same family, employment unchanged. Health Maintenance - Recent Pap smear; follow-up scheduled for abnormal result. - Awaiting January 2026 eye examination. Review of Systems - Psychological: Reports anxiety, depression. - Cardiovascular: Denies current high blood pressure symptoms. - Respiratory: Denies current respiratory symptoms, history post-lobectomy. - Gastrointestinal: Denies nausea, vomiting, or chronic abdominal pain. - Musculoskeletal: Reports chronic joint pain. - Skin: Reports moles on back, scar query for keloid. - Neurological: Reports ADHD, anxiety, depression management. - Reproductive: Reports abnormal Pap smear history, recent abnormal result. - Other: Denies recent surgery. Physical Exam General: Well developed, well nourished, in no acute distress. Appears stated age. Head: Normocephalic, atraumatic. Eyes: Pupils are equal, round and reactive to light and accommodation. Conjunctivae are clear. Scleras nonicteric bilat. Vision grossly normal. Ears: TMs clear AU, EACS WNL Nose: Patent, without discharge. Septum perforation noted. Neck: No carotid bruit bilat. Supple, no adenopathy or thyromegaly. Breast: Edu on SBE Lungs:Dim throughout, keloid scar from Left lobectomy noted. No rales, rhonchi or wheeze noted. Good air flow in all roche. Heart: Regular rate and rhythm. No murmurs, click, rubs or gallops are noted. Abdomen: Bowel sounds present in all quadrants. The abdomen is soft, nontender, with no masses or organomegaly noted. No hernias are noted. : Deferred. 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 Extremities: No clubbing, cyanosis nor edema is noted. Toenail issues noted. Neurologic: Gait and station normal. Cranial Nerves 2-12 intact. Motor strength grossly symmetrical and intact. No sensory loss. Balance normal. Skin: No rashes, ulcers, or lesions noted. Turgor is good. Skin color is good. Hair and nails are without abnormalities. Moles on back noted, fungal toe nails Psych: Normal eye contact, affect and mood appropriate, and normal interactions. Patient is alert and appropriate to context. Results - Labs: Last test (April 20) showed normal electrolytes, kidney function, and improved liver enzymes; high cholesterol Labs reviewed. 04/20/25 low alk phos - Pap Smear: Recent result abnormal, history of anomalies with follow-up planned. Discussion Notes During this visit, I conducted a thorough discussion with the patient about her current health concerns and management options. We addressed her untreated hypertension and reviewed the potential influence of her anxiety on blood pressure, highlighting the importance of medication adherence. We went over the recent abnormal Pap smear and discussed a six-month follow-up plan. Her vitamin D level was confirmed to be within normal limits despite previous deficiency history. We discussed her low alk phos likely related to zinc deficiency, initiating a 30-day supplementation trial to rectify this. Additionally, I advised about the non-stimulant management of ADHD using clonidine. The patient was briefed on the lack of pharmacy coverage for zinc supplements, requiring purchase [id number] if needed. We discussed follow-up consultations with pulmonology, ENT, and dermatology for her chronic conditions, and I provided insights on the importance of these referrals. We also discussed the option for GeneSight testing for pharmacogenomic profiling, and extensive instructions on follow-up and expectations were provided. Patient was given time to ask questions. All questions were answered to their satisfaction. Assessment and Plan 1. Essential Hypertension - Monitor BP. At goal on clonidine 2. Anxiety/Depression - Continue duloxetine, clonazepam. Evaluate response. Genesight testing ordered 3. ADHD - Clonidine management for symptoms. 4. Abnormal Pap - Schedule six-month follow-up. Consider colposcopy. 5. Low alk phos - Zinc gluconate trial. Repeat labs. 6. Septal Perforation - ENT evaluation. 7. Chronic Pain - Physiatry referral for management. 8. Derm referral for moles 9. Pulm referral s/p lobectomy Patient Instructions - Continue taking duloxetine, clonazepam as prescribed. - Start zinc 50 mg daily; check levels in one month. - Follow up with six-month Pap smear as scheduled. - Make appointments with ENT, dermatology, pulmonology, and physiatry. - Consider pharmacy options for vaccines. - Repeat labs in 1 month. My office will arrange f/u to review labs and genesight testing once avail. -RTO to see PCP in 3-6 mo routine fu Consent Patient was informed and verbally consented to the use of an ambient scribe for clinic note documentation during this visit. An additional 30 minutes was spent addressing the problem(s) noted at todays visit. This includes time spent before the visit reviewing the chart, time spent during the visit, and time spent after the visit on documentation reviewing laboratory results, diagnostic imaging, medications, performing a medically necessary evaluation, counseling on diagnoses, care coordination, ordering appropriate tests, ordering appropriate medications, review of tests performed by other providers, reporting test results with the patient, communication with other healthcare providers. [facility] Medical History (Updated 08/30/25 @ 10:38 by ROSALES Randall-BRIELLE) Ectopic Former cigarette smoker History of asthma History of hepatitis C History of intravenous drug use in remission Marijuana smoker No pertinent family history Surgical History (Updated 08/30/25 @ 10:31 by ROSALES Randall-BRIELLE) History of appendectomy S/P lobectomy of lung (12/04/23) Social History Household Members: Significant Other Housing: House Do you presently have visiting nurse or other home services: No Comment: refuses bed alarm Patient Tobacco Use Status: Former Tobacco user Tobacco use type: Cigarette Years Smoked: 14 e-Cigarette/Vaping Use: Never Used Second Hand Smoke Exposure: No Substance Use Type: Marijuana service: No Current occupational status: employed 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 1. Little interest or pleasure in doing things: not at all 2. Feeling down, depressed, or hopeless: not at all 3. Trouble falling or staying asleep, or sleeping too much: not at all 4. Feeling tired or having little energy: not at all 5. Poor appetite or overeating: not at all 6. Feeling bad about yourself - or that you are a failure or have let yourself or your family down: not at all 7. Trouble concentrating on things, such as reading the newspaper or watching television: not at all 8. Moving or speaking so slowly that other people could have noticed. Or the opposite - being so fidgety or restless that you have been moving around a lot more than usual: not at all 9. Thoughts that you would be better off or of hurting yourself in some way: not at all Total score: 0 Depression Screening Interpretation: Negative Depression Screening Done: Yes 05553 - PHQ-9 Billing: Yes Source: Developed by Drs. Santy Larson, Lia Spcier, Dmitri Taylor and colleagues, with an educational rj from [employer]. Thrive Questionnaire Date Thrive assessed: 08/30/25 I am a: Patient What is your living situation today?: I have a steady place to live Within the past 12 months, did the food you bought not last and you didn't have the money to get more?: Never true Within the past 12 months, did you worry whether your food would run out before you got money to buy more?: Never true Do you have trouble paying for medicines?: No Do you have trouble getting transportation to medical appointments?: No Do you have trouble paying your heating and electricity bill?: No Do you have trouble taking care of your child, family member or friend?: No Do you have trouble with day-to-day activities such as bathing, preparing meals, shopping, managing finances, etc.?: No Are you currently unemployed and looking for a job?: No Are you interested in more education?: No Please select the resources that you would like help with: None Currently or been in a relationship where the following occur: No concerns reported THRIVE Score: 0 AUDIT C Alcohol Use Questionnaire (AUDIT-C) 1. How often do you have a drink containing alcohol?: Never 3. How often do you have six or more drinks on one occasion?: Never Total Score: 0 Score Reviewed/Action Taken: Yes [facility]-7 AMB Questionnaire [facility]-7 Date [facility] - 7 assessed: 08/30/25 Feeling nervous, anxious, or on edge: 0 = Not at all Not being able to stop or control worryin = Not at all Worrying too much about different things: 0 = Not at all Trouble relaxin = Not at all Being so restless that it is hard to sit still: 0 = Not at all Becoming easily annoyed or irritable: 0 = Not at all Feeling afraid as if something awful might happen: 0 = Not at all Total [facility]-7 score (0-4 normal; 5-9 mild; 10-14 moderate; 15-21 severe): 0 Source: Developed by Drs. Santy Larson, Lia Spicer, Dmitri Taylor and colleagues, with an educational rj from [employer]. [facility] Assessment Billing [facility]-7 Assessment Tool: [facility] Assessment 41056 Physical exam (Primary Care) Vital Signs: Last Vital Signs Temp 97.2 F 08/30/25 10:14 Pulse 78 08/30/25 10:14 Resp 12 08/30/25 10:14 BP 122/70 08/30/25 10:14 Pulse Ox 100 08/30/25 10:14 Oxygen Delivery Method Room Air 08/30/25 10:14 BMI result Body Mass Index 25.4 Tobacco/Smoking Status: Tobacco use Status Tobacco use date assessed 08/30/25 08/30/25 10:10 Patient Tobacco Use Status Former Tobacco user 08/30/25 10:10 Tobacco use type Cigarette 08/30/25 10:10 e-Cigarette/Vaping Use Never Used 08/30/25 10:10 PHQ-9: PHQ-9 Score PHQ-9: Total score 0 08/30/25 10:10 Depression Screening Interpretation: Negative Thrive Assessment: Date of Thrive Assessment Date Thrive assessed 08/30/25 08/30/25 10:10 Currently or been in a relationship where the following occur: No concerns reported Results Reviewed Results Reviewed: Coding Level of Care Code Est Pt Level 4 (51919) Est Pt Prev Care 18-39y(32140) Diagnoses Encounter for general adult medical examination without abnormal findings Z00.00 Elevated LDL cholesterol level E78.00 Low vitamin D level R79.89 Low serum alkaline phosphatase R74.8 Numerous moles D22.9 Nasal septal perforation J34.89 History of asthma Z87.09 S/P lobectomy of lung Z90.2 Marihuana user F12.90 Onychomycosis B35.1 Genetic testing Z13.79 Anxiety with depression F41.8 Polyarthralgia M25.50 Additional Codes [facility]-7 Assessment Billing - [facility]-7 Assessment Tool: [facility]-7 Assessment 61396 ([id number]) PHQ-9 - 51782 - PHQ-9 Billing: Yes ([id number]) Assessment & Plan Assessment & Plan (1) Encounter for general adult medical examination without abnormal findings: Onset Date: ~08/30/25 Code(s): Z00.00 - Encounter for general adult medical examination without abnormal findings Category: Medical (2) Elevated LDL cholesterol level: Code(s): E78.00 - Pure hypercholesterolemia, unspecified Category: Medical (3) Low vitamin D level: Code(s): R79.89 - Other specified abnormal findings of blood chemistry Category: Medical (4) Low serum alkaline phosphatase: Code(s): R74.8 - Abnormal levels of other serum enzymes Category: Medical (5) Numerous moles: Code(s): D22.9 - Melanocytic nevi, unspecified Category: Medical (6) Nasal septal perforation: Code(s): J34.89 - Other specified disorders of nose and nasal sinuses Category: Medical (7) History of asthma: Code(s): Z87.09 - Personal history of other diseases of the respiratory system Category: Medical (8) S/P lobectomy of lung: Onset Date: 12/04/23 Comment: Dr. Alonso Chanel Code(s): Z90.2 - Acquired absence of lung [part of] Category: Surgical (9) MariBig Super [employer]chana user: Code(s): F12.90 - Cannabis use, unspecified, uncomplicated Category: Medical (10) Onychomycosis: Code(s): B35.1 - Tinea unguium Category: Medical (11) Genetic testing: Code(s): Z13.79 - Encounter for other screening for genetic and chromosomal anomalies Category: Medical (12) Anxiety with depression: Code(s): F41.8 - Other specified anxiety disorders Category: Medical (13) Polyarthralgia: Code(s): M25.50 - Pain in unspecified joint Category: Medical Plan . Orders: Orders Comprehensive [place]. Panel Fast 1 Month E78.00 - Pure hypercholesterolemia, unspecified, R74.8 - Abnormal levels of other serum enzymes, R79.89 - Other specified abnormal findings of blood chemistry Lipid Panel 1 Month E78.00 - Pure hypercholesterolemia, unspecified, R74.8 - Abnormal levels of other serum enzymes, R79.89 - Other specified abnormal findings of blood chemistry TSH reflex Free T4 1 Month E78.00 - Pure hypercholesterolemia, unspecified, R74.8 - Abnormal levels of other serum enzymes, R79.89 - Other specified abnormal findings of blood chemistry Vitamin D 25-OH Total 1 Month E78.00 - Pure hypercholesterolemia, unspecified, R74.8 - Abnormal levels of other serum enzymes, R79.89 - Other specified abnormal findings of blood chemistry Complete Blood Count no Diff 1 Month E78.00 - Pure hypercholesterolemia, unspecified, R74.8 - Abnormal levels of other serum enzymes, R79.89 - Other specified abnormal findings of blood chemistry Microalbumin, Random (w Creat) 1 Month E78.00 - Pure hypercholesterolemia, unspecified, R74.8 - Abnormal levels of other serum enzymes, R79.89 - Other specified abnormal findings of blood chemistry Vitamin B12 and Folate 1 Month E78.00 - Pure hypercholesterolemia, unspecified, R74.8 - Abnormal levels of other serum enzymes, R79.89 - Other specified abnormal findings of blood chemistry Referrals Ear/Nose/Throat Referral J34.89 - Other specified disorders of nose and nasal sinuses Pulmonology Referral F12.90 - Cannabis use, unspecified, uncomplicated, Z87.09 - Personal history of other diseases of the respiratory system, Z90.2 - Acquired absence of lung [part of] Podiatry Referral B35.1 - Tinea unguium Physiatry Referral M25.50 - Pain in unspecified joint Dermatology Referral D22.9 - Melanocytic nevi, unspecified Medications: New zinc gluconate 50 mg PO DAILY 30 tabs 0RF Patient Instructions: Health screenings for women You should visit your health care provider from time to time, even if you are healthy. The purpose of these visits is to: Screen for medical issues Assess your risk for future medical problems Encourage a healthy lifestyle Update vaccinations and other preventive care services Help you get to know your provider in case of an illness Information Even if you feel fine, you should still see your provider for regular checkups. These visits can help you avoid problems in the future. For example, the only way to find out if you have high blood pressure is to have it checked regularly. High blood sugar and high cholesterol levels also may not have any symptoms in the early stages. A simple blood test can check for these conditions. There are specific times when you should see your provider or receive specific health screenings. The [place] Preventive Services Task Force publishes a list of recommended screenings. Below are screening guidelines for women ages 18 to 39. BLOOD PRESSURE SCREENING Your blood pressure should be checked at least once every 3 to 5 years if: Your blood pressure is in the normal range (top number less than 120 mm Hg and bottom number less than 80 mm Hg) You don't have risk factors for high blood pressure Ask your provider if you need your blood pressure checked more often if: The top number is 120 to 129 mm Hg or the bottom number is 70 to 79 mm Hg You have diabetes, heart disease, kidney problems, are overweight, or have certain other health conditions You have a first-degree relative with high blood pressure You are Black You had high blood pressure during a If the top number is 130 mm Hg or greater or the bottom number is 80 mm Hg or greater, this is considered stage 1 hypertension. Schedule an appointment with your provider to learn how you can reduce your blood pressure. Watch for blood pressure screenings in your area. Ask your provider if you can stop in to have your blood pressure checked. BREAST CANCER SCREENING Experts do not agree about the benefits of breast self-exams in finding breast cancer or saving lives. Talk to your provider about what is best for you. A screening mammogram is not recommended for most women under age 40. Your provider may discuss and recommend mammograms, MRI scans, or ultrasounds if you have an increased risk for breast cancer, such as: A mother or sister who had breast cancer at a young age (most often starting screening earlier than the age the close relative was diagnosed) You carry a high-risk genetic marker CERVICAL CANCER SCREENING Cervical cancer screening should start at age 21 years unless your provider advises otherwise. After the first test: Women ages 21 through 29 should have a Pap test every 3 years. Exoprts do not agree on whether HPV testing is recommended for this age group. Women ages 30 through 65 should be screened with either a Pap test every 3 years or the HPV test every 5 years or both tests every 5 years (called cotesting ). Women who have been treated for precancer (cervical dysplasia) should continue to have Pap tests for 20 years after treatment or until age 65, whichever is longer. If you have had your uterus and cervix removed (total hysterectomy), and you have not been diagnosed with cervical cancer or precancer (high grade cervical neoplasia), you do not need cervical cancer screening. CHOLESTEROL SCREENING Cholesterol screening should begin at: Age 45 for women with no known risk factors for coronary heart disease Age 20 for women with known risk factors for coronary heart disease Repeat cholesterol screening should take place: Every 5 years for women with normal cholesterol levels More often if changes occur in lifestyle (including weight gain and diet) More often if you have diabetes, heart disease, kidney problems, or certain other conditions DIABETES SCREENING You should be screened for diabetes starting at age 35 and then repeated every 3 years if you have no risk factors for diabetes. Screening may need to start earlier and be repeated more often if you have other risk factors for diabetes, such as: You have a first degree relative with diabetes. You are overweight or have obesity. You have high blood pressure, prediabetes, or a history of heart disease. Screening for diabetes should be done if you are planning to become and you are overweight and have other risk factors such as high blood pressure. DENTAL EXAM Go to the dentist once or twice every year for an exam and cleaning. Your dentist will evaluate if you need more frequent visits. EYE EXAM Have an eye exam every 5 to 10 years before age 40. If you have vision problems, have an eye exam every 2 years or more often if recommended by your provider. You should have an eye exam that includes an examination of your retina (back of your eye) at least every year if you have diabetes. IMMUNIZATIONS Commonly needed vaccines include: Flu shot: get one every year. COVID-19 vaccine: ask your provider what is best for you. Tetanus-diphtheria and acellular pertussis (Tdap) vaccine: have one at or after age 19 as one of your tetanus-diphtheria vaccines if you did not receive it as an adolescent. Tetanus-diphtheria: have a booster (or Tdap) every 10 years. Varicella vaccine: receive 2 doses if you never had chickenpox or the varicella vaccine. Hepatitis B vaccine: receive 2, 3, or 4 doses, depending on your exact circumstances. Measles, mumps, and rubella (MMR) vaccine: receive 1 to 2 doses if you are not already immune to MMR. Your provider can tell you if you are immune. Ask your provider about the human papillomavirus (HPV) vaccine if: You have not received the HPV vaccine in the past You have not completed the full vaccine series (you should catch up on this shot) Ask your provider if you should receive other immunizations if you have certain health problems that increase your risk for some diseases such as pneumonia. INFECTIOUS DISEASE SCREENING Women who are sexually active should be screened for chlamydia and gonorrhea up until age 25. Women 25 years and older should be screened for chlamydia and gonorrhea if at high risk. Screening for hepatitis C: All adults ages 18 to 79 should get a one-time test for hepatitis C. people should be screened at every . Screening for human immunodeficiency virus (HIV): All people ages 15 to 65 should get a one-time test for HIV. Depending on your lifestyle and medical history, you may also need to be screened for infections such as syphilis and HIV, as well as other infections. PHYSICAL EXAM All adults should visit their provider from time to time, even if they are healthy. The purpose of these visits is to: Screen for disease Assess your risk of future medical problems Encourage a healthy lifestyle Update your vaccinations and other preventive care services Maintain a relationship with a provider in case of an illness Your height, weight, and BMI should be checked at every exam. During your exam, your provider may ask you about: Depression and anxiety Diet and exercise Alcohol and tobacco use Safety issues, such as using seat belts, smoke detectors, and intimate partner violence Your medicines and risk for interactions SKIN SELF-EXAM Your provider may check your skin for signs of skin cancer, especially if you're at high risk, such as if you: Have had skin cancer before Have close relatives with skin cancer Have a weakened immune system OTHER SCREENING Talk with your provider about colon cancer screening if you have a strong family history of colon cancer or polyps, or if you have had inflammatory bowel disease or polyps yourself. Routine bone density screening of women under 40 is not recommended.
[2025-08-30 10:14] VITALS: BP 122/70; PULSE 78; RESP 12; TEMP 36.2; O2SAT 100; BMI 25.4
--- OUTSIDE RECORDS SUMMARY | 2025-08-30 11:41 | XMS_ITS | Encounter Summary ---
Author Organization [facility] Address [address] [place] [address] Care Team Providers Care Wedger And Gluer Name Role Phone Jason Perez MD Primary Care Provider [phone] Encounter Details Date Type Department Care Team (Latest Contact Info) Description 08/03/2025 Lab Requisition [facility] - Main Lab 299 [facility] [place] [phone] Jason Mcknight MD [address] [phone] Encounter for gynecological examination (general) (routine) without abnormal findings Social History Tobacco Use Types Packs/Day Years Used Date Smoking Tobacco: Never Assessed Comments Unknown Sex and Gender Information Value Date Recorded Sex Assigned at Not on file Legal Sex Female 1:39 PM EDT Gender Identity Not on file Sexual Orientation Not on file documented as of this encounter Plan of Treatment Upcoming Encounters Date Type Department Care Team (Late st Contact Info) Description 02/15/2026 10:00 AM EDT Appointment [facility] Ultrasound [address] [place] [phone] documented as of this encounter Procedures Procedure Name Priority Date/Time Associated Diagnosis Comments PAP SMEAR Routine 08/02/2025 12:00 PM EDT Encounter for gynecological examination (general) (routine) without abnormal findings HPV WITH REFLEX GENOTYPE Routine 08/02/2025 12:00 AM EDT Encounter for gynecological examination (general) (routine) without abnormal findings documented in this encounter Results * (ABNORMAL) Pap smear (08/02/2025 12:00 PM EDT) Interpretation Atypical squamous cells of undetermined significance(A) 08/19/2025 4:47 PM EDT [facility] General Categorization Epithelial cell abnormality, see interpretation 08/19/2025 4:47 PM EDT [facility] Other Findings Shift in caterina suggestive of bacterial vaginosis 08/19/2025 4:47 PM EDT [facility] LMP 07/22/2025 08/19/2025 4:47 PM EDT [facility] Specimen Adequacy Satisfactory for evaluation, endocervical/tra nsformation zone component present 08/19/2025 4:47 PM EDT [facility] Pap Methodology Liquid Based Pap Test 08/19/2025 4:47 PM EDT [facility] Disclaimer The Pap test is a screening test which carries an inherent false negative rate. These test results should be correlated with the patient's clinical findings and history. This Pap test was processed using an automated screening system. Technical cytopathology services provided by [facility], at [address] [place] [id number] (CLIA # [id number]/Marly Gonsales MD, Nurses Assistant.) 08/19/2025 4:47 PM EDT [facility] Console Pap Interpretation Reported 08/19/2025 4:47 PM EDT [facility] Brushing/Spatula Cervix uteri structure / Unknown 08/02/2025 12:00 PM EDT 08/03/2025 5:39 AM EDT Jason Mcknight MD LAB CYTOLOGY ORDERABLES Final Result [facility] [address] [place] [address], * HPV with reflex genotype (08/02/2025 12:00 AM EDT) HPV Negative Negative LAB MICROBIOLOGY METHOD 08/17/2025 11:37 AM EDT [facility] Brushing/Spatula Cervix uteri structure / Unknown 08/02/2025 08/03/2025 5:39 AM EDT us Jason Mcknight MD LAB MOLECULAR DIAGNOSTICS CATERINA GARY Final Result [facility] [address] [place] [address], documented in this encounter Visit Diagnoses Diagnosis Encounter for gynecological examination (general) (routine) without abnormal findings documented in this encounter Care Teams Wedger And Gluer Relationship Specialty Start Date End Date Jason Perez MD [address] [place] [address] Dr Jacob [place] PCP - General Family Medicine 08/24/25 documented as of this encounter
--- OUTSIDE RECORDS SUMMARY | 2025-08-30 11:41 | XMS_ITS | Clinical Summary ---
Author Organization [facility] Address [address] [place] [address] Phone Care Team Providers Care Assembly Room Supervisor Name Role Phone Jason Perez MD Primary Care Provider [phone] Encounters Date Type Department Care Team Description 08/24/2025 7:27 AM EDT - 08/24/2025 11:59 PM EDT Hospital Encounter [facility] Ultrasound [address] [place] [phone] Breast mass Discharge Disposition: Home or Self Care 08/03/2025 Lab Requisition [facility] Lab [address] [place] [phone] Jason Mcknight MD Encounter for gynecological examination (general) (routine) without abnormal findings 08/02/2025 Lab Requisition [facility] Lab [address] [place] [phone] [facility] Roxanna Jose & Araceli Ob-Turn Laster Encounter for screening for infections with a predominantly sexual mode of transmission; Acute vaginitis from Last 3 Months Social History Tobacco Use Types Packs/Day Years Used Date Smoking Tobacco: Never Assessed Comments Unknown Sex and Gender Information Value Date Recorded Sex Assigned at Not on file Legal Sex Female 1:39 PM EDT Gender Identity Not on file Sexual Orientation Not on file Plan of Treatment Upcoming Encounters Date Type Department Care Team (Late st Contact Info) Description 02/15/2026 10:00 AM EDT Appointment [facility] Ultrasound [address] [place] [phone] Health Maintenance Due Date Last Done Comments Hepatitis B Vaccines (4 of 4 - 4-dose series) 03/10/2002 03/26/2013, 11/10/2012, 09/23/2012, Additional history exists HIV Screening 06/26/2024 Hepatitis C Screening 06/26/2024 Social Influencers of Health Screening 06/26/2024 Depression Screening 11/25/2024 COVID-19 Vaccine ( - season) 2025 Influenza Vaccine (#1) 2025 , 11/06/2020, 09/17/2011 DTaP,Tdap,and Td Vaccines (8 - Td or Tdap) 01/24/2026 01/25/2016, 07/14/2002, 04/18/1995, Additional history exists Cervical Cancer Screening: HPV 08/02/2030 08/02/2025 RSV Immunization Adult Patients (1 - 1-dose 75+ series) 2065 HIB Vaccines Completed 06/29/1991 IPV Vaccines Completed 04/18/1995, 11/1990, 1990, Additional history exists HPV Vaccines Completed 02/16/2008, 06/25, 05/06/2007 Meningococcal ACWY Vaccine Completed 06/22/2008 Hepatitis A Vaccines Aged Out 04/01/2013, 09/02/20 12 No longer eligible based on patient's age to complete this topic MMR Vaccines Completed 02/09/2015, 03/26, 06/25/1991 Pneumococcal Vaccine: Pediatrics (0 to 5 Years) and At-Risk Patients (6 to 49 Years) Completed 09/26/2024 Meningococcal B Vaccine Aged Out No l onger eligible based on patient's age to complete this topic RSV Immunization Patients Under 20 months Aged Out No longer eligible based on patient's age to complete this topic Varicella Vaccines Aged Out No longer eligible based on patient's age to complete this topic Procedures Procedure Name Priority Date/Time Associated Diagnosis Comments US BREAST LIMITED BILAT Routine 08/24/2025 8:11 AM EDT Breast mass PAP SMEAR Routine 08/02/2025 12:00 PM EDT Encounter for gynecological examination (general) (routine) without abnormal findings HPV WITH REFLEX GENOTYPE Routine 08/02/2025 12:00 AM EDT Encounter for gynecological examination (general) (routine) without abnormal findings VAGINITIS PATHOGENS BY PCR Routine 08/02/2025 12:00 AM EDT Encounter for screening for infections with a predominantly sexual mode of transmission Acute vaginitis CHLAMYDIA TRACHOMATIS AND NEISSERIA GONORRHOEAE PCR Routine 08/02/2025 12:00 AM EDT Encounter for screening for infections with a predominantly sexual mode of transmission Acute vaginitis from Last 3 Months Results * US Breast Limited bilat (08/24/2025 [...] breasts in 6 months is recommended. Code 15362 -------- FINAL REPORT -------- Dictated By: Darrell Grewal Dictated Date: 08/24/2025 08:02 ET Assigned Physician: Darrell Grewal Reviewed and Electronically Signed By: Darrell Grewal Signed Date: 08/24/2025 08:14 ET Workstation ID: [id number] Transcribed By: Self Edit Transcribed Date: 08/24/2025 [...] both breasts in6 months is recommended. Code 26782 -------- FINAL REPORT -------- Dictated By: Darrell Grewal Dictated Date: 08/24/2025 08:02 ET Assigned Physician: Darrell Grewal Reviewed and Electronically Signed By: Darrell Grewal Signed Date: 08/24/2025 08:14 ET Workstation ID: [id number] Transcribed By: Self Edit Transcribed Date: 08/24/2025 08:02 ET Jason Mcknight MD [facility] PROCEDURES Final Result * (ABNORMAL) Pap smear (08/02/2025 12:00 PM EDT) Interpretation Atypical squamous cells of undetermined significance(A) 08/19/2025 4:[address] [facility] General Categorization Epithelial cell abnormality, see interpretation 08/19/2025 4:[address] [facility] Other Findings Shift in caterina suggestive of bacterial vaginosis 08/19/2025 4:[address] [facility] LMP 07/22/2025 08/19/2025 4:[address] [facility] Specimen Adequacy Satisfactory for evaluation, endocervical/tra nsformation zone component present 08/19/2025 4:[address] [facility] Pap Methodology Liquid Based Pap Test 08/19/2025 4:[address] [facility] Disclaimer The Pap test is a screening test which carries an inherent false negative rate. These test results should be correlated with the patient's clinical findings and history. This Pap test was processed using an automated screening system. Technical cytopathology services provided by [facility], at [address] [place] [address], [place] [address] (CLIA # [id number]/Marly Gonsales MD, Switch Box Installer.) 08/19/2025 4:[address] [facility] Console Pap Interpretation Reported 08/19/2025 4:[address] [facility] Brushing/Spatula Cervix uteri structure / Unknown 08/02/2025 12:00 PM EDT 08/03/2025 5:39 AM EDT us Jason Mcknight MD LAB CYTOLOGY ORDERABLES Final Result Performing Organization Address City/[facility]/ZIP Co de Phone Number [facility] [address] [place] [address], [place] [phone] * HPV with reflex genotype (08/02/2025 12:00 AM EDT) HPV Negative Negative LAB MICROBIOLOGY METHOD 08/17/2025 11:[address] [facility] Brushing/Spatula Cervix uteri structure / Unknown 08/02/2025 08/03/2025 5:39 AM EDT Jason Mcknight MD LAB MOLECULAR DIAGNOSTICS ORDE RABLES Final Result Performing Organization Address City/[facility]/ZIP Co de Phone Number [facility] [address] [place] [address], [place] [phone] * (ABNORMAL) Vaginitis pathogens molecular study (08/02/2025 12:00 AM EDT) Trichomonas vaginalis Negative Negative 08/03/2025 11:[address] [facility] Gardnerella vaginalis Positive(A) Negative 08/03/2025 11:[address] [facility] Valentina Species Negative Negative 11:[address] [facility] Swab Vaginal structure / Unknown 08/02/2025 08/02/2025 6:19 PM EDT us Roxanna Inman & Araceli O b-Turn Laster [facility] Jose LAB MICROBIOLOGY - GENERAL ORDERABLES Final Result [facility] [address] [place] [address], * Chlamydia trachomatis and Neisseria gonorrhoeae molecular study (08/02/2025 12:00 AM EDT) Neisseria gonorrhoeae PCR Negative Negative LAB MOLECULAR DIAGNOSTICS METHOD 08/03/2025 10:[address] [facility] Chlamydia trachomatis PCR Negative Negative LAB MOLECULAR DIAGNOSTICS METHOD 08/03/2025 10:[address] [facility] Swab Cervix uteri structure / Unknown 08/02/2025 08/02/2025 6:19 PM EDT us Mcknight Costs & Basilio-Breanne O b-Turn Laster [facility] Jose LAB MICROBIOLOGY - GENERAL ORDERABLES Final Result [facility] [address] [place] [address], [place] [phone] from Last 3 Months Insurance [facility] Care Teams Assembly Room Supervisor Relationship Specialty Start Date End Date Jason Perez MD [address] [place] [address] Dr Jacob [place] PCP - General Family Medicine 08/24/25
--- OUTSIDE RECORDS SUMMARY | 2025-08-30 11:41 | XMS_ITS | Encounter Summary ---
Author Organization [facility] Address [address] [place] [address] Care Team Providers Care Sfdc Developer Name Role Phone Jason Perez MD Primary Care Provider [phone] Encounter Details Date Type Department Care Team (Latest Contact Info) Description 10/27/2024 Lab Requisition [facility] - Main Lab 299 [facility] [place] [phone] Jason Mcknight MD [address] [phone] Encounter for screening for infections with a predominantly sexual mode of transmission; Acute vaginitis Social History Tobacco Use Types Packs/Day Years [...] Info) Description 02/15/2026 10:00 AM EDT Appointment [facility] Ultrasound [address] [place] [phone] documented as of this encounter Procedures Procedure Name Priority Date/Time Associated Diagnosis Comments VAGINITIS PATHOGENS BY PCR Routine 10/27/2024 12:00 AM EST Encounter for screening for infections with a predominantly sexual mode of transmission Acute vaginitis CHLAMYDIA TRACHOMATIS AND NEISSERIA GONORRHOEAE PCR Routine 10/27/2024 12:00 AM EST Encounter for screening for infections with a predominantly sexual mode of transmission Acute vaginitis documented in this encounter Results * (ABNORMAL) Vaginitis pathogens molecular study (10/27/2024 12:00 AM EST) Trichomonas vaginalis Negative Negative 10/28/2024 12:06 PM EST [facility] Gardnerella vaginalis Positive(A) Negative 10/28/2024 12:06 PM EST [facility] Valentina Species Negative Negative 12:06 PM [facility] Swab Vaginal structure / Unknown Non-blood Collection / Unknown 10/27/2024 10/27/2024 6:05 PM EST Jason Mcknight MD LAB MICROBIOLOGY - GENERAL ORD ERABLES Final Result [facility] [address] [place] [address], [place] [phone] * Chlamydia trachomatis and Neisseria gonorrhoeae molecular study (10/27/2024 12:00 AM EST) Neisseria gonorrhoeae PCR Negative Negative LAB MOLECULAR DIAGNOSTICS METHOD 10/28/2024 9:57 AM EST [facility] Chlamydia trachomatis PCR Negative Negative LAB MOLECULAR DIAGNOSTICS METHOD 10/28/2024 9:57 AM EST [facility] Swab Cervix uteri structure / Unknown Non-blood Collection / Unknown 10/27/2024 10/27/2024 6:05 PM EST Jason Mcknight MD LAB MICROBIOLOGY - GENERAL ORD ERABLES Final Result [facility] [address] [place] [address], [place] [phone] documented in this encounter Visit Diagnoses Diagnosis Encounter for screening for infections with a predominantly sexual mode of transmission Acute vaginitis Unspecified vaginitis and vulvovaginitis documented in this encounter Care Teams Sfdc Developer Relationship Specialty Start Date End Date Jason Perez MD [address] [place] [place] [address] Dr Jacob [place] PCP - General Family Medicine 08/24/25 documented as of this encounter
--- OUTSIDE RECORDS SUMMARY | 2025-08-30 11:41 | XMS_ITS | Encounter Summary ---
[facility] Address [address] [place] [address] Care Team Providers Care Rn Manager Name Role Phone Jason Perez MD Primary Care Provider [phone] Encounter Details Date Type Department Care Team (Latest Contact Info) Description 08/02/2025 Lab Requisition [facility] - Main Lab 299 [facility] [place] [phone] sp Roxanna Jose & BasilioJensen Ob-Channel Cementer Encounter for screening for infections with a [...] Info) Description 02/15/2026 10:00 AM EDT Appointment [facility] Ultrasound [address] [place] [phone] documented as of this encounter Procedures Procedure Name Priority Date/Time Associated Diagnosis Comments VAGINITIS PATHOGENS BY PCR Routine 08/02/2025 12:00 AM EDT Encounter for screening for infections with a predominantly sexual mode of transmission Acute vaginitis CHLAMYDIA TRACHOMATIS AND NEISSERIA GONORRHOEAE PCR Routine 08/02/2025 12:00 AM EDT Encounter for screening for infections with a predominantly sexual mode of transmission Acute vaginitis documented in this encounter Results * (ABNORMAL) Vaginitis pathogens molecular study (08/02/2025 12:00 AM EDT) Pathologist [facility] Trichomonas vaginalis Negative Negative 08/03/2025 11:26 AM EDT [facility] Gardnerella vaginalis Positive(A) Negative 08/03/2025 11:26 AM EDT [facility] Valentina Species Negative Negative 11:26 AM EDT [facility] Swab Vaginal structure / Unknown 08/02/2025 08/02/2025 6:19 PM EDT us Mcknight Costs & Basilio-Breanne O b-Channel Cementer [facility] Jose LAB MICROBIOLOGY - GENERAL ORDERABLES Final Result Performing Organization Address City/[facility]/ZIP Co de Phone Number [facility] [address] [place] [address], [place] [phone] * Chlamydia trachomatis and Neisseria gonorrhoeae molecular study (08/02/2025 12:00 AM EDT) [facility] Neisseria gonorrhoeae PCR Negative Negative LAB MOLECULAR DIAGNOSTICS METHOD 08/03/2025 10:33 AM EDT [facility] Chlamydia trachomatis PCR Negative Negative LAB MOLECULAR DIAGNOSTICS METHOD 08/03/2025 10:33 AM EDT [facility] Swab Cervix uteri structure / Unknown 08/02/2025 08/02/2025 6:19 PM EDT us Mcknight Zubican & Basilio-Breanne O b-Channel Cementer [facility] Jose LAB MICROBIOLOGY - GENERAL ORDERABLES Final Result [facility] [address] [place] [address], [place] [phone] documented in this encounter Visit Diagnoses Diagnosis Encounter for screening for infections with a predominantly sexual mode of transmission Acute vaginitis Unspecified vaginitis and vulvovaginitis documented in this encounter Care Teams Rn Manager Relationship Specialty Start Date End Date Jason Perez MD [address] [place] [address] Dr Jacob [place] PCP - General Family Medicine 08/24/25 documented as of this encounter
--- OUTSIDE RECORDS SUMMARY | 2025-08-30 11:41 | XMS_ITS | Patient Health Record ---
Author Organization [facility] Address [address] [place] [address] Care Team Providers Care Custom Bike Builder Name Role Phone Ulises Chavarria Primary Care Provider [phone] REASON FOR REFERRAL No Information PLAN OF TREATMENT No Information Insurance Providers Payer Name Payer Address Payer Phone Subscriber Number Group Number Insured Name Patient Relationship to Insured Coverage Start Date Coverage End Date [facility] [address] [place] [address] [id number] Tori Nuñez Self - patient is the insured
--- OUTSIDE RECORDS SUMMARY | 2025-08-30 11:41 | XMS_ITS | Clinical Summary ---
Author Organization [facility] Address [address] [place] [address] Care Team Providers Care Sap Specialist Name Role Phone Joanie Chery Primary Care Provider + Allergies No known active allergies Medications methadone (DOLOPHINE) 10 mg/5 mL solution Take by mouth every 6 (six) hours as needed for moderate pain. Active cloNIDine HCl (CATAPRES) 0.1 MG tablet Take 1 tablet by mouth twice a day as needed for anxiety 60 tablet 2 9 Active DULoxetine (CYMBALTA) 60 MG capsule Take 1 capsule (60 mg total) by mouth daily. 30 capsule 2 9 Active gabapentin (NEURONTIN) 300 MG capsule Take 1 capsule (300 mg total) by mouth 2 (two) times a day. 60 capsule 2 9 Active aripiprazole (ABILIFY) 2 MG tablet 4 Active doxycycline (VIBRA-TABS) 100 MG tablet TAKE 1 TABLET BY MOUTH TWICE A DAY 4 Active fluconazole (DIFLUCAN) 150 MG tablet TAKE 1 TABLET BY MOUTH EVERY 72 HOURS 4 Active HYDROcodone-monika taminophen (NORCO) 5-325 mg tablet TAKE 1 TABLET BY MOUTH EVERY 4 TO 6 HOURS NEEDED FOR PAIN 4 Active HYDROcodone-monika taminophen (NORCO) 7.5-325 mg tablet TAKE 1 TABLET BY MOUTH EVERY 8 HOURS NEEDED FOR PAIN 4 Active lisinopriL (PRINIVIL) 5 MG tablet TAKE 1 TABLET BY MOUTH EVERY DAY FOR 90 DAYS 4 Active Xulane 150-35 mcg/[address] 1 PATCH ON SKIN 1 TIME PER WEEK. CHANGE PATCH WEEKLY,USE HORMONES CONTINUOUSLY WITHOUT BREAKS. 4 Active gabapentin (NEURONTIN) 100 MG capsule TAKE 2 CAPSULES BY MOUTH TWICE A DAY 4 Active lorazepam (ATIVAN) 0.5 MG tablet 4 Active Social History Tobacco Use Types Packs/Day Years Used Date Smoking Tobacco: Former Cigarettes Q uit: 2023 Smokeless Tobacco: Never Tobacco Cessation:Counseling Given: Not Answered Comments:counseled her to stop Comments No Sex and Gender Information Value Date Recorded Sex Assigned at Not on file Legal Sex Female 12:38 PM EDT Gender Identity Not on file Sexual Orientation Not on file Last Filed Vital Signs Vital Sign Reading Time Taken Comments Blood Pressure 134/64 03/24/2024 3:27 PM EDT Pulse 105 03/24/2024 3:27 PM EDT Temperature 36.5 C (97.7 F) 03/24/2024 3:27 PM EDT Respiratory Rate 19 03/24/2024 3:27 PM EDT Oxygen Saturation 99% 03/24/2024 3:27 PM EDT Inhaled Oxygen Concentration - - Weight 90.7 kg (200 lb) 08/24/2019 12:10 PM EDT Height 170.2 cm (5' 7 ) 08/24/2019 12:10 PM EDT Body Mass Index 31.32 08/24/2019 12:10 PM EDT Plan of Treatment Health Maintenance Due Date Last Done Comments Depression: Screening Annual ly using PHQ-2/9 in Adults 18 yrs or above (or HM Modifier)([facility]) 2008 Hepatitis C Virus Infection in Adolescents and Adults: Screening (or Modifier) ([facility]) 2008 SDOH Screening Reminder: Karlee english for all adults ([facility]) 2008 DTaP/Tdap/Td Vaccines ([facility]) (1 - Tdap) 2009 Cervical Cancer Screenin 1-65 yrs of age (or Modifier) 2011 Cervical Cancer Screening: P ap every 3 yrs pts age 21-65 2011 Cervical Cancer: Pap Screeni ng with Modifier timing ([facility]) 2011 Cervical Cancer: hrHPV alone or with cotesting Pap for Pts 30-65yrs screening every 5yrs ([facility]) 2011 Tobacco Smoking Cessation: i n Adults excluding Women: Behavioral and Pharmacotherapy Interventions ([facility]) 08/24/2020 08/24/2019 Flu Vaccination: Yearly for ages 18mos through 64 years (or Modifier)([facility]) 06/25/2025 COVID-19 Vaccine Screening: Initial Series and Booster Status ([facility]) ( - 2023- season) 2025 Zoster/Shingles Vaccine Seri es Screening: Adults aged 18+ yrs (or HM Modifiers)([facility]) (1 of 2) 2040 Pneumococcal Vaccination Scr eening: Pts 0-19 & 19-49 yrs of age ([facility]) Aged Out No longer eligible b ased on patient's age to complete this topic Medical Devices Not on [place] [place] [address] [employer] Care Teams Sap Specialist Relationship Specialty Start Date End Date Joanie Chery DO [address] [place] [address] PCP - General Family Medicine 08/24/19
== END 2025-08-30 10:51 | disposition home or self-care (01) ==
LOC: HO.HMCFM 10:03
PROVIDERS: PCP Family Medicine; Visit Provider Nurse Practitioner Family
DX: Z00.00 Encounter for general adult medical examination without abnormal findings (principal); E78.00 Pure hypercholesterolemia, unspecified; R79.89 Other specified abnormal findings of blood chemistry; R74.8 Abnormal levels of other serum enzymes; D22.9 Melanocytic nevi, unspecified; J34.89 Other specified disorders of nose and nasal sinuses; Z87.09 Personal history of other diseases of the respiratory system; Z90.2 Acquired absence of lung [part of]; F12.90 Cannabis use, unspecified, uncomplicated; B35.1 Tinea unguium; Z13.79 Encounter for other screening for genetic and chromosomal anomalies; F41.8 Other specified anxiety disorders

== ENCOUNTER → 2025-08-30 10:02 | Outpatient (BNVA) | payer OTHER, SELFPAY | PROVIDERS: PCP Family Medicine; Visit Provider Nurse Practitioner Family | DX: Z00.00 Encounter for general adult medical examination without abnormal findings (principal); I10 Essential (primary) hypertension; F41.9 Anxiety disorder, unspecified; F32.9 Major depressive disorder, single episode, unspecified; F90.2 Attention-deficit hyperactivity disorder, combined type; G89.29 Other chronic pain; D22.9 Melanocytic nevi, unspecified; E78.00 Pure hypercholesterolemia, unspecified; R79.89 Other specified abnormal findings of blood chemistry; R74.8 Abnormal levels of other serum enzymes; J34.89 Other specified disorders of nose and nasal sinuses; F12.90 Cannabis use, unspecified, uncomplicated; B35.1 Tinea unguium; F41.8 Other specified anxiety disorders; M25.50 Pain in unspecified joint; Z87.09 Personal history of other diseases of the respiratory system; Z90.2 Acquired absence of lung [part of] | CPT/HCPCS: 96127; 99212; 99395 ==

== ENCOUNTER 2025-09-28 14:10 | Outpatient (AMB) | payer OTHER, SELFPAY ==
--- NOTE | 2025-09-28 14:44 | A.OFFVIS_ITS ---
Vital Signs 09/28/25 14:45 Height 5 ft 7 in Weight 164 lb BMI 25.7 Intake Visit Reasons: Tinea Unguim Intake Note: Tori is a 35 year old female who presents as a new patient for an evaluation of her bilateral tinea unguium. Patient reports this has been an ongoing issue for about 6-8 years. She has tried ciclopirox in the past and home remedies and has found no relief for her symptoms. Patient mentions she has occasional pain on her toes affected with the fungus and she notices her left hallux pain is worse then others Allergies No Known Allergies Allergy (Verified 08/30/25 10:08) HPI Comments Details: The patient is a 35-year-old female with a past medical history as seen below presenting with chronic toenail changes and chronic pain syndrome. She noticed changes to the toenails bilaterally for six to eight years with occasional pain due to thickening of the nail, worse to the left hallucal nail. The patient has attempted various treatments, including topical ciclopirox and tea tree oil, with no significant improvement in symptoms. The patient also reports chronic body pain, which has been ongoing since her early 20s, diagnosed as chronic pain syndrome after testing revealed no specific cause. She experiences pain in multiple joints, including ankles and knees, and plans to see a tissue specialist in November for further evaluation. She denies any new pedal injuries. She denies any other pedal concerns. 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) History of appendectomy Social History Household Members: Significant Other Housing: House Do you presently have visiting nurse or other home services: No Comment: refuses bed alarm Patient Tobacco Use Status: Former Tobacco user Tobacco use type: Cigarette Years Smoked: 14 e-Cigarette/Vaping Use: Never Used Second Hand Smoke Exposure: No Substance Use Type: Marijuana service: No Current occupational status: employed Current occupation: [employer] Cognitive needs: No Hearing needs: No Vision needs: No Review of Systems Const Details: - Musculoskeletal: Reports chronic pain in multiple joints including ankles and knees. Denies any recent trauma or injury. - Integumentary: Reports thickening and discoloration and occasional pain in toenails, particularly the left hallux. Denies pus, drainage, or bleeding. All systems reviewed & are unremarkable except as noted in HPI and below Physical Exam Vital Signs: BMI result Body Mass Index 25.7 Extrem Other: Bilateral lower extremity focused physical exam: Derm: Thickened, discolored, dystrophic toenails times 10 with subungual debris noted. Toenails noted to be of normal length at this time. No open lesions abrasions or wounds noted. No discoloration or ecchymosis noted. No clinical signs of infection. No maceration noted. Vascular: DP/PT pulses palpable. Capillary refill time less than 3 seconds. Temperature gradient warm to warm. Pedal hair absent. No edema noted. No varicosities noted. Neuro: Protective sensation is grossly intact. MSK: Range of motion of forefoot hindfoot and ankles painful without crepitus. No significant pain on palpation to the lower extremities. No fluctuance noted. Mild hammertoe deformities noted. Nonantalgic gait unassisted noted. Results Reviewed Results Reviewed: Laboratory Tests 04/20/25 08:14 AST 16 ALT 9 Assessment & Plan Assessment & Plan (1) Nail disorder: Code(s): L60.9 - Nail disorder, unspecified Category: Medical (2) Nail dystrophy: Code(s): L60.3 - Nail dystrophy Category: Medical (3) Tinea unguium: Code(s): B35.1 - Tinea unguium Category: Medical (4) Chronic joint pain: Code(s): M25.50 - Pain in unspecified joint; G89.29 - Other chronic pain Category: Medical (5) Arthralgia: Code(s): M25.50 - Pain in unspecified joint Category: Medical Plan Patient was informed and verbally consented to the use of an ambient scribe for clinic note documentation during this visit. I discussed the treatment options for onychomycosis, including the use of oral terbinafine and the need for regular liver function monitoring due to potential side effects. Provided patient with timeline of recovery for fungal nails. - Prescribed oral terbinafine to be taken daily. - Ordered blood work including LFTs for continued use of terbinafine, rheumatoid factor, BRITNEY, ESR, CRP, CCP for arthralgia. - Patient is to keep the feet and shoes and socks clean and dry. - Patient is to avoid barefoot walking as to wear supportive shoe gear. RTC in 1 month. Orders: Orders Complete Blood Count Auto Diff Today B35.1 - Tinea unguium, M25.50 - Pain in unspecified joint Rheumatoid Factor Today G89.29 - Other chronic pain, M25.50 - Pain in unspecified joint Cyclic Citrullinated Peptide Today G89.29 - Other chronic pain, M25.50 - Pain in unspecified joint CRP High Sensitivity Today G89.29 - Other chronic pain, M25.50 - Pain in unspecified joint Comprehensive Met. Panel Today B35.1 - Tinea unguium, M25.50 - Pain in unspecified joint Erythrocyte Sedimentation Rate Today G89.29 - Other chronic pain, M25.50 - Pain in unspecified joint BRITNEY Reflex Titer and Pattern Today G89.29 - Other chronic pain, M25.50 - Pain in unspecified joint Medications: New terbinafine HCl 250 mg PO DAILY 30 tabs 0RF B35.1 - Tinea unguium, L60.3 - Nail dystrophy, L60.9 - Nail disorder, unspecified Coding Level of Care Code New Pt Level 4 (32501) Diagnoses Nail disorder L60.9 Nail dystrophy L60.3 Tinea unguium B35.1 Chronic joint pain M25.50; G89.29 Arthralgia M25.50 Time Spent (min) 46
[2025-09-28 14:45] VITALS: BMI 25.7
--- OUTSIDE RECORDS SUMMARY | 2025-09-28 17:11 | XMS_ITS | Clinical Summary ---
Author Organization [facility] Address [address] [place] [address] Phone Care Team Providers Care Neuro Ophthalmologist Name Role Phone Jason Perez MD Primary Care Provider [phone] Encounters Date Type Department Care Team Description 08/24/2025 7:27 AM EDT - 08/24/2025 11:59 PM EDT Hospital Encounter [facility] Ultrasound [address] [place] [phone] Breast mass Discharge Disposition: Home or Self Care 08/03/2025 Lab Requisition [facility] Lab [address] [place] [phone] Jason Mcknight MD Encounter for gynecological examination (general) (routine) without abnormal findings 08/02/2025 Lab Requisition [facility] Lab [address] [place] [phone] [facility] Roxanna Jose & Araceli Ob-Desktop Technician Encounter for screening for infections with a [...] Info) Description 02/15/2026 10:00 AM EDT Appointment [facility] Ultrasound [address] [place] [phone] Health Maintenance Due Date Last Done Comments [...] breasts in 6 months is recommended. Code 25586 -------- FINAL REPORT -------- Dictated By: Darrell Grewal Dictated Date: 08/24/2025 08:02 ET Assigned Physician: Darrell Grewal Reviewed and Electronically Signed By: Darrell Grewal Signed Date: 08/24/2025 08:14 ET Workstation ID: [id number] Transcribed By: Self Edit Transcribed Date: 08/24/2025 [...] both breasts in6 months is recommended. Code 92447 -------- FINAL REPORT -------- Dictated By: Darrell Grewal Dictated Date: 08/24/2025 08:02 ET Assigned Physician: Darrell Grewal Reviewed and Electronically Signed By: Darrell Grewal Signed Date: 08/24/2025 08:14 ET Workstation ID: [id number] Transcribed By: Self Edit Transcribed Date: 08/24/2025 08:02 ET Jason Mcknight MD [facility] PROCEDURES Final Result * (ABNORMAL) Pap smear (08/02/2025 12:00 PM EDT) Interpretation Atypical squamous cells of undetermined significance(A) 08/19/2025 4:47 PM EDT [facility] General Categorization Epithelial cell abnormality, see interpretation 08/19/2025 4:47 PM EDT [facility] Other Findings Shift in caterina suggestive of bacterial vaginosis 08/19/2025 4:47 PM EDT [facility] LMP 07/22/2025 08/19/2025 4:47 PM EDT [facility] Specimen Adequacy Satisfactory for evaluation, endocervical/tra nsformation zone component present 08/19/2025 4:47 PM EDT [facility] Pap Methodology Liquid Based Pap Test 08/19/2025 4:47 PM EDT [facility] Disclaimer The Pap test is a screening test which carries an inherent false negative rate. These test results should be correlated with the patient's clinical findings and history. This Pap test was processed using an automated screening system. Technical cytopathology services provided by [facility], at [address] [place] [address], [place] [address] (CLIA # [id number]/Marly Gonsales MD, Gas Line Repairer.) 08/19/2025 4:47 PM EDT [facility] Console Pap Interpretation Reported 08/19/2025 4:47 PM EDT [facility] Brushing/Spatula Cervix uteri structure / Unknown 08/02/2025 12:00 PM EDT 08/03/2025 5:39 AM EDT us Jason Mcknight MD LAB CYTOLOGY ORDERABLES Final Result Performing Organization Address City/[facility]/ZIP Co de Phone Number [facility] [address] [place] [address], [place] [phone] * HPV with reflex genotype (08/02/2025 12:00 AM EDT) HPV Negative Negative LAB MICROBIOLOGY METHOD 08/17/2025 11:37 AM EDT [facility] Brushing/Spatula Cervix uteri structure / Unknown 08/02/2025 08/03/2025 5:39 AM EDT Jason Mcknight MD LAB MOLECULAR DIAGNOSTICS ORDE RABLES Final Result Performing Organization Address City/[facility]/ZIP Co de Phone Number [facility] [address] [place] [address], [place] [phone] * (ABNORMAL) Vaginitis pathogens molecular study (08/02/2025 12:00 AM EDT) Trichomonas vaginalis Negative Negative 08/03/2025 11:26 AM EDT [facility] Gardnerella vaginalis Positive(A) Negative 08/03/2025 11:26 AM EDT [facility] Valentina Species Negative Negative 11:26 AM EDT [facility] Swab Vaginal structure / Unknown 08/02/2025 08/02/2025 6:19 PM EDT us Roxanna Inman & Araceli O b-Desktop Technician [facility] Jose LAB MICROBIOLOGY - GENERAL ORDERABLES Final Result [facility] [address] [place] [address], * Chlamydia trachomatis and Neisseria gonorrhoeae molecular study (08/02/2025 12:00 AM EDT) Neisseria gonorrhoeae PCR Negative Negative LAB MOLECULAR DIAGNOSTICS METHOD 08/03/2025 10:33 AM EDT [facility] Chlamydia trachomatis PCR Negative Negative LAB MOLECULAR DIAGNOSTICS METHOD 08/03/2025 10:33 AM EDT [facility] Swab Cervix uteri structure / Unknown 08/02/2025 08/02/2025 6:19 PM EDT us Mcknight Costs & Basilio-Breanne O b-Desktop Technician [facility] Jose LAB MICROBIOLOGY - GENERAL ORDERABLES Final Result [facility] [address] [place] [address], [place] [phone] from Last 3 Months Insurance [facility] [employer] Care Teams Neuro Ophthalmologist Relationship Specialty Start Date End Date Jason Perez MD [address] [place] [address] Dr Jacob [place] PCP - General Family Medicine 08/24/25
--- OUTSIDE RECORDS SUMMARY | 2025-09-28 17:11 | XMS_ITS | Encounter Summary ---
[facility] Organization [facility] Address [address] [place] [address] Care Team Providers Care Bluing Oven Tender Name Role Phone Jason Perez MD Primary Care Provider [phone] Encounter Details Date Type Department Care Team (Latest Contact Info) Description 08/02/[address] [facility] Lab [address] [place] [phone] sp Roxanna Jose & BasilioJensen Ob-Group Reservations Coordinator Encounter for screening for infections with a [...] Info) Description 02/15/2026 10:00 AM EDT Appointment [facility] Ultrasound [address] [place] [phone] documented as of this encounter Procedures Procedure [...] molecular study (08/02/2025 12:00 AM EDT) Pathologist [facility] Trichomonas vaginalis Negative Negative 08/03/2025 11:26 AM EDT [facility] Gardnerella vaginalis Positive(A) Negative 08/03/2025 11:26 AM EDT [facility] Valentina Species Negative Negative 11:26 AM EDT [facility] Swab Vaginal structure / Unknown 08/02/2025 08/02/2025 6:19 PM EDT us Mcknight Costs & Basilio-Breanne O b-Group Reservations Coordinator [facility] Jose LAB MICROBIOLOGY - GENERAL ORDERABLES Final Result Performing Organization Address City/[facility]/ZIP Co de Phone Number [facility] [address] [place] [address], [place] [phone] * Chlamydia trachomatis and Neisseria gonorrhoeae molecular study (08/02/2025 12:00 AM EDT) [facility] [address] Neisseria gonorrhoeae PCR Negative Negative LAB MOLECULAR DIAGNOSTICS METHOD 08/03/2025 10:33 AM EDT [facility] Chlamydia trachomatis PCR Negative Negative LAB MOLECULAR DIAGNOSTICS METHOD 08/03/2025 10:33 AM EDT [facility] Swab Cervix uteri structure / Unknown 08/02/2025 08/02/2025 6:19 PM EDT us Mcknight [employer] & Basilio-Breanne O b-Group Reservations Coordinator [facility] Jose LAB MICROBIOLOGY - GENERAL ORDERABLES Final Result [facility] [address] [place] [address], [place] [phone] documented in this encounter Visit Diagnoses Diagnosis Encounter for screening for infections with a predominantly sexual mode of transmission Acute vaginitis Unspecified vaginitis and vulvovaginitis documented in this encounter Care Teams Bluing Oven Tender Relationship Specialty Start Date End Date Jason Perez MD [address] [place] [address] Dr Jacob [place] PCP - General Family Medicine 08/24/25 documented as of this encounter
--- OUTSIDE RECORDS SUMMARY | 2025-09-28 17:11 | XMS_ITS | Patient Health Record ---
Author Organization [facility] Address [address] [place] [address] Care Team Providers Care Marine Service Manager Name Role Phone Ulises Chavarria Primary Care Provider [phone] REASON FOR REFERRAL No Information PLAN OF TREATMENT No Information Insurance Providers Payer Name Payer Address Payer Phone Subscriber Number Group Number Insured Name Patient Relationship to Insured Coverage Start Date Coverage End Date [facility] [address] [place] [address] [id number] Tori Nuñez Self - patient is the insured
--- OUTSIDE RECORDS SUMMARY | 2025-09-28 17:11 | XMS_ITS | Encounter Summary ---
[facility] Address [address] [place] [address] Care Team Providers Care Hand Embroiderer Name Role Phone Jason Perez MD Primary Care Provider [phone] Encounter Details Date Type Department Care Team (Latest Contact Info) Description 10/27/2024 Lab Requisition [facility] - Main Lab [address] [facility] [place] [phone] Jason Mcknight MD [address] [phone] Encounter for screening for infections with a [...] Info) Description 02/15/2026 10:00 AM EDT Appointment [facility] Ultrasound [address] [place] [phone] documented as of this encounter Procedures Procedure [...] vaginalis Negative Negative 10/28/2024 12:06 PM EST [facility] Gardnerella vaginalis Positive(A) Negative 10/28/2024 12:06 PM EST [facility] Valentina Species Negative Negative 12:06 PM [facility] Swab Vaginal structure / Unknown Non-blood Collection / Unknown 10/27/2024 10/27/2024 6:05 PM EST Jason Mcknight MD LAB MICROBIOLOGY - GENERAL ORD ERABLES Final Result [facility] [address] [place] [address], [place] [phone] * Chlamydia trachomatis and Neisseria gonorrhoeae molecular study (10/27/2024 12:00 AM EST) Neisseria gonorrhoeae PCR Negative Negative LAB MOLECULAR DIAGNOSTICS METHOD 10/28/2024 9:57 AM EST [facility] Chlamydia trachomatis PCR Negative Negative LAB MOLECULAR DIAGNOSTICS METHOD 10/28/2024 9:57 AM EST [facility] Swab Cervix uteri structure / Unknown Non-blood Collection / Unknown 10/27/2024 10/27/2024 6:05 PM EST Jason Mcknight MD LAB MICROBIOLOGY - GENERAL ORD ERABLES Final Result [facility] [address] [place] [address], [place] [phone] documented in this encounter Visit Diagnoses Diagnosis Encounter for screening for infections with a predominantly sexual mode of transmission Acute vaginitis Unspecified vaginitis and vulvovaginitis documented in this encounter Care Teams Hand Embroiderer Relationship Specialty Start Date End Date Jason Perez MD [address] [place] [address] Dr Jacob [place] PCP - General Family Medicine 08/24/25 documented as of this encounter
--- OUTSIDE RECORDS SUMMARY | 2025-09-28 17:11 | XMS_ITS | Encounter Summary ---
Author Organization [facility] Address [address] [place] [address] Care Team Providers Care Cake Press Operator Name Role Phone Jason Perez MD Primary Care Provider [phone] Encounter Details Date Type Department Care Team (Latest Contact Info) Description 08/03/2025 Lab Requisition [facility] - Main Lab [address] [facility] [place] [phone] Jason Mcknight MD [address] [phone] Encounter for gynecological examination (general) (routine) without [...] Description 02/15/2026 10:00 AM EDT Appointment [facility] Ultrasound [address] [place] [phone] documented as of this encounter Procedures Procedure [...] of undetermined significance(A) 08/19/2025 4:47 PM EDT [facility] General Categorization Epithelial cell abnormality, see interpretation 08/19/2025 4:47 PM EDT [facility] Other Findings Shift in caterina suggestive of bacterial vaginosis 08/19/2025 4:47 PM EDT [facility] LMP 07/22/2025 08/19/2025 4:47 PM EDT [facility] Specimen Adequacy Satisfactory for evaluation, endocervical/tra nsformation zone component present 08/19/2025 4:47 PM EDT [facility] Pap Methodology Liquid Based Pap Test 08/19/2025 4:47 PM EDT [facility] Disclaimer The Pap test is a screening test which carries an inherent false negative rate. These test results should be correlated with the patient's clinical findings and history. This Pap test was processed using an automated screening system. Technical cytopathology services provided by [facility], at [address] [place] [id number] (CLIA # [id number]/Marly Gonsales MD, Foreign Languages Department Chair.) 08/19/2025 4:47 PM EDT [facility] Console Pap Interpretation Reported 08/19/2025 4:47 PM EDT [facility] Brushing/Spatula Cervix uteri structure / Unknown 08/02/2025 12:00 PM EDT 08/03/2025 5:39 AM EDT Jason Mcknight MD LAB CYTOLOGY ORDERABLES Final Result [facility] [address] [place] [address], * HPV with reflex genotype (08/02/2025 12:00 AM EDT) HPV Negative Negative LAB MICROBIOLOGY METHOD 08/17/2025 11:37 AM EDT [facility] Brushing/Spatula Cervix uteri structure / Unknown 08/02/2025 08/03/2025 5:39 AM EDT us Jason Mcknight MD LAB MOLECULAR DIAGNOSTICS CATERINA GARY Final Result [facility] [address] [place] [address], documented in this encounter Visit Diagnoses Diagnosis Encounter for gynecological examination (general) (routine) without abnormal findings documented in this encounter Care Teams Cake Press Operator Relationship Specialty Start Date End Date Jason Perez MD [address] [place] [address] Dr Jacob [place] PCP - General Family Medicine 08/24/25 documented as of this encounter
== END 2025-09-28 15:07 | disposition home or self-care (01) ==
LOC: HO.HPODS 14:11
PROVIDERS: PCP Family Medicine; Visit Provider Student in an Organized Health Care Education/Training Program
DX: L60.9 Nail disorder, unspecified (principal); L60.3 Nail dystrophy; B35.1 Tinea unguium; M25.50 Pain in unspecified joint; G89.29 Other chronic pain
CPT/HCPCS: 99204

== ENCOUNTER → 2025-09-28 14:10 | Outpatient (BNVA) | payer OTHER, SELFPAY | PROVIDERS: PCP Family Medicine; Visit Provider Student in an Organized Health Care Education/Training Program | DX: B35.1 Tinea unguium (principal); L60.9 Nail disorder, unspecified; L60.3 Nail dystrophy; M25.50 Pain in unspecified joint; G89.29 Other chronic pain | CPT/HCPCS: 99202 ==

== ENCOUNTER 2025-10-26 10:31 | Outpatient (REF) | payer OTHER, SELFPAY ==
[2025-10-26 13:30] LABS: MANUAL DIFF FLAG NO
[2025-10-26 13:40] LABS: Hematocrit 44.6 % (37.0-47.0); Hemoglobin 14.4 g/dl (12.0-16.0); Imm Gran Abs Auto 0.02 X10*3/uL (0.00-0.03); Imm Gran Pct Auto 0.3 % (0.0-0.4); Lymphocytes Absolute Auto 2.1 X10*3/uL (1.2-4.9); Mean Corpuscular HGB Conc 32.3 g/dl (31.0-35.0); Mean Corpuscular Hemoglobin 29.6 pg (27.0-33.0); Mean Corpuscular Volume 91.8 fL (80.0-98.0); NRBC Abs Auto 0.000 X10*3/uL (0.0-0.012); NRBC Pct Auto 0.0 /100WBC (0.0-0.2); Platelet Count 332 X10*3/uL (160-400); Red Blood Count 4.86 X10*6/uL (4.20-5.50); White Blood Count 6.7 X10*3/uL (4.8-10.8)
[2025-10-26 13:47] LABS: Alanine Aminotransferase 14 U/L (0-31); Albumin Level 4.5 g/dL (3.5-5.0); Alkaline Phosphatase 43 U/L (39-117); Anion Gap 10 (12-20); Aspartate Amino Transferase 17 U/L (5-31); Blood Urea Nitrogen 8 mg/dL (9-16); Calcium 9.5 mg/dL (8.4-10.2); Carbon Dioxide 29 mmol/L (22-29); Chloride 106 mmol/L (96-108); Estimated Glomerular Filt Rate > 60; Potassium 4.9 mmol/L (3.3-5.1); Sodium 140 mmol/L (135-145); Total Protein 7.5 g/dL (6.5-8.0)
[2025-10-26 14:39] LABS: Erythrocyte Sedimentation Rate 7 MM/HR (0-20)
[2025-10-27 11:54] LABS: Anti Nuclear Antibody Screen NEGATIVE (NEGATIVE)
== END 2025-10-26 10:32 | disposition home or self-care (01) ==
LOC: HO.HKASLDS 10:31
PROVIDERS: PCP Family Medicine; Visit Provider Student in an Organized Health Care Education/Training Program
DX: B35.1 Tinea unguium (principal); B35.3 Tinea pedis; L30.9 Dermatitis, unspecified; L60.3 Nail dystrophy; M25.50 Pain in unspecified joint; G89.29 Other chronic pain
CPT/HCPCS: 36415; 80053; 85025; 85652; 86038; 86141; 86200; 86431; 99212

== ENCOUNTER 2025-10-26 10:31 | Outpatient (AMB) | payer OTHER, SELFPAY ==
--- NOTE | 2025-10-26 10:40 | MHC.OFFVIS ---
Vital Signs 10/26/25 10:53 Height 5 ft 7 in Weight 164 lb BMI 25.7 Intake Visit Reasons: f/u labs, fungal nails & arthralgia Intake Note: Tori is a 35 year old female who presents today for a follow up on her tinea unguium. At her last visit she was prescribed terbinafine and blood work where ordered. Patient reports she has not seen an improvement since her last visit and she did forget to get her labs done. Patient was informed since her labs had not been done we are unable to refill terbinafine at this time and she was informed that she can get her blood drawn today in office. Allergies No Known Allergies Allergy (Verified 10/26/25 10:54) HPI Comments Details: The patient is a 35 year old individual presenting for a follow-up visit for fungal nails. Patient did not obtain lab work prior to this visit. Patient states she has been taking the terbinafine daily. The patient reports a history of constipation but is unsure if it is a side effect of current medication or the patient's ADHD medication. The patient denies any associated nausea. Patient states she also noticed an itchy patch and flaking of the skin to the right foot. Patient states the area turns red and is more irritated when itching. She denies any new pedal injuries. She denies any other pedal concerns. 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) History of appendectomy Social History Household Members: Significant Other Housing: House Do you presently have visiting nurse or other home services: No Comment: refuses bed alarm Patient Tobacco Use Status: Former Tobacco user Tobacco use type: Cigarette Years Smoked: 14 e-Cigarette/Vaping Use: Never Used Second Hand Smoke Exposure: No Substance Use Type: Marijuana service: No Current occupational status: employed 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 Denies any recent trauma or injury. - Integumentary: Reports thickening and discoloration and occasional pain in toenails, particularly the left hallux. - Dermatological: Reports a dry, sometimes itchy rash on the right foot. - Gastrointestinal: Reports constipation. All systems reviewed & are unremarkable except as noted in HPI and below Physical Exam Vital Signs: BMI result Body Mass Index 25.7 Extrem Other: Bilateral lower extremity focused physical exam: Derm: Thickened, discolored, dystrophic toenails times 10 with subungual debris noted with minimal improvement. Toenails noted to be of normal length at this time. No open lesions abrasions or wounds noted. Minimal erythema noted to the dorsal aspect of the right foot with flaking of skin noted, area noted to be quarter-sized. No ecchymosis noted. No clinical signs of infection. No active purulence, drainage, or bleeding noted. No maceration noted. Vascular: DP/PT pulses palpable. Capillary refill time less than 3 seconds. Temperature gradient warm to warm. Pedal hair absent. No edema noted. No varicosities noted. Neuro: Protective sensation is grossly intact. MSK: Range of motion of forefoot hindfoot and ankles painful without crepitus. No significant pain on palpation to the lower extremities. No fluctuance noted. Mild hammertoe deformities noted. Nonantalgic gait unassisted noted. Results Reviewed Results Reviewed: Laboratory Tests 04/20/25 08:14 AST 16 ALT 9 Patient states she will obtain previously ordered labs today after this appointment. Assessment & Plan Assessment & Plan (1) Tinea pedis: Code(s): B35.3 - Tinea pedis Category: Medical (2) Dermatitis: Code(s): L30.9 - Dermatitis, unspecified Category: Medical (3) Nail disorder: Code(s): L60.9 - Nail disorder, unspecified Category: Medical (4) Nail dystrophy: Code(s): L60.3 - Nail dystrophy Category: Medical (5) Tinea unguium: Code(s): B35.1 - Tinea unguium Category: Medical (6) Chronic joint pain: Code(s): M25.50 - Pain in unspecified joint; G89.29 - Other chronic pain Category: Medical (7) Arthralgia: Code(s): M25.50 - Pain in unspecified joint Category: Medical Plan Patient was informed and verbally consented to the use of an ambient scribe for clinic note documentation during this visit. I have diagnosed the new rash on the patient's right foot as a mild case of athlete's foot (tinea pedis). I prescribed betamethasone-clotrimazole cream to address both the fungal infection and the associated redness and itching. I instructed the patient to apply it once or twice daily directly to the rash and explained that the flaking and discoloration should resolve with treatment. We discussed that the refill for terbinafine is contingent on the patient's pending lab results, specifically the liver function tests. If the results are within normal limits, I will send the refill; otherwise, I will call the patient to discuss. The patient was advised to complete the lab work today, which also includes a rheumatoid panel. A follow-up appointment was scheduled for one month. I discussed the treatment options for onychomycosis, including the use of oral terbinafine and the need for regular liver function monitoring due to potential side effects. Provided patient with timeline of recovery for fungal nails. - Refill of oral terbinafine pending lab results. - Prescribed betamethasone clotrimazole cream to be applied to the right foot. - patient is to obtain blood work today after appointment. - Patient is to keep the feet and shoes and socks clean and dry. - Patient is to avoid barefoot walking and is to wear supportive shoe gear. RTC in 1 month. Medications: New clotrimazole-betamethasone 1-0.05 % 1 appl topical BID 15 grams 0RF B35.3 - Tinea pedis, L30.9 - Dermatitis, unspecified Coding Level of Care Code Est Pt Level 3 (29241) Diagnoses Tinea pedis B35.3 Dermatitis L30.9 Nail disorder L60.9 Nail dystrophy L60.3 Tinea unguium B35.1 Chronic joint pain M25.50; G89.29 Arthralgia M25.50 Time Spent (min) 21
[2025-10-26 10:53] VITALS: BMI 25.7
--- OUTSIDE RECORDS SUMMARY | 2025-10-26 12:09 | XMS_ITS | Encounter Summary ---
Author Organization [facility] Address [address] [place] [address] Care Team Providers Care Imaging Specialist Name Role Phone Jason Perez MD Primary Care Provider [phone] Encounter Details Date Type Department Care Team (Latest Contact Info) Description 10/27/2024 Lab Requisition [facility] - Main Lab [address] [facility] [place] [phone] Jason Mcknight MD [address] [phone] Encounter for screening for infections with a [...] Info) Description 02/15/2026 10:00 AM EDT Appointment [facility] Ultrasound [address] [place] [phone] documented as of this encounter Procedures Procedure [...] vaginalis Negative Negative 10/28/2024 12:[address] [facility] Gardnerella vaginalis Positive(A) Negative 10/28/2024 12:[address] [facility] Valentina Species Negative Negative 12:06 PM [facility] Swab Vaginal structure / Unknown Non-blood Collection / Unknown 10/27/2024 10/27/2024 6:05 PM EST Jason Mcknight MD LAB MICROBIOLOGY - GENERAL ORD ERABLES Final Result [facility] [address] [place] [address], [place] [phone] * Chlamydia trachomatis and Neisseria gonorrhoeae molecular study (10/27/2024 12:00 AM EST) Neisseria gonorrhoeae PCR Negative Negative LAB MOLECULAR DIAGNOSTICS METHOD 10/28/2024 9:[address] [facility] Chlamydia trachomatis PCR Negative Negative LAB MOLECULAR DIAGNOSTICS METHOD 10/28/2024 9:[address] [facility] Swab Cervix uteri structure / Unknown Non-blood Collection / Unknown 10/27/2024 10/27/2024 6:05 PM EST Jason Mcknight MD LAB MICROBIOLOGY - GENERAL ORD ERABLES Final Result [facility] [address] [place] [address], [place] [phone] documented in this encounter Visit Diagnoses Diagnosis Encounter for screening for infections with a predominantly sexual mode of transmission Acute vaginitis Unspecified vaginitis and vulvovaginitis documented in this encounter Care Teams Imaging Specialist Relationship Specialty Start Date End Date Jason Perez MD [address] [place] [address] Dr Jacob [place] PCP - General Family Medicine 08/24/25 documented as of this encounter
--- OUTSIDE RECORDS SUMMARY | 2025-10-26 12:09 | XMS_ITS | Clinical Summary ---
Author Organization [facility] [place] [facility] Address [address] [place] [address] Phone Care Team Providers Care Senior Environmental Consultant Name Role Phone Jason Perez MD Primary Care Provider Encounters Date Type Department Care Team Description 08/24/2025 7:27 AM EDT - 08/24/2025 11:59 PM EDT Hospital Encounter [facility] Ultrasound [address] [place] [phone] Breast mass Discharge Disposition: Home or Self Care 08/03/2025 Lab Requisition [facility] Lab [address] [place] [phone] Jason Mcknight MD Encounter for gynecological examination (general) (routine) without abnormal findings 08/02/2025 Lab Requisition [facility] Lab [address] [place] [phone] [facility] Roxanna Jose & Araceli Ob-Airline Lounge Receptionist Encounter for screening for infections with a [...] Description 02/15/2026 10:00 AM EDT Appointment [facility] Ultrasound [address] [place] [phone] Health Maintenance Due Date Last Done Comments Hepatitis B Vaccines (4 of 4 - 4-dose series) 03/10/2002 03/26/2013, 11/10/2012, 09/23/2012, Additional history exists HIV Screening 06/26/2024 Hepatitis C Screening 06/26/2024 Social Influencers of Health Screening 06/26/2024 Depression Screening 11/25/2024 COVID-19 Vaccine ( season) 2025 Influenza Vaccine (#1) 2025 , [...] breasts in 6 months is recommended. Code 08991 -------- FINAL REPORT -------- Dictated By: Darrell Grewal Dictated Date: 08/24/2025 08:02 ET Assigned Physician: Darrell Grewal Reviewed and Electronically Signed By: Darrell Grewal Signed Date: 08/24/2025 08:14 ET Workstation ID: [id number] Transcribed By: Self Edit Transcribed Date: 08/24/2025 [...] both breasts in6 months is recommended. Code 21065 -------- FINAL REPORT -------- Dictated By: Darrell Grewal Dictated Date: 08/24/2025 08:02 ET Assigned Physician: Darrell Grewal Reviewed and Electronically Signed By: Darrell Grewal Signed Date: 08/24/2025 08:14 ET Workstation ID: [id number] Transcribed By: Self Edit Transcribed Date: 08/24/2025 08:02 ET Jason Mcknight MD [facility] PROCEDURES Final Result * (ABNORMAL) Pap smear (08/02/2025 12:00 PM EDT) Interpretation Atypical squamous cells of undetermined significance(A) 08/19/2025 4:47 PM EDT [facility] at 1647 EDT General Categorization Epithelial cell abnormality, see interpretation 08/19/2025 4:47 PM EDT [facility] Other Findings Shift in caterina suggestive of bacterial vaginosis 08/19/2025 4:47 PM EDT [facility] LMP 07/22/2025 08/19/2025 4:47 PM EDT [facility] Specimen Adequacy Satisfactory for evaluation, endocervical/tra nsformation zone component present 08/19/2025 4:47 PM EDT [facility] Pap Methodology Liquid Based Pap Test 08/19/2025 4:47 PM EDT [facility] Disclaimer The Pap test is a screening test which carries an inherent false negative rate. These test results should be correlated with the patient's clinical findings and history. This Pap test was processed using an automated screening system. Technical cytopathology services provided by [facility], at [address] [place] [address], [place] [address] (CLIA # [id number]/Marly Gonsales MD, Travelers' Aid Worker.) 08/19/2025 4:47 PM EDT [facility] Console Pap Interpretation Reported 08/19/2025 4:47 PM EDT [facility] Brushing/Spatula Cervix uteri structure / Unknown 08/02/2025 12:00 PM EDT 08/03/2025 5:39 AM EDT us Jason Mcknight MD LAB CYTOLOGY ORDERABLES Final Result Performing Organization Address City/[facility]/ZIP Co de Phone Number [facility] [address] [place] [address], [place] [phone] * HPV with reflex genotype (08/02/2025 12:00 AM EDT) HPV Negative Negative LAB MICROBIOLOGY METHOD 08/17/2025 11:37 AM EDT [facility] Brushing/Spatula Cervix uteri structure / Unknown 08/02/2025 08/03/2025 5:39 AM EDT Jason Mcknight MD LAB MOLECULAR DIAGNOSTICS ORDE RABLES Final Result Performing Organization Address City/[facility]/ZIP Co de Phone Number [facility] [address] [place] [address], [place] [phone] * (ABNORMAL) Vaginitis pathogens molecular study (08/02/2025 12:00 AM EDT) Trichomonas vaginalis Negative Negative 08/03/2025 11:26 AM EDT [facility] Gardnerella vaginalis Positive(A) Negative 08/03/2025 11:26 AM EDT [facility] Valentina Species Negative Negative 11:26 AM EDT [facility] Swab Vaginal structure / Unknown 08/02/2025 08/02/2025 6:19 PM EDT us Roxanna Inman & Araceli O b-Airline Lounge Receptionist [facility] Jose LAB MICROBIOLOGY - GENERAL ORDERABLES Final Result [facility] [address] [place] [address], * Chlamydia trachomatis and Neisseria gonorrhoeae molecular study (08/02/2025 12:00 AM EDT) Neisseria gonorrhoeae PCR Negative Negative LAB MOLECULAR DIAGNOSTICS METHOD 08/03/2025 10:33 AM EDT [facility] Chlamydia trachomatis PCR Negative Negative LAB MOLECULAR DIAGNOSTICS METHOD 08/03/2025 10:33 AM EDT [facility] Swab Cervix uteri structure / Unknown 08/02/2025 08/02/2025 6:19 PM EDT us Mcknight Costs & Basilio-Breanne O b-Airline Lounge Receptionist [facility] Jose LAB MICROBIOLOGY - GENERAL ORDERABLES Final Result [facility] [address] [place] [address], [place] [phone] from Last 3 Months Insurance [facility] [employer] Care Teams Senior Environmental Consultant Relationship Specialty Start Date End Date Jason Perez MD [address] [place] [address] Dr Jacob [place] PCP - General Family Medicine 08/24/25
--- OUTSIDE RECORDS SUMMARY | 2025-10-26 12:09 | XMS_ITS | Encounter Summary ---
Author Organization [facility] Address [address] [place] [address] Care Team Providers Care Credit Verification Clerk Name Role Phone Jason Perez MD Primary Care Provider [phone] Encounter Details Date Type Department Care Team (Latest Contact Info) Description 08/03/2025 Lab Requisition [facility] - Main Lab 299 [facility] [place] [phone] Jason Mcknight MD [address] [phone] Encounter for gynecological examination (general) (routine) without [...] Info) Description 02/15/2026 10:00 AM EDT Appointment [facility] Ultrasound [address] [place] [phone] documented as of this encounter Procedures Procedure [...] of undetermined significance(A) 08/19/2025 4:47 PM EDT [facility] at 1647 EDT General Categorization Epithelial cell abnormality, see interpretation 08/19/2025 4:47 PM EDT [facility] Other Findings Shift in caterina suggestive of bacterial vaginosis 08/19/2025 4:47 PM EDT [facility] LMP 07/22/2025 08/19/2025 4:47 PM EDT [facility] Specimen Adequacy Satisfactory for evaluation, endocervical/tra nsformation zone component present 08/19/2025 4:47 PM EDT [facility] Pap Methodology Liquid Based Pap Test 08/19/2025 4:47 PM EDT [facility] Disclaimer The Pap test is a screening test which carries an inherent false negative rate. These test results should be correlated with the patient's clinical findings and history. This Pap test was processed using an automated screening system. Technical cytopathology services provided by [facility], at [address] [place] [address] (CLIA # [id number]/Marly Gonsales MD, Associate Financial Advisor.) 08/19/2025 4:47 PM EDT [facility] Console Pap Interpretation Reported 08/19/2025 4:47 PM EDT [facility] Brushing/Spatula Cervix uteri structure / Unknown 08/02/2025 12:00 PM EDT 08/03/2025 5:39 AM EDT Jason Mcknight MD LAB CYTOLOGY ORDERABLES Final Result [facility] [address] [place] [address], * HPV with reflex genotype (08/02/2025 12:00 AM EDT) HPV Negative Negative LAB MICROBIOLOGY METHOD 08/17/2025 11:37 AM EDT [facility] Brushing/Spatula Cervix uteri structure / Unknown 08/02/2025 08/03/2025 5:39 AM EDT us Jason Mcknight MD LAB MOLECULAR DIAGNOSTICS CATERINA GARY Final Result [facility] [address] [place] [address], documented in this encounter Visit Diagnoses Diagnosis Encounter for gynecological examination (general) (routine) without abnormal findings documented in this encounter Care Teams Credit Verification Clerk Relationship Specialty Start Date End Date Jason Perez MD [address] [place] [address] Dr Jacob [place] PCP - General Family Medicine 08/24/25 documented as of this encounter
--- OUTSIDE RECORDS SUMMARY | 2025-10-26 12:09 | XMS_ITS | Clinical Summary ---
Author Organization [employer] [facility] [employer] Address [address] [facility] [place] [address] Care Team Providers Care Customer Service Security Officer Name Role Phone Joanie Chery Primary Care Provider + Allergies No known active allergies Medications cloNIDine HCl (CATAPRES) 0.1 MG tablet Take 1 tablet by mouth twice a day as needed for anxiety 60 tablet 2 08/24/20 19 Active DULoxetine (CYMBALTA) 60 MG capsule Take 1 capsule (60 mg total) by mouth daily. 30 capsule 2 08/24/20 19 Active Xulane 150-35 mcg/[address] 1 PATCH ON SKIN 1 TIME PER WEEK. CHANGE PATCH WEEKLY,USE HORMONES CONTINUOUSLY WITHOUT BREAKS. 12/16/19 24 Active clonazePAM (KlonoPIN) 0.5 MG tablet 08/16/20 25 Active metroNIDAZOLE (METROGEL) 0.75 % (37.5mg/5 gram) vaginal gel INSERT 1 APPLICATORFUL VAGINALLY ONCE WEEKLY 09/23/20 25 Active terbinafine HCL (LamiSIL) 250 mg tablet TAKE ONE TABLET BY MOUTH DAILY 09/28/20 25 Active zinc gluconate 50 mg tablet TAKE 1 TABLET BY MOUTH EVERY DAY 08/30/20 25 Active methadone (DOLOPHINE) 10 mg/5 mL solution Take by mouth every 6 (six) hours as needed for moderate pain. Discontinu ed(Therapy completed) gabapentin (NEURONTIN) 300 MG capsule Take 1 capsule (300 mg total) by mouth 2 (two) times a day. 60 capsule 2 08/24/20 19 Discontinu ed(Therapy completed) aripiprazole (ABILIFY) 2 MG tablet 03/09/20 24 Discontinu ed(Therapy completed) doxycycline (VIBRA-TABS) 100 MG tablet TAKE 1 TABLET BY MOUTH TWICE A DAY 03/13/20 24 Discontinu ed(Therapy completed) fluconazole (DIFLUCAN) 150 MG tablet TAKE 1 TABLET BY MOUTH EVERY 72 HOURS 03/13/20 24 Discontinu ed(Therapy completed) HYDROcodone-ac etaminophen (NORCO) 5-325 mg tablet TAKE 1 TABLET BY MOUTH EVERY 4 TO 6 HOURS NEEDED FOR PAIN 12/24/19 24 Discontinu ed(Therapy completed) HYDROcodone-ac etaminophen (NORCO) 7.5-325 mg tablet TAKE 1 TABLET BY MOUTH EVERY 8 HOURS NEEDED FOR PAIN 12/16/19 Discontinu ed(Therapy completed) lisinopriL (PRINIVIL) 5 MG tablet TAKE 1 TABLET BY MOUTH EVERY DAY FOR 90 DAYS 01/16/20 Discontinu ed(Therapy completed) gabapentin (NEURONTIN) 100 MG capsule TAKE 2 CAPSULES BY MOUTH TWICE A DAY 01/16/20 24 Discontinu ed(Therapy completed) lorazepam (ATIVAN) 0.5 MG tablet 03/06/20 Discontinu ed(Therapy completed) acetaminophen (TYLENOL) 325 mg cap Take 1-2 capsules by mouth 4 (four) times a day for 7 days Max 12 capsules in 24 hours. 10/02/20 Encounters Date Type Department Care Team Description 10/02/2025 2:40 PM EST Office Visit [facility] [address] [place], [place] [id number] Deepika Barnes NP Acute pharyngitis, unspecified etiology (Primary Dx) from Last 3 Months Social History Tobacco Use Types Packs/Day Years Used Date Smoking Tobacco: Former Cigarettes 0 Q uit: 2023 Smokeless Tobacco: Never Tobacco Cessation:Counseling Given: Not Answered Comments:counseled her to stop Comments No Sex and Gender Information Value Date Recorded Sex Assigned at Not on file Legal Sex Female 12:38 PM EDT Gender Identity Not on file Sexual Orientation Not on file Last Filed Vital Signs Vital Sign Reading Time Taken Comments Blood Pressure 130/90 10/02/2025 2:51 PM EST Pulse 95 10/02/2025 2:44 PM EST Temperature 36.4 C (97.5 F) 10/02/2025 2:44 PM EST Respiratory Rate 14 10/02/2025 2:44 PM EST Oxygen Saturation 99% 10/02/2025 2:44 PM EST Inhaled Oxygen Concentration - - Weight 74.8 kg (165 lb) 10/02/2025 2:44 PM EST Height 170.2 cm (5' 7 ) 10/02/2025 2:44 PM EST Body Mass Index 25.84 10/02/2025 2:44 PM EST Plan of Treatment Health Maintenance Due Date Last Done Comments DTaP/Tdap/Td Vaccines ([facility]) (6 - Tdap) 07/15/2002 07/14/2002, 04/18/1995, 09/25/1991, Additional history exists Depression: Screening Annually using PHQ-2/9 in Adults 18 yrs or above (or HM Modifier)([facility] ) 2008 Hepatitis C Virus Infection in Adolescents and Adults: Screening (or Modifier) (CVS ) 2008 SDNE Screening Reminder: Annually for all adults (CVS ) 2008 Cervical Cancer: hrHPV alone or with cotesting Pap for Pts 30-65yrs screening every 5yrs (CVS ) 2011 Flu Vaccination: Yearly for ages 18mos through 64 years (or Modifier)(CVS ) 06/25/2025 COVID-19 Vaccine Screening: Initial Series and Booster Status ([facility]) ( season) 2025 Cervical Cancer Screenin-65 yrs of age (or Modifier) 08/02/2028 Cervical Cancer Screening: Pap every 3 yrs pts age 21-65 08/02/2028 08/02/2025 Cervical Cancer: Pap Screening with Modifier timing ([facility] ) 08/02/2028 08/02/2025 Zoster/Shingles Vaccine Series Screening: Adults aged 18+ yrs (or HM Modifiers)(CVS ) (1 of 2) 2040 Pneumococcal Vaccination Screening: Pts 0-19 & 19-49 yrs of age (CVS ) Aged Out No longer eligible based on patient's age to complete this topic Medical Devices Not on file Procedures Procedure Name Priority Date/Time Associated Diagnosis Comments STREP MOLECULAR POCT Routine 10/02/2025 2:58 PM EST Acute pharyngitis, unspecified etiology from Last 3 Months Results * Strep Molecular POCT (10/02/2025 2:58 PM EST) POC MOLECULAR STREP A Negative Negative, Invalid, Not Tested, ERRONEOUS MART[employer]Z [id number] INTERNAL CONTROLS VALID Yes--Test working appropriately MARTINEZ [id number] Expiration Date 03/04/2027 MARTINEZ [id number] Lot Number [id number] MARTINEZ [id number] TEST BRAND NAME_ STREP MOLECULAR ID Now Strep MARITNEZ [id number] Throat 10/02/2025 2:58 PM EST us Deepika Barnes NP POINT OF CARE TEST ORDERABLES Final Result [employer] [id number] [address] [place] [address], from Last 3 Months Insurance [facility] [employer] Care Teams Customer Service Security Officer Relationship Specialty Start Date End Date Joanie Chery DO [address] [place] [address] PCP - General Family Medicine 08/24/19
--- OUTSIDE RECORDS SUMMARY | 2025-10-26 12:10 | XMS_ITS | Encounter Summary ---
Author Organization [facility] Address [address] [place] [address] Care Team Providers Care Project Economist Name Role Phone Jason Perez MD Primary Care Provider [phone] Encounter Details Date Type Department Care Team (Latest Contact Info) Description 08/02/2025 Lab Requisition [facility] - Main Lab [address] [facility] [id number] sp Roxanna Jose & BasilioJensen Ob-Caramel Candy Maker Helper Encounter for screening for infections with a [...] Info) Description 02/15/2026 10:00 AM EDT Appointment [facility] Ultrasound [address] [place] [phone] documented as of this encounter Procedures Procedure [...] study (08/02/2025 12:00 AM EDT) Pathologist [facility] [place] Trichomonas vaginalis Negative Negative 08/03/2025 11:26 AM EDT [facility] Gardnerella vaginalis Positive(A) Negative 08/03/2025 11:26 AM EDT [facility] Valentina Species Negative Negative 11:26 AM EDT [facility] Swab Vaginal structure / Unknown 08/02/2025 08/02/2025 6:19 PM EDT us [facility] [employer] & Basilio-Breanne O b-Caramel Candy Maker Helper [facility] LAB MICROBIOLOGY - GENERAL ORDERABLES Final Result Performing Organization Address City/[facility]/ZIP Co de Phone Number [facility] [address] [place] [address], [place] [phone] * Chlamydia trachomatis and Neisseria gonorrhoeae molecular study (08/02/2025 12:00 AM EDT) [facility] Neisseria gonorrhoeae PCR Negative Negative LAB MOLECULAR DIAGNOSTICS METHOD 08/03/2025 10:33 AM EDT [facility] Chlamydia trachomatis PCR Negative Negative LAB MOLECULAR DIAGNOSTICS METHOD 08/03/2025 10:33 AM EDT [facility] Swab Cervix uteri structure / Unknown 08/02/2025 08/02/2025 6:19 PM EDT us Mcknight [employer] & Basilio-Breanne O b-Caramel Candy Maker Helper [facility] LAB MICROBIOLOGY - GENERAL ORDERABLES Final Result [facility] [address] [place] [address], [place] [phone] documented in this encounter Visit Diagnoses Diagnosis Encounter for screening for infections with a predominantly sexual mode of transmission Acute vaginitis Unspecified vaginitis and vulvovaginitis documented in this encounter Care Teams Project Economist Relationship Specialty Start Date End Date Jason Perez MD [address] [place] [address] Dr Jacob MA PCP - General Family Medicine 08/24/25 documented as of this encounter
== END 2025-10-26 10:57 | disposition home or self-care (01) ==
LOC: HO.HPODS 10:32
PROVIDERS: PCP Family Medicine; Visit Provider Student in an Organized Health Care Education/Training Program
DX: B35.3 Tinea pedis (principal); L30.9 Dermatitis, unspecified; L60.9 Nail disorder, unspecified; L60.3 Nail dystrophy; B35.1 Tinea unguium; M25.50 Pain in unspecified joint; G89.29 Other chronic pain
CPT/HCPCS: 99213